=== PATIENT | male | born 1965 | race Caucasian/White ===

== ENCOUNTER 2020-03-05 14:17 | Outpatient (REF) | payer OTHER, SELFPAY | END 2020-03-05 14:18 | disposition home or self-care (01) | LOC: HO.LAB 14:17 | PROVIDERS: Visit Provider Internal Medicine | DX: Z20.828 Contact with and (suspected) exposure to other viral communicable diseases (principal) | CPT/HCPCS: C9803; U0003 ==

== ENCOUNTER → 2021-02-27 09:48 | Outpatient (BNVA) | payer SELFPAY | PROVIDERS: PCP Internal Medicine; Visit Provider Physician Assistant | DX: Z02.79 Encounter for issue of other medical certificate (principal) ==

== ENCOUNTER 2023-01-09 12:37 | Outpatient (AMB) | payer OTHER, SELFPAY ==
--- NOTE | 2023-01-09 13:22 | MHC.OFFWIV ---
Intake Vital Signs 01/09/23 13:23 Weight 234 lb BP 120/70 Blood Pressure Location Rt brachial Position Sitting Pulse 72 Pulse Source Pulse Oximeter Pulse Oximetry (%) 98 Oxygen Delivery Method Room Air Intake Visit Reasons: EST/left rib pain from fall Intake Note: Patient here because he tripped on a rock yesterday and fell on his left side, now left leg is sore and ribs hurt. Patient Tobacco Use Status: Never used Tobacco Allergies No Known Allergies Allergy (Mild, Verified 01/09/23 13:24) NONE Do you need a note to return to daycare/school/sports/work: No HPI HPI Comments History of Present Illness Details This is a 57-year-old male who presents to the office today for sick visit. Patient complaining of left-sided rib pain x1 day. patient states he has chronic left-sided weakness due to a prior injury. e was walking around outside yesterday and tripped on his left foot causing him to fall onto a rock on his left side. Patient has been complaining of left-sided rib pain since then. He denies any shortness of breath. He is otherwise feeling well and denies any other injury. [facility] Family History Mother No problems noted. Father No problems noted. Social History Housing: House Patient Tobacco Use Status: Never used Tobacco e-Cigarette/Vaping Use: Never Used Second Hand Smoke Exposure: No service: No Current occupational status: employed Cognitive needs: No Hearing needs: No Vision needs: No Review of Systems Const All systems reviewed & are unremarkable except as noted in HPI and below Reports no additional complaints Eyes Reports no additional complaints ENT Reports no additional complaints Card Reports no additional complaints Resp Reports no additional complaints GI Reports no additional complaints Reports no additional complaints Musc Reports no additional complaints Skin/Breast Reports system reviewed and no additional complaints, except as documented Neuro Reports no additional complaints Psych Reports no additional complaints Endo Reports no additional complaints Jag/Lymph Reports no additional complaints Aller/Immun Reports no additional complaints Physical Exam Vital Signs: Last Vital Signs Pulse 72 01/09/23 13:23 BP 120/70 01/09/23 13:23 Pulse Ox 98 01/09/23 13:23 Oxygen Delivery Method Room Air 01/09/23 13:23 Const Other: Vital signs reviewed. Constitutional: Non-toxic appearing. No acute distress. Well-developed and well-nourished. HEENT: Normocephalic and atraumatic. Tympanic membranes without erythema, edema, or bulging bilaterally. External auditory canals without erythema or edema bilaterally. Moist mucous membranes. No pharyngeal erythema or exudates. Skin: Warm and dry. No rashes or lesions noted. Neck: Full and painless range of motion. No cervical lymphadenopathy. Cardio: Regular rate and rhythm. No murmurs, gallops, or rubs. No lower extremity edema. No JVD. Pulmonary: No respiratory distress. No accessory muscle usage. Clear to auscultation bilaterally without wheezing, crackles, or rhonchi. Gastrointestinal: Soft, nontender, and nondistended in all 4 quadrants. Normoactive bowel sounds in all 4 quadrants. Genitourinary: No CVA tenderness. Musculoskeletal: Normal range of motion in joints throughout the body. Tenderness to palpation of the left anterior ribs. No ecchymosis appreciated. Neuro: Alert and oriented x4. Cranial nerves 2-12 grossly intact. No focal deficits appreciated. Psych: Normal mood and affect. Assessment & Plan Assessment & Plan (1) Rib pain on left side: Code(s): R07.81 - Pleurodynia Plan: This is a 57-year-old male complaining of pain of his left ribs following a fall that occurred yesterday. Check x-ray of the left ribs and chest x-ray to evaluate for rib fracture. Other differential diagnosis includes contusion of the left ribs. Regardless, management remains the same. Continue with symptomatic management including rest/activity modification, ice to the area, and acetaminophen/ibuprofen for pain management as long as patient has no medical contraindications. 5% lidocaine patch daily. Patient has an incentive spirometer at home. He was instructed on the importance of pulmonary toileting and deep breathing to avoid atelectasis and pneumonia. He was also educated on splinting the area with coughing, sneezing, sleeping, etc.. Patient was advised to follow-up here proceed to the emergency room if for developed worsening/persistent symptoms. Patient verbalized understanding and is agreeable with the plan. Orders: Orders XR ribs LT min 3V w CXR1V Today R07.81 - Pleurodynia Medications: New lidocaine 5% leave on most painful area for up to 12 hrs 1 patch topical DAILY 15 ea 0RF Coding Level of Care Code Est Pt Level 3 (98790) Diagnoses Rib pain on left side R07.81
[2023-01-09 13:23] VITALS: BP 120/70; PULSE 72; O2SAT 98
== END 2023-01-09 14:08 | disposition home or self-care (01) ==
PROVIDERS: PCP Internal Medicine; Visit Provider Physician Assistant Medical
DX: R07.81 Pleurodynia (principal)
CPT/HCPCS: 99213

== ENCOUNTER 2023-01-09 13:43 | Outpatient (REF) | payer OTHER, SELFPAY | END 2023-01-09 13:44 | disposition home or self-care (01) | LOC: HO.HMGCX 13:43 | PROVIDERS: PCP Internal Medicine; Visit Provider Physician Assistant Medical | DX: R07.81 Pleurodynia (principal) | CPT/HCPCS: 71101 ==

== ENCOUNTER → 2023-01-26 13:11 | Outpatient (BNVA) | payer SELFPAY | PROVIDERS: PCP Internal Medicine; Visit Provider Physician Assistant Medical | DX: Z02.79 Encounter for issue of other medical certificate (principal) ==

== ENCOUNTER 2023-02-10 11:32 | Outpatient (AMB) | payer OTHER, SELFPAY ==
[2023-02-10 11:40] VITALS: BP 146/96; PULSE 55; O2SAT 99; BMI 32.4
--- NOTE | 2023-02-10 11:40 | MHC.PC.OV ---
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: No Vessel Slag Worker: Not Required per policy Accompanied by: Self / Same As Patient Allergies No Known Allergies Allergy (Mild, Verified 02/10/23 11:40) NONE Medication List - Last Reconciled 02/10/23 by Christiano Cates MD duloxetine 20 mg PO DAILY gabapentin 300 mg PO TID sildenafil 100 mg PO DAILY PRN tramadol 50 mg PO BID PRN Tobacco use date assessed: 08/04/22 Dental Screening Dental Screen Date: 02/10/23 Did you have a dental visit in the last 12 months?: No Did you have a dental problem in the last 6 months where you did not have access to dental care?: No Was dental information given to patient?: Patient has dentist HPI Right side abdomen pain HPI Details RUQ abd pain for a week [facility] Medical History (Updated 02/10/23 @ 11:59 by Christiano Cates MD) History of fractured rib Family History Mother No problems noted. Father No problems noted. Social History Housing: House Patient Tobacco Use Status: Never used Tobacco e-Cigarette/Vaping Use: Never Used Second Hand Smoke Exposure: No service: No Current occupational status: employed Cognitive needs: No Hearing needs: No Vision needs: No Questionnaire PHQ-9 Over the last 2 weeks, how often have you been bothered by any of the following problems? 1. Little interest or pleasure in doing things: not at all 2. Feeling down, depressed, or hopeless: not at all 3. Trouble falling or staying asleep, or sleeping too much: not at all 4. Feeling tired or having little energy: not at all 5. Poor appetite or overeating: not at all 6. Feeling bad about yourself - or that you are a failure or have let yourself or your family down: not at all 7. Trouble concentrating on things, such as reading the newspaper or watching television: not at all 8. Moving or speaking so slowly that other people could have noticed. Or the opposite - being so fidgety or restless that you have been moving around a lot more than usual: not at all 9. Thoughts that you would be better off or of hurting yourself in some way: not at all Total score: 0 Depression Screening Interpretation: Negative Depression Screening Done: Yes 66624 - PHQ-9 Billing: Yes Source: Developed by Drs. Ean Rowan, Emani Price, Brock Briseno and colleagues, with an educational han from [email or web address] Thrive Questionnaire Date Thrive assessed: 08/04/22 AUDIT C Alcohol Use Questionnaire (AUDIT-C) 1. How often do you have a drink containing alcohol?: Never Total Score: 0 Score Reviewed/Action Taken: Yes ZORAIDA-7 AMB Questionnaire ZORAIDA-7 Date ZORAIDA - 7 assessed: 08/04/22 Source: Developed by Drs. Ean Rowan, Emani Price, Brock Briseno and colleagues, with an educational han from [email or web address]. Review of Systems Const Denies chills, Denies headache(s) and Denies weight loss ENT Denies headache(s) Card Denies chest pain, Denies syncope, Denies irregular heart rhythm and Denies dyspnea Resp Denies chest congestion, Denies cough and Denies dyspnea GI Denies change in stool character, Denies nausea and Denies vomiting Musc Denies deformity and Denies joint swelling Neuro Denies syncope and Denies headache(s) Physical exam (Primary Care) Vital Signs: Last Vital Signs Pulse 55 02/10/23 11:40 BP 146/96 H 02/10/23 11:40 Pulse Ox 99 02/10/23 11:40 Oxygen Delivery Method Room Air 02/10/23 11:40 BMI result Body Mass Index 32.4 Tobacco/Smoking Status: Tobacco use Status Tobacco use date assessed 08/04/22 02/10/23 11:46 Patient Tobacco Use Status Never used Tobacco 02/10/23 11:46 e-Cigarette/Vaping Use Never Used 02/10/23 11:46 PHQ-9: PHQ-9 Score PHQ-9: Total score 0 02/10/23 11:46 Depression Screening Interpretation: Negative Thrive Assessment: Date of Thrive Assessment Date Thrive assessed 08/04/22 02/10/23 11:46 Const General: cooperative, comfortable, no acute distress and alert Neck Neck: Yes no lymphadenopathy Thyroid: Thyroid normal Resp Effort & Inspection: normal respiratory effort Auscultation: clear to auscultation bilaterally Percussion: percussion normal Cardio Jugular venous distension: no JVD Palpation: normal PMI Rate: regular rate Rhythm: regular rhythm Heart sounds: S1 normal heart sound present and S2 normal heart sound present GI Inspection: Yes normal to inspection Palpation (GI): No hepatosplenomegaly present Skin General skin exam: no rashes or lesions noted Extrem General: Yes no clubbing, cyanosis or edema Assessment and Plan Assessment & Plan (1) Abdominal pain: Code(s): R10.9 - Unspecified abdominal pain Plan: US ordered Orders: Orders US abdomen complete Today R10.9 - Unspecified abdominal pain Coding Level of Care Code Est Pt Level 3 (76916) Diagnoses Abdominal pain R10.9
== END 2023-02-10 11:58 | disposition home or self-care (01) ==
PROVIDERS: PCP Internal Medicine; Visit Provider Internal Medicine
DX: R10.9 Unspecified abdominal pain (principal)
CPT/HCPCS: 99213

== ENCOUNTER 2023-02-23 08:24 | Outpatient (REF) | payer OTHER, SELFPAY ==
--- NOTE | ~2023-02-23 | US_ITS ---
EXAMINATION: US ABDOMEN COMPLETE CLINICAL INFORMATION: Unspecified abdominal pain. COMPARISON: None available. TECHNIQUE: Real-time imaging of the abdominal viscera. FINDINGS: PANCREAS: Normal. ABDOMINAL AORTA: The proximal, mid, and distal segments are normal in caliber. INFERIOR VENA CAVA: Visualized portions are normal. LIVER: Normal. The liver is normal in size. The liver contour is normal. Parenchymal echogenicity is normal. No focal hepatic lesion. There is no intrahepatic biliary duct dilatation seen. GALLBLADDER: There are multiple echogenic mobile gallstones. The largest gallstone measures 1.3 x 0.9 x 1.3 cm and 1.4 x 0.8 x 1.4). Gallbladder wall is thickened measuring 0.43). There is no focal tenderness by ultrasound probe. COMMON BILE DUCT: Normal in caliber measuring 0.58 cm in diameter. RIGHT KIDNEY: There are multiple echogenic stones with the largest in midpole measuring 0.4 x 0.4 x 0.3 cm and lower pole measuring 0.4 x 0.4 x 0.4 cm. The kidney measures 13.1 cm in maximum dimension. LEFT KIDNEY: There are multiple echogenic stones the largest in the lower pole measuring 0.5 x 0.7 x 0.6 cm and 0.5 x 0.4 x 0.3 cm. There is anechoic cyst lower pole measuring 1.1 x 0.9 x 0.9 cm. The kidney measures 12.8 cm in maximum dimension. There is mild hydronephrosis.. SPLEEN: Normal. The spleen measures 10.5 cm in maximum dimension. FREE FLUID: None. US/US abdomen complete IMPRESSION: 1. Multiple echogenic gallstones with mild wall thickening. There is no tenderness in right upper quadrant by ultrasound probe. 2. Bilateral echogenic renal calculi without caliectasis. There is mild hydronephrosis left kidney. 3. There is a anechoic cyst lower pole left kidney measuring 1.1 cm. 4. Rest of the abdominal ultrasound is unremarkable.
== END 2023-02-23 08:25 | disposition home or self-care (01) ==
LOC: HO.HMGCX 08:24
PROVIDERS: PCP Internal Medicine; Visit Provider Internal Medicine
DX: R10.9 Unspecified abdominal pain (principal)
CPT/HCPCS: 76700

== ENCOUNTER 2023-04-13 09:28 | Outpatient (AMB) | payer OTHER, SELFPAY ==
[2023-04-13 09:32] VITALS: BP 126/70; PULSE 70; O2SAT 98; BMI 32.8
--- NOTE | 2023-04-13 09:32 | MHC.PC.OV ---
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 Required: No Certified Nurses Aide: Not Required per policy Accompanied by: Self / Same As Patient Allergies No Known Allergies Allergy (Mild, Verified 04/13/23 09:32) NONE Medication List - Last Reconciled 04/13/23 by Christiano Cates MD duloxetine 20 mg PO DAILY gabapentin 300 mg PO TID sildenafil 100 mg PO DAILY PRN tramadol 50 mg PO BID PRN Tobacco use date assessed: 08/04/22 Dental Screening Dental Screen Date: 04/13/23 Did you have a dental visit in the last 12 months?: Yes Did you have a dental problem in the last 6 months where you did not have access to dental care?: No Was dental information given to patient?: Patient has dentist HPI Follow Up HPI Details cervical fusion with chronic symptoms; had his GB removed in [place]; wants to see a patient services representative in [place] for chest pain [facility] Medical History History of fractured rib Family History Mother No problems noted. Father No problems noted. Social History Housing: [place] Patient Tobacco Use Status: Never used Tobacco e-Cigarette/Vaping Use: Never Used Second Hand Smoke Exposure: No service: No Current occupational status: employed Cognitive needs: No Hearing needs: No Vision needs: No Questionnaire PHQ-9 Over the last 2 weeks, how often have you been bothered by any of the following problems? 1. Little interest or pleasure in doing things: not at all 2. Feeling down, depressed, or hopeless: not at all 3. Trouble falling or staying asleep, or sleeping too much: not at all 4. Feeling tired or having little energy: not at all 5. Poor appetite or overeating: not at all 6. Feeling bad about yourself - or that you are a failure or have let yourself or your family down: not at all 7. Trouble concentrating on things, such as reading the newspaper or watching television: not at all 8. Moving or speaking so slowly that other people could have noticed. Or the opposite - being so fidgety or restless that you have been moving around a lot more than usual: not at all 9. Thoughts that you would be better off or of hurting yourself in some way: not at all Total score: 0 Depression Screening Interpretation: Negative Depression Screening Done: Yes 35004 - PHQ-9 Billing: Yes Source: Developed by Drs. Ean Rowan, Emani Price, Brock Briseno and colleagues, with an educational han from [employer]. Thrive Questionnaire Date Thrive assessed: 04/13/23 I am a: Patient What is your living situation today?: I have a steady place to live Within the past 12 months, did the food you bought not last and you didn't have the money to get more?: Never true Within the past 12 months, did you worry whether your food would run out before you got money to buy more?: Never true Do you have trouble paying for medicines?: No Do you have trouble getting transportation to medical appointments?: No Do you have trouble paying your heating and electricity bill?: No Do you have trouble taking care of your child, family member or friend?: No Do you have trouble with day-to-day activities such as bathing, preparing meals, shopping, managing finances, etc.?: No Are you currently unemployed and looking for a job?: No Are you interested in more education?: No Please select the resources that you would like help with: None AUDIT C Alcohol Use Questionnaire (AUDIT-C) 1. How often do you have a drink containing alcohol?: Never Total Score: 0 Score Reviewed/Action Taken: Yes ZORAIDA-7 AMB Questionnaire ZORAIDA-7 Date ZORAIDA - 7 assessed: 04/13/23 Feeling nervous, anxious, or on edge: 0 = Not at all Not being able to stop or control worryin = Not at all Worrying too much about different things: 0 = Not at all Trouble relaxin = Not at all Being so restless that it is hard to sit still: 0 = Not at all Becoming easily annoyed or irritable: 0 = Not at all Feeling afraid as if something awful might happen: 0 = Not at all Total ZORAIDA-7 score (0-4 normal; 5-9 mild; 10-14 moderate; 15-21 severe): 0 Source: Developed by Drs. Ean Rowan, Emani Price, Brock Briseno and colleagues, with an educational han from [employer]. ZORAIDA-7 Assessment Billing ZORAIDA-7 Assessment Tool: ZORAIDA-7 Assessment 31944 Review of Systems Const Denies chills, Denies headache(s) and Denies weight loss ENT Denies headache(s) Card Reports chest pain, Denies syncope, Denies irregular heart rhythm and Denies dyspnea Resp Denies chest congestion, Denies cough and Denies dyspnea GI Denies abdominal pain, Denies change in stool character, Denies nausea and Denies vomiting Musc Denies deformity and Denies joint swelling Neuro Denies syncope and Denies headache(s) Physical exam (Primary Care) Vital Signs: Last Vital Signs Pulse 70 04/13/23 09:32 BP 126/70 04/13/23 09:32 Pulse Ox 98 04/13/23 09:32 Oxygen Delivery Method Room Air 04/13/23 09:32 BMI result Body Mass Index 32.8 Tobacco/Smoking Status: Tobacco use Status Tobacco use date assessed 08/04/22 04/13/23 09:34 Patient Tobacco Use Status Never used Tobacco 04/13/23 09:34 e-Cigarette/Vaping Use Never Used 04/13/23 09:34 PHQ-9: PHQ-9 Score PHQ-9: Total score 0 04/13/23 09:38 Depression Screening Interpretation: Negative Thrive Assessment: Date of Thrive Assessment Date Thrive assessed 04/13/23 04/13/23 09:34 Const General: cooperative, comfortable, no acute distress and alert Neck Neck: Yes no lymphadenopathy Thyroid: Thyroid normal Resp Effort & Inspection: normal respiratory effort Auscultation: clear to auscultation bilaterally Percussion: percussion normal Cardio Jugular venous distension: no JVD Palpation: normal PMI Rate: regular rate Rhythm: regular rhythm Heart sounds: S1 normal heart sound present and S2 normal heart sound present GI Inspection: Yes normal to inspection Palpation (GI): No hepatosplenomegaly present Skin General skin exam: no rashes or lesions noted Extrem General: Yes no clubbing, cyanosis or edema Assessment and Plan Assessment & Plan (1) Cervical vertebral fusion: Code(s): M43.22 - Fusion of spine, cervical region Plan: cont with same rx Orders: Orders Lipid Panel Today E78.5 - Hyperlipidemia, unspecified Complete Blood Count Auto Diff Today D64.9 - Anemia, unspecified Comprehensive [place]. Panel Fast Today N28.9 - Disorder of kidney and ureter, unspecified Prostate Specific Antigen Scr Today Z00.00 - Encounter for general adult medical examination without abnormal findings Thyroid Stimulating Hormone Today E03.9 - Hypothyroidism, unspecified Coding Level of Care Code Est Pt Level 3 (32827) Diagnoses Cervical vertebral fusion M43.22 Additional Codes ZORAIDA-7 Assessment Billing - ZORAIDA-7 Assessment Tool: ZORAIDA-7 Assessment 37272 ([id number])
== END 2023-04-13 09:50 | disposition home or self-care (01) ==
PROVIDERS: PCP Internal Medicine; Visit Provider Internal Medicine
DX: M43.22 Fusion of spine, cervical region (principal)
CPT/HCPCS: 99213

== ENCOUNTER 2023-06-30 13:25 | Outpatient (AMB) | payer OTHER, SELFPAY ==
[2023-06-30 13:32] VITALS: BP 136/80; PULSE 57; TEMP 36.7; O2SAT 97; BMI 32.7
--- NOTE | 2023-06-30 13:32 | MHC.OFFWIV ---
Intake Vital Signs 06/30/23 13:32 Height 6 ft Weight 241 lb 4 oz BMI 32.7 BP 136/80 Blood Pressure Location Rt brachial Position Sitting Pulse 57 Pulse Source Pulse Oximeter Temp 98.1 F Temp Source Oral Pulse Oximetry (%) 97 Oxygen Delivery Method Room Air Intake Visit Reasons: right ear pain,sore throat,fever and chills Intake Note: Pt presents to the office today for c/o right ear pain, sore throat, headache, fever and chills x12 days. Patient Tobacco Use Status: Never used Tobacco Allergies No Known Allergies Allergy (Mild, Verified 06/30/23 13:58) NONE Medication List - Last Reconciled 06/30/23 by Marino Green MD duloxetine 20 mg PO DAILY gabapentin 300 mg PO TID sildenafil 100 mg PO DAILY PRN tramadol 50 mg PO BID PRN HPI right ear pain,sore throat,fever and chills HPI Details Patient presents for a sick visit. Reporting symptoms of sinus congestion, sore throat and difficulty swallowing. Low-grade fever. No family member is sick. No recent travel. Patient reports symptoms of malaise and fatigue. [facility] Medical History History of fractured rib Family History Mother No problems noted. Father No problems noted. Social History Housing: House Patient Tobacco Use Status: Never used Tobacco e-Cigarette/Vaping Use: Never Used Second Hand Smoke Exposure: No service: No Current occupational status: employed Cognitive needs: No Hearing needs: No Vision needs: No Physical Exam Vital Signs: Last Vital Signs Temp 98.1 F 06/30/23 13:32 Pulse 57 06/30/23 13:32 BP 136/80 06/30/23 13:32 Pulse Ox 97 06/30/23 13:32 Oxygen Delivery Method Room Air 06/30/23 13:32 BMI result Body Mass Index 32.7 Const General: cooperative and healthy appearing Nutritional Appearance: well nourished Orientation/consciousness: patient oriented x3 Limitations: no limitations HEENT Head: Yes normal to inspection Eyes General: appearance normal, both eyes and all related structures Neck Neck: Yes normal visual inspection Chest Chest palpation & inspection: normal palpation of entire chest wall Resp Effort & Inspection: normal respiratory effort Neuro General: patient oriented x3 Results AMB Rapid Strep AMB Rapid Strep Negative Last Edit by Evie Alfred MA on 06/30/23 13:43 Results Reviewed Results Reviewed: Laboratory Last Values Strep Scn [facility] Negative 06/30/23 13:42 Assessment & Plan Assessment & Plan (1) Upper respiratory tract infection: Code(s): J06.9 - Acute upper respiratory infection, unspecified Plan: Antibiotics ordered. Increase fluid intake. Tylenol for aches and pains. If symptoms worsen, follow-up here for a recheck. Orders: Orders AMB Rapid Strep Screen Today Z13.9 - Encounter for screening, unspecified Coding Level of Care Code Est Pt Level 3 (81721) Diagnoses Upper respiratory tract infection J06.9
== END 2023-06-30 14:51 | disposition home or self-care (01) ==
PROVIDERS: PCP Internal Medicine; Visit Provider Internal Medicine
DX: J06.9 Acute upper respiratory infection, unspecified (principal); J02.9 Acute pharyngitis, unspecified
CPT/HCPCS: 87880; 99213

== ENCOUNTER 2023-08-07 08:41 | Outpatient (AMB) | payer OTHER, SELFPAY ==
[2023-08-07 08:48] VITALS: BP 122/86; PULSE 61; O2SAT 98; BMI 31.9
--- NOTE | 2023-08-07 08:48 | MHC.PC.OV ---
Vital Signs 08/07/23 08:48 Height 6 ft Weight 235 lb BMI 31.9 BP 122/86 Blood Pressure Location Lt brachial Position Sitting Pulse 61 Pulse Source Pulse Oximeter Pulse Oximetry (%) 98 Oxygen Delivery Method Room Air Intake Visit Reasons: Annual Exam Intake Note: Patient is here today for a physical. 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 Accompanied by: Self / Same As Patient Allergies No Known Allergies Allergy (Mild, Verified 08/07/23 08:54) NONE Medication List - Last Reconciled 08/07/23 by Christiano Cates MD gabapentin 300 mg PO TID sildenafil 100 mg PO DAILY PRN tramadol 50 mg PO BID PRN Tobacco use date assessed: 08/07/23 Dental Screening Dental Screen Date: 08/07/23 Did you have a dental visit in the last 12 months?: No Did you have a dental problem in the last 6 months where you did not have access to dental care?: No HPI Annual Exam HPI Details has paroxysmal afib and scheduled for ablation at [facility]. neck and shoulder pain from a cervical injury [facility] Medical History History of fractured rib Family History Mother No problems noted. Father No problems noted. Social History Housing: House Patient Tobacco Use Status: Never used Tobacco e-Cigarette/Vaping Use: Never Used Second Hand Smoke Exposure: No service: No Current occupational status: employed Cognitive needs: No Hearing needs: No Vision needs: No Questionnaire PHQ-9 Over the last 2 weeks, how often have you been bothered by any of the following problems? 1. Little interest or pleasure in doing things: more than half the days 2. Feeling down, depressed, or hopeless: nearly every day 3. Trouble falling or staying asleep, or sleeping too much: more than half the days 4. Feeling tired or having little energy: nearly every day 5. Poor appetite or overeating: not at all 6. Feeling bad about yourself - or that you are a failure or have let yourself or your family down: more than half the days 7. Trouble concentrating on things, such as reading the newspaper or watching television: nearly every day 8. Moving or speaking so slowly that other people could have noticed. Or the opposite - being so fidgety or restless that you have been moving around a lot more than usual: not at all 9. Thoughts that you would be better off or of hurting yourself in some way: not at all Total score: 15 Depression Screening Interpretation: Positive Depression Screening Done: Yes 49600 - PHQ-9 Billing: Yes Source: Developed by Drs. Ean Rowan, Emani Price, Brock Briseno and colleagues, with an educational han from [employer]. Thrive Questionnaire Date Thrive assessed: 08/07/23 I am a: Patient What is your living situation today?: I have a steady place to live Within the past 12 months, did the food you bought not last and you didn't have the money to get more?: Never true Within the past 12 months, did you worry whether your food would run out before you got money to buy more?: Never true Do you have trouble paying for medicines?: No Do you have trouble getting transportation to medical appointments?: No Do you have trouble paying your heating and electricity bill?: No Do you have trouble taking care of your child, family member or friend?: No Do you have trouble with day-to-day activities such as bathing, preparing meals, shopping, managing finances, etc.?: No Are you currently unemployed and looking for a job?: No Are you interested in more education?: No Please select the resources that you would like help with: None THRIVE Score: 0 ZORAIDA-7 AMB Questionnaire ZORAIDA-7 Date ZORAIDA - 7 assessed: 08/07/23 Feeling nervous, anxious, or on edge: 3 = Nearly every day Not being able to stop or control worryin = Not at all Worrying too much about different things: 0 = Not at all Trouble relaxin = Nearly every day Being so restless that it is hard to sit still: 0 = Not at all Becoming easily annoyed or irritable: 3 = Nearly every day Feeling afraid as if something awful might happen: 3 = Nearly every day Total ZORAIDA-7 score (0-4 normal; 5-9 mild; 10-14 moderate; 15-21 severe): 12 Source: Developed by Drs. Ean Rowan, Brock Quevedo Kroenke and colleagues, with an educational han from [employer]. ZORAIDA-7 Assessment Billing ZORAIDA-7 Assessment Tool: ZORAIDA-7 Assessment 92728 Review of Systems Const Denies chills, Denies fatigue, Denies headache(s) and Denies weight loss Eyes Denies change in vision, Denies diplopia and Denies eye pain ENT Denies vertigo, Denies dizziness, Denies headache(s) and Denies nasal discharge Card Denies chest pain, Denies rapid heart rate and Denies dyspnea on exertion Resp Denies chest congestion, Denies cough, Denies pain with cough and Denies dyspnea on exertion GI Denies abdominal pain, Denies hematochezia and Denies change in bowel habits Musc Denies myalgias, Denies arthralgias and Denies joint swelling Skin/Breast Denies lesions and Denies unusual bruising Neuro Denies vertigo, Denies dizziness, Denies headache(s) and Denies focal weakness Endo Denies fatigue Physical exam (Primary Care) Vital Signs: Last Vital Signs Pulse 61 08/07/23 08:48 BP 122/86 08/07/23 08:48 Pulse Ox 98 08/07/23 08:48 Oxygen Delivery Method Room Air 08/07/23 08:48 BMI result Body Mass Index 31.9 Tobacco/Smoking Status: Tobacco use Status Tobacco use date assessed 08/07/23 08/07/23 08:54 Patient Tobacco Use Status Never used Tobacco 08/07/23 08:54 e-Cigarette/Vaping Use Never Used 08/07/23 08:54 PHQ-9: PHQ-9 Score PHQ-9: Total score 15 08/07/23 08:54 Depression Screening Interpretation: Positive Thrive Assessment: Date of Thrive Assessment Date Thrive assessed 08/07/23 08/07/23 08:54 Const General: cooperative, healthy appearing and no acute distress Orientation/consciousness: oriented to person, oriented to place and oriented to time [facility] Head: Yes normal to inspection, Yes normocephalic and Yes atraumatic Mouth: Normal oral and palatal mucosa present and tongue normal Throat: Yes posterior oropharynx normal and Yes uvula midline Eyes General: appearance normal, both eyes and all related structures Neck Neck: Yes normal visual inspection, Yes full ROM and Yes no lymphadenopathy Thyroid: Thyroid normal Carotids: normal carotid upstroke Chest Chest palpation & inspection: normal inspection of the chest Resp Effort & Inspection: normal respiratory effort and able to speak in complete sentences Auscultation: clear to auscultation bilaterally Cardio Jugular venous distension: no JVD Palpation: normal PMI Rate: regular rate Rhythm: regular rhythm Heart sounds: S1 normal heart sound present and S2 normal heart sound present GI Inspection: Yes normal to inspection Palpation (GI): Soft to palpation and No hepatosplenomegaly present Auscultation: normal bowel sounds General: Yes no CVA tenderness Back/Spine/Pelvis Back: no CVA tenderness Skin General skin exam: no rashes or lesions noted Neuro General: oriented to person, oriented to place and oriented to time Extrem General: Yes normal to inspection and Yes full ROM Assessment and Plan Assessment & Plan (1) Physical exam: Code(s): Z00.00 - Encounter for general adult medical examination without abnormal findings Plan: do labs (2) Cervical vertebral fusion: Code(s): M43.22 - Fusion of spine, cervical region Plan: cont rx; stable (3) AF (paroxysmal atrial fibrillation): Code(s): I48.0 - Paroxysmal atrial fibrillation Plan: per cardiology Orders: Orders Lipid Panel Today Z13.220 - Encounter for screening for lipoid disorders Complete Blood Count Auto Diff Today Z13.0 - Encounter for screening for diseases of the blood and blood-forming organs and certain disorders involving the immune mechanism Comprehensive [place]. Panel Fast Today Z13.9 - Encounter for screening, unspecified Prostate Specific Antigen Scr Today Z00.00 - Encounter for general adult medical examination without abnormal findings Thyroid Stimulating Hormone Today Z13.29 - Encounter for screening for other suspected endocrine disorder Coding Level of Care Code Est Pt Prev Care 40-64y(35545) Diagnoses Physical exam Z00.00 Cervical vertebral fusion M43.22 AF (paroxysmal atrial fibrillation) I48.0 Additional Codes ZORAIDA-7 Assessment Billing - ZORAIDA-7 Assessment Tool: ZORAIDA-7 Assessment [id number] ([id number])
== END 2023-08-07 10:43 | disposition home or self-care (01) ==
PROVIDERS: Visit Provider Internal Medicine
DX: Z00.00 Encounter for general adult medical examination without abnormal findings (principal); M43.22 Fusion of spine, cervical region; I48.0 Paroxysmal atrial fibrillation
CPT/HCPCS: 99396

== ENCOUNTER 2023-10-02 10:58 | Outpatient (AMB) | payer OTHER, SELFPAY ==
--- NOTE | 2023-10-02 11:35 | AM.OFFWIN_ITS ---
Intake Vital Signs 10/02/23 11:36 Height 6 ft Weight 243 lb 2 oz BMI 33.0 BP 130/74 Blood Pressure Location Rt brachial Position Sitting Pulse 90 Pulse Source Pulse Oximeter Temp 98.2 F Temp Source Temporal Artery Scan Pulse Oximetry (%) 98 Oxygen Delivery Method Room Air Intake Visit Reasons: EP LT shoulder Injury Intake Note: patient is here for left shoulder injury Patient Tobacco Use Status: Never used Tobacco Allergies No Known Allergies Allergy (Mild, Verified 10/02/23 11:36) NONE Do you need a note to return to daycare/school/sports/work: No HPI HPI Comments History of Present Illness Details 58 y/o male patient who presents to walk in clinic with c/o left shoulder pain. Pt reports injuring shoulder yesterday when he was lifting metal sheet at work. H/o right shoulder Tendon Tear with repair back in 07/2023 by [facility]. Pt feels like he might have a Tear on the left shoulder. He is currently on Tramadol due to Recent Neck Surgery. Pt is going on vacation to [place] [facility] for [place] week with family. He would like to wait for imaging, until he returns, and would like to f/u with [facility]. He is planning on calling [facility] when he gets back from Vacation. [facility] Medical History History of fractured rib Family History Mother No problems noted. Father No problems noted. Social History Housing: House Patient Tobacco Use Status: Never used Tobacco e-Cigarette/Vaping Use: Never Used Second Hand Smoke Exposure: No service: No Current occupational status: employed Cognitive needs: No Hearing needs: No Vision needs: No Review of Systems Const All systems reviewed & are unremarkable except as noted in HPI and below Physical Exam Vital Signs: Last Vital Signs Temp 98.2 F 10/02/23 11:36 Pulse 90 10/02/23 11:36 BP 130/74 10/02/23 11:36 Pulse Ox 98 10/02/23 11:36 Oxygen Delivery Method Room Air 10/02/23 11:36 BMI result Body Mass Index 33.0 Const General: comfortable and no acute distress Orientation/consciousness: patient oriented x3 Skin General skin exam: no rashes or lesions noted Neuro General: patient oriented x3, gait normal and moves all extremities Extrem Right upper extremity: normal to inspection and full ROM Left upper extremity: normal to inspection and shoulder/upper arm Details: tenderness Location: of the clavicle, of the proximal humerus and of the scapula and abnormal ROM Details: pain with active ROM Details: in ADduction, in ABduction, in extension and in flexion and pain with passive ROM Details: in ADduction, in ABduction, in extension and in flexion; no swelling, no ecchymosis, no crepitus and no deformity Psych Speech and movement: Normal speech and movement present Assessment & Plan Assessment & Plan (1) Left shoulder strain: Code(s): S46.912A - Strain of unspecified muscle, fascia and tendon at shoulder and upper arm level, left arm, initial encounter Qualifiers: Encounter type: initial encounter Qualified Code(s): S46.912A - Strain of unspecified muscle, fascia and tendon at shoulder and upper arm level, left arm, initial encounter Plan: DDx's: Strain/sprain vs Tear vs Fracture Continue on Tramadol Prescribed Ibuprofen Prescribed Muscle relaxants Shoulder immobilizer/sling Medications: New metaxalone 800 mg PO TID 10 tabs 0RF S46.912A - Strain of unspecified muscle, fascia and tendon at shoulder and upper arm level, left arm, initial encounter acetaminophen 1,000 mg (2 x 500 mg) PO Q6H PRN 30 caps 0RF pain (scale score 4- 6) S46.912A - Strain of unspecified muscle, fascia and tendon at shoulder and upper arm level, left arm, initial encounter Coding Level of Care Code Est Pt Level 3 (68761) Diagnoses Strain of left shoulder, initial encounter S46.912A Encounter type: initial encounter Time Spent (min) 15
[2023-10-02 11:36] VITALS: BP 130/74; PULSE 90; TEMP 36.8; O2SAT 98; BMI 33.0
== END 2023-10-02 12:24 | disposition home or self-care (01) ==
PROVIDERS: PCP Internal Medicine; Visit Provider Nurse Practitioner Family
DX: S46.912A Strain of unspecified muscle, fascia and tendon at shoulder and upper arm level, left arm, initial encounter (principal)
CPT/HCPCS: 99213

== ENCOUNTER 2023-10-19 07:55 | Outpatient (REF) | payer BC, SELFPAY ==
[2023-10-19 08:02] LABS: MANUAL DIFF FLAG NO
[2023-10-19 08:54] LABS: Basophils Percent Auto 0.1 % (0-2); Hematocrit 48.4 % (42.0-52.0); Hemoglobin 16.2 g/dl (14.0-18.0); Imm Gran Abs Auto 0.02 X10*3/uL (0.00-0.03); Imm Gran Pct Auto 0.2 % (0.0-0.4); Lymphocytes Absolute Auto 1.4 X10*3/uL (1.2-4.9); Lymphocytes Percent Auto 15.3 % (20-40); Mean Corpuscular HGB Conc 33.5 g/dl (31.0-36.0); Mean Corpuscular Hemoglobin 29.5 pg (27.0-33.0); Mean Corpuscular Volume 88.2 fL (80.0-98.0); Mean Platelet Volume 10.4 fL (9.4-12.4); Monocytes Absolute Auto 0.8 X10*3/uL (0.1-1.2); Monocytes Percent Auto 8.6 % (2-11); Neutrophils Absolute Auto 6.8 x10*3/uL (2.0-8.3); Neutrophils Percent Auto 75.8 % (45-73); Platelet Count 310 X10*3/uL (160-400); Red Blood Count 5.49 X10*6/uL (4.60-5.80); Red Cell Distribution Width 13.7 % (11.0-16.0)
[2023-10-19 09:35] LABS: Alanine Aminotransferase 29 U/L (0-40); Albumin Level 4.7 g/dL (3.5-5.0); Alkaline Phosphatase 122 U/L (39-117); Anion Gap 13 (12-20); Aspartate Amino Transferase 21 U/L (5-37); Bilirubin Total 1.1 mg/dL (0.0-1.0); Blood Urea Nitrogen 24 mg/dL (9-16); Calcium 10.7 mg/dL (8.4-10.2); Carbon Dioxide 29 mmol/L (22-29); Chloride 103 mmol/L (96-108); Cholesterol 230 mg/dL (<200); Estimated Glomerular Filt Rate > 60; Glucose Fasting 111 mg/dL (60-99); HDL Cholesterol 46 mg/dL (>40); LDL Cholesterol Calculated 161 mg/dL (<100); Potassium 5.1 mmol/L (3.3-5.1); Sodium 140 mmol/L (135-145); Total Protein 7.6 g/dL (6.5-8.0); Triglycerides 117 mg/dL (<150)
[2023-10-19 11:12] LABS: Prostate Specific Antigen Scr 0.17 ng/mL (<0.05-4.0)
== END 2023-10-19 07:56 | disposition home or self-care (01) ==
LOC: HO.LAB 07:55
PROVIDERS: PCP Internal Medicine; Visit Provider Internal Medicine
DX: Z00.00 Encounter for general adult medical examination without abnormal findings (principal); N28.9 Disorder of kidney and ureter, unspecified; Z13.0 Encounter for screening for diseases of the blood and blood-forming organs and certain disorders involving the immune mechanism; E03.9 Hypothyroidism, unspecified; E78.5 Hyperlipidemia, unspecified; Z12.5 Encounter for screening for malignant neoplasm of prostate
CPT/HCPCS: 36415; 80053; 80061; 84153; 84443; 85025

== ENCOUNTER 2023-10-19 11:27 | Outpatient (AMB) | payer BC, SELFPAY ==
--- NOTE | 2023-10-19 11:36 | A.OFFPC_ITS ---
Vital Signs 10/19/23 11:37 Height 6 ft Weight 233 lb 4 oz BMI 31.6 BP 90/60 Blood Pressure Location Lt brachial Position Sitting Pulse 74 Pulse Source Pulse Oximeter Pulse Oximetry (%) 98 Oxygen Delivery Method Room Air Intake Visit Reasons: ShoulderPain Intake Note: Patient is here to follow up on Left shoulder pain. 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: Not Required per policy Accompanied by: Self / Same As Patient Allergies No Known Allergies Allergy (Mild, Verified 10/19/23 11:36) NONE Medication List - Last Reconciled 10/20/23 by Christiano Cates MD acetaminophen 1,000 mg (2 x 500 mg) PO Q6H PRN apixaban (Eliquis) 5 mg PO BID chlorthalidone 12.5 mg PO QAM cholecalciferol (vitamin D3) 25 mcg PO DAILY gabapentin 300 mg PO TID metaxalone 800 mg PO TID metoprolol succinate ER 25 mg PO BID sacubitril-valsartan 24-26 mg (Entresto) 1 tab PO ONCE sildenafil 100 mg PO DAILY PRN tramadol 50 mg PO BID PRN Tobacco use date assessed: 10/19/23 Dental Screening Dental Screen Date: 08/07/23 HPI ShoulderPain HPI Details injured left shoulder; seeing ortho and has mri scheduled [facility] Medical History History of fractured rib Family History Mother No problems noted. Father No problems noted. Social History Housing: House Patient Tobacco Use Status: Never used Tobacco e-Cigarette/Vaping Use: Never Used Second Hand Smoke Exposure: No service: No Current occupational status: employed Cognitive needs: No Hearing needs: No Vision needs: No Questionnaire Thrive Questionnaire Date Thrive assessed: 08/07/23 ZORAIDA-7 AMB Questionnaire ZORAIDA-7 Date ZORAIDA - 7 assessed: 08/07/23 Source: Developed by Drs. Ean Rowan, Emani Price, Brock Briseno and colleagues, with an educational han from [employer]. Review of Systems Const Denies chills, Denies headache(s) and Denies weight loss ENT Denies headache(s) Card Denies chest pain, Denies syncope, Denies irregular heart rhythm and Denies dyspnea Resp Denies chest congestion, Denies cough and Denies dyspnea GI Denies abdominal pain, Denies change in stool character, Denies nausea and Denies vomiting Musc Denies deformity and Denies joint swelling Neuro Denies syncope and Denies headache(s) Physical exam (Primary Care) Vital Signs: Last Vital Signs Pulse 74 10/19/23 11:37 BP 90/60 10/19/23 11:37 Pulse Ox 98 10/19/23 11:37 Oxygen Delivery Method Room Air 10/19/23 11:37 BMI result Body Mass Index 31.6 Tobacco/Smoking Status: Tobacco use Status Tobacco use date assessed 10/19/23 10/19/23 11:41 Patient Tobacco Use Status Never used Tobacco 10/19/23 11:41 e-Cigarette/Vaping Use Never Used 10/19/23 11:41 Thrive Assessment: Date of Thrive Assessment Date Thrive assessed 08/07/23 10/19/23 11:41 Const General: cooperative, comfortable, no acute distress and alert Neck Neck: Yes no lymphadenopathy Thyroid: Thyroid normal Resp Effort & Inspection: normal respiratory effort Auscultation: clear to auscultation bilaterally Percussion: percussion normal Cardio Jugular venous distension: no JVD Palpation: normal PMI Rate: regular rate Rhythm: regular rhythm Heart sounds: S1 normal heart sound present and S2 normal heart sound present GI Inspection: Yes normal to inspection Palpation (GI): No hepatosplenomegaly present Skin General skin exam: no rashes or lesions noted Extrem General: Yes no clubbing, cyanosis or edema Assessment and Plan Assessment & Plan (1) Right shoulder injury: Code(s): S49.91XA - Unspecified injury of right shoulder and upper arm, initial encounter Plan: as per ortho Coding Level of Care Code Est Pt Level 3 (37942) Diagnoses Right shoulder injury S49.91XA
[2023-10-19 11:37] VITALS: BP 90/60; PULSE 74; O2SAT 98; BMI 31.6
== END 2023-10-19 11:49 | disposition home or self-care (01) ==
PROVIDERS: PCP Internal Medicine; Visit Provider Internal Medicine
DX: S49.91XA Unspecified injury of right shoulder and upper arm, initial encounter (principal)
CPT/HCPCS: 99213

== ENCOUNTER → 2024-02-04 07:27 | Outpatient (BNVA) | payer SELFPAY | PROVIDERS: PCP Internal Medicine; Visit Provider Physician Assistant Medical | DX: Z02.79 Encounter for issue of other medical certificate (principal) ==

== ENCOUNTER 2024-03-22 11:10 | Outpatient (AMB) | payer BC, SELFPAY ==
--- NOTE | 2024-03-22 11:13 | MHC.PC.OV ---
Vital Signs 03/22/24 11:15 Height 6 ft Weight 257 lb 2 oz BMI 34.9 BP 102/76 Blood Pressure Location Lt brachial Position Sitting Pulse 50 Pulse Source Pulse Oximeter Pulse Oximetry (%) 96 Oxygen Delivery Method Room Air Intake Visit Reasons: Medication review Intake Note: Patient is here to follow up on medication review. Pt decline flu shot today. 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: Not Required per policy Accompanied by: Self / Same As Patient Allergies No Known Allergies Allergy (Mild, Verified 03/22/24 11:14) NONE Medication List - Last Reconciled 03/22/24 by Christiano Cates MD acetaminophen 1,000 mg (2 x 500 mg) PO Q6H PRN apixaban (Eliquis) 5 mg PO BID chlorthalidone 12.5 mg PO QAM cholecalciferol (vitamin D3) 25 mcg PO DAILY gabapentin 300 mg PO TID metaxalone 800 mg PO TID metoprolol succinate ER 25 mg PO BID sacubitril-valsartan 24-26 mg (Entresto) 1 tab PO ONCE sildenafil 100 mg PO DAILY PRN tramadol 50 mg PO BID PRN Tobacco use date assessed: 03/22/24 Dental Screening Dental Screen Date: 08/07/23 HPI Medication review HPI Details has been going to [facility] after a cervical injury and surgery; has residual radiculopathy on leg and on rx; would like to see pain management here in [facility] Medical History (Updated 08/07/23 @ 09:13 by Christiano Cates MD) History of fractured rib Surgical History (Updated 03/22/24 @ 11:18 by MAURICIO Marinelli) History of parathyroid surgery Family History Mother No problems noted. Father No problems noted. Social History Housing: House Patient Tobacco Use Status: Never used Tobacco e-Cigarette/Vaping Use: Never Used Second Hand Smoke Exposure: No service: No Current occupational status: employed Cognitive needs: No Hearing needs: No Vision needs: No Questionnaire Thrive Questionnaire Date Thrive assessed: 08/07/23 ZORAIDA-7 AMB Questionnaire ZORAIDA-7 Date ZORAIDA - 7 assessed: 08/07/23 Source: Developed by Drs. Ean Rowan, Emani Price, Brock Briseno and colleagues, with an educational han from [employer]. Review of Systems Const Denies chills, Denies headache(s) and Denies weight loss ENT Denies headache(s) Card Denies chest pain, Denies syncope, Denies irregular heart rhythm and Denies dyspnea Resp Denies chest congestion, Denies cough and Denies dyspnea GI Denies abdominal pain, Denies change in stool character, Denies nausea and Denies vomiting Musc Denies deformity and Denies joint swelling Neuro Denies syncope and Denies headache(s) Physical exam (Primary Care) Vital Signs: Last Vital Signs Pulse 50 03/22/24 11:15 BP 102/76 03/22/24 11:15 Pulse Ox 96 03/22/24 11:15 Oxygen Delivery Method Room Air 03/22/24 11:15 BMI result Body Mass Index 34.9 Tobacco/Smoking Status: Tobacco use Status Tobacco use date assessed 03/22/24 03/22/24 11:20 Patient Tobacco Use Status Never used Tobacco 03/22/24 11:20 e-Cigarette/Vaping Use Never Used 03/22/24 11:20 Thrive Assessment: Date of Thrive Assessment Date Thrive assessed 08/07/23 03/22/24 11:20 Const General: cooperative, comfortable, no acute distress and alert Neck Neck: Yes no lymphadenopathy Thyroid: Thyroid normal Resp Effort & Inspection: normal respiratory effort Auscultation: clear to auscultation bilaterally Percussion: percussion normal Cardio Jugular venous distension: no JVD Palpation: normal PMI Rate: regular rate Rhythm: regular rhythm Heart sounds: S1 normal heart sound present and S2 normal heart sound present GI Inspection: Yes normal to inspection Palpation (GI): No hepatosplenomegaly present Skin General skin exam: no rashes or lesions noted Extrem General: Yes no clubbing, cyanosis or edema Coding Level of Care Code Est Pt Level 3 (87967) Diagnoses Cervical vertebral fusion M43.22 Assessment & Plan Assessment & Plan (1) Cervical vertebral fusion: Code(s): M43.22 - Fusion of spine, cervical region Category: Medical Plan: referred to pain management Orders: Referrals Pain Management Referral M43.22 - Fusion of spine, cervical region Medications: New oxycodone Partial Fill upon patient request. 5 mg PO Q6H PRN 10 tabs 0RF pain
[2024-03-22 11:15] VITALS: BP 102/76; PULSE 50; O2SAT 96; BMI 34.9
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
--- OUTSIDE RECORDS SUMMARY | 2024-03-22 11:29 | XMS_ITS | Continuity of Care Document ---
Author Organization [facility] Address [address] [place] [address]- Care Team Providers Care Delicatessen Slicer Name Role Phone Darryn LOGAN, Christiano Jolly Primary Care Physician [place] [facility] Date[place]s): 02/11/24 - 03/12/24 [facility] [address] [place] [id number] Attending Physician: Admtr, [id number] Admitting Physician: AdmtrFaustino Referring Physician: Admtr, Ar8 Encounter Type: Triage Allergies, Adverse Reactions, Alerts No Known Medication Allergies Immunizations Given and Recorded Vaccine Date Status Refusal Reason SARS-CoV-2 (COVID-19) mRNA BNT-162b2 vac 07/17/20 Recorded SARS-CoV-2 (COVID-19) mRNA BNT-162b2 vac 06/23/20 Recorded Medications Aleve = 220 mg, By Mouth, Every 12 hours, 0 Refills, Maintenance, 08/19/22 1:14:00 PM EDT, Partial fill upon patient request if the prescription is for a schedule II opioid drug. Start Date: 08/19/22 Status: Ordered Repeat number: 1 Colace sodium 100 mg oral capsule 100 mg, 1, capsule, By Mouth, 2 times a day, # 60 capsule, Refills 0, Tot. Refills 0, Maintenance, 07/08/22 5:05:00 PM EDT, Route to Pharmacy Electronically, [facility], Partial fill uponpatient request if the prescription is for a schedule II opioid drug., 183, cm, 07/08/22 4:34:00 EDT, Height, 111, kg, 07/03/22 16:35:00 EDT, Dry Weight Start Date: 07/08/22 Status: Ordered Quantity: 60.0 Unit: capsule Repeat number: 1 gabapentin 600 mg oral tablet 1 tablet = 600 mg, By Mouth, 4 times a day, # 360 tablet, 3 Refills, Maintenance, 02/11/24 1:38:00 PM EST, Tablet, [id number], Partial fill upon patient request if the prescription is for a schedule II opioid drug., 184, cm, 02/11/24 13:09:00 EST, Height, 112.2, kg, 07/18/22 11:12:00 EDT, Dry Weight Start Date: 02/11/24 Status: Ordered Quantity: 360.0 Unit: tablet Repeat number: 4 Left Carbon Fiber AFO Left Carbon Fiber AFO, See Instructions, # 1 kit, Refills 0, Tot. Refills 0, Maintenance, Dx: Incomplete paraplegia, 02/17/23 1:07:00 PM EST, Supply Start Date: 02/17/23 Status: Ordered Quantity: 1.0 Unit: kit Repeat number: 1 oxyCODONE 5 mg oral tablet 5 mg, 1, tablet, By Mouth, Daily, PRN, covering for Dr. Knight, # 6 tablet, Refills 0, Tot. Refills 0, Maintenance, Pain , Severe, 12/30/23 10:47:00 AM EDT, Route to Pharmacy Electronically, [facility] #[id number], Partial fill upon patient request if the prescription is for a schedule II opioid drug., 184, cm, 07/17/23 9:24:00 EDT, Height, 112.2, kg, 07/18/22 11:12:00 EDT, Dry Weight Start Date: 12/30/23 Status: Ordered Quantity: 6.0 Unit: tablet Repeat number: 1 traMADol 50 mg oral tablet 1 tablet = 50 mg, By Mouth, Every 12 hours, PRN Pain , Moderate, # 60 tablet, 5 Refills, Maintenance, 02/11/24 1:43:00 PM EST, [facility] #[id number], 184, cm, 02/11/24 13:09:00 EST, Height, 112.2, kg, 07/18/22 11:12:00 EDT, Dry Weight Start Date: 02/11/24 Status: Ordered Quantity: 60.0 Unit: tablet Repeat number: 6 Problem List Condition Confirmation Course Effective Dates Status Health [facility] Informant Obese class I Confirmed Active Patient Care team information Care Team Personnel Name: Aysha Castillo RN Position: S RN Member Role: Primary Care Nurse Name: Darryn LOGAN, Christiano Jolly Position: Reference Physician Member Role: PCP Address: [address] [place] [address] Telecom: Name: Natasha Melgar RN Position: S RN Member Role: Primary Care Nurse Care Team Related Persons Name: PAM CROWE Insurance Providers Guarantor name: [employer] Health Plan Information #: 1 Payer: HMO [employer] Member Number: [employer] Policy Number: NA Group Number: NA
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
--- OUTSIDE RECORDS SUMMARY | 2024-03-22 11:29 | XMS_ITS ---
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 Name Role Phone KEEGAN BECKETT Primary Care Provider Unavailabl e Insurance Providers: [...] Goyal's Name Patient's Relationship to Policy Goyal FOR[facility]LY [facility] ORGANIZAT [facility] RETIR EMENT Oct 10, 2023 [id number] [phone] NANO ANN PATIENT [employer] POINT OF SERVICE [facility] Oct 04, 2016 [id number] NANO ANN PATIENT CIGNA BEHAVIORAL HEALTH MENTAL HEALTH [facility] Oct 04, 2016 [id number] NANO ANN PATIENT [employer]IG[employer] PHARMACY PRESCRIPT ION [facility] Oct 04, 2016 [id number] [phone] NANO ANN PATIENT Selected Encounter This section includes the information on record at [place] for the Encounter. Date/Time Encounter Type Encounter Description Reason Pro vider Source Jul 06, 2023 11:30 AM Outpatient Encounter [facility] - [facility] Encounter Template Text not used by [place] Plan of Treatment: Future Appointments (+ 6 months) and Future Tests (+/- 45 days) The Plan of Treatment section includes future care activities for the patient from all [place] [facility]. This section includes future appointments and future orders which are active, pending or scheduled. Future Appointments This section includes appointments that were scheduled to occur 6 months from the date of the Encounter, up to a maximum of 20 appointments. The data comes from all [place] treatment facilities. Appointment Date/Time Appointment Type Appointme nt Facility Name Jul 08, 2023 10:00 AM AMBULATORY - PSYCHIATRY [facility] [place] [facility] Jul 28, 2023 08:30 AM AMBULATORY - MEDICINE [place] [facility] [place] [facility] Jul 28, 2023 01:00 PM AMBULATORY - PSYCHIATRY [place] [facility] [place] [facility] Aug 04, 2023 01:00 PM AMBULATORY - PSYCHIATRY [place] [facility] [place] [facility] August 19, 2023 01:00 PM AMBULATORY - PSYCHIATRY [place] [facility] [place] [facility] August 24, 2023 03:00 PM AMBULATORY - PSYCHIATRY [facility] [place] [facility] Sep 11, 2023 08:30 AM AMBULATORY - REHAB MEDICIN E [facility] [place] [facility] Sep 25, 2023 01:00 PM AMBULATORY - PSYCHIATRY [facility] [place] [facility] Sep 28, 2023 03:00 PM AMBULATORY - PSYCHIATRY [facility] [place] [facility] Oct 02, 2023 01:00 PM AMBULATORY - PSYCHIATRY [facility] [place] [facility] Oct 06, 2023 08:00 AM AMBULATORY - MEDICINE [place] [facility] [place] [facility] Oct 06, 2023 09:30 AM AMBULATORY - MEDICINE [place] [facility] [place] [facility] Oct 09, 2023 01:00 PM AMBULATORY - PSYCHIATRY [place] [facility] [place] [facility] Oct 21, 2023 12:30 PM AMBULATORY - PSYCHIATRY [place] [facility] [place] [facility] Oct 21, 2023 12:30 PM AMBULATORY - NONE [facility] Oct 23, 2023 08:30 AM AMBULATORY - REHAB MEDICIN E [place] [facility] [place] [facility] Oct 23, 2023 01:00 PM AMBULATORY - PSYCHIATRY [place] [facility] [facility] Oct 30, 2023 01:00 PM AMBULATORY - PSYCHIATRY [place] [facility] [facility] Nov 13, 2023 11:00 AM AMBULATORY - MEDICINE [place] [facility] [place] [facility] Nov 13, 2023 12:00 PM AMBULATORY - MEDICINE [facility] Active, Pending, and Scheduled Orders This section includes a listing of several types of active, pending, and scheduled orders, including clinic medications orders, diagnostic test orders, procedure orders and consult orders; where the start date of the order is 45 days before the date of the Encounter or 45 days after the date of theEncounter. The data comes from all [place] treatment facilities. Test Date/Time Test Type Test Details Facility Name Jul 28, 2023 12:00 AM Laboratory - Chemi stry Order OCCULT BLOOD FIT X1 SCREEN(IN-HOUSE) STOOL FECES SP [facility] Social History: Smoking Status (Most current) and Tobacco Use (All prior to encounter date) This section includes the most current, and the historical, smoking and tobacco- related health factors from the [place] facility where the Encounter took place. Current Smoking Status This section includes the most current smoking, or tobacco-related health factor, from the [place] facility where the Encounter took place. Date/Time Current Smoking Status Comment Facil ity Feb 21, 2020 10:30 AM [facility] Tobacco Use History This section includes a history of the smoking, or tobacco-related health factors, that were collected on or before the date of the Encounter. The data comes from the [place] facility where the Encounter took place. Date/Time Smoking Status/Tobacco Use Comment F acility Apr 20, 2018 02:11 PM [facility]-TOBACCO [facility] Jan 14, 2017 02:29 PM LIFETIME NON-TOBACCO USER [facility] [place] [facility] August 12, 2010 02:56 PM LIFETIME NON-TOBACCO USER [facility] Encounter Notes: All associated encounter notes This section contains the clinical notes associated to the Encounter. Date/Time Encounter Note(s) Provider Source Jul 20, 2023 09:14 AM ADDENDUM: LOCAL TITLE: Addendum STANDARD TITLE: ADDENDUM DATE OF NOTE: JUL 20, 2023@09:14:15 ENTRY DATE: JUL 20, 2023@09:14:16 AUTHOR: RITIKA REED COSIGNER: URGENCY: STATUS: COMPLETED Vet has seen MH and has a follow up appt scheduled with MH Please call him to schedule a [address] Beckett as he has not been seen since 2019 TY /tanika/ Ritika Reed RN, BSN Primary Care Nurse Hospital Clinic Assistant Signed: 07/20/2023 09:15 Receipt Acknowledged By: 07/20/2023 09:22 /es/ [facility] ========= --- Original Document --- 07/06/23 TELEPHONE NOTE/MENTAL HEALTH: [facility] reports that Mr. Ann is briefly in the [facility] waiting room and asks to establish outpatient [facility] care[facility] Mr. Ann tells [facility] that he is going to primary care. [facility] plans to call him later today and book him for an appointment with an [facility] provider. While he was here, Mr. Ann fills out an [facility] walk-in form and checks off: *I am having excessive worry or fear *I am feeling excessively sad or low *And I am having extreme mood changes. [employer] sends a teams message to PACT RNs alerting them to this information and suggesting that, if he shows up at primary care they could consider utilizing Dr. Alvarado of [facility] or Ms. Mitchell of primary care social work if appropriate. /es/ RASHAD ROBISON, JUSTIN Registered Nurse Signed: 07/06/2023 12:33 Receipt Acknowledged By: 07/07/2023 08:24 /es/ JACE JAMIL, PhD Clinical Psychologist 07/10/2023 11:53 /es/ ELADIA PETERSON ADVANCED DRAMA PROFESSOR 07/06/2023 ADDENDUM STATUS: COMPLETED adding Nurse Hospital Clinic Assistant /es/ MARCIE Shayy TINY REGISTERED NURSE Signed: 07/06/2023 14:00 Receipt Acknowledged By: 07/20/2023 09:13 /loreto Reed RN, BSN Primary Care Nurse Hospital Clinic Assistant RITIKA REED [place] [facility] [facility] Jul 06, 2023 01:59 PM ADDENDUM: LOCAL TITLE: Addendum STANDARD TITLE: ADDENDUM DATE OF NOTE: JUL 06, 2023@13:59:38 ENTRY DATE: JUL 06, 2023@13:59:38 AUTHOR: MARCIE FRANKS EXP COSIGNER: URGENCY: STATUS: COMPLETED adding Nurse Hospital Clinic Assistant /es/ MARCIE Shayy TINY REGISTERED NURSE Signed: 07/06/2023 14:00 Receipt Acknowledged By: 07/20/2023 09:13 /tanika/ Ritika Reed RN, BSN Primary Care Nurse Hospital Clinic Assistant ========= --- Original Document --- 07/06/23 TELEPHONE NOTE/MENTAL HEALTH: [facility] reports that Mr. Ann is briefly in the [facility] [place] and asks to establish outpatient [facility] care[facility] Mr. Ann tells [facility] that he is going to primary care. [facility] plans to call him later today and book him for an appointment with an [facility] provider. While he was here, Mr. Ann fills out an [facility] walk-in form and checks off: *I am having excessive worry or fear *I am feeling excessively sad or low *And I am having extreme mood changes. Auto Cleaner sends a teams message to PACT RNs alerting them to this information and suggesting that, if he shows up at primary care they could consider utilizing Dr. Alvarado of [facility] or Ms. Mitchell of primary care social work if appropriate. /es/ RASHAD ROBISON, RN Registered Nurse Signed: 07/06/2023 12:33 Receipt Acknowledged By: 07/07/2023 08:24 /es/ JACE JAMIL, PhD Clinical Psychologist 07/10/2023 11:53 /es/ ELADIA PETERSON ADVANCED DRAMA PROFESSOR MARCIE FRANKS [place] [facility] [facility] Jul 06, 2023 12:29 PM MENTAL HEALTH TELE PHONE ENCOUNTER NOTE: LOCAL TITLE: TELEPHONE NOTE/MENTAL HEALTH STANDARD TITLE: MENTAL HEALTH TELEPHONE ENCOUNTER NOTE DATE OF NOTE: JUL 06, 2023@12:29 ENTRY DATE: JUL 06, 2023@12:29:13 AUTHOR: RASHAD ROBISON EXP COSIGNER: URGENCY: STATUS: COMPLETED TELEPHONE NOTE/MENTAL HEALTH Has ADDENDA [facility] reports that Mr. Ann is briefly in the [facility] waiting room and asks to establish outpatient [facility] care[facility] plans to call him later today and book him for an appointment with an [facility] provider. While he was here, Mr. Ann fills out an [facility] walk-in form and checks off: *I am having excessive worry or fear *I am feeling excessively sad or low *And I am having extreme mood changes. Auto Cleaner sends a teams message to PACT RNs alerting them to this information and suggesting that, if he shows up at primary care they could consider utilizing Dr. Alvarado of [facility] or Ms. Mitchell of primary care social work if appropriate. /es/ RASHAD ROBISON, RN Registered Nurse Signed: 07/06/2023 12:33 Receipt Acknowledged By: 07/07/2023 08:24 /es/ JACE JAMIL, PhD Clinical Psychologist 07/10/2023 11:53 /es/ ELADIA PETERSON ADVANCED DRAMA PROFESSOR 07/06/2023 ADDENDUM STATUS: COMPLETED adding Nurse Hospital Clinic Assistant /es/ MARCIE RFANKS REGISTERED NURSE Signed: 07/06/2023 14:00 Receipt Acknowledged By: 07/20/2023 09:13 /tanika/ Ritika Reed RN, BSN Primary Care Nurse Hospital Clinic Assistant 07/20/2023 ADDENDUM STATUS: COMPLETED Vet has seen and has a follow up appt scheduled with MH Please call him to schedule a [address] Beckett as he has not been seen since 2019 TY /tanika/ Ritika Reed RN, BSN Primary Care Nurse Hospital Clinic Assistant Signed: 07/20/2023 09:15 Receipt Acknowledged By: 07/20/2023 09:22 /tanika/ JOSE FRANCIS 07/20/2023 ADDENDUM STATUS: COMPLETED TITO SPOKE WITH ON THE TELEPHONE AND HE HAS BEEN SCHEDULED AN APPT ON July @ 8:30. /tanika/ JOSE FRANCIS Signed: 07/20/2023 09:24 RASHAD ROBISON [facility] [place] [facility]
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
--- OUTSIDE RECORDS SUMMARY | 2024-03-22 11:30 | XMS_ITS | Encounter Summary ---
Author Name [place] Address [address] [place] [address] Care Team Providers Care Horn Player Name Role Phone KEEGAN RDZ Primary Care [...] Name Patient's Relationship to Policy Goyal [facility] ORGANIZAT FORMERLY [facility] RETIR EMENT Oct 10, 2023 [id number] [phone] NANO CROWE PATIENT [employer]IG[employer] POINT OF SERVICE [facility] Oct 04, 2016 [id number] NANO CROWE PATIENT CIGNA BEHAVIORAL HEALTH MENTAL HEALTH [facility] Oct 04, 2016 [id number] NANO CROWE PATIENT CIGNA PHARMACY PRESCRIPT ION [facility] Oct 04, 2016 [id number] NANO CROWE PATIENT Selected Encounter This section includes the information on record at [place] for the Encounter. Date/Time Encounter Type Encounter Description Reason Pro vider Source Jul 28, 2023 12:00 AM Outpatient Encounter EVENT (HISTORICAL) IHE Encounter Template Text not used by VA Plan of Treatment: Future Appointments (+ 6 months) and Future Tests (+/- 45 days) The Plan of Treatment section includes future care activities for the patient from all [place] [facility] This section includes future appointments and future orders which are active, pending or scheduled. Future Appointments This section includes appointments that were scheduled to occur 6 months from the date of the Encounter, up to a maximum of 20 appointments. The data comes from all [place] treatment facilities. Appointment Date/Time Appointment Type Appointme nt Facility Name Aug 04, 2023 01:00 PM AMBULATORY - PSYCHIATRY [facility] [place] [facility] August 19, 2023 01:00 PM AMBULATORY - PSYCHIATRY [facility] [place] [facility] August 24, 2023 03:00 PM AMBULATORY - PSYCHIATRY [facility] [place] [facility] Sep 11, 2023 08:30 AM AMBULATORY - REHAB MEDICIN E [facility] [place] [facility] Sep 25, 2023 01:00 PM AMBULATORY - PSYCHIATRY [facility] [place] [facility] Sep 28, 2023 03:00 PM AMBULATORY - PSYCHIATRY [facility] [place] [facility] Oct 02, 2023 01:00 PM AMBULATORY - PSYCHIATRY [facility] [facility] Oct 06, 2023 08:00 AM AMBULATORY - MEDICINE [place] [facility] [place] [facility] Oct 06, 2023 09:30 AM AMBULATORY - MEDICINE [place] [facility] [place] [facility] Oct 09, 2023 01:00 PM AMBULATORY - PSYCHIATRY [facility] [place] [facility] Oct 21, 2023 12:30 PM AMBULATORY - PSYCHIATRY [facility] [place] [facility] Oct 21, 2023 12:30 PM AMBULATORY - NONE [facility] Oct 23, 2023 08:30 AM AMBULATORY - REHAB MEDICIN E [facility] [facility] Oct 23, 2023 01:00 PM AMBULATORY - PSYCHIATRY [facility] [place] [facility] Oct 30, 2023 01:00 PM AMBULATORY - PSYCHIATRY [facility] [place] [facility] Nov 13, 2023 11:00 AM AMBULATORY - MEDICINE [facility] [place] [facility] Nov 13, 2023 12:00 PM AMBULATORY - MEDICINE [facility] Nov 13, 2023 12:15 PM AMBULATORY - MEDICINE [facility] Nov 13, 2023 01:00 PM [facility] Nov 13, 2023 03:00 PM AMBULATORY - PSYCHIATRY [facility] Active, Pending, and Scheduled Orders This section includes a listing of several types of active, pending, and scheduled orders, including clinic medications orders, diagnostic test orders, procedure orders and consult orders; where the start date of the order is 45 days before the date of the Encounter or 45 days after the date of theEncounter. The data comes from all [place] treatment facilities. Test Date/Time Test Type Test Details Facility Name Jul 28, 2023 12:00 AM Laboratory - Chemi stry Order OCCULT BLOOD FIT X1 SCREEN(IN-HOUSE) STOOL FECES SP [facility] Vital Signs: All taken on the encounter date This section contains inpatient and outpatient Vital Signs collected on the date of the Encounter. Date/Time Temperature Pulse Blood Pressure Respiratory Rate SP02 Pain Height Weight Body Mass Index Source Jul 28, 2023 08:26 AM 97.4 91 129/83 16 97 8 240 34 [facility] Social History: Smoking Status (Most current) and Tobacco Use (All prior to encounter date) This section includes the most current, and the historical, smoking and tobacco- related health factors from the [place] facility where the Encounter took place. Current Smoking Status This section includes the most current smoking, or tobacco-related health factor, from the [place] facility where the Encounter took place. Date/Time Current Smoking Status Comment Facil ity Jul 28, 2023 08:30 AM VA-TOBACCO NEVER USED [facility] Tobacco Use History This section includes a history of the smoking, or tobacco-related health factors, that were collected on or before the date of the Encounter. The data comes from the [place] facility where the Encounter took place. Date/Time Smoking Status/Tobacco Use Comment F acility Feb 21, 2020 10:30 AM NV-TOBACCO NEVER USED [facility] Apr 20, 2018 02:11 PM VA-TOBACCO NEVER USED [place] [facility] [place] [facility] Jan 14, 2017 02:29 PM LIFETIME NON-TOBACCO USER [facility] [facility] August 12, 2010 02:56 PM LIFETIME NON-TOBACCO USER [place] [facility] [place] [facility]
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
--- OUTSIDE RECORDS SUMMARY | 2024-03-22 11:30 | XMS_ITS ---
Author Name [facility] [place] Address [address] [place] [address] Care Team Providers Care Auto Adjudication Specialist Name Role Phone KEEGAN RDZ Primary Care [...] Goyal's Name Patient's Relationship to Policy Goyal [facility] ORGANIZAT [facility] RETIR EMENT Oct 10, 2023 [id number] NANO ANN PATIENT [employer] POINT OF SERVICE [facility] Oct 04, 2016 [id number] NANO ANN PATIENT [employer] BEHAVIORAL HEALTH MENTAL HEALTH [facility] Oct 04, 2016 [id number] NANO ANN PATIENT [employer] PHARMACY PRESCRIPT ION [facility] Oct 04, 2016 [id number] [phone] NANO ANN PATIENT Selected Encounter This section includes the information on record at [place] for the Encounter. Date/Time Encounter Type Encounter Description Reason Provider Source Jul 08, 2023 11:16 AM Outpatient Encounter [facility] MALINA CHAMORRO Abner Encounter Template Text not used by [place] Plan of Treatment: Future Appointments (+ 6 months) and Future Tests (+/- 45 days) The Plan of Treatment section includes future care activities for the patient from all [place] [facility]. This section includes future appointments and future orders which are active, pending or scheduled. Future Appointments This section includes appointments that were scheduled to occur 6 months from the date of the Encounter, up to a maximum of 20 appointments. The data comes from all [place] treatment facilities. Appointment Date/Time Appointment Type Appointme nt Facility Name Jul 28, 2023 08:30 AM AMBULATORY - MEDICINE [facility] [place] [facility] Jul 28, 2023 01:00 PM AMBULATORY - PSYCHIATRY [facility] [place] [facility] Aug 04, 2023 01:00 PM AMBULATORY - PSYCHIATRY [facility] [place] [facility] August 19, 2023 01:00 PM AMBULATORY - PSYCHIATRY [facility] [place] [facility] August 24, 2023 03:00 PM AMBULATORY - PSYCHIATRY [facility] [place] [facility] Sep 11, 2023 08:30 AM AMBULATORY - REHAB MEDICIN E [facility] [place] [facility] Sep 25, 2023 01:00 PM AMBULATORY - PSYCHIATRY [facility] [place] [facility] Sep 28, 2023 03:00 PM AMBULATORY - PSYCHIATRY [facility] [place] [facility] Oct 02, 2023 01:00 PM AMBULATORY - PSYCHIATRY [facility] [place] [facility] Oct 06, 2023 08:00 AM AMBULATORY - MEDICINE [place] [facility] [place] [facility] Oct 06, 2023 09:30 AM AMBULATORY - MEDICINE [facility] [place] [facility] Oct 09, 2023 01:00 PM AMBULATORY - PSYCHIATRY [facility] [place] [facility] Oct 21, 2023 12:30 PM AMBULATORY - PSYCHIATRY [facility] [place] [facility] Oct 21, 2023 12:30 PM AMBULATORY - NONE [facility] Oct 23, 2023 08:30 AM AMBULATORY - REHAB MEDICIN E [facility] [place] [facility] Oct 23, 2023 01:00 PM AMBULATORY - PSYCHIATRY [place] [facility] [place] [facility] Oct 30, 2023 01:00 PM AMBULATORY - PSYCHIATRY [place] [facility] [place] [facility] Nov 13, 2023 11:00 AM AMBULATORY - MEDICINE [place] [facility] [place] [facility] Nov 13, 2023 12:00 PM AMBULATORY - MEDICINE [place] [facility] [place] [facility] Nov 13, 2023 12:15 PM AMBULATORY - MEDICINE [facility] Active, Pending, and Scheduled Orders This section includes a listing of several types of active, pending, and scheduled orders, including clinic medications orders, diagnostic test orders, procedure orders and consult orders; where the start date of the order is 45 days before the date of the Encounter or 45 days after the date of theEncounter. The data comes from all [place] treatment facilities. Test Date/Time Test Type Test Details Facility Name Jul 28, 2023 12:00 AM Laboratory - Chemi stry Order OCCULT BLOOD FIT X1 SCREEN(IN-HOUSE) [facility] Social History: Smoking Status (Most current) and Tobacco Use (All prior to encounter date) This section includes the most current, and the historical, smoking and tobacco- related health factors from the [facility] facility where the Encounter took place. Current Smoking Status This section includes the most current smoking, or tobacco-related health factor, from the [place] facility where the Encounter took place. Date/Time Current Smoking Status Comment Facil ity Feb 21, 2020 10:30 AM [facility] Tobacco Use History This section includes a history of the smoking, or tobacco-related health factors, that were collected on or before the date of the Encounter. The data comes from the [place] facility where the Encounter took place. Date/Time Smoking Status/Tobacco Use Comment F acility Apr 20, 2018 02:11 PM VA-TOBACCO NEVER USED [place] [facility] [place] [facility] Jan 14, 2017 02:29 PM LIFETIME NON-TOBACCO USER [place] [facility] [place] [facility] August 12, 2010 02:56 PM LIFETIME [facility] Encounter Notes: All associated encounter notes This section contains the clinical notes associated to the Encounter. Date/Time Encounter Note(s) Provider Source Jul 08, 2023 11:16 AM MENTAL HEALTH DIAG NOSTIC STUDY NOTE: LOCAL TITLE: MENTAL HEALTH DIAGNOSTIC STUDY STANDARD TITLE: MENTAL HEALTH DIAGNOSTIC STUDY NOTE DATE OF NOTE: JUL 08, 2023@11:16:55 ENTRY DATE: JUL 08, 2023@11:16:55 AUTHOR: MALINA STOVALL EXP COSIGNER: URGENCY: STATUS: COMPLETED Patient Health Questionnaire - 9 (PHQ-9) Date Given: 07/08/2023 Clinician: Malina Stovall Location: [facility]//[facility]/[place]amla [place]: Nano Ann SSN: [id number] : [birth year] ([birth year]) Gender: Male PHQ-9 Depression Scale Score: 20 The total score may range from 0 to 27. Total Score Depression Severity 1-4 Minimal depression 5-9 Mild depression 10-14 Moderate depression 15-19 Moderately severe depression 20-27 Severe depression Questions and Answers Over the last 2 weeks, how often have you been bothered by any of the following problems? 1. Little interest or pleasure in doing things Nearly every day 2. Feeling down, depressed, or hopeless More than half the days 3. Trouble falling or staying asleep, or sleeping too much More than half the days 4. Feeling tired or having little energy Nearly every day 5. Poor appetite or overeating More than half the days 6. Feeling bad about yourself or that you are a failure or have let yourself or your family down Nearly every day 7. Trouble concentrating on things, such as reading the newspaper or watching television Nearly every day 8. Moving or speaking so slowly that other people could have noticed. Or the opposite being so fidgety or restless that you have been moving around a lot more than usual More than half the days 9. Thoughts that you would be better off or of hurting yourself in some way Not at all 10. If you checked off any problems, how DIFFICULT have these problems made it for you to do your work, take care of things at home or get along with other people? Extremely difficult Information contained in this note is based on a self report assessment and is not sufficient to use alone for diagnostic purposes. Assessment results should be verified for accuracy and used in conjunction with other diagnostic activities. Copyright 2001 [employer]. All rights reserved. Reproduced with permission of [employer]. [employer] is a trademark of [employer] PCL-5 Date Given: 07/08/2023 Clinician: Malina Stovall Location: [facility]//[facility] : Nano nAn Malika SSN: [id number] : [birth year] (57) Gender: Male PCL-5 Score: 62 This measure assesses an individual's perception of [...] DSM-5, is recommended to confirm diagnostic status. Values range from 0 to 80 with higher scores indicating more probable PTSD. Questions and Answers: 1. Repeated, disturbing, and unwanted memories of the stressful experience? Quite a bit 2. Repeated, disturbing dreams of the stressful experience? Quite a bit 3. Suddenly feeling or acting as if the stressful experience were actually happening again (as if you were actually back there reliving it)? Quite a bit 4. Feeling very upset when something reminded you of the stressful experience? Extremely 5. Having strong physical reactions when something reminded you of the stressful experience (for example, heart pounding, trouble breathing, sweating)? Extremely 6. Avoiding memories, thoughts, or feelings related to the stressful experience? Extremely 7. Avoiding external reminders of the stressful experience (for example, people, places, conversations, activities, objects, or situations)? Extremely 8. Trouble remembering important parts of the stressful experience? A little bit 9. Having strong negative beliefs about yourself, other people, or the world (for example, having thoughts such as: I am bad, there is something seriously wrong with me, no one can be trusted, the world is completely dangerous)? Moderately 10. Blaming yourself or someone else for the stressful experience or what happened after it? Quite a bit 11. Having strong negative feelings such as fear, horror, anger, guilt, or shame? Quite a bit 12. Loss of interest in activities that you used to enjoy? Extremely 13. Feeling distant or cut off from other people? Quite a bit 14. Trouble experiencing positive feelings (for example, being unable to feel happiness or have loving feelings for people close to you)? Moderately 15. Irritable behavior, angry outbursts, or acting aggressively? Quite a bit 16. Taking too many risks or doing things that could cause you harm? Moderately 17. Being superalert or watchful or on guard? Extremely 18. Feeling jumpy or easily startled? Quite a bit 19. Having difficulty concentrating? Extremely 20. Trouble falling or staying asleep? Quite a bit Information contained in this note is based on a self-report assessment and is not sufficient to use alone for diagnostic purposes. Assessment results should be verified for accuracy and used in conjunction with other diagnostic activities and procedures. /tanika/ Malina Stovall Psy.D. Psychologist Signed: 07/08/2023 11:17 MALINA STOVALL [place] [facility]
--- OUTSIDE RECORDS SUMMARY | 2024-03-22 11:30 | XMS_ITS ---
Author Name [facility] [place] Address [address] [place] [address] Care Team Providers Care Rubber Stamp Die Inspector Name Role Phone KEEGAN RDZ Primary Care [...] Goyal's Name Patient's Relationship to Policy [facility] Oct 10, 2023 [id number] [phone] NANO CROWE PATIENT [employer] POINT OF SERVICE [facility] Oct 04, 2016 [id number] NANO CROWE PATIENT [employer]IG[employer] BEHAVIORAL HEALTH MENTAL HEALTH [facility] Oct 04, 2016 [id number] NANO CROWE PATIENT [employer] PHARMACY PRESCRIPT ION [facility] Oct 04, 2016 [id number] NANO CROWE PATIENT Selected Encounter This section includes the information on record at [place] for the Encounter. Date/Time Encounter Type Encounter Description Reason Provider Source Aug 04, 2023 01:00 PM PSYTX W PT 60 MINUTES SUBSTANCE USE DISORDER IND ICD-10-CM F43.10 Post-traumatic stress disorder, unspecified LARA KLEIN E Encounter Template Text not used by [place] Assessments - Encounter Diagnoses This section includes the primary and secondary diagnoses documented for the Encounter. Date/Time Primary/Secondary Diagnosis Diagnosis Name Provider Source August 27, 2023 10:25 AM PRIMARY Post-traumatic stress disorder, unspecified LARA KLEIN [place] [facility] [place] [facility] Plan of Treatment: Future Appointments (+ 6 months) and Future Tests (+/- 45 days) The Plan of Treatment section includes future care activities for the patient from all [place] [facility]. This section includes future appointments and future orders which are active, pending or scheduled. Future Appointments This section includes appointments that were scheduled to occur 6 months from the date of the Encounter, up to a maximum of 20 appointments. The data comes from all [place] treatment facilities. Appointment Date/Time Appointment Type Appointme nt Facility Name August 19, 2023 01:00 PM AMBULATORY - PSYCHIATRY [facility] [place] [facility] August 24, 2023 03:00 PM AMBULATORY - PSYCHIATRY [facility] [place] [facility] Sep 11, 2023 08:30 AM AMBULATORY - REHAB MEDICIN E [facility] [place] [facility] Sep 25, 2023 01:00 PM AMBULATORY - PSYCHIATRY [facility] [place] [facility] Sep 28, 2023 03:00 PM AMBULATORY - PSYCHIATRY [facility] [place] [facility] Oct 02, 2023 01:00 PM AMBULATORY - PSYCHIATRY [facility] [place] [facility] Oct 06, 2023 08:00 AM AMBULATORY - MEDICINE [place] [facility] [place] [facility] Oct 06, 2023 09:30 AM AMBULATORY - MEDICINE [place] [facility] [place] [facility] Oct 09, 2023 01:00 PM AMBULATORY - PSYCHIATRY [facility] [place] [facility] Oct 21, 2023 12:30 PM AMBULATORY - PSYCHIATRY [facility] [place] [facility] Oct 21, 2023 12:30 PM AMBULATORY - NONE [facility] Oct 23, 2023 08:30 AM AMBULATORY - REHAB MEDICIN E [facility] [place] [facility] Oct 23, 2023 01:00 PM AMBULATORY - PSYCHIATRY [place] [facility] [place] [facility] Oct 30, 2023 01:00 PM AMBULATORY - PSYCHIATRY [facility] [place] [facility] Nov 13, 2023 11:00 AM AMBULATORY - MEDICINE [place] [facility] [place] [facility] Nov 13, 2023 12:00 PM AMBULATORY - MEDICINE [place] [facility] [place] [facility] Nov 13, 2023 12:15 PM AMBULATORY - MEDICINE [place] [facility] [place] [facility] Nov 13, 2023 01:00 PM AMBULATORY - PSYCHIATRY [place] [facility] [place] [facility] Nov 13, 2023 03:00 PM AMBULATORY - PSYCHIATRY [place] [facility] [place] [facility] Nov 13, 2023 03:00 PM AMBULATORY - NONE [facility] Active, Pending, and Scheduled Orders This section includes a listing of several types of active, pending, and scheduled orders, including clinic medications orders, diagnostic test orders, procedure orders and consult orders; where the start date of the order is 45 days before the date of the Encounter or 45 days after the date of theEncounter. The data comes from all [place] treatment facilities. Test Date/Time Test Type Test Details Facility Name Jul 28, 2023 12:00 AM Laboratory - Chemi stry Order OCCULT BLOOD FIT X1 SCREEN(IN-HOUSE) STOOL FECES SP [facility] Social History: Smoking Status (Most current) and Tobacco Use (All prior to encounter date) This section includes the most current, and the historical, smoking and tobacco- related health factors from the [place] facility where the Encounter took place. Current Smoking Status This section includes the most current smoking, or tobacco-related health factor, from the [place] facility where the Encounter took place. Date/Time Current Smoking Status Comment Federico ity Jul 28, 2023 08:30 AM [place]-TOBACCO NEVER USED [facility] Tobacco Use History This section includes a history of the smoking, or tobacco-related health factors, that were collected on or before the date of the Encounter. The data comes from the [place] facility where the Encounter took place. Date/Time Smoking Status/Tobacco Use Comment F acility Feb 21, 2020 10:30 AM VA-TOBACCO NEVER USED [place] [facility] [place] [facility] Apr 20, 2018 02:11 PM VA-TOBACCO NEVER USED [place] [facility] [place] [facility] Jan 14, 2017 02:29 PM LIFETIME NON-TOBACCO USER [place] [facility] [place] [facility] August 12, 2010 02:56 PM LIFETIME NON-TOBACCO USER [facility] Encounter Notes: All associated encounter notes This section contains the clinical notes associated to the Encounter. Date/Time Encounter Note(s) Provider Source Aug 04, 2023 02:51 PM MENTAL HEALTH CONSULT: LOCAL TITLE: CONSULT REPORT/PTSD TREATMENT STANDARD TITLE: MENTAL HEALTH CONSULT DATE OF NOTE: AUG 04, 2023@14:51 ENTRY DATE: AUG 04, 2023@14:51:32 AUTHOR: LARA KLEIN EXP COSIGNER: URGENCY: STATUS: COMPLETED Revillo confirmed the following two identifiers: (X) Full Name Date of Full Social Security Number (X) Facial Recognition SESSION FOCUS: The aim of this shared decision making session is to provide relevant information about treatment options and collaboratively decide on a treatment plan. CONTACT TIME: 60 min (time needed to discuss various options, evaluate pros/cons, enter necessary consults) DIAGNOSES: PTSD UNCOVERED NEEDS (X) Assessed primary symptoms and clinical needs Additional information: CAPS 07/28/23 TEAM TALK (X) Discussed treatment needs and goals (X) Informed that they have a choice (X) Discussed Veterans involvement in making decisions Additional information: EXPLORED OPTIONS (X) Shared comprehensive information about treatment options including research support and likely outcomes (X) Discussed CPG consistent care including: medications, PE, CPT, EMDR DECISION (X) Explored Veterans values and preferences (X) Collaboratively reached treatment decision Additional information: Revillo expressed interest in either PE or EMDR, medication consult, and Living with Angry Feelings. EPISODIC CARE (X) Revillo was oriented to episodic care and time-limited therapy (X) Discussed reactions and answered questions Additional information: ASSESSMENT Engaged and cooperative. Anxious with congruent affect. PLAN (X) Consult entered for desired treatment /es/ Lara Klein PsyD PTSD/RITIKA SPECIALIST Signed: 08/04/2023 14:54 [facility]
--- OUTSIDE RECORDS SUMMARY | 2024-03-22 11:31 | XMS_ITS | Encounter Summary ---
Author Name [facility] [place] Address [address] [place] [id number] Care Team Providers Care Cannon Crewmember Name Role Phone KEEGAN RDZ Primary Care [...] Goyal's Name Patient's Relationship to Policy [facility] Oct 10, 2023 [id number] NANO CROWE PATIENT CIGNA POINT OF SERVICE [facility] Oct 04, 2016 [id number] NANO CROWE PATIENT CIGNA BEHAVIORAL HEALTH MENTAL HEALTH [facility] Oct 04, 2016 [id number] NANO CROWE PATIENT CIGNA PHARMACY PRESCRIPT ION [facility] Oct 04, 2016 [id number] NANO CROWE PATIENT Selected Encounter This section includes the information on record at [place] for the Encounter. Date/Time Encounter Type Encounter Description Reason Provider Source Sep 25, 2023 01:00 PM GROUP PSYCHOTHERAPY [facility] ICD-10-CM F43.10 Post-traumatic stress disorder, unspecified CIELOHANDY IHE Encounter Template Text not used by [place] Assessments - Encounter Diagnoses This section includes the primary and secondary diagnoses documented for the Encounter. Date/Time Primary/Secondary Diagnosis Diagnosis Name Provider Source Oct 22, 2023 07:33 PM PRIMARY Post-traumatic stress disorder, unspecified [facility] [place] [facility] Plan of Treatment: Future Appointments (+ 6 months) and Future Tests (+/- 45 days) The Plan of Treatment section includes future care activities for the patient from all [place] [facility]. This section includes future appointments and future orders which are active, pending or scheduled. Future Appointments This section includes appointments that were scheduled to occur 6 months from the date of the Encounter, up to a maximum of 20 appointments. The data comes from all [place] treatment facilities. Appointment Date/Time Appointment Type Appointme nt Facility Name Sep 28, 2023 03:00 PM AMBULATORY - [place]IATRY [place] [facility] [place] [facility] Oct 02, 2023 01:00 PM AMBULATORY - PS[place]CHIATRY [place] [facility] [place] [facility] Oct 06, 2023 08:00 AM AMBULATORY - MEDICINE [place] [facility] [place] [facility] Oct 06, 2023 09:30 AM AMBULATORY - MEDICINE [place] [facility] [place] [facility] Oct 09, 2023 01:00 PM AMBULATORY - PSYCHIATRY [place] [facility] [place] [facility] Oct 21, 2023 12:30 PM AMBULATORY - PS[place]CHIATRY [place] [facility] [place] [facility] Oct 21, 2023 12:30 PM AMBULATORY - NONE [facility] Oct 23, 2023 08:30 AM AMBULATORY [facility]ICIN [facility] [place] [facility] Oct 23, 2023 01:00 PM AMBULATORY - PSYCHIATRY [place] [facility] [place] [facility] Oct 30, 2023 01:00 PM AMBULATORY - PSYCHIATRY [place] [facility] [place] [facility] Nov 13, 2023 11:00 AM AMBULATORY - MEDICINE [place] [facility] [place] [facility] Nov 13, 2023 12:00 PM AMBULATORY - MEDICINE [place] [facility] [place] [facility] Nov 13, 2023 12:15 PM AMBULATORY - MEDICINE [place] [facility] [place] [facility] Nov 13, 2023 01:00 PM AMBULATORY - PSYCHIATRY [facility] [place] [facility] Nov 13, 2023 03:00 PM AMBULATORY - PSYCHIATRY [facility] [place] [facility] Nov 13, 2023 03:00 PM AMBULATORY - NONE [facility] Nov 20, 2023 01:00 PM AMBULATORY - PSYCHIATRY [place] [facility] [place] [facility] Nov 30, 2023 11:00 AM AMBULATORY - REHAB MEDICIN E [facility] [place] [facility] Dec 04, 2023 01:00 PM AMBULATORY - PSYCHIATRY [place] [facility] [place] [facility] Dec 11, 2023 01:00 PM AMBULATORY - PSYCHIATRY [place] [facility] [place] [facility] Social History: Smoking Status (Most current) and Tobacco Use (All prior to encounter date) This section includes the most current, and the historical, smoking and tobacco- related health factors from the [place] facility where the Encounter took place. Current Smoking Status This section includes the most current smoking, or tobacco-related health factor, from the [place] facility where the Encounter took place. Date/Time Current Smoking Status Comment Facil ity Jul 28, 2023 08:30 AM VA[facility]TOBACCO [facility] US[facility] [place] [facility] Tobacco Use History This section includes a history of the smoking, or tobacco-related health factors, that were collected on or before the date of the Encounter. The data comes from the [place] facility where the Encounter took place. Date/Time Smoking Status/Tobacco Use Comment F acility Feb 21, 2020 10:30 AM VA-TOBACCO NEVER USED [facility] [place] [facility] Apr 20, 2018 02:11 PM VA-TOBACCO NEVER USED [facility] [place] [facility] Jan 14, 2017 02:29 PM LIFETIME NON-TOBACCO USER [facility] [place] [facility] August 12, 2010 02:56 PM LIFETIME NON-TOBACCO USER [place] [facility] [place] [facility] Encounter Notes: All associated encounter notes This section contains the clinical notes associated to the Encounter. Date/Time Encounter Note(s) Provider Source Sep 25, 2023 02:53 PM PSYCHIATRY GROUP COUNSELING NOTE: LOCAL TITLE: PSYCHOLOGY GROUP NOTE STANDARD TITLE: PSYCHIATRY GROUP COUNSELING NOTE DATE OF NOTE: SEP 25, 2023@14:53 ENTRY DATE: SEP 25, 2023@14:53:48 AUTHOR: LAKEISHA SUTTON EXP COSIGNER: URGENCY: STATUS: COMPLETED [facility] Living with Angry Feelings Group Therapy Note SESSION MODALITY: [facility] Video Connect (clinic to non-VA location) [place]'s location: Provider confirmed that is currently located at Primary Address listed [facility] Primary phone number: Confirmed for all participants. [place] has provided verbal consent either today or previously when seen via VVC in mental health. This consent was obtained after a full explanation of the risk and benefits of using telehealth for mental health appointments. Alternatives for obtaining care through an in-person mental health visit and the [place]'s right of refusal at any time during this session have been explained. 's location/environment was surveyed by this provider to identify all participants and the Virtual Medical Room was locked (via enabling button option in R) once all invited/required attendees were present. IDENTITY VERIFICATION: [X] Patient Name [X] Visual recognition [ ] Birthdate [ ] Social Security # Facilitators: Isaias Rolon MS, and Lakeisha Sutton, PhD PROCEDURE: 60-minute interactive hybrid VVC/F2F group therapy session Problem: Difficulty managing angry feelings without acting in ways regrets Objective: Increase understanding of anger process and ways to effectively intervene so [place] does not act in ways that are unworkable or in conflict with personal values. Increase use of mindful and skillful behaviors. Number of Veterans Present in Group: 6 GROUP CONTENT: Group members engaged in a mindful breathing and listening practice. They each checked in, sharing names and speaking about a challenge in communicating with others. DEAR MAN was introduced and interactively practiced with several examples from the group. Group members were encouraged to use the DEAR MAN format in communicating during the next week. PROGRESS: [place] arrived on time and was an active and appropriate participant. participated in the mindfulness practices and group discussions. Mental Status was not formally assessed due to the nature of the encounter. maintained appropriate eye contact and was alert. [place] spoke clearly and coherently. [place]'s thoughts were linear and related. 's affect was congruent to content and appropriate in range. No clinical signs of intoxication, withdrawal, psychosis, or cognitive impairment were observed. No evidence of suicidal or homicidal ideation. There was no evidence of AH/VH or delusions. [place] was future oriented. DSM-V DIAGNOSTIC IMPRESSIONS(per chart): PTSD, chronic PLAN: will continue to participate in the Living with Angry Feelings Group on Fridays at 1pm. /tanika/ Lakeisha Sutton, PhD Clinical Psychologist, Mental Health Clinic Signed: 09/25/2023 14:58 LAKEISHA SUTTON [place] [facility]
--- OUTSIDE RECORDS SUMMARY | 2024-03-22 11:31 | XMS_ITS ---
Author Name [facility] [place] Address [address] [place] [address] Care Team Providers Care College Sports Coach Name Role Phone KEEGAN RDZ Primary Care [...] Goyal's Name Patient's Relationship to Policy [facility] Oct 10, 2023 [id number] NANO CROWE PATIENT CIGNA POINT OF SERVICE [facility] Oct 04, 2016 [id number] NANO CROWE PATIENT CIGNA BEHAVIORAL HEALTH MENTAL HEALTH [facility] Oct 04, 2016 [id number] NANO CROWE PATIENT CIGNA PHARMACY PRESCRIPT ION [facility] Oct 04, 2016 [id number] NANO CROWE PATIENT Selected Encounter This section includes the information on record at [place] for the Encounter. Date/Time Encounter Type Encounter Description Reason Provider Source August 24, 2023 03:00 PM PSYTX W PT 60 MINUTES MENTAL HEALTH CLINIC - IND ICD-10-CM F43.10 Post-traumatic stress disorder, unspecified ALL SUTTON Abner Encounter Template Text not used by [place] Assessments - Encounter Diagnoses This section includes the primary and secondary diagnoses documented for the Encounter. Date/Time Primary/Secondary Diagnosis Diagnosis Name Provider Source Sep 30, 2023 07:57 AM PRIMARY Post-traumatic stress disorder, unspecified ALL SUTTON [place] [facility] [place] [facility] Plan of Treatment: Future Appointments (+ 6 months) and Future Tests (+/- 45 days) The Plan of Treatment section includes future care activities for the patient from all [place] [facility]. This section includes future appointments and future orders which are active, pending or scheduled. Future Appointments This section includes appointments that were scheduled to occur 6 months from the date of the Encounter, up to a maximum of 20 appointments. The data comes from all [place] treatment facilities. Appointment Date/Time Appointment Type Appointme nt Facility Name Sep 11, 2023 08:30 AM AMBULATORY - REHAB MEDICIN E [facility] [place] [facility] Sep 25, 2023 01:00 PM AMBULATORY - PSYCHIATRY [facility] [place] [facility] Sep 28, 2023 03:00 PM AMBULATORY - PSYCHIATRY [facility] [place] [facility] Oct 02, 2023 01:00 PM AMBULATORY - PSYCHIATRY [facility] [place] [facility] Oct 06, 2023 08:00 AM AMBULATORY - MEDICINE [place] [facility] [place] [facility] Oct 06, 2023 09:30 AM AMBULATORY - MEDICINE [place] [facility] [place] [facility] Oct 09, 2023 01:00 PM AMBULATORY - PSYCHIATRY [facility] [place] [facility] Oct 21, 2023 12:30 PM AMBULATORY - PSYCHIATRY [facility] [place] [facility] Oct 21, 2023 12:30 PM AMBULATORY - NONE [facility] Oct 23, 2023 08:30 AM AMBULATORY - REHAB MEDICIN E [facility] [place] [facility] Oct 23, 2023 01:00 PM AMBULATORY - PSYCHIATRY [place] [facility] [place] [facility] Oct 30, 2023 01:00 PM AMBULATORY - PSYCHIATRY [place] [facility] [place] [facility] Nov 13, 2023 11:00 AM AMBULATORY - MEDICINE [place] [facility] [place] [facility] Nov 13, 2023 12:00 PM AMBULATORY - MEDICINE [facility] [place] [place] [facility] Nov 13, 2023 12:15 PM AMBULATORY - MEDICINE [place] [facility] [place] [facility] Nov 13, 2023 01:00 PM AMBULATORY - PSYCHIATRY [place] [facility] [place] [place] [facility] Nov 13, 2023 03:00 PM AMBULATORY - PSYCHIATRY [place] [facility] [place] [facility] Nov 13, 2023 03:00 PM [facility] Nov 20, 2023 01:00 PM AMBULATORY - PSYCHIATRY [place] [facility] [place] [facility] Nov 30, 2023 11:00 AM AMBUL[facility] Active, Pending, and Scheduled Orders This section includes a listing of several types of active, pending, and scheduled orders, including clinic medications orders, diagnostic test orders, procedure orders and consult orders; where the start date of the order is 45 days before the date of the Encounter or 45 days after the date of theEncounter. The data comes from all [place] treatment facilities. Test Date/Time Test Type Test Details Facility Name Jul 28, 2023 12:00 AM Laboratory - Chemi stry Order OCCULT BLOOD FIT X1 SCREEN(IN-HOUSE) STOOL FECES SP [facility] Social History: Smoking Status (Most current) and Tobacco Use (All prior to encounter date) This section includes the most current, and the historical, smoking and tobacco- related health factors from the [place] facility where the Encounter took place. Current Smoking Status This section includes the most current smoking, or tobacco-related health factor, from the [place] facility where the Encounter took place. Date/Time Current Smoking Status Comment Federico ithollis Jul 28, 2023 08:30 AM VA-TOBACCO NEVER USED [facility] Tobacco Use History This section includes a history of the smoking, or tobacco-related health factors, that were collected on or before the date of the Encounter. The data comes from the [place] facility where the Encounter took place. Date/Time Smoking Status/Tobacco Use Comment F acility Feb 21, 2020 10:30 AM VA-TOBACCO NEVER USED [facility] [place] [facility] Apr 20, 2018 02:11 PM VA-TOBACCO NEVER USED [facility] [place] [facility] Jan 14, 2017 02:29 PM LIFETIME NON-TOBACCO USER [facility] [place] [facility] August 12, 2010 02:56 PM LIFETIME NON-TOBACCO USER [facility] [place] [facility] Encounter Notes: All associated encounter notes This section contains the clinical notes associated to the Encounter. Date/Time Encounter Note(s) Provider Source August 24, 2023 04:01 PM PSYCHOLOGY CONSULT : LOCAL TITLE: CONSULT REPORT/MENTAL HEALTH/PSYCHOLOGY STANDARD TITLE: PSYCHOLOGY CONSULT DATE OF NOTE: AUGUST 24, 2023@16:01 ENTRY DATE: AUGUST 24, 2023@16:01:54 AUTHOR: MARIJA SUTTON COSIGNER: URGENCY: STATUS: COMPLETED CONSULT REPORT/MENTAL HEALTH/PSYCHOLOGY Has ADDENDA Living With Angry Feelings Group Treatment Planning Appointment via [facility] Video Connect (clinic to non-VA location) [facility]'s location: Provider confirmed that [facility] is currently located at Primary Address listed in [place] Video Connect consult and verified the contact phone number has provided verbal consent either today or previously when seen via [facility] in mental health. This consent was obtained after a full explanation of the risk and benefits of using telehealth for mental health appointments. Alternatives for obtaining care through an in-person mental health visit and the [facility]'s right of refusal at any time during this session have been explained. [facility]'s location/environment was surveyed by this provider to identify all participants and the Virtual Medical Room was locked (via enabling button option in R) once all invited/required attendees were present. IDENTITY VERIFICATION [X] Patient Name [ ] Visual recognition [X] Birthdate [ ] Social Security # Procedure: The [facility] was seen for a 50-minute [facility] individual psychotherapy session in the Outpatient Mental Health Clinic Problem: Difficulty managing angry feelings without acting in ways regrets Objective: Discuss Veterans potential participation the Living with Angry Feelings Group. 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 spoke about his goal of responding differently to angry feelings as to avoid interpersonal problems and regrets. Discussed 's potential interest in the Living with Angry Feelings group. Provided information about ACT-based approach, structure of the group, and group guidelines. [facility] indicated interest in beginning the Living With Angry Feelings hybrid F2F/VVC group. [facility] indicated understanding that the group commitment document will be sent via Secure Message (his preference) once a start date can be solidified. [facility] expressed willingness to speak with group insurance special agent should concerns arise and understanding that group participation is for 12 weeks. agreed to complete [facility] touch measures, requesting that they be sent via text today. understands software writer or group coleader will outreach to solidify a start date. Assessment: [facility] arrived on time for session and was dressed appropriately with appropriate hygiene. maintained appropriate eye contact and was alert. [facility] spoke clearly and coherently. Veterans thoughts were linear and related. Veterans affect was congruent to content and appropriate in range. There was no evidence of AH/VH or delusions. denied suicidal and homicidal ideation. was reminded of emergency resources through this [facility] and the Veterans Crisis Line number. Diagnostic Impressions According to the DSM-V and Per Chart Review: PTSD, chronic Plan: [facility] requested to begin participation in the Living With Angry Feelings Group via VVC. Will outreach with information about a potential start date when available. /es/ Marija Sutton, PhD Clinical Psychologist, Mental Health Clinic Signed: 08/24/2023 16:04 Receipt Acknowledged By: 08/24/2023 16:28 /es/ TINA GONZALES M.S.// WIRE PREPARATION WORKER// 08/24/2023 ADDENDUM STATUS: COMPLETED Suicide Screen: C-SSRS Screening [place]-Suicide Severity Rating Scale (C-SSRS Screener) 1. Over [...] required due to responses to other questions. Sexual Orientation: The patient thinks of their sexual orientation as: Straight or Heterosexual /tanika/ Marija Sutton, PhD Clinical Psychologist, Mental Health Clinic Signed: 08/24/2023 16:05 09/02/2023 ADDENDUM STATUS: COMPLETED Called and spoke with [facility]. Indicated he is able to join the Living with Angry Feelings group as soon as this Thursday. Given [facility]'s upcoming schedule of appointments, agreed to begin on Monday, September 18, 2023 at 1pm via [facility]. Confirmed plan for him to complete [facility] touch measures, which he requested be sent to him via email on Thursday, September 14, 2023 at 10am. No evidence of imminent risk. expressed appreciation for the call and the opportunity to join the group. /tanika/ Marija Sutton, PhD Clinical Psychologist, Mental Health Clinic Signed: 09/02/2023 08:53 MARIJA SUTTON [place] [facility]
--- OUTSIDE RECORDS SUMMARY | 2024-03-22 11:31 | XMS_ITS ---
Author Name [facility] [place] Address [address] [place] [id number] Care Team Providers Care Repossessor Name Role Phone KEEGAN RDZ Primary Care [...] Patient's Relationship to Policy [facility] Oct 10, 2023 [id number] NANO CROWE PATIENT CIGNA POINT OF SERVICE [facility] Oct 04, 2016 [id number] [phone] NANO CROWE PATIENT CIGNA BEHAVIORAL HEALTH MENTAL HEALTH [facility] Oct 04, 2016 [id number] NANO CROWE PATIENT CIGNA PHARMACY PRESCRIPT ION [facility] Oct 04, 2016 [id number] [phone] NANO CROWE PATIENT Selected Encounter This section includes the information on record at [place] for the Encounter. Date/Time Encounter Type Encounter Description Reason Pro vider Source Sep 29, 2023 04:53 PM Outpatient Encounter COMMUNITY CARE CONSULT IHE Encounter Template Text not used by [place] Plan of Treatment: Future Appointments (+ 6 months) and Future Tests (+/- 45 days) The Plan of Treatment section includes future care activities for the [facility] [place] [facility] This section includes future appointments and future orders which are active, pending or scheduled. Future Appointments This section includes appointments that were scheduled to occur 6 months from the date of the Encounter, up to a maximum of 20 appointments. The data comes from all [place] treatment facilities. Appointment Date/Time Appointment Type Appointme nt Facility Name Oct 02, 2023 01:00 PM AMBULATORY [facility]IATRY [facility] [place] [facility] Oct 06, 2023 08:00 AM AMBULATORY - MEDICINE [facility] [place] [facility] Oct 06, 2023 09:30 AM AMBULATORY - MEDICINE [facility] [place] [facility] Oct 09, 2023 01:00 PM AMBULATORY - PSYCHIATRY [facility] [place] [facility] Oct 21, 2023 12:30 PM AMBULATORY - PS[facility]CHIATRY [facility] [place] [facility] Oct 21, 2023 12:30 PM AMBULATORY - NONE [facility] Oct 23, 2023 08:30 AM AMBULATORY - REHAB MEDICIN E [facility] [place] [facility] Oct 23, 2023 01:00 PM AMBULATORY - PSYCHIATRY [facility] [place] [facility] Oct 30, 2023 01:00 PM AMBULATORY - PSYCHIATRY [facility] [place] [facility] Nov 13, 2023 11:00 AM AMBULATORY - MEDICINE [facility] [place] [facility] Nov 13, 2023 12:00 PM AMBULATORY - MEDICINE [facility] [place] [facility] Nov 13, 2023 12:15 PM AMBULATORY - MEDICINE [place] [facility] [place] [facility] Nov 13, 2023 01:00 PM AMBULATORY - PSYCHIATRY [facility] [place] [facility] Nov 13, 2023 03:00 PM AMBULATORY - PSYCHIATRY [facility] [place] [facility] Nov 13, 2023 03:00 PM AMBULATORY - NONE [facility] Nov 20, 2023 01:00 PM AMBULATORY - PSYCHIATRY [facility] [place] [facility] Nov 30, 2023 11:00 AM AMBULATORY - REHAB MEDICIN E [place] [facility] [place] [facility] Dec 04, 2023 01:00 PM AMBULATORY - PSYCHIATRY [place] [facility] [place] [facility] Dec 11, 2023 01:00 PM AMBULATORY - PSYCHIATRY [place] [facility] [place] [facility] Dec 21, 2023 03:00 PM [facility] Social History: Smoking Status (Most current) and Tobacco Use (All prior to encounter date) This section includes the most current, and the historical, smoking and tobacco- related health factors from the [place] facility where the Encounter took place. Current Smoking Status This section includes the most current smoking, or tobacco-related health factor, from the [place] facility where the Encounter took place. Date/Time Current Smoking Status Comment Facil ity Jul 28, 2023 08:30 AM [facility]CO [facility] Tobacco Use History This section includes a history of the smoking, or tobacco-related health factors, that were collected on or before the date of the Encounter. The data comes from the [place] facility where the Encounter took place. Date/Time Smoking Status/Tobacco Use Comment F acility Feb 21, 2020 10:30 AM VA-TOBACCO NEVER USED [place] [facility] [place] [facility] Apr 20, 2018 02:11 PM VA-TOBACCO NEVER USED [place] [facility] [place] [facility] Jan 14, 2017 02:29 PM LIFETIME NON-TOBACCO USER [place] [facility] [place] [facility] August 12, 2010 02:56 PM LIFETIME NON-TOBACCO [facility]ER [facility] Encounter Notes: All associated encounter notes This section contains the clinical notes associated to the Encounter. Date/Time Encounter Note(s) Provider Source Sep 29, 2023 04:53 PM NONVA NOTE: LOCAL TITLE: [facility] CARE COORD PLAN STANDARD TITLE: NONVA NOTE DATE OF NOTE: SEP 29, 2023@16:53 ENTRY DATE: SEP 29, 2023@16:53:57 AUTHOR: KENRICK MENDOZA COSIGNER: URGENCY: STATUS: COMPLETED Emergency Notification Intake Date Presenting to the Facility: August Method of Contact: Notified from [facility] worklist Notification ID: [id number] [facility] Referral #: [id number] [facility] Hospital Name: Hospital: [facility] Address: City: [place] State: [place] Zip Code: Phone : Community Facility Point of Contact: Name: Cindy Phone: Chief complaint: I48.81 Primary Diagnosis: Disposition Discharged Date of discharge: August Discharge to Comment: ER Only /es/ KENRICK FRANCIS Signed: 09/29/2023 16:55 Receipt Acknowledged By: 09/30/2023 08:13 /es/ KEEGAN RDZ D.O. PHYSICIAN 10/06/2023 14:34 /es/ Valeri DIAZ,RN,[facility] TRANSFER/TRAVELING COORDINATOR 09/30/2023 10:16 /es/ KIKI MURO, JUSTIN REGISTERED NURSE KENRICK MENDOZA [place]
--- OUTSIDE RECORDS SUMMARY | 2024-03-22 11:31 | XMS_ITS | Encounter Summary ---
Author Name [facility] [place] Address [address] [place] [address] Care Team Providers Care Tight Barrel Inspector Name Role Phone KEEGAN RDZ Primary [...] Name Patient's Relationship to Policy Goyal BCBS [facility] ORGANIZAT [facility]ON [facility] RETIR EMENT Oct 10, 2023 [id number] NANO CROWE PATIENT CIGNA POINT OF SERVICE [facility] Oct 04, 2016 [id number] NANO CROWE PATIENT CIGNA BEHAVIORAL HEALTH MENTAL HEALTH [facility] Oct 04, 2016 [id number] NANO CROWE PATIENT CIGNA PHARMACY PRESCRIPT ION [facility] Oct 04, 2016 [id number] NANO CROWE PATIENT Selected Encounter This section includes the information on record at [place] for the Encounter. Date/Time Encounter Type Encounter Description Reason Provider Source Sep 28, 2023 03:00 PM MTMS BY ESTRELLITA FOSTER 15 MIN [facility] - IND ICD-10-CM F43.10 Post-traumatic stress disorder, unspecified WOJCIECH DAILY IHE Encounter Template Text not used by [place] Assessments - Encounter Diagnoses This section includes the primary and secondary diagnoses documented for the Encounter. Date/Time Primary/Secondary Diagnosis Diagnosis Name Provider Source Sep 28, 2023 03:31 PM PRIMARY Post-traumatic stress disorder, unspecified WOJCIECH DAILY [place] [facility] [place] [facility] Plan of Treatment: Future Appointments (+ 6 months) and Future Tests (+/- 45 days) The Plan of Treatment section includes future care activities for the patient from all [place] [facility]. This section includes future appointments and future orders which are active, pending or scheduled. Future Appointments This section includes appointments that were scheduled to occur 6 months from the date of the Encounter, up to a maximum of 20 appointments. The data comes from all [place] treatment facilities. Appointment Date/Time Appointment Type Appointme nt Facility Name Oct 02, 2023 01:00 PM AMBULATORY - PSYCHIATRY [place] [facility] [place] [facility] Oct 06, 2023 08:00 AM AMBULATORY - MEDICINE [place] [facility] [place] [facility] Oct 06, 2023 09:30 AM AMBULATORY - MEDICINE [place] [facility] [place] [facility] Oct 09, 2023 01:00 PM AMBULATORY - PSYCHIATRY [place] [facility] [place] [facility] Oct 21, 2023 12:30 PM AMBULATORY - PSYCHIATRY [place] [facility] [place] [facility] Oct 21, 2023 12:30 PM [facility]ONE [facility] Oct 23, 2023 08:30 AM AMBULATORY - REHAB MEDICIN E [facility] [place] [facility] Oct 23, 2023 01:00 PM AMBULATORY - PSYCHIATRY [place] [facility] [place] [facility] Oct 30, 2023 01:00 PM AMBULATORY - PSYCHIATRY [place] [facility] [place] [facility] Nov 13, 2023 11:00 AM AMBULATORY - MEDICINE [place] [facility] [place] [facility] Nov 13, 2023 12:00 PM AMBULATORY - MEDICINE [place] [facility] [place] [facility] Nov 13, 2023 12:15 PM AMBULATORY - MEDICINE [facility] [place] [facility] Nov 13, 2023 01:00 PM AMBULATORY - PSYCHIATRY [facility] [place] [facility] Nov 13, 2023 03:00 PM AMBULATORY - PSYCHIATRY [facility] [place] [facility] Nov 13, 2023 03:00 PM AMBULATORY - NONE [facility] Nov 20, 2023 01:00 PM AMBULATORY - PSYCHIATRY [facility] [place] [facility] Nov 30, 2023 11:00 AM AMBULATORY - REHAB MEDICIN E [facility] [place] [facility] Dec 04, 2023 01:00 PM AMBULATORY - PSYCHIATRY [facility] [place] [facility] Dec 11, 2023 01:00 PM AMBULATORY - PSYCHIATRY [facility] [place] [facility] Dec 21, 2023 03:00 PM AMBULATORY - PSYCHIATRY [place] [facility] [place] [facility] Social History: Smoking Status (Most current) and Tobacco Use (All prior to encounter date) This section includes the most current, and the historical, smoking and tobacco- related health factors from the [place] facility where the Encounter took place. Current Smoking Status This section includes the most current smoking, or tobacco-related health factor, from the [place] facility where the Encounter took place. Date/Time Current Smoking Status Comment Federico ity Jul 28, 2023 08:30 AM VA-TOBACCO NEVER USED [place] [facility] Tobacco Use History This section includes a history of the smoking, or tobacco-related health factors, that were collected on or before the date of the Encounter. The data comes from the [place] facility where the Encounter took place. Date/Time Smoking Status/Tobacco Use Comment F acility Feb 21, 2020 10:30 AM VA-TOBACCO NEVER USED [place] [facility] [place] [facility] Apr 20, 2018 02:11 PM VA-TOBACCO NEVER USED [facility] [place] [facility] Jan 14, 2017 02:29 PM LIFETIME NON-TOBACCO USER [facility] [place] [facility] August 12, 2010 02:56 PM LIFETIME NON-TOBACCO USER [facility] [place] [facility] Encounter Notes: All associated encounter notes This section contains the clinical notes associated to the Encounter. Date/Time Encounter Note(s) Provider Source Sep 28, 2023 03:01 PM MENTAL HEALTH CONSULT: LOCAL TITLE: MENTAL HEALTH CONSULT NOTE STANDARD TITLE: MENTAL HEALTH CONSULT DATE OF NOTE: SEP 28, 2023@15:01 ENTRY DATE: SEP 28, 2023@15:01:40 AUTHOR: COREY DAILY COSIGNER: URGENCY: STATUS: COMPLETED [place] [facility] Connect (VVC) Standard Documentation VVC Clinician Resources Only: E911 (Emergency Call Relay Center): [phone] National Veterans Crisis Line - 988 then press #1. [place] Suicide Coordinator [phone], Ext. [phone]; Back-up Ext. [phone] [place] Police, [place], [place] [phone] Introduction: Visit is being conducted by [place] [employer] [facility]. identified with 2 identifiers: [X] Full Name [X] Date of [ ] [place] ID Card Emergency Plan: [place] confirmed and/or provided the following information in case of emergency or technology failure. PATIENT PHONE - PHONE NUMBER [CELLULAR] - Is patient phone number correct, if not, enter below: [place]'s phone number: NANO CROWE [address], [place], [address] [place]'s present location and address for appointment: At home 's emergency contact name and phone number: Pam [phone] reported that location is private and safe: Yes Informed Consent: [place] informed of the risks and benefits of Telehealth video care. [place] has the right to refuse video services. If refuses video visit, a [id number] visit will be scheduled. [place] verbalized consent for this video visit: Yes [place] provided consent for any other persons present for visit: No If yes, who and relationship to patient: Secure visit: Visit was locked for security and privacy:Yes -=-=-=-=-=-=-=-=-=-=-=-=-= -=-=-=-=-=-=-==-=-=-=-=-=- =-=-=-=-=-=-=-=-=-=-=-=-=- =- -=-=-=-=-=-=-=-=-=-=-=-=-= -=-=-=-=-=-=-==-=-=-=-=-=- =-=-=-=-=-=-=-=-=-=-=-=-=- =- Program: Clinical Pharmacy Provider/Medication Management Speciality: Mental Health ATTENDED BY: [X] Patient [ ] Spouse/Caregiver LENGTH OF SESSION: 60minutes -=-=-=-=-=-=-=-=-=-=-=-=-= -=-=-=-=-=-=-==-=-=-=-=-=- =-=-=-=-=-=-=-=-=-=-=-=-=- =- Name: NANO CROWE Malika TAVAREZ: Sep ID: 58yo WHITE MALE -=-=-=-=-=-=-=-=-=-=-=-=-= -=-=-=-=-=-=-==-=-=-=-=-=- =-=-=-=-=-=-=-=-=Subjectiv e- Treating Dx(s): PTSD Interview Summary: pt w/ CC of looking for medication to help with motivation...something for a little bit more energy and uplifting...that kind of stuff...I am also having difficulty sleeping. explains that he finds himself at time being in bed and not wanting to get up; and then when he is up I don't really want to anything...I've never had issues in the past like this. reports psychosocial stressors at [facility] which may be contributing. endorses feeling angry, and subsequently will lose motivation. reports losing motivation as well when he gets tired. additionally, he reports getting nausious 2/2 to headaches. reports poor sleep. states I feel great when I get good sleep...but that's very seldom. endorses frequent disruptions, w/ difficulty initiating sleep and returning to sleep. reports disruptions are 2/2 to urinary frequency, which he plans to address w/ pcp. reports sleep study in the past was not conclusive for MAYO. pt otherwise does not feel that his low energy is related to a lack of sleep. discussed medications briefly. of note, pt was recently initiated on nortriptyline and trazodone. discussed that nortriptyline may help with mood and motiviation, and that trazodone is intended for sleep. discussed concern w/ starting any additional medication at this time d/t drug drug interactions. pt provided verbal understanding, and plans to monitor for improvements in symptoms. Mood: depressed Sleep: as stated above Apetite: bennie [place] reports the following regarding medications: -N--Y- [ ][X] Adherence/Compliance > utilizes medication organizer [X][ ] Adverse Drug Reactions [x][ ] New OTC/Herbal/Supplement(s) SUBSTANCE USE ASSESSMENT [X] Denies All [ ] Nicotine [ ] Caffeine [ ] Alcohol [ ] Cannabis [ ] Other Illicit Substances __ -=-=-=-=-=-=-=-=-=-=-=-=-= -=-=-=-=-=-=-==-=-=-=-=-=- =-=-=-=-=-=-=-=-=-Objectiv e- Mental Status Exam Appearance: [X] Unremarkable [X] Appropriate to season [ ] Neatly groomed [ ] Somewhat disheveled [ ] Other: Behavior Mood/Affect: [X] Appropriate [ ] Irritable [X] Normal [ ] Euphoric [ ] Pleasant [ ] Provocative [ ] Bright [ ] Depressed [ ] Anxious [ ] Frustrated [ ] Anxious [ ] Frustrated [ ] Maintained good eye contact [ ] Restricted [ ] Flat [ ] Other: [ ] Subdued [ ] Unremarkable [ ] Responsive & Congruent w/mood Energy: [ ] Other: [X] Normal [ ] Excessive [ ] Lethargic [ ] Variable Sleep: [ ] Other: [ ] Normal [ ] Early awakening [X] Sleep onset insomnia -N--Y- Orientation to: [X] Frequent disruption [ ][X] Person [ ][X] Place Speech: [ ][X] Time [X] Normal [ ] Rapid [ ] Loud [ ] Flat [ ] Slow [ ] Soft Stream of thought: [ ] Other: [X] Normal [ ] Confused [ ] Tangential [ ] Derailed Insight/Judgment: [ ] Vague [ ] Repetitive [X] Normal [ ] Impaired [ ] No evidence of thought disorder [ ] No overt psychosis Other cognitive problems: [ ] Denies Flashbacks [X] Cognition intact [ ] Denies AH/VH [X] Logical and Linear [ ] Obsessions [ ] Paranoid/Delusions [X] Memory sufficient for interview [ ] Hallucinations: [ ] None [ ] Visuospatial [ ] Flashbacks: [ ] Attention [ ] Judgment [ ] Other: [ ] Abstraction __ Active problems - Computerized Problem List is the source for the followin. Posttraumatic stress disorder 2. Atrial fibrillation 3. Brown-Sequard syndrome 4. Hypercalcemia 5. History of calculus of kidney 6. Cervical radiculopathy (SNOMED CT 22660948) 7. History of colonoscopy 8. Erectile dysfunction (SNOMED CT [id number]) 9. Essential hypertension 10. Hearing loss (SNOMED CT 18896145) __ ALLERGIES: Patient has answered NKA Active Outpatient Medications (including Supplies): Active Outpatient Medications Status 1) NORTRIPTYLINE HCL 10MG CAP TAKE ONE CAPSULE BY MOUTH ACTIVE (S) AT BEDTIME FOR MIGRAINE HEADACHES 2) TRAZODONE HCL 100MG TAB TAKE ONE-HALF TABLET BY MOUTH ACTIVE (S) AT BEDTIME FOR INSOMNIA ASSOCIATED WITH DEPRESSION Active Non-VA Medications Status 1) Non-VA APIXABAN 5MG TAB 5MG BY MOUTH EVERY 12 HOURS ACTIVE 2) Non-VA CHLORTHALIDONE 25MG TAB 25MG BY MOUTH ONCE ACTIVE DAILY 3) Non-VA CHOLECALCIF 50MCG (D3-2,000UNIT) TAB 2000UNIT ACTIVE BY MOUTH ONCE DAILY 4) Non-VA GABAPENTIN 300MG CAP 300MG BY MOUTH THREE ACTIVE TIMES DAILY NEEDED 5) Non-VA METOPROLOL SUCCINATE 25MG SA TAB 25MG BY MOUTH ACTIVE ONCE DAILY 6) Non-VA POTASSIUM CITRATE 10MEQ SA TAB 10MEQ BY MOUTH ACTIVE ONCE DAILY 7) Non-VA TRAMADOL HCL 50MG TAB 50MG BY MOUTH TWICE ACTIVE DAILY 8) Non-VA TURMERIC CAP/TAB BY MOUTH ACTIVE 9) Non-VA VITAMIN E CAP,ORAL BY MOUTH ACTIVE 11 Total Medications Past psychiatric medications include the following: [X] Per CPRS: - nortriptyline (2023-current) - trazodone (2023-current) [ ] Per Patient: __ Vitals: Ht: 71 in [180.3 cm] (08/12/2010 14:55) Wt: 240 lb [108.86 kg] (07/28/2023 08:26) BMI: 33.5 BP: 129/83 (07/28/2023 08:26) HR: 91 (07/28/2023 08:26) Labs: CHEM 7 TREND LAB CUMULATIVE SELECTED Collection DT Spec GLUCOSE BUN CREATIN Sodium K+/Pot CL CO2 03/08/2019 10:32 SERUM 105 H 13 0.96 141 4.6 109 25 02/17/2017 11:09 SERUM 104 H 11 0.95 141 4.8 107 25 LIVER PANEL TREND Collection DT Spec AST ALT T BILI ALK IMELDA T. PROT ALBUMIN 03/08/2019 10:32 SERUM 25 42 0.6 145 7.3 4.3 02/17/2017 11:09 SERUM 52 H 48 0.6 139 6.9 4.1 CBC TREND Collection DT Spec WBC RBC HGB HCT MCV MCH PLT 03/08/2019 10:32 BLOOD 5.33 4.91 14.4 43.2 88.0 29.3 238 02/17/2017 11:09 BLOOD 4.73 5.05 14.3 42.9 85.0 28.3 239 LIPID PANEL TREND Collection DT Spec CHOL HDL CHO/HDL LDL-c TRIG 03/08/2019 10:32 SERUM 230 H 43 5.3 157 H 149 02/17/2017 11:09 SERUM 183 37 L 4.9 125 105 EKG: n/a Estimated CrCl (based on IBW): ~87mL/min -=-=-=-=-=-=-=-=-=-=-=-=-= -=-=-=-=-=-=-==-=-=-=-=-=- =-=-=-=-=-=-=-=-=-=-=-=-=- =- ASSESSMENT The following review of all active psychotropic and GIN OPERATOR-active agents is to ensure pharmacotherapy is evaluated for safety and efficacy as they relate to behaviorial and physiological changes and outcomes PTSD * recently initiated agents from other services include the following: > nortriptyline 10mg hs for migraines > trazodone 50mg hs * ideally, SSRIs would be most appropriate to trial given no hx of any agents for treatment of PTSD; however, there is concern for DDIs * will monitor for benefits in PTSD symptoms and sleep; will defer from making any changes at this time. PLAN 1. Pharmacotherapy [X] No changes [ ] Discontinue: [ ] Initiate: [ ] Change the followin. Labs/tests: n/a 3. Consult(s) or Coordination of care: n/a 4. Other: n/a Education was provided to the regarding the above medication(s) risks, benefits, and alternatives; adverse drug reactions; expectations; and instructions for use. Findings/Plan was discussed with the patient and/or caregiver(s) whom provided verbal acknowledgement that the findings/plan was understood. The following counseling was specifically provided: [ ] Lab tests reviewed with patient [X] Instruction for management/treatment and/or follow-up [X] Importance of compliance with chosen treatment options [X] Risk Factor Reduction [ ] Other: RTC Interval: every 8-12weeks Next Apt: TBD [place] was provided sports book writer's contact information and instructed to contact sports book writer as needed for any changes to scheduling or concerns otherwise. [place] is aware of actions to take if they feel unsafe, including calling the 's Crisis Line (#374); calling 911; or going to the nearest urgent care or emergency room. The is also aware of how to contact the clinic should the require additional services prior to the next appointment. Time spent on chart review, session, and documentation: 60minutes /tanika/ Corey Daily PharmD Clinical Pharmacist Practitioner Signed: 10/06/2023 16:22 COREY DAILY [place] [facility]
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
--- OUTSIDE RECORDS SUMMARY | 2024-03-22 11:31 | XMS_ITS | Encounter Summary ---
Author Name [facility] [place] [facility] [place] Address [address] [place] [address] Care Team Providers Care Mold Stamper Name Role Phone KEEGAN RDZ Primary Care [...] Goyal's Name Patient's Relationship to Policy Goyal [facility] ORGAN[facility] Oct 10, 2023 [id number] [phone] NANO CROWE PATIENT [employer] POINT OF SERVICE [facility] [employer] [facility] Oct 04, 2016 [id number] NANO CROWE PATIENT [employer] BEHAVIORAL HEALTH MENTAL HEALTH [employer] [facility] Oct 04, 2016 [id number] NANO CROWE PATIENT [employer] PHARMACY PRESCRIPT ION [employer] [facility] Oct 04, 2016 [id number] NANO CROWE PATIENT Selected Encounter This section includes the information on record at [place] for the Encounter. Date/Time Encounter Type Encounter Description Reason Pro vider Source Oct 02, 2023 01:00 PM Outpatient Encounter [facility] Encounter Template Text not used by [place] Plan of Treatment: Future Appointments (+ 6 months) and Future Tests (+/- 45 days) The Plan of Treatment section includes future care activities for the patient from all [place] [facility]. This section includes future appointments and future orders which are active, pending or scheduled. Future Appointments This section includes appointments that were scheduled to occur 6 months from the date of the Encounter, up to a maximum of 20 appointments. The data comes from all [place] treatment facilities. Appointment Date/Time Appointment Type Appointme nt Facility Name Oct 06, 2023 08:00 AM AMBULATORY [facility]ICINE [facility] [place] [facility] Oct 06, 2023 09:30 AM AMBULATORY - MEDICINE [facility] [place] [facility] Oct 09, 2023 01:00 PM AMBULATORY - PSYCHIATRY [facility] [place] [facility] Oct 21, 2023 12:30 PM AMBULATORY - PSYCHIATRY [facility] [place] [facility] Oct 21, 2023 12:30 PM AMBULATORY - NONE [facility] Oct 23, 2023 08:30 AM AMBULATORY - REHAB MEDICIN E [facility] [place] [facility] Oct 23, 2023 01:00 PM AMBULATORY - PSYCHIATRY [facility] [place] [facility] Oct 30, 2023 01:00 PM AMBULATORY - PSYCHIATRY [facility] [place] [facility] Nov 13, 2023 11:00 AM AMBULATORY - MEDICINE [facility] [place] [facility] Nov 13, 2023 12:00 PM AMBULATORY - MEDICINE [facility] [place] [facility] Nov 13, 2023 12:15 PM AMBULATORY - MEDICINE [facility] [place] [facility] Nov 13, 2023 01:00 PM AMBULATORY - PSYCHIATRY [facility] [place] [facility] Nov 13, 2023 03:00 PM AMBULATORY - PSYCHIATRY [facility] [place] [facility] Nov 13, 2023 03:00 PM AMBULATORY - NONE [facility] Nov 20, 2023 01:00 PM AMBULATORY - PSYCHIATRY [facility] [place] [facility] Nov 30, 2023 11:00 AM AMBULATORY - REHAB MEDICIN E [facility] [place] [facility] Dec 04, 2023 01:00 PM AMBULATORY - PSYCHIATRY [facility] [place] [facility] Dec 11, 2023 01:00 PM AMBULATORY - PSYCHIATRY [facility] [place] [facility] Dec 21, 2023 03:00 PM AMBULATORY - PSYCHIATRY [facility] [place] [facility] Dec 22, 2023 10:00 AM [facility] Social History: Smoking Status (Most current) and [...] 28, 2023 08:30 AM [facility]ACCO [facility] Tobacco Use History This section includes a history of the smoking, or tobacco-related health factors, that were collected on or before the date of the Encounter. The data comes from the [place] facility where the Encounter took place. Date/Time Smoking Status/Tobacco Use Comment F acility Feb 21, 2020 10:30 AM VA-TOBACCO NEVER USED [place] [facility] [place] [facility] Apr 20, 2018 02:11 PM VA-TOBACCO NEVER USED [facility] [place] [facility] Jan 14, 2017 02:29 PM LIFETIME NON-TOBACCO USER [facility] [place] [facility] August 12, 2010 02:56 PM LIFETIME [facility]-TOBACCO [facility] [place] [facility] Encounter Notes: All associated encounter notes This section contains the clinical notes associated to the Encounter. Date/Time Encounter Note(s) Provider Source Oct 13, 2023 02:23 PM MENTAL HEALTH KIRSTEN TMENT PLAN NOTE: LOCAL TITLE: MH TREATMENT PLAN STANDARD TITLE: MENTAL HEALTH TREATMENT PLAN NOTE DATE OF NOTE: OCT 13, 2023@14:23:34 ENTRY DATE: OCT 13, 2023@14:23:47 AUTHOR: LAKEISHA SUTTON EXP COSIGNER: URGENCY: STATUS: COMPLETED MH TREATMENT PLAN - 9 Oct, 2023 @ 02:23PM Visit Date: Sep, @ 13:00 - CWM/NO/VVC/MHC/ANG MGMT GRP MHTC not assigned TEAM MEMBERS: LAKEISHA SUTTON: PSYCHOLOGIST RISK ASSESSMENT (DANGER TO SELF AND OTHERS): Low risk to self or others PATIENT'S PERCEPTION OF NEEDS AND PREFERENCES: I need help responding to angry feelings in ways that do not cause problems for me in my life PATIENT'S STRENGTHS/ABILITIES: Expressed desire/motivation for change Accepts guidance/feedback MENTAL HEALTH DIAGNOSES AND RELEVANT MEDICAL CONDITIONS: Posttraumatic stress disorder ([facility] [id number]) TREATMENT PLAN: Problem: Difficulty managing angry feelings without acting in ways [place] regrets Goal: Increase understanding of anger process and ways to effectively intervene so [place] does not act in ways that are unworkable or in conflict with personal values. Increase use of mindful and skillful behaviors, including those related to communicating with others and forgiving oneself and/or others. Objective: will actively participate weekly in group to practice mindfulness, to understand personal experiences in the anger process, and to engage in adaptive behaviors in line with personal values and goals. Projected Target Date: 01/05/2024 Intervention: 12 week hybrid VVC/F2F Living with Angry Feelings group that incorporates content from Acceptance and Commitment Therapy and Dialectical Behavioral Therapy. Providers: LAKEISHA SUTTON Time Frame: One time per week for 12 weeks Treating Specialty: Mental Health Clinic Renewal Date: 10/12/2024 Entered Treatment: 10/13/2023 @ 02:23PM Anticipated Discharge: None Actual Discharge: None PARTICIPATION IN TREATMENT PLANNING: Relevant treatment options, including evidence-based interventions, were considered and discussed with the [place]. Risks, benefits, and potential complications were discussed with the . AGREED TO PLAN DISCUSSED. /tanika/ Lakeisha Sutton, PhD Clinical Psychologist, Mental Health Clinic Signed: 10/13/2023 14:23 LAKEISHA SUTTON [place] [facility] [place] [facility] Oct 02, 2023 01:00 PM CLERICAL NOTE: LOCAL TITLE: APPOINTMENT NO SHOW STANDARD TITLE: CLERICAL NOTE DATE OF NOTE: OCT 02, 2023@13:00 ENTRY DATE: OCT 02, 2023@16:14:36 AUTHOR: TINA GONZALES EXP COSIGNER: LAKEISHA SUTTON URGENCY: STATUS: COMPLETED Patient Name: NANO CROWE Patient SSN: [id number] Date and time of Appointment No show : 10/02/23 13:00 PATIENT PHONE - PHONE NUMBER [CELLULAR] - Patient's medical record was reviewed. 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 noted that he was unable to join group due to injuring his left shoulder and attending the walk-in clinic. confirmed plans to attend next week's group. thanked sign writer hand for the call. No imminent risk reported. This case is being supervised by Lakeisha Sutton, Ph.D., full-time Staff Psychologist. Diagnosis, treatment plan, and response to care are reviewed in standard 1-hour or more weekly individual and group supervision meetings. Future Clinic Visits 10/06/2023 08:00 CWM/NO/COMP PEN AUDIO 10/06/2023 09:30 CWM/NO/COMP PEN MED R GRE 10/09/2023 13:00 CWM/NO/VVC/MHC/ANG MGMT G 10/16/2023 13:00 CWM/NO/VVC/MHC/ANG MGMT G 10/23/2023 13:00 CWM/NO/VVC/MHC/ANG MGMT G 10/30/2023 13:00 CWM/NO/VVC/MHC/ANG MGMT G /es/ TINA GONZALES M.S.// USABILITY STRATEGIST// Signed: 10/02/2023 16:19 /tanika/ Lakeisha Sutton, PhD Clinical Psychologist, Mental Health Clinic Cosigned: 10/02/2023 16:57 TINA GONZALES [facility] [place] [facility] Oct 02, 2023 08:30 AM MENTAL HEALTH DIAG NOSTIC STUDY NOTE: LOCAL TITLE: MENTAL HEALTH DIAGNOSTIC STUDY STANDARD TITLE: MENTAL HEALTH DIAGNOSTIC STUDY NOTE DATE OF NOTE: OCT 02, 2023@08:30:09 ENTRY DATE: OCT 02, 2023@08:30:09 AUTHOR: LAKEISHA SUTTON EXP COSIGNER: URGENCY: STATUS: COMPLETED Assessments were sent to the via text/email. These assessments were completed by NANO CROWE on their own device on 10/01/2023 4:43:36 PM. PATIENT HEALTH QUESTIONNAIRE-9 (PHQ-9) The patient reported symptoms consistent with a major depressive episode. Patient reported being bothered by the following over the last 2 weeks: 1. Little interest or pleasure: Nearly every day 2. Feeling down, depressed or hopeless: Nearly every day 3. Trouble sleeping: More than half the days 4. Tired, low energy: Nearly every day 5. Poor appetite, over-eating: Not at all 6. Feelings of failure, guilt: More than half the days 7. Trouble concentrating: Nearly every day 8. Motor retardation, agitation: Several Days 9. Thoughts better off /hurting self: Not at all PHQ-9 total score = 17 1-4 = minimal symptoms 5-9= mild symptoms 10-14= moderate symptoms 15-19= moderately severe symptoms 20-27= severe depressive symptoms The patient stated that the depressive symptoms made it extremely difficult to work, take care of things at home, or get along with others. PHQ-9 Total Score (past 180 days): 10/01/2023 17 07/08/2023 20 BRIEF ADDICTION MONITOR-REVISED (BAM-R) Patient reported the following over the last 30 days: 1. Physical health: Poor 2. Nights trouble falling asleep or staying asleep: 26 3. Days depressed, anxious, angry or very upset: 28 4. Days drank ANY alcohol: 0 5. Days drank at least 5/4 drinks (male/female): N/A 6. Days used any illegal/street drugs or abused any prescription medications: 0 7. Days used: a. Marijuana (cannabis, pot, weed): N/A b. Sedatives/Tranquilizers: N/A c. Cocaine/Crack: N/A d. Other Stimulants: N/A e. Opiates: N/A f. Inhalants: N/A g. Other drugs: N/A 8. Bothered by cravings or urges to drink alcohol or use drugs: Not at all 9. Confidence in ability to be abstinent in the next 30 days: Extremely 10. Days attended self-help meetings (AA or NA): 0 11. Days in any situations that might have increased risk for using alcohol/drugs: 0 12. Yarsanism or spirituality supports recovery: Extremely 13. Days with much of the time spent at work, school, or volunteerin 14. Enough income (from legal sources) to pay for necessities: Yes 15. Bothered by arguments or problems getting along with family/friends: Extremely 16. Days in contact with family/friends supportive of recovery: 20 17. Satisfied with progress toward achieving recovery goals: Not at all BAM Subscales: USE = 0 Scores range from 0 to 90 RISK = 114 Scores range from 0 to 180 PROTECTION = 115 Scores range from 0 to 180 DIFFICULTIES IN EMOTION REGULATION SCALE-16 (DERS-16) The patient reported that the statements below applied to them as follows: 1. Difficulty making sense out of their feelings: Most of the time 66-90% 2. Confused about how they feel: Almost always 91-100% 3. When upset, difficulty getting work done: Almost always 91-100% 4. When upset, become out of control: About half the time 36-65% 5. When upset, believe that they will remain that way for a long time: Almost always 91-100% 6. When upset, believe that they'll end up feeling very depressed: Almost always 91-100% 7. When upset, difficulty focusing on other things: Almost always 91-100% 8. When upset, feel out of control: About half the time 36-65% 9. When upset, feel ashamed with self for feeling that way: Almost always 91-100% 10. When upset, feel like they are weak: Most of the time 66-90% 11. When upset, difficulty controlling behaviors: About half the time 36-65% 12. When upset, believe that there is nothing they can do to make self feel better: Most of the time 66-90% 13. When upset, become irritated with self for feeling that way: Almost always 91-100% 14. When upset, start to feel very bad about self: Almost always 91-100% 15. When upset, difficulty thinking about anything else: Almost always 91-100% 16. When upset, emotions feel overwhelming: Almost always 91-100% DERS-16 Total Score: 71 Clarity Score: 9 Goals Score: 15 Impulse Score: 9 Strategies Score: 24 Nonacceptance Score: 14 Higher scores reflect greater levels of difficulty in emotion regulation. THE ACCEPTANCE AND ACTION QUESTIONNAIRE-II (AAQ-II) The patient rated how true each statement is for them as follows: 1. It's OK if I remember something unpleasant: Almost always true 2. My painful experiences and memories make it difficult for me to live a life that I would value: Always true 3. I am afraid of my feelings: Almost always true 4. I worry about not being able to control my worries and feelings: Always true 5. My painful memories prevent me from having a fulfilling life: Always true 6. I am in control of my life: Sometimes 7. Emotions cause problems in my life: Always true 8. It seems like most people are handling their lives better than I am: Always true 9. Worries get in the way of my success: Always true 10. My thoughts and feelings do not get in the way of how I want to live my life: Never true Total Score: 19 Scores range from 10 to 70 with higher scores indicating greater psychological flexibility. /tanika/ Lakeisha Sutton, PhD Clinical Psychologist, Mental Health Clinic Signed: 10/02/2023 16:58 LAKEISHA SUTTON [facility]
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
--- OUTSIDE RECORDS SUMMARY | 2024-03-22 11:31 | XMS_ITS | Encounter Summary ---
Author Name [facility] [place] Address [address] [place] [address] Care Team Providers Care Bottom Cementer Name Role Phone KEEGAN RDZ Primary Care [...] Goyal's Name Patient's Relationship to Policy Goyal [facility] OR[facility] RETIR EMENT Oct 10, 2023 [id number] NANO CROWE PATIENT CIGNA POINT OF SERVICE [facility] Oct 04, 2016 [id number] NANO CROWE PATIENT CIGNA BEHAVIORAL HEALTH MENTAL HEALTH [facility] Oct 04, 2016 [id number] NANO CROWE PATIENT CIGNA PHARMACY PRESCRIPT ION [facility] Oct 04, 2016 [id number] NANO CROWE PATIENT Selected Encounter This section includes the information on record at [place] for the Encounter. Date/Time Encounter Type Encounter Description Reason Pro vider Source Sep 18, 2023 10:05 AM Outpatient Encounter [facility] IHE Encounter Template Text not used by [place] Plan of Treatment: Future Appointments (+ 6 months) and Future Tests (+/- 45 days) The Plan of Treatment section includes future care activities for the patient from all [place] [facility] This section includes future appointments and future orders which are active, pending or scheduled. Future Appointments This section includes appointments that were scheduled to occur 6 months from the date of the Encounter, up to a maximum of 20 appointments. The data comes from all [place] treatment facilities. Appointment Date/Time Appointment Type Appointme nt Facility Name Sep 25, 2023 01:00 PM AMBULATORY [facility] [place] [facility] Sep 28, 2023 03:00 PM AMBULATORY - [facility]AT[facility] [place] [facility] Oct 02, 2023 01:00 PM AMBULATORY - PS[facility]IATRY [facility] [place] [facility] Oct 06, 2023 08:00 AM AMBULATORY - MEDICINE [facility] [place] [facility] Oct 06, 2023 09:30 AM AMBULATORY - MEDICINE IN [facility] [place] [facility] Oct 09, 2023 01:00 PM AMBULATORY - PSYCHIATRY [facility] [place] [facility] Oct 21, 2023 12:30 PM AMBULATORY - [facility]IATRY [facility] [place] [facility] Oct 21, 2023 12:30 PM AMBULATORY - NONE [facility] Oct 23, 2023 08:30 AM AMBULATORY - REHAB MEDICIN E [facility] [place] [facility] Oct 23, 2023 01:00 PM AMBULATORY - PS[facility]CHIATRY [facility] [place] [facility] Oct 30, 2023 01:00 PM AMBULATORY - PS[facility]CHIATRY [facility] [place] [facility] Nov 13, 2023 11:00 AM AMBULATORY - MEDICINE [facility] [place] [facility] Nov 13, 2023 12:00 PM AMBULATORY - MEDICINE [facility] [place] [facility] Nov 13, 2023 12:15 PM AMBULATORY - MEDICINE IN [facility] [place] [facility] Nov 13, 2023 01:00 PM AMBULATORY - PSYCHIATRY [facility] [place] [facility] Nov 13, 2023 03:00 PM AMBULATORY - PS[facility]CHIATRY [facility] [place] [facility] Nov 13, 2023 03:00 PM AMBULATORY - NONE [facility] Nov 20, 2023 01:00 PM AMBULATORY - PSYCHIATRY [facility] [place] [facility] Nov 30, 2023 11:00 AM AMBULATORY - REHAB MEDICIN E [facility] [place] [facility] Dec 04, 2023 01:00 PM [facility] Social History: Smoking Status (Most current) and Tobacco Use (All prior to encounter date) This section includes the most current, and the historical, smoking and tobacco- related health factors from the [place] facility where the Encounter took place. Current Smoking Status This section includes the most current smoking, or tobacco-related health factor, from the [place] facility where the Encounter took place. Date/Time Current Smoking Status Comment Facil ity Jul 28, 2023 08:30 AM VA-TOBACCO NEVER USED [facility] Tobacco Use History This section includes a history of the smoking, or tobacco-related health factors, that were collected on or before the date of the Encounter. The data comes from the [place] facility where the Encounter took place. Date/Time Smoking Status/Tobacco Use Comment F acility Feb 21, 2020 10:30 AM VA-TOBACCO NEVER USED [facility] [place] [facility] Apr 20, 2018 02:11 PM VA-TOBACCO NEVER USED IN [facility] [place] [facility] Jan 14, 2017 02:29 PM LIFETIME NON-TOBACCO USER [facility] [place] [facility] August 12, 2010 02:56 PM LIFETIME [facility]BACCO [facility]ER [facility] [place] [facility] Encounter Notes: All associated encounter notes This section contains the clinical notes associated to the Encounter. Date/Time Encounter Note(s) Provider Source Sep 18, 2023 10:07 AM ADMINISTRATIVE NOT E: LOCAL TITLE: ADMINISTRATIVE NOTE STANDARD TITLE: ADMINISTRATIVE NOTE DATE OF NOTE: SEP 18, 2023@10:07 ENTRY DATE: SEP 18, 2023@10:07:17 AUTHOR: JUNIE WYLIE EXP COSIGNER: URGENCY: STATUS: COMPLETED was LVM that his appt. with the CWM/NO/VVC/MHC/ANG MGMT GRP on 09/17 @ 1p was cancelled by clinic, as Provider is unavailable. [place] was left a message reminding of his scheduled first grp appt. is now on 09/24 @ 1p with group provider. MSA also left [phone] ext [phone] to call for any questions. /tanika/ JUNIE WYLIE SIEBEL CONSULTANT Signed: 09/18/2023 10:10 Receipt Acknowledged By: 09/21/2023 08:33 /tanika/ Lakeisha Sutton, PhD Clinical Psychologist, Mental Health [facility]
--- OUTSIDE RECORDS SUMMARY | 2024-03-22 11:31 | XMS_ITS ---
Author Name [facility] [place] Address [address] [place] [address] Care Team Providers Care Preparation Center Coordinator Name Role Phone KEEGAN RDZ Primary Care [...] Goyal's Name Patient's Relationship to Policy Goyal [facility] ORGANIZAT [facility] RETIR [facility]MENT Oct 10, 2023 [id number] NANO CROWE PATIENT CIGNA POINT OF SERVICE [facility] Oct 04, 2016 [id number] NANO CROWE PATIENT CIGNA BEHAVIORAL HEALTH MENTAL HEALTH [facility] Oct 04, 2016 [id number] NANO CROWE PATIENT CIGNA PHARMACY PRESCRIPT ION [facility] Oct 04, 2016 [id number] NANO CROWE PATIENT Selected Encounter This section includes the information on record at [place] for the Encounter. Date/Time Encounter Type Encounter Description Reason Provider Source August 24, 2023 02:51 PM Outpatient Encounter [facility] - MARIJA YUSUF Abner Encounter Template Text not used by [place] Plan of Treatment: Future Appointments (+ 6 months) and Future Tests (+/- 45 days) The Plan of Treatment section includes future care activities for the patient from all [place] [facility] This section includes future appointments and [...] MEDICIN E [facility] [place] [facility] Sep 25, 2023 01:00 PM AMBULATORY - PSYCHIATRY [facility] [place] [facility] Sep 28, 2023 03:00 PM AMBULATORY - PSYCHIATRY [facility] [place] [facility] Oct 02, 2023 01:00 PM AMBULATORY - PSYCHIATRY [facility] [place] [facility] Oct 06, 2023 08:00 AM AMBULATORY - MEDICINE [facility] [place] [facility] Oct 06, 2023 09:30 AM AMBULATORY - MEDICINE [place] [facility] [place] [facility] Oct 09, 2023 01:00 PM AMBULATORY - PSYCHIATRY [facility] [place] [facility] Oct 21, 2023 12:30 PM AMBULATORY - PSYCHIATRY [facility] [place] [facility] Oct 21, 2023 12:30 PM AM[facility]ATORY - [facility]ONE [facility] Oct 23, 2023 08:30 AM AMBULATORY - REHAB MEDICIN E [facility] [place] [facility] Oct 23, 2023 01:00 PM AMBULATORY - PSYCHIATRY [facility] [place] [facility] Oct 30, 2023 01:00 PM AMBULATORY - PSYCHIATRY [facility] [place] [facility] Nov 13, 2023 11:00 AM AMBULATORY - MEDICINE [facility] [place] [facility] Nov 13, 2023 12:00 PM AMBULATORY - MEDICINE [facility] [place] [facility] Nov 13, 2023 12:15 PM AMBULATORY - MEDICINE [facility] [place] [facility] Nov 13, 2023 01:00 PM AMBULATORY - PSYCHIATRY [place] [facility] [place] [facility] Nov 13, 2023 03:00 PM AMBULATORY - PSYCHIATRY [place] [facility] [place] [facility] Nov 13, 2023 03:00 PM AMBULATORY - NONE [facility] Nov 20, 2023 01:00 PM AMBULATORY - PSYCHIATRY [place] [facility] [place] [facility] Nov 30, 2023 11:00 AM AMBULATORY - REHAB MEDICIN E [place] [facility] [place] [facility] Active, Pending, and Scheduled Orders [...] BLOOD FIT X1 SCREEN(IN-HOUSE) STOOL FECES SP [facility] Social History: Smoking Status (Most [...] 28, 2023 08:30 AM VA-TOBACCO NEVER USED [facility] Tobacco Use History This section includes a history of the smoking, or tobacco-related health factors, that were collected on or before the date of the Encounter. The data comes from the [place] facility where the Encounter took place. Date/Time Smoking Status/Tobacco Use Comment F acility Feb 21, 2020 10:30 AM VA-TOBACCO NEVER USED [place] [facility] [place] [facility] Apr 20, 2018 02:11 PM VA-TOBACCO NEVER USED [place] [facility] [place] [facility] Jan 14, 2017 02:29 PM LIFETIME NON-TOBACCO USER [place] [facility] [place] [facility] August 12, 2010 02:56 PM LIFETIME NON-TOBACCO USER [facility] Encounter Notes: All associated encounter notes This section contains the clinical notes associated to the Encounter. Date/Time Encounter Note(s) Provider Source August 25, 2023 07:07 AM MENTAL HEALTH SECU RE MESSAGING: LOCAL TITLE: MENTAL HEALTH SECURE MESSAGING STANDARD TITLE: MENTAL HEALTH SECURE MESSAGING DATE OF NOTE: AUGUST 25, 2023@07:07 ENTRY DATE: AUGUST 25, 2023@08:07:29 AUTHOR: MARIJA SUTTON EXP COSIGNER: URGENCY: STATUS: COMPLETED ------Original Message ------ Sent: 08/24/2023 05:36 PM ET From: NANO CROWE To: _CIELO,J_NHM% Subject: General:Living with Angry Feelings group information Lg Suazo, it was nice to meet you as well. I recite documents you sent me and will print them up to read through everything. Thanks again for your assistance. Nano ------Original Message ------ Sent: 08/25/2023 08:07 AM ET From: MARIJA SUTTON To: NANO CROWE Subject: General:Living with Angry Feelings group information Il Lisa Garza! I'll be back in touch regarding an opening to start in the group. Thanks! Marija Sutton, PhD Clinical Psychologist; [phone] /es/ Marija Sutton, PhD Clinical Psychologist, Mental Health Clinic Signed: 08/25/2023 08:07 MARIJA SUTTON [place] [facility] [place] [facility] August 24, 2023 02:51 PM MENTAL HEALTH SECU RE MESSAGING: LOCAL TITLE: MENTAL HEALTH SECURE MESSAGING STANDARD TITLE: MENTAL HEALTH SECURE MESSAGING DATE OF NOTE: AUGUST 24, 2023@14:51 ENTRY DATE: AUGUST 24, 2023@15:52 AUTHOR: MARIJA SUTTON EXP COSIGNER: URGENCY: STATUS: COMPLETED ------Original Message ------ Sent: 08/24/2023 03:51 PM ET From: MARIJA SUTTON To: NANO CROWE Subject: General:Living with Angry Feelings group information Attachments: Living with Angry Feelings Commitment for Participation June 2023 Isaias Rolon.docx (24.77 KB) Lg Garza, A pleasure to meet with you today. Here is the information about the Living with Angry Feelings group. I will get back in touch regarding a start date as soon as possible. Thank you! Marija Sutton, PhD Clinical Psychologist; [phone] /es/ Marija Sutton, PhD Clinical Psychologist, Mental Health Clinic Signed: 08/24/2023 15:52 MARIJA SUTTON [facility]
--- OUTSIDE RECORDS SUMMARY | 2024-03-22 11:32 | XMS_ITS | Encounter Summary ---
Author Name [place] Address [address] [place] [id number] Care Team Providers Care Blood Bank Custodian Name Role Phone KEEGAN RDZ Primary Care [...] Goyal's Name Patient's Relationship to Policy Goyal [facility]GAN[facility] RETIR EMENT Oct 10, 2023 [id number] NANO CROWE PATIENT CIGNA POINT OF SERVICE [facility] Oct 04, 2016 [id number] NANO CROWE PATIENT CIGNA BEHAVIORAL HEALTH MENTAL HEALTH [facility] Oct 04, 2016 [id number] NANO CROWE PATIENT CIGNA PHARMACY PRESCRIPT ION [facility] Oct 04, 2016 [id number] NANO CROWE PATIENT Selected Encounter This section includes the information on record at [place] for the Encounter. Date/Time Encounter Type Encounter Description Reason Provider Source Oct 09, 2023 01:00 PM GROUP PSYCHOTHERAPY [facility] ICD-10-CM F43.10 Post-traumatic stress disorder, unspecified LARA CREWS Encounter Template Text not used by [place] Assessments - Encounter Diagnoses This section includes the primary and secondary diagnoses documented for the Encounter. Date/Time Primary/Secondary Diagnosis Diagnosis Name Provider Source Feb 03, 2024 07:58 AM PRIMARY Post-traumatic stress disorder, unspecified ISAIAS GONZALES [place] [facility] [place] [facility] Plan of Treatment: Future Appointments (+ 6 months) and Future Tests (+/- 45 days) The Plan of Treatment section includes future care activities for the patient from all [place] [facility] This section includes future appointments and future orders which are active, pending or scheduled. Future Appointments This section includes appointments that were scheduled to occur 6 months from the date of the Encounter, up to a maximum of 20 appointments. The data comes from all [place] treatment facilities. Appointment Date/Time Appointment Type Appointme nt Facility Name Oct 21, 2023 12:30 PM AMBULATORY - PSYCHIATRY [place] [facility] [place] [facility] Oct 21, 2023 12:30 PM AMBULATORY - NONE [facility] Oct 23, 2023 08:30 AM AMBULATORY - REHAB MEDICIN E [facility] [place] [facility] Oct 23, 2023 01:00 PM AMBULATORY - PSYCHIATRY [facility] [place] [facility] Oct 30, 2023 01:00 PM AMBULATORY - PSYCHIATRY [facility] [place] [facility] Nov 13, 2023 11:00 AM AMBULATORY - MEDICINE [place] [facility] [place] [facility] Nov 13, 2023 12:00 PM AMBULATORY - MEDICINE [place] [facility] [place] [facility] Nov 13, 2023 12:15 PM AMBULATORY - MEDICINE [place] [facility] [place] [facility] Nov 13, 2023 01:00 PM AMBULATORY - PSYCHIATRY [facility] [place] [facility] Nov 13, 2023 03:00 PM AMBULATORY - PSYCHIATRY [facility] [place] [facility] Nov 13, 2023 03:00 PM AMBULATORY - NONE [facility] Nov 20, 2023 01:00 PM AMBULATORY - PSYCHIATRY [place] [facility] [place] [facility] Nov 30, 2023 11:00 AM AMBULATORY - REHAB MEDICIN E [facility] [place] [facility] Dec 04, 2023 01:00 PM AMBULATORY - PSYCHIATRY [facility] [place] [facility] Dec 11, 2023 01:00 PM AMBULATORY - PSYCHIATRY [facility] [place] [facility] Dec 21, 2023 03:00 PM AMBULATORY - PSYCHIATRY [place] [facility] [place] [facility] Dec 22, 2023 10:00 AM AMBULATORY - PSYCHIATRY [place] [facility] [place] [facility] Jan 01, 2024 01:00 PM AMBULATORY - PSYCHIATRY [place] [facility] [place] [facility] Jan 15, 2024 01:00 PM AMBULATORY - PSYCHIATRY [place] [facility] [place] [facility] Jan 22, 2024 01:00 PM [facility]UL[facility]ORY [facility] [place] [facility] Social History: Smoking Status (Most current) [...] 28, 2023 08:30 AM VA-TOBACCO NEVER [facility]ED [facility] Tobacco Use History This section includes a history of the smoking, or tobacco-related health factors, that were collected on or before the date of the Encounter. The data comes from the [place] facility where the Encounter took place. Date/Time Smoking Status/Tobacco Use Comment F acility Feb 21, 2020 10:30 AM VA-TOBACCO NEVER USED [place] [facility] [place] [facility] Apr 20, 2018 02:11 PM VA-TOBACCO NEVER USED [place] [facility] [place] [facility] Jan 14, 2017 02:29 PM LIFETIME NON-TOBACCO USER [place] [facility] [place] [facility] August 12, 2010 02:56 PM LIFETIME NON-TOBACCO USER [place] [facility] [place] [facility] Encounter Notes: All associated encounter notes This section contains the clinical notes associated to the Encounter. Date/Time Encounter Note(s) Provider Source Oct 09, 2023 01:00 PM PSYCHIATRY GROUP COUNSELING NOTE: LOCAL TITLE: PSYCHOLOGY GROUP NOTE STANDARD TITLE: PSYCHIATRY GROUP COUNSELING NOTE DATE OF NOTE: OCT 09, 2023@13:00 ENTRY DATE: OCT 09, 2023@16:04:51 AUTHOR: ISAIAS GONZALES COSIGNER: LARA WINKLER URGENCY: STATUS: COMPLETED PSYCHOLOGY GROUP NOTE Has ADDENDA MHC Living with Angry Feelings Group Therapy Note SESSION MODALITY: [facility] Video Connect (clinic to non-VA location) 's location: Provider confirmed that is currently located at Primary Address listed in [facility]. Primary phone number: Confirmed for all participants. [place] has provided verbal consent either today or previously when seen via VVC in mental health. This consent was obtained after a full explanation of the risk and benefits of using telehealth for mental health appointments. Alternatives for obtaining care through an in-person mental health visit and the [place]'s right of refusal at any time during this session have been explained. 's location/environment was surveyed by this provider to identify all participants and the Virtual Medical Room was locked (via enabling button option in VMR) once all invited/required attendees were present. [place] identified with 2 identifiers: [X] Patient Name [X] Visual recognition Facilitators: Isaias Gonzales MS PROCEDURE: 60-minute interactive hybrid VVC/F2F group therapy session Problem: Difficulty managing angry feelings without acting in ways [place] regrets Objective: Increase understanding of anger process and ways to effectively intervene so does not act in ways that are unworkable or in conflict with personal values. Increase use of mindful and skillful behaviors. Number of Veterans Present in Group: 5 GROUP CONTENT: Group members participated in a mindful awareness practice. Group members each checked in, sharing names and speaking about what keeps them holding onto angry feelings. The graduation of one group member was discussed. Graduating group member shared something they will take away from the group experience. Members reflected on a quote by Farzaneh Cardona and were asked to consider the potential consequences of holding onto anger. The four components of forgiveness were interactively explored. Group members were encouraged to engage in mindful awareness and were informed that the discussion about forgiveness would be continued in the next group. PROGRESS: [place] arrived on time and was an active and appropriate participant. participated in the mindfulness practices and group discussions. Mental Status was not formally assessed due to the nature of the encounter. [place] maintained appropriate eye contact and was alert. [place] spoke clearly and coherently. 's thoughts were linear and related. 's affect was congruent to content and appropriate in range. No clinical signs of intoxication, withdrawal, psychosis, or cognitive impairment were observed. No evidence of suicidal or homicidal ideation. There was no evidence of AH/VH or delusions. was future oriented. DSM-V DIAGNOSTIC IMPRESSIONS(per chart): PTSD PLAN: will continue to participate in the Living with Angry Feelings Group on Fridays at 1pm. This case is being supervised by Dr. Lara Winkler PsyD, full- time Staff Psychologist while Dr. Lakeisha Sutton, Ph.D. is on leave. Diagnosis, treatment plan, and response to care are reviewed in standard 1- hour or more weekly individual and group supervision meetings. /tanika/ ISAIAS GONZALES M.S.// TRAFFIC RATE COMPUTER// Signed: 10/09/2023 16:13 /tanika/ LARA WINKLER [facility] PSYCHOLOGIST Cosigned: 10/12/2023 12:54 02/02/2024 ADDENDUM STATUS: COMPLETED I have reviewed this case and concur with the clinical impressions and recommendations made by this trainee who is under my clinical supervision. /tanika/ LARA YANG PSYCHOLOGIST Signed: 02/02/2024 16:34 ISAIAS GONZALES [place] [facility]
--- OUTSIDE RECORDS SUMMARY | 2024-03-22 11:32 | XMS_ITS ---
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 dizziness and presyncompe. No specific triggers, but symptoms seem to resolve with deep breathing. * 08/07/1987 Disability EXAM: Pt reports that at time of pre-induction physical chest xray revealed a ? enlarged heart. Subsequent chest xray WNL. ~ 1983 pt started experiencing episodic sharp left sided chest pain while running. EKG WNL, felt to be musculoskeletal in origin. No chest pain for a year. EKG = NORMAL SINUS RHYTHM * 03/20/1987 DATE ACTIVE DUTY PER DD214 * 02/21/1985 STR: c/o left sided chest pain. Pt denies dyspnea or diaphoresis. He states pain is more severe on deep inspiration. Pt has had cardiac work up in the past which has been negative. 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 * 05/06/1984 CONSULT: atypical chest pains. Normal echocardiogram. Impression: non-cardiac chest pain. Reassure regarding pains. * 05/06/1984 CHEST XRAY: Good inspiration. No cardiomegaly. No active pathology. * 04/20/1984 CHEST XRAY and [facility] NOTE: IMPRESSION: Prominent heart which may be related to poor inspiratoin. The remainder of the examination appears unremarkable. No acute distress. Heart sounds RRR without murmur Assessement; probably pleuritic * 10/14/1983 [facility]: Seen for chest pains x one month. No irregular pulse, pt not short of breath at rest, yes pain made worse by deep breath. * 04/01/1983 DATE ENTERED ACTIVE DUTY PER DD214 * 12/12/1982 CONSULT: 17 year old who has been involved in athletic activities most of his life. His routine chest xray shows a mild increase in cardiac measurement. There is no history of chest pain, shortness of breath, or ankle edema. Patient denies palpitations. He has never been restricted in activities for any cardiovascular condition. EXAM: Lungs are clear to auscultation and percussion. Heart is not enlarged to examination. There is not abnormal lift and there are no thrills palpable. There is normal physiological splitting of the second heart sound on inspiration. No murmur or jairo is audible. Electrocardiogram is within normal limits. In summary, Mr Ann has no evidence of significant organic heart disease. His x-ray findings could easily be explained on the basis of a well conditioned athlete. * [facility]23[facility]1982 [facility] Medical: normal heart on exam. Cardiac Consult. Mild cardiomegaly. Self Assessment: NO palpation or pounding heart. NO heart trouble 2B. Do any of the 's heart conditions qualify within the generally accepted medical definition of Ischemic Heart Disease (IHD)? [ ] Yes [X] No 2C. Provide the etiology, if known, of each of the 's heart conditions, including the relationship/causality to other heart conditions, particularly the relationship/causality to the 's IHD conditions, if any: Heart condition #1: Provide etiology CORONARY ARTERY ABNORMALITY - congenital, born with Heart condition #2: Provide etiology PAROXYSMAL ATRIAL FIBRILLATION - coronary artery abnormal structure more likely than not a contributing factor If there are additional heart conditions, list and provide etiology, using above format: NON ISCHEMIC CARDIOMYOPATHY - Paroxysmal atrial fibrillation more likely than not a contributing factor 2D. Is continuous medication required for control of the 's heart condition? [X] Yes [ ] No If yes, list medications required for the Macon's heart condition (include name of medication and heart condition it is used for, such as atenolol for myocardial infarction or atrial fibrillation): METOPROLOL APIXABAN 3. Myocardial infarction (OK) 3A. Has the had an OK? [ ] Yes [X] No 4. Arrhythmia 4A. Has the had a cardiac arrhythmia? [X] Yes [ ] No If yes, complete the following: Note: A treatment intervention occurs whenever a symptomatic patient requires intravenous pharmacologic adjustment, cardioversion, and/or ablation for symptom relief. [X] Supraventricular tachycardia documented by electrocardiogram (ECG) (if checked, indicate type of treatment) [X] Continuous use of oral medications to control 5. Heart valve conditions 5A. Has the Macon had a heart valve condition? [ ] Yes [X] No 6. Infectious heart conditions - 6A. Has the Macon had any infectious cardiac conditions, including active valvular infection (which includes rheumatic heart disease), endocarditis, pericarditis, or syphilitic heart disease? [ ] Yes [X] No 6C. Has the had a syphilitic aortic aneurysm? [ ] Yes [X] No 7. Pericardial adhesions 7A. Has the had pericardial adhesions? [ ] Yes [X] No 8. Procedures 8A. Has the had any non-surgical or surgical procedures for the treatment of a heart condition? [ ] Yes [X] No 8B. If the Macon has had additional non-surgical or surgical procedures for the treatment of a heart condition, list using above format: No response provided. 9. Hospitalizations 9A. Has the had any other hospitalizations for the treatment of a heart condition (other than for non-surgical and/or surgical procedures described above)? [ ] Yes [X] No 10. Physical examination 10A. Physical examination findings: Heart rate: 72 Blood pressure: 138/80 Rhythm: [X] Regular [ ] Irregular Point of maximal impact: [X] Not palpable [ ] 4th intercostal space [ ] 5th intercostal space [ ] Other, specify: Heart sounds: [X] Normal [ ] Abnormal, specify: Jugular-venous distension: [ ] Yes [X] No Auscultation of the lungs: [X] Clear [ ] Bibasilar rales [ ] Other, specify: Peripheral pulses: Dorsalis pedis: [X] Normal [ ] Diminished [ ] Absent Posterior tibial: [X] Normal [ ] Diminished [ ] Absent Peripheral edema: Right lower extremity: [X] None [ ] Trace [ ] 1+ [ ] 2+ [ ] 3+ [ ] 4+ Left lower extremity: [X] None [ ] Trace [ ] 1+ [ ] 2+ [ ] 3+ [ ] 4+ 11. Other pertinent physical findings, complications, conditions, signs and/or symptoms 11A. Does the have any other pertinent physical findings, complications, conditions, signs or symptoms related to any conditions listed in the diagnosis section above? [ ] Yes [X] No 11B. Does the Macon have any scars or other disfigurement (of the skin) related to any conditions or to the treatment of any conditions listed in the diagnosis section? [ ] Yes [X] No 12. Diagnostic Testing Note: For [place] purposes, exams for all heart conditions require a determination of whether or not cardiac hypertrophy or dilatation (documented by electrocardiogram, echocardiogram, or x-ray) is present. The suggested order of testing for cardiac hypertrophy/dilatation is ECG, then chest x-ray (PA and lateral), and then echocardiogram. An echocardiogram to determine heart size is only necessary if the other two tests are negative. 12A. Is there evidence of cardiac hypertrophy? [X] Yes [ ] No If yes, indicate how this condition was documented: No response provided. Date of test: * SEE CT Angio results 12B. Is there evidence of cardiac dilatation? [X] Yes [ ] No If yes, indicate how this condition was documented: [X] Echocardiogram Date of test: * 07/07/2023 12C. Select all testing completed and provide most recent results which reflect the 's current functional status. Check all that apply: [X] Echocardiogram Date of echocardiogram: 07/07/2023 Wall motion: [ ] Normal [X] Abnormal, describe: * SEE REMARKS Wall thickness: [ ] Normal [X] Abnormal, describe: * SEE CT ANGIO [X] CT angiography Date of CT angiography: 08/24/[address]: [ ] Normal [X] Abnormal, describe: 1. 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 2. Multichamber cardiomegaly. Global hypokinesia [X] Other test Other test, specify PATCH MONITOR Date of test: 07/09/2023 Results of test [ ] Normal [X] Abnormal, describe: Predominant rhythm Sinus Atrial fib occurred 25% burden. 13. Metabolic equivalents (METs) testing Note: For [place] purposes, all heart exams require METs testing (either exercise-based or interview-based) to determine the activity level at which symptoms such as breathlessness, fatigue, angina, dizziness, or syncope develops (except exams for supraventricular arrhythmias). If a laboratory determination for METs by exercise testing cannot be done for medical reasons, then perform an interview-based METs test based on the Macon's responses to a cardiac activity questionnaire and provide the results below. 13A. Select all testing completed (of record and/or completed during this examination) and provide the most recent results that reflect the 's current functional status. Check all that apply: [X] Exercise stress test [X] Interview-based METs test 13B. Exercise stress test Date of most recent exercise stress test: 07/07/2023 Results: negative for ischemia METs level the Macon performed, if provided: 10.2 Did the test show ischemia? [ ] Yes [X] No If no, was the test terminated due to symptoms related to the cardiac condition? [ ] Yes, the test was terminated due to symptoms related to the cardiac condition. [X] No, the test was terminated due to symptoms not related to the cardiac condition. Please provide the reason for termination below: (Examiner also needs to complete questions 13C through 13F.) terminated due to fatigue 13C. If an exercise stress test was not performed, select a reason. No response provided. 13D. Interview-based METs test Date of interview-based METs test: 10/06/2023 Symptoms during activity: The METs level checked below reflects the lowest activity level at which the Macon reports any of the following symptoms (check all symptoms that the reports at the indicated METs level of activity): No response provided. [X] The Macon denies experiencing symptoms attributable to a cardiac condition with any level of physical activity 13E. Has the had both an exercise stress test and interview-based METs test? [X] Yes [ ] No If yes, indicate which results most accurately reflect the 's current cardiac functional level: [X] Exercise stress test [ ] Interview-based METs test 13F. Is the METs level provided due solely to the heart condition(s) that the is claiming in the diagnosis section? [X] Yes [ ] No 13G. What is the estimated interview-based METs level due solely to the cardiac condition(s) listed above? If this is different than the METs level reported above because of comorbid conditions, provide METs level for the claimed cardiac condition only and rationale below. Results of interview-based METs test. METs level on most recent interview-based METs test: No response provided. 14. Functional impact Note: Provide the impact of only the diagnosed condition(s), without consideration of the impact of other medical conditions or factors, such as age. 14A. Regardless of the 's current employment status, do the conditions listed in the diagnosis section impact his/her ability to perform any type of occupational task (such as standing, walking, lifting, sitting, etc.)? [X] Yes [ ] No If yes, describe the functional impact of each condition, providing one or more examples: The notes he is not as active as he used to be, i take naps now. 15. Remarks 15A. Remarks (if any -- please identify the section to which the remark pertains when appropriate). ECHOCARDIOGRAM: 07/07/2023 LV is dilated with reduced systolic function, LVEF 43%. RV is dilated with reduced function. LA is dilated. No signficant valve disease. Hypertension Disability Benefits Questionnaire Name of claimant/: NANO ANN ([id number]) Is this questionnaire being completed in conjunction with a [place] [id number], C&P Examination Request? [X] Yes [ ] No How was the examination completed? (check all that apply) [X] In-person examination [X] Records reviewed [ ] Examination via approved video telehealth [ ] Other, please specify in comments box Comments: * 08/13/2023 'S CLAIM: - (CARDIAC) - atrial fibrillation - HYPERTENSION - BACK - NECK - KIDNEY STONES - HYPERPARATHYROIDISM - ERECTILE DYSFUNCTION Acceptable Clinical Evidence (DIANE) ----- Indicate method used to obtain medical information to complete this document: [ ] Review of available records (without in-person or video telehealth examination) using the Acceptable Clinical Evidence (DIANE) process because the existing medical evidence provided sufficient information on which to prepare the questionnaire and such an examination will likely provide no additional relevant evidence. [ ] Review of available records in conjunction with an interview with the (without in-person or telehealth examination) using the DIANE process because the existing medical evidence supplemented with an interview provided sufficient information on which to prepare the questionnaire and such an examination would likely provide no additional relevant evidence. 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 - The previous denial of service connection for low back pain is confirmed and continued. * 04/27/2020 - The claim for service connection for cervical spine dgenerative arthritis status post fusion C5-6 and C6-7 remains denied. - The claim for service connection for low back pain remains denied. 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 - The previous denial of service connection for low back pain is confirmed and continued. * 02/25/2019 - Service connection for cervical spine degenerative arthritis post fusion C5-6 and C6-7 (claimed as neck injury) is denied. The medical opinion found no link between your diagnosed medical condition and service. * 12/28/2018 - Not Service Connected/Not Subject to Compensation: Low back pain Musculoskeletal chest pain. * 04/10/2010 - Low back pain, not service connected, not incurred/caused by service. * 08/15/2002 -Low back pain, not service connected, Not Incurred/Caused by Service. * 10/17/1987 Original Disability Claim. - Chronic low back disability is not shown to have been incurred in or aggravated by service. - Service connection for muscular skeletal chest pain is denied as not found on exam. 1. Diagnosis NOTE 1: For [place] disability rating purposes, the term hypertension means that the diastolic blood pressure is predominantly 90mm or greater, and isolated systolic hypertension means that the systolic blood pressure is predominantly 160mm or greater with a diastolic blood pressure of less than 90mm. NOTE 2: For [place] purposes, the INITIAL diagnosis of hypertension or isolated systolic hypertension must be confirmed by readings taken 2 or more times on at least 3 different days. Blood pressure results may be obtained from existing medical records or through scheduled visits for blood pressure measurements. 1A. Does the currently have a diagnosis of hypertension or isolated systolic hypertension based on the following criteria? [X] Yes [ ] No [X] Hypertension ICD code: No response provided. Date of diagnosis: 01/2017 per primary care note NOTE 3: ALSO complete appropriate questionnaires for hypertension-related complications, if any (such as Kidney, if renal insufficiency is attributable to hypertension). 2. Medical History 2A. Describe the history (including onset and course) of the Macon's hypertension condition (brief summary): STATUS OF AFFECTED/CLAIMED HYPERTENSION CONDITION: The notes elevated blood pressure was found a few years and he started medication. The medication has kept is hypertension well controlled.+ REVIEW OF AVAILABLE MEDICAL EVIDENCE: * 08/07/2023 PRIVATE RECORDS: b/p 122/86 * 04/13/2023 PRIVATE RECORDS: b/p 126/70 * 03/08/2019 PRIMARY CARE NOTE: Hypertension under good control B/P 118/70 * 01/14/2017 PRIMARY CARE NOTE: blood pressure slightly elevated, not aware of high blood pressure in the past. 145/76 Diagnosis: hypertension * 08/12/2010 PRIMARY CARE NOTE: B/P 120/80 * 03/20/1987 DATE ACTIVE DUTY PER DD214 * 08/31/1984 [facility] Medical Exam: B/P 120/72 * 04/01/1983 DATE ENTERED ACTIVE DUTY PER DD214 * 11/23/1982 [facility]: Medical: b/p 102/60. Self Assessment: NO high blood pressure 2B. Does the Macon's treatment plan include taking continuous medication for hypertension or isolated systolic hypertension? [X] Yes [ ] No If yes, list only those medications used for the diagnosed conditions: chlortalidone daily 2C. Was the Macon's initial diagnosis of hypertension or isolated systolic hypertension confirmed by blood pressure (BP) readings taken 2 or more times on at least 3 different days? [ ] Yes [ ] No [X] Unknown (If checked, proceed to questions 2D and 2E) 2D. Does the have a history of a diastolic BP elevation to predominantly 100 or more? [ ] Yes [X] No 2E. Current (date of evaluation/s) blood pressure readings (sufficient if has a previously established diagnosis of hypertension): Reading #1: 138 / 80 Date of Readin10/06/2023 Reading #2: 122 / 86 Date of Readin08/07/2023 Reading #3: 136 / 80 Date of Readin06/30/2023 The Macon should be seated comfortably with back and feet supported. There is no need to take lying or standing blood pressures. There is no specified time interval between readings and they may be completed sequentially. 3. Other Pertinent Physical Findings, Complications, Conditions, Signs, Symptoms and Scars 3A. Does the have any other pertinent physical findings, complications, conditions, signs or symptoms related to the conditions listed in the Diagnosis Section above? [ ] Yes [X] No 3B. Does the Macon have any scars (surgical or otherwise) related to any conditions or to the treatment of any conditions listed in the Diagnosis Section above? [ ] Yes [X] No 3C. Comments, if any: N/A 4. Functional Impact Does the 's hypertension or isolated systolic hypertension impact his or her ability to work? [ ] Yes [X] No 5. Remarks, If Any NO ADDITIONAL COMMENTS Kidney Conditions (Nephrology) Disability Benefits Questionnaire Name of Claimant/Macon: NANO ANN ([id number]) Note to examiner - The Macon is applying to the [employer] ([facility] for disability benefits. VA will consider the information you provide on this questionnaire as part of their evaluation in processing the Macon's claim. Is this questionnaire being completed in conjunction with a VA C&P examination request? [X] Yes [ ] No How was the examination completed? (check all that apply) [X] In-person examination [X] Records reviewed [ ] Examination via approved video telehealth [ ] Other, please specify in comments box Comments: * 08/13/2023 'S CLAIM: - (CARDIAC) - atrial fibrillation - HYPERTENSION - BACK - NECK - KIDNEY STONES - HYPERPARATHYROIDISM - ERECTILE DYSFUNCTION Acceptable Clinical Evidence (DIANE) ----- Indicate method used to obtain medical information to complete this document: [ ] Review of available records (without in-person or video telehealth examination) using the Acceptable Clinical Evidence (DIANE) process because the existing medical evidence provided sufficient information on which to prepare the questionnaire and such an examination will likely provide no additional relevant evidence. [ ] Review of available records in conjunction with an interview with the Macon (without in-person or telehealth examination) using the DIANE process because the existing medical evidence supplemented with an interview provided sufficient information on which to prepare the questionnaire and such an examination would likely provide no additional relevant evidence. 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 - The previous denial of service connection for low back pain is confirmed and continued. * 04/27/2020 - The claim for service connection for cervical spine dgenerative arthritis status post fusion C5-6 and C6-7 remains denied. - The claim for service connection for low back pain remains denied. 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 - The previous denial of service connection for low back pain is confirmed and continued. * 02/25/2019 - Service connection for cervical spine degenerative arthritis post fusion C5-6 and C6-7 (claimed as neck injury) is denied. The medical opinion found no link between your diagnosed medical condition and service. * 12/28/2018 - Not Service Connected/Not Subject to Compensation: Low back pain Musculoskeletal chest pain. * 04/10/2010 - Low back pain, not service connected, not incurred/caused by service. * 08/15/2002 -Low back pain, not service connected, Not Incurred/Caused by Service. * 10/17/1987 Original Disability Claim. - Chronic low back disability is not shown to have been incurred in or aggravated by service. - Service connection for muscular skeletal chest pain is denied as not found on exam. 1. Diagnosis Note: These are condition(s) for which an evaluation has been requested on the exam request form (Internal [place]) or for which the [place]on has requested medical evidence be provided for submission to [place]. 1A. List the claimed conditions that pertain to this questionnaire: No response provided Note: These are the diagnoses determined during this current evaluation of the claimed condition(s) listed above. If there is no diagnosis, if the diagnosis is different from a previous diagnosis for this condition, or if there is a diagnosis of a complication due to the claimed condition, explain your findings and reasons in the comments section below. Date of diagnosis can be the date of the evaluation if the clinician is making the initial diagnosis, or an approximate date determined through record review or reported history. 1B. Select diagnoses associated with the claimed condition(s) (check all that apply): [X] Nephrolithiasis (kidney stones) Date of diagnosis: ~ per self report ICD code: No response provided 1C.If there are additional diagnoses that pertain to kidney condition(s), list using above format: No response provided 1D. Comments: No response provided 2. Medical History 2A. Describe the history (including cause, onset and course) of the Macon's kidney condition(s) (give a brief summary): STATUS OF AFFECTED/CLAIMED KIDNEY STONE CONDITION: The recalls first experience with kidney stones was in the 1999s. Has undergone lithrotripsy and stent placement in the past. The last recollection of kidney stone type pain was in 2019. CURRENT TREATMENT: NONE REVIEW OF AVAILABLE MEDICAL EVIDENCE: * 07/02/2023 PRIVATE RECORDS (RENAL) FAMILY HISTORY: has 8 siblings (5/8 have history of kidney stones, mother also has kidney stones, no kidney disease or failure from stones) Nephrolithiasis History: First diagnosed with kidney stones in early , had severe pain R flank, diagnosed with nephrolitiasis. - mid second bout. - ~ 2013 had bilateral flank pain found to have bilateral kidney stones had bilateral stents placed and removed weeks later - since then occasionally 2-3 x per year, mild pain, hydrate aggressively and resolve. NO SUBSEQUENT visits for kidney stone pain. IMPRESSION: Long standing history of nephrolithiasis, found to have calcium oxalate stones on prior analysis. Not significantly symptomatic in recent years. * 01/14/2017 PRIMARY CARE PROVIDER: /Urologic: Positive for erectile dysfunction negative for any other urinary tract symptoms ASSESSMENT: History of recurrent stones in the kidney, no problem now. * 01/11/2013 PRIVATE RECORDS: Moderate sized subcapsular hematoma at the anterior aspect of the right kidney producing mass effect upon the underlying renal parenchyma. Solitary 3 mm nonobstructing calculus in the right lower renal pole. * 08/09/2010 PRIMARY CARE NOTE: Past medical history: renal stones status post lithotripsy and also at the transition and one time the stone came out on itself. No problem now. * 03/20/1987 DATE ACTIVE DUTY PER DD214 * 08/31/1984 STR MEDICAL EXAM: Medical: Normal system. Urine negative for albumin. * 04/01/1983 DATE ENTERED ACTIVE DUTY PER DD214 * 11/23/1982 STR ENLISTMENT [employer]: Medical: normal sysstem. Urinalysis: negative albumin. Self Assessment: NO kidney stone or blood in urine 2B. Does the Macon's treatment plan include taking continuous medication for the diagnosed condition? [ ] Yes [X] No 2C. Does the have hypertension and/or heart disease due to renal dysfunction or caused by any kidney condition? [ ] Yes [X] No 3. Renal Dysfunction For VA purposes, renal dysfunction includes evidence demonstrating the following for at least 3 consecutive months during the past 12 months: glomerular filtration rate (GFR) of less than 60 mL/min/1.73m2; or GFR from 60 to 89 mL/min/1.73m2 and the presence of at least one of the following: recurrent red blood cell (RBC) casts, white blood cell (WBC) casts, granular casts, structural kidney abnormalities (cystic, obstructive, or glomerular), or increased secretion of protein in the urine (proteinuria). GFR, estimated GFR (eGFR), and creatinine based approximations of GFR will be accepted for evaluation purposes when determined to be appropriate and calculated by a medical professional. Note: If the medical record contains multiple lab tests during this 12 month period, by at least 3 months, and there is no evidence to contradict those findings in the interim period, [place] will accept that the demonstrated renal dysfunction has persisted for at least 3 consecutive months during the past 12 months. 3A.Does the Macon have renal dysfunction? [ ] Yes [X] No 3B. Does the require regular dialysis? No response provided. 3C. Does the Macon have a cystic, obstructive, or glomerular structural kidney abnormality for at least 3 consecutive months during the past 12 months? No response provided. 3D. Is there a renal tubular disorder? No response provided. 3E. Does the have any signs or symptoms of hydronephrosis due to obstruction other than upper urinary tract urolithiasis (for upper urinary tract urolithiasis see question 4E)? No response provided. 3F. Does the Macon have attacks of renal colic due to obstruction other than upper urinary tract urolithiasis (for upper urinary tract urolithiasis see question 4F)? No response provided. 4. Urolithiasis 4A. Does the now have or has he/she ever had kidney or ureteral calculi (urolithiasis)? [X] Yes [ ] No If yes, complete the following section: 4B. Indicate current/past location of calculi (check all that apply): [X] Kidney 4C. Does the stone formation cause stricture of the ureter? [ ] Yes [X] No If yes, discuss test(s)/evidence used to confirm ureteral stricture: No response provided. 4D.Has the Macon had treatment for recurrent stone formation in the kidney or ureter? [ ] Yes [X] No If yes, indicate treatment: (check all that apply) No response provided. 4E. Does the have any signs or symptoms due to upper urinary tract urolithiasis? [ ] Yes [X] No If yes, indicate severity (check all that apply): No response provided. 4F. Does the have attacks of colic due to upper urinary tract urolithiasis? [ ] Yes [X] No If yes, indicate frequency: No response provided. 5. Urinary Tract/Kidney Infection ---- 5A.Does the have a history of recurrent symptomatic urinary tract or kidney infections? [ ] Yes [X] No 5B. Etiology of recurrent urinary tract or kidney infections: No response provided. 5C. Indicate all treatment modalities used for recurrent urinary tract or kidney infections (check all that apply): No response provided. 6. Kidney Removal or Transplant (Including Eligibility) 6A. Has the had a kidney removed, is eligible for a kidney transplant, or has had a kidney transplant? Note: For VA disability compensation purposes, eligibility for a kidney transplant means the 's kidney function has declined sufficiently that a transplant is or would be necessary based solely on kidney function. Placement on a transplant list is not required in order to establish eligibility for [place] disability compensation purposes. [ ] Yes [X] No 6B. Has the Macon had a kidney removed? No response provided. 6C. Is the 's renal disease course such that it is medically determined that the Macon warrants transplant consideration? No response provided. 6D. Has the Macon had a kidney transplant? No response provided. 6E. If the Macon underwent kidney removal, is the remaining kidney affected by nephritis, infection, or other pathology? No response provided. 6F. If the underwent a kidney transplant, is there nephritis, infection, or other pathology of the transplanted kidney? No response provided. 7. Tumors and Neoplasms 7A. Does the Macon currently have, or has had, a benign or malignant neoplasm or metastases related to any condition in the diagnosis section? [ ] Yes [X] No 7B. Is the neoplasm No response provided. 7C. Has the Macon completed treatment or is the Macon currently undergoing treatment for a benign or malignant neoplasm or metastases? No response provided. 7D. Does the Macon currently have any residuals or complications due to the neoplasm (including metastases) or its treatment, other than those already documented in the report above? No response provided. 7E. If there are additional benign or malignant neoplasms or metastases related to any of the diagnoses in the Diagnosis section, describe using the above format: No response provided. 8. Other Pertinent Physical Findings, Complications, Conditions, Signs, Symptoms and Scars 8A. Does the have any other pertinent physical findings, complications, conditions, signs or symptoms related to any conditions listed in the diagnosis section above? [ ] Yes [X] No If yes, describe (brief summary): No response provided. 8B. Does the Macon have any scars or other disfigurement (of the skin) related to any conditions or to the treatment of any conditions listed in the diagnosis section? [ ] Yes [X] No 9. Diagnostic Testing Note: If laboratory test results are in the medical record and reflect the Macon's current renal function has persisted for at least 3 consecutive months during the past 12 months, repeat testing is not required. Therefore, if the medical record contains multiple lab tests during this 12 month period, by at least 3 months, and there is no evidence to contradict those findings in the interim period, [place] will accept that the demonstrated renal dysfunction has persisted for at least 3 consecutive months during the past 12 months. Provide testing completed appropriate to 's condition; testing indicated below is not indicated for every kidney condition. 9A. Are there laboratory or other diagnostic studies in the medical records? [X] Yes [ ] No If yes, provide most recent results, if available: * 08/21/2023: BUN = 12 CREATININE = 0.92 EGFR = 96 9B. Were laboratory or other diagnostic studies performed in conjunction with this examination? [ ] Yes [X] No If yes, provide most recent results, if available: No response provided. 9D. Has the had albumin/creatinine ratio (ACR) greater than or equal to 30mg/g, RBC casts, WBC casts, or hyaline casts present for at least 3 consecutive months during the past 12 months? [ ] Yes [X] No 9E. Are there any other significant diagnostic test findings and/or results? [ ] Yes [X] No If yes, provide type of test or procedure, date and results (brief summary): No response provided. 10. Functional Impact Note: Provide the impact of only the diagnosed condition(s), without consideration of the impact of other medical conditions or factors, such as age. 10A. Regardless of the 's current employment status, do the conditions listed in the diagnosis section impact his/her ability to perform any type of occupational task (such as standing, walking, lifting, sitting, etc.)? [ ] Yes [X] No If yes, describe the functional impact of each condition, providing one or more examples: No response provided. 11. Remarks 11A. Remarks (if any - please identify the section to which the remark pertains when appropriate). NO ADDITIONAL COMMENTS MALE REPRODUCTIVE ORGAN CONDITIONS (INCLUDING PROSTATE CANCER) Disability Benefits Questionnaire Name of Claimant/Macon: NANO ANN ([id number]) Note to examiner - The is applying to the [employer] ([facility]) for disability benefits. VA will consider the information you provide on this questionnaire as part of their evaluation in processing the Macon's claim. Is this DBQ being completed in conjunction with a VA C&P Examination Request? [X] Yes [ ] No How was the examination completed? (check all that apply) [X] In-person examination [X] Records reviewed [ ] Examination via approved video telehealth [ ] Other, please specify in comments box Comments: * 08/13/2023 'S CLAIM: - (CARDIAC) - atrial fibrillation - HYPERTENSION - BACK - NECK - KIDNEY STONES - HYPERPARATHYROIDISM - ERECTILE DYSFUNCTION Acceptable Clinical Evidence (DIANE) ----- Indicate the method used to obtain medical information to complete this document: [ ] Review of available records (without in-person or video telehealth examination) using the Acceptable Clinical Evidence (DIANE) process because the existing medical evidence provided sufficient information on which to prepare the questionnaire and such an examination will likely provide no additional relevant evidence. [ ] Review of available records in conjunction with an interview with the (without in-person or telehealth examination) using the DIANE process because the existing medical evidence supplemented with an interview provided sufficient information on which to prepare the questionnaire and such an examination would likely provide no additional relevant evidence. Evidence Review Evidence reviewed (check all that apply): [X] VA electronic health record [X] VA e-folder [X] Other (please identify other evidence reviewed): Evidence Comments: VBA RATING DECISIONS: * 01/03/2021 - The previous denial of service connection for cervical spine degenerative arthritis status post fusion C5-6 and C6-7 is confirmed and continued. - The previous denial of service connection for low back pain is confirmed and continued. * 04/27/2020 - The claim for service connection for cervical spine dgenerative arthritis status post fusion C5-6 and C6-7 remains denied. - The claim for service connection for low back pain remains denied. 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 - The previous denial of service connection for low back pain is confirmed and continued. * 02/25/2019 - Service connection for cervical spine degenerative arthritis post fusion C5-6 and C6-7 (claimed as neck injury) is denied. The medical opinion found no link between your diagnosed medical condition and service. * 12/28/2018 - Not Service Connected/Not Subject to Compensation: Low back pain Musculoskeletal chest pain. * 04/10/2010 - Low back pain, not service connected, not incurred/caused by service. * 08/15/2002 -Low back pain, not service connected, Not Incurred/Caused by Service. * 10/17/1987 Original Disability Claim. - Chronic low back disability is not shown to have been incurred in or aggravated by service. - Service connection for muscular skeletal chest pain is denied as not found on exam. 1. Diagnosis Note: These are condition(s) for which an evaluation has been requested on the exam request form (Internal [place]) or for which the has requested medical evidence be provided for submission to [place]. 1A. List the claimed condition(s) that pertain to this questionnaire: ERECTILE DYSFUNCTION Note: These are the diagnoses determined during this current evaluation of the claimed condition(s) listed above. If there is no diagnosis, if the diagnosis is different from a previous diagnosis for this condition, or if there is a diagnosis of a complication due to the claimed condition, explain your findings and reasons in the remarks section. Date of diagnosis can be the date of the evaluation if the clinician is making the initial diagnosis or an approximate date determined through record review or reported history. 1B. Does the Macon now have or has he ever been diagnosed with any conditions of the male reproductive system? [X] Yes [ ] No If yes, complete Item 1C 1C. Select diagnoses associated with the claimed condition(s). Check all that apply. [X] Erectile dysfunction, with or without penile deformity ICD code: No response provided Date of diagnosis: 01/14/2017 PER PRIMARY CARE NOTE 2. Medical History 2A. Describe the history, including onset and course, of the Macon's male reproductive organ condition(s), including prostate cancer. Brief summary: STATUS OF AFFECTED/CLAIMED ED CONDITION: The notes he experienced a gradual onset of ED symptoms. No history of injury to genitalia or change in anatomy. He spoke with provider in 2017 and started sildenafil with 1005 efficacy. Since the work - up for his cardiac condition, he has not taken the medication and the ED is present 100 percent of the time. REVIEW OF AVAILABLE MEDICAL EVIDENCE: * 08/07/2023 PRIVATE RECORDS: MEDICATION LIST: sildenafil * 02/21/2020 PRIMARY CARE NOTE: Erectile dysfunction patient has been stable denies any adverse effect. ASSESSMENT: Erectile dysfunction stable on Viagra * 01/14/2017 PRIMARY CARE NOTE: patient said he had hard time getting an erection and maintaining it. he had normal libido. ASSESSMENT: Erectile dysfunction prescribed Viagra * 03/20/1987 DATE ACTIVE DUTY PER DD214 * 04/01/1983 DATE ENTERED ACTIVE DUTY PER DD214 * 11/23/1982 STR ENLISTMENT [employer]: Medical: normal system. Self Assessment: NO VD. 2B. Does the 's treatment plan include taking continuous medication for the diagnosed condition? [ ] Yes [X] No 2C. Has the had an orchiectomy? [ ] Yes [X] No For VA purposes, renal dysfunction includes evidence demonstrating the following for at least 3 consecutive months during the past 12 months: glomerular filtration rate (GFR) of less than 60 mL/min/1.73m2; or GFR from 60 to 89 mL/min/1.73m2 and the presence of at least one of the following: recurrent red blood cell (RBC) casts, white blood cell (WBC) casts, granular casts, structural kidney abnormalities (cystic, obstructive, or glomerular), or increased secretion of protein in the urine (proteinuria). GFR, estimated GFR (eGFR), and creatinine based approximations of GFR will be accepted for evaluation purposes when determined to be appropriate and calculated by a medical professional. Note: If the medical record contains multiple lab tests during this 12 month period, by at least 3 months, and there is no evidence to contradict those findings in the interim period, [place] will accept that the demonstrated renal dysfunction has persisted for at least 3 consecutive months during the past 12 months. 2D. Is there any renal dysfunction due to any conditions listed in the diagnosis section? [ ] Yes [X] No 3. Voiding Dysfunction 3A. Does the have a voiding dysfunction? [ ] Yes [X] No If yes, complete the remainder of section III. 3B. Etiology of voiding dysfunction: No response provided 3C. Does the voiding dysfunction cause urine leakage? [ ] Yes [ ] No 3D. Does the voiding dysfunction require the use of an appliance? [ ] Yes [ ] No 3E. Does the voiding dysfunction cause increased urinary frequency? [ ] Yes [ ] No 3F. Does the voiding dysfunction cause signs or symptoms of obstructed voiding? [ ] Yes [ ] No 4. Erectile Dysfunction 4A. Does the have erectile dysfunction? [X] Yes [ ] No If yes, provide etiology, if known. No response provided [X] Etiology unknown 5. Retrograde Ejaculation 5A. Does the have retrograde ejaculation? [ ] Yes [X] No 6. Male Reproductive Organ Infections, Including Urinary Tract Infections 6A. Does the have a history of chronic prostatitis, urethritis, epididymitis, orchitis, or urinary tract infections? [ ] Yes [X] No 7. Physical Exam 7A. Penis [ ] Normal [ ] Not examined per Macon's request [X] Not examined per Macon's request; Macon reports normal anatomy with no penile deformity or abnormality [ ] Not examined; penis exam not relevant to condition [ ] Abnormal 7B. Testes [ ] Normal [ ] Not examined per Macon's request [X] Not examined per Macon's request; reports normal anatomy with no testicular deformity or abnormality [ ] Not examined; testicular exam not relevant to condition [ ] Abnormal 7C. Epididymis [ ] Normal [ ] Not examined per 's request [X] Not examined per 's request; reports normal anatomy of epididymis with no deformity or abnormality [ ] Not examined; epididymis exam not relevant to condition [ ] Abnormal 7D. Prostate [X] Not examined per 's request 8. Tumors and Neoplasms 8A. Does the currently have, or has had, a benign or malignant neoplasm or metastases related to any condition in the diagnosis section? [ ] Yes [X] No 8B. Is the neoplasm No response provided 8C. Has the completed treatment or is the Macon currently undergoing treatment for a benign or malignant neoplasm or metastases? No response provided 8D. Does the Macon currently have any residuals or complications due to the neoplasm (including metastases) or its treatment, other than those already documented in the report above? No response provided 8E. If there are additional benign or malignant neoplasms or metastases related to any of the diagnoses in the diagnosis section, describe using the above format. No response provided 9. Other Pertinent Physical Findings, Complications, Conditions, Signs, Symptoms, and Scars 9A. Does the Macon have any other pertinent physical findings, complications, conditions, signs or symptoms related to any conditions listed in the diagnosis section above? [ ] Yes [X] No 9B. Does the have any scars or other disfigurement (of the skin) related to any conditions or to the treatment of any conditions listed in the diagnosis section? [ ] Yes [X] No 10. Diagnostic Testing Note: If imaging studies, diagnostic procedures or laboratory testing have been performed and reflects the 's current condition, provide most recent results; no further studies or testing are required for this examination. 10A. Has a biopsy been performed? [ ] Yes [X] No 10B. Are there any other significant diagnostic test findings or results related to the claimed condition(s) and/or diagnosis(es) that were reviewed in conjunction with this examination? [ ] Yes [X] No 11. Functional Impact Note: Provide the impact of only the diagnosed condition(s), without consideration of the impact of other medical conditions or factors, such as age. 11A. Regardless of the 's current employment status, do the conditions listed in the diagnosis section impact his/her ability to perform any type of occupational task (such as standing, walking, lifting, sitting, etc.)? [ ] Yes [X] No 12. Remarks 12A. Remarks (if any - please identify the section to which the remark pertains when appropriate). NO ADDITIONAL COMMENTS Thyroid and Parathyroid Conditions Disability Benefits Questionnaire Name of patient/: NANO ANN ([id number]) Is this DBQ being completed in conjunction with a [facility] [id number], C&P Examination Request? [X] Yes [ ] No How was the examination completed? (check all that apply) [X] In-person examination [X] Records reviewed [ ] Examination via approved video telehealth [ ] Other, please specify in comments box Comments: * 08/13/2023 'S CLAIM: - (CARDIAC) - atrial fibrillation - HYPERTENSION - BACK - NECK - KIDNEY STONES - HYPERPARATHYROIDISM - ERECTILE DYSFUNCTION DIANE and Evidence Review Indicate method used to obtain medical information to complete this document: [ ] Review of available records (without in-person or video telehealth examination) using the Acceptable Clinical Evidence (DIANE) process because the existing medical evidence provided sufficient information on which to prepare the questionnaire and such an examination will likely provide no additional relevant evidence. [ ] Review of available records in conjunction with an interview with the Macon (without in-person or telehealth examination) using the DIANE process because the existing medical evidence supplemented with an interview provided sufficient information on which to prepare the questionnaire and such an examination would likely provide no additional relevant evidence. 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 - The previous denial of service connection for low back pain is confirmed and continued. * 04/27/2020 - The claim for service connection for cervical spine dgenerative arthritis status post fusion C5-6 and C6-7 remains denied. - The claim for service connection for low back pain remains denied. 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 - The previous denial of service connection for low back pain is confirmed and continued. * 02/25/2019 - Service connection for cervical spine degenerative arthritis post fusion C5-6 and C6-7 (claimed as neck injury) is denied. The medical opinion found no link between your diagnosed medical condition and service. * 12/28/2018 - Not Service Connected/Not Subject to Compensation: Low back pain Musculoskeletal chest pain. * 04/10/2010 - Low back pain, not service connected, not incurred/caused by service. * 08/15/2002 -Low back pain, not service connected, Not Incurred/Caused by Service. * 10/17/1987 Original Disability Claim. - Chronic low back disability is not shown to have been incurred in or aggravated by service. - Service connection for muscular skeletal chest pain is denied as not found on exam. 1. Diagnosis a. Does the have or has he or she ever had a thyroid or parathyroid condition? (This is the condition the is claiming or for which an exam has been requested) [X] Yes [ ] No b. Select the 's Condition (Check all that apply): [X] Hyperparathyroidism Date of diagnosis: 2023 per private records 2. Medical history a. Describe the history (including onset and course) of the Macon's thyroid and/or parathyroid condition (brief summary): STATUS OF AFFECTED/CLAIMED THYROID CONDITION: The Macon notes that the hyperparathyroidism was an incidental finding via lab work. He currently is undergoing lab work every three months for monitoring. No symptoms. CURRENT TREATMENT: States he is currently taking vitamin D and potassium supplementation. REVIEW OF AVAILABLE MEDICAL EVIDENCE: * 07/21/2023 PRIVATE RECORDS: Discussed low Vit D level. While a low Vit D could explain elevated parathyroid hormone, it is more likely in this case that he has primary hyperparathyroidism, with extensive history of calcium oxalate stones, high urine calcium. Mentioned that treatment may involve parathyroidectomy. PLAN: Reassess in three months. * 03/20/1987 DATE ACTIVE DUTY PER DD214 * 04/01/1983 DATE ENTERED ACTIVE DUTY PER DD214 * 11/23/1982 STR [employer]MENT [employer]: Medical: normal neck, endocrine system. Self Assessment: NO thyroid trouble. b. Has the had radioactive iodine treatment for a thyroid condition? [ ] Yes [X] No c. Has the had any other type of treatment for a thyroid or parathyroid condition? [ ] Yes [X] No Was a prophylactic thyroidectomy performed (based on genetic testing?) [ ] Yes [X] No d. Does the [place] have any residual endocrine dysfunction following treatment for thyroid or parathyroid condition? [ ] Yes [X] No 3. Thyroid: findings, signs, and symptoms a. Does the currently have any findings, signs or symptoms attributable to a thyroid condition? [ ] Yes [X] No b. Does the currently have any findings, signs or symptoms attributable to a hyperthyroid condition? [ ] Yes [X] No c. Does the currently have any findings of thyroid enlargement? [ ] Yes [X] No d.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 There is no nexus linking non-ischemic cardiomyopathy to active duty service. 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 The medical literature notes that atrial fibrillation may cause cardiomyopathy. It is my medical opinion that the 's non-ischemic cardiomyopathy is less likely than not (likelihood is less than approximately balanced or nearly equal) began in, incurred in or related to his active duty service. CONGENTIAL CORONARY ARTERY ABNORMALITY REVIEW OF MEDICAL LITERATURE: [place] website accessed October 2023 - In otherwise normal patients, there may be variations in the number, shape, and location of the ostia or origins of the coronary arteries. Most of these variations appear to be of no clinical significance. - Although rare, complications commonly occur during or immediately after exercise, though sudden may occur without prior symptoms. It has been proposed that exercise leads to expansion of the aortic root and pulmonary trunk, which, in addition to external coronary artery compression, may increase the pre-existing angulation of the coronary artery takeoff, reducing the luminal diameter in the proximal portion of the coronary artery. - The clinical presentation of a patient with the above mentioned abnormalities may be anginal chest pain, or syncope, especially with exercise. Unfortunately, the first clinical symptom may be sudden , particularly in young athletes and recruits [14-16]. In a registry of sudden in 286 competitive athletes under age 35 in whom cardiovascular disease was shown to be the cause at autopsy, an anomalous coronary artery of wrong sinus origin was responsible for 13 percent of cases, being second in frequency to hypertrophic cardiomyopathy. In a series of autopsies in recruits, an anomalous coronary artery was the most frequent cause of sudden cardiac . Physical examination and diagnostic studies are usually unrevealing in the absence of myocardial infarction or symptoms of ongoing ischemia. When anomalous origin of a coronary artery is suspected, echocardiography may establish the diagnosis. However, even using established echocardiographic protocols to diagnose coronary artery abnormalities, there remains significant variation amongst institutions and suboptimal reliability of established detailed anatomy. With improvement of cardiac magnetic resonance angiography and coronary cardiac computed angiography (CCTA), reliable anatomic description of the coronary artery origins and the proximal course is possible. MEDICAL OPINION: The underwent a cardiac evaluation for symptoms while active duty, however the diagnostics at that time did not reveal his congenital coronary artery condition. There is no evidence or nexus that his active duty aggravated his congenital condition. Of note, at the 1987 disability exam, no symptoms had been present for a year. The diagnosis was discovered as an incidental finding when the was worked up for AF 37 years post active duty. No available medical evidence showing care or diaganosis of the condition in the interim of the post active duty x 37 years. The condition was present at entry to service; there is no nexus in the available medical evidence confirming his active duty service aggravated the condition beyond its natural progression. It is my medical opinion the Macon's congenital artery abnormality less likely than not (likelihood is less than approximately balanced or nearly equal) began in, incurred in or was aggravated beyond its natural progression by his active duty service. 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 Macon/caregiver was made aware of educational resources and printed information was offered and provided if desired. Macon/caregiver has health or medical concerns related to their concern of environmental exposure. Concern: I have kidney stones, hyperparathyroidism, and cardiac condition. No questions at this time Macon/caregiver was informed of local points of contact. Contact information for local resources: Benefits/Claim for Disability Compensation Questions:National VBA IN Healthcare Enrollment: [facility] Eligibility direct dialed at [phone] Registry: [facility] Coordinator ext [phone] The following connections were provided to the Macon/caregiver: No connections needed at this time /tanika/ KAYLA CRANE NURSE PRACTITIONER Signed: 10/07/2023 16:13 IMGDALIA CRANE IN [facility]
--- OUTSIDE RECORDS SUMMARY | 2024-03-22 11:32 | XMS_ITS | Encounter Summary ---
Author Name [facility] Organization [facility] Address [address] [place] [id number] Care Team Providers Care Teacher Physically Impaired Name Role Phone KEEGAN RDZ Primary Care [...] Goyal's Name Patient's Relationship to Policy [facility]oyal [facility]H RETIR EMENT Oct 10, 2023 [id number] NANO CROWE PATIENT [employer] POINT OF SERVICE [facility] Oct 04, 2016 [id number] [phone] NANO CROWE PATIENT [employer] BEHAVIORAL HEALTH MENTAL HEALTH [facility] Oct 04, 2016 [id number] NANO CROWE PATIENT [employer] PHARMACY PRESCRIPT ION [facility] Oct 04, 2016 [id number] [phone] NANO CROWE PATIENT Selected Encounter This section includes the information on record at [place] for the Encounter. Date/Time Encounter Type Encounter Description Reason Provider Source Oct 06, 2023 08:00 AM Outpatient Encounter AUDIOLOGY ICD-10-CM Z02.89 Encounter for other administrative examinations TYRA MOON IHE Encounter Template Text not used by [place] Assessments - Encounter Diagnoses This section includes the primary and secondary diagnoses documented for the Encounter. Date/Time Primary/Secondary Diagnosis Diagnosis Name Provider Source Oct 06, 2023 08:58 AM PRIMARY Encounter for other administrative examinations TYRA MOON Nilay Joel [place] [facility] [place] [facility] Oct 06, 2023 08:58 AM SECONDARY Sensorineural hearing loss, bilateral TYRA MOON [facility] [place] [facility] Oct 06, 2023 08:58 AM SECONDARY Tinnitus, bilateral TYRA MOON [facility] [place] [facility] Plan of Treatment: Future Appointments (+ 6 months) and Future Tests (+/- 45 days) The Plan of Treatment section includes future care activities for the patient [facility] This section includes future appointments and future orders which are active, pending or scheduled. Future Appointments This section includes appointments that were scheduled to occur 6 months from the date of the Encounter, up to a maximum of 20 appointments. The data comes from all [place] treatment facilities. Appointment Date/Time Appointment Type Appointme nt Facility Name Oct 09, 2023 01:00 PM AMBULATORY - PSYCHIATRY [facility] [place] [facility] Oct 21, 2023 12:30 PM AMBULATORY - PSYCHIATRY [facility] [place] [facility] Oct 21, 2023 12:30 PM AMBULATORY - NONE [facility] Oct 23, 2023 08:30 AM AMBULATORY - REHAB MEDICIN E [facility] [place] [facility] Oct 23, 2023 01:00 PM AMBULATORY - PSYCHIATRY [facility] [place] [facility] Oct 30, 2023 01:00 PM AMBULATORY - PSYCHIATRY [facility] [place] [facility] Nov 13, 2023 11:00 AM AMBULATORY - MEDICINE [facility] [place] [facility] Nov 13, 2023 12:00 PM AMBULATORY - MEDICINE [facility] [place] [facility] Nov 13, 2023 12:15 PM AMBULATORY - MEDICINE [facility] [place] [facility] Nov 13, 2023 01:00 PM AMBULATORY - PSYCHIATRY [facility] [place] [facility] Nov 13, 2023 03:00 PM AMBULATORY - PSYCHIATRY [facility] [place] [facility] Nov 13, 2023 03:00 PM [facility]ONE [facility] Nov 20, 2023 01:00 PM AMBULATORY - PSYCHIATRY [facility] [place] [facility] Nov 30, 2023 11:00 AM AMBULATORY - REHAB MEDICIN E [facility] [place] [facility] Dec 04, 2023 01:00 PM AMBULATORY - PSYCHIATRY [facility] [place] [facility] Dec 11, 2023 01:00 PM AMBULATORY - PSYCHIATRY [facility] [place] [facility] Dec 21, 2023 03:00 PM AMBULATORY - PSYCHIATRY [facility] [place] [facility] Dec 22, 2023 10:00 AM AMBULATORY - PSYCHIATRY [facility] [place] [facility] Jan 01, 2024 01:00 PM AMBULATORY - PSYCHIATRY [facility] [place] [facility] Jan 15, 2024 01:00 PM AMBULATORY - PSYCHIATRY [facility] [place] [facility] Social History: Smoking Status (Most current) and Tobacco Use (All prior to encounter date) This section includes the most current, and the historical, smoking and tobacco- related health factors from the [place] facility where the Encounter took place. Current Smoking Status This section includes the most current smoking, or tobacco-related health factor, from the [place] facility where the Encounter took place. Date/Time Current Smoking Status Comment Facil ity Jul 28, 2023 08:30 AM VA-TOBACCO NEVER USED [place] [facility] [place] [facility] Tobacco Use History This section includes a history of the smoking, or tobacco-related health factors, that were collected on or before the date of the Encounter. The data comes from the [place] facility where the Encounter took place. Date/Time Smoking Status/Tobacco Use Comment F acility Feb 21, 2020 10:30 AM VA-TOBACCO NEVER USED [facility] [place] [facility] Apr 20, 2018 02:11 PM VA-TOBACCO NEVER USED [facility] [place] [facility] Jan 14, 2017 02:29 PM LIFETIME NON-TOBACCO USER [facility] [place] [facility] August 12, 2010 02:56 PM LIFETIME NON-TOBACCO USER [facility] [place] [facility] Encounter Notes: All associated encounter notes This section contains the clinical notes associated to the Encounter. Date/Time Encounter Note(s) Provider Source Oct 06, 2023 08:00 AM C & P EXAMINATION NOTE: LOCAL TITLE: COMPENSATION AND PENSION EXAM STANDARD TITLE: C & P EXAMINATION NOTE DATE OF NOTE: OCT 06, 2023@08:00 ENTRY DATE: OCT 06, 2023@08:57:19 AUTHOR: TAYLOR MOON COSIGNER: URGENCY: STATUS: COMPLETED COMPENSATION AND PENSION EXAM Has ADDENDA Hearing Loss and Tinnitus Disability Benefits Questionnaire Name of patient/: NANO CROWE Is this DBQ being completed in conjunction with a [place] [id number], C&P Examination Request? [X] Yes [ ] No How was the examination completed? (check all that apply) [X] In-person examination [X] Records reviewed [ ] Examination via approved video telehealth [ ] Other, please specify in comments box Comments: DIANE and Evidence Review Indicate method used [...] in conjunction with an interview with the [place] (without in-person or telehealth examination) using the DIANE process because the existing medical evidence supplemented with an interview provided sufficient information on which to prepare the questionnaire and such an examination would likely provide no additional relevant evidence. 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 Objective Findings a. Puretone thresholds in decibels (air conduction): RIGHT EAR + + A B C D E F G ========+========+======= =+========+========+====== ==+========+========+ 500 1000 2000 3000 4000 6000 8000 Avg Hz Hz* Hz Hz Hz Hz Hz Hz (B-E) ========+========+======= =+========+========+====== ==+========+======== 25 20 35 50 55 70 65 [id number] + + LEFT EAR + + A B C D E F G ========+========+======= =+========+========+====== ==+========+========+ 500 1000 2000 3000 4000 6000 8000 Avg Hz Hz* Hz Hz Hz Hz Hz Hz (B-E) ========+========+======= =+========+========+====== ==+========+======== 25 30 30 45 50 65 65 [phone] + + * The puretone threshold at 500 Hz is not used in determining the evaluation but is used in determining whether or not a ratable hearing loss exists. The average of B, C, D, and E. CNT - Could Not Test b. Were there one or more frequency(ies) that could not be tested: No c. Validity of puretone test results: Test results are valid for rating purposes. d. Speech Discrimination Score ([place] C[place] word list): + + RIGHT EAR 94% +========= LEFT EAR 98% + + e. Appropriateness of Use of Word Recognition Score ([place] CNC word list): Right Ear: Is Word Discrimination Score available? Yes Word Discrimination Score appropriateness: Use of speech recognition score is appropriate for this [place]. Left Ear: Is Word Discrimination Score available? Yes Word Discrimination Score appropriateness: Use of word recognition score is appropriate for this [place]. f. Audiologic Findings Summary of Immittance (Tympanometry) Findings: + + RIGHT EAR LEFT EAR +=== += Acoustic immittance [X] Normal [ ] Abnormal [X] Normal [ ] Abnormal +=== += Ipsilateral Acoustic Reflexes [ ] Normal [X] Abnormal [ ] Normal [X] Abnormal +=== += Contralateral Acoustic Reflexes [ ] Normal [X] Abnormal [ ] Normal [X] Abnormal +=== += Unable to interpret reflexes due to [ ] [ ] artifact +=== += Unable to obtain/ maintain seal [ ] [ ] + + 2. Diagnosis RIGHT EAR --------- [ ] Normal hearing [ ] Conductive hearing loss ICD code: [ ] Mixed hearing loss ICD code: [X] Sensorineural hearing loss (in the frequency range of 500-4000 Hz)* ICD code: H90.3 [ ] Sensorineural hearing loss (in the frequency range of 6000 Hz or higher frequencies) ICD code: [ ] Significant changes in hearing thresholds in service LEFT EAR -------- [ ] Normal hearing [ ] Conductive hearing loss ICD code: [ ] Mixed hearing loss ICD code: [X] Sensorineural hearing loss (in the frequency range of 500-4000 Hz)* ICD code: H90.3 [ ] Sensorineural hearing loss (in the frequency range of 6000 Hz or higher frequencies) ICD code: [ ] Significant changes in hearing thresholds in service NOTES: * The Corning may have hearing loss at a level that is not considered to be a disability for VA purposes. This can occur when the auditory thresholds are greater than 25 dB at one or more frequencies in the 500-4000 Hz range. The [place]ning may have impaired hearing, but it does not meet the criteria to be considered a disability for VA purposes. For VA purposes, the diagnosis of hearing impairment is based upon testing at frequency ranges of 500, 1000, 2000, 3000, and 4000 Hz. If there is no HL in the 500-4000 Hz range, but there is HL above 4000 Hz, check this box. The Corning may have a significant change in hearing threshold in service, but it does not meet the criteria to be considered a disability for VA purposes. (A significant change in hearing threshold may indicate noise exposure or acoustic trauma.) 3. Etiology [X] Etiology opinion not indicated as: [X] Service connected condition 4. Functional impact of hearing loss Does the Corning's hearing loss impact ordinary conditions of daily life, including ability to work: Yes If yes, describe impact in the 's own words: reports, I have to hold the phone to my left ear. My and daughter tell me I talk too softly. 5. Remarks, if any, pertaining to hearing loss: No response provided SECTION 2: TINNITUS 1. Medical history Does the Corning report recurrent tinnitus: Yes Date and circumstances of onset of tinnitus: reports longstanding, intermittent ringing tinnitus in both ears, which he states occurs daily. 2. Etiology of tinnitus [X] Etiology opinion not indicated as: [X] Service connected condition 3. Functional impact of tinnitus ------ Does the Corning's tinnitus impact ordinary conditions of daily life, including ability to work: No 4. Remarks, if any, pertaining to tinnitus:: No response provided NOTE: [place] may request additional medical information, including additional examinations if necessary to complete VA's review of the 's application. /tanika/ Oliver Perdue CCC-A Central Sterile Technician Signed: 10/06/2023 08:57 10/06/2023 ADDENDUM STATUS: COMPLETED This is an increase exam. /Oliver Avila CCC-A Central Sterile Technician Signed: 10/06/2023 08:59 TAYLOR MOON [facility] [place] [facility]
--- OUTSIDE RECORDS SUMMARY | 2024-03-22 11:33 | XMS_ITS | Encounter Summary ---
Author Name [facility] [place] Address [address] [place] [address] Care Team Providers Care Swing Grinder Name Role Phone KEEGAN RDZ Primary Care [...] Goyal's Name Patient's Relationship to Policy Goyal [facility] ORGANIZAT ION [facility] RETIR EMENT Oct 10, 2023 [id number] NANO CROWE PATIENT CIGNA POINT OF SERVICE [facility] Oct 04, 2016 [id number] [phone] NANO CROWE PATIENT CIGNA BEHAVIORAL HEALTH MENTAL HEALTH [facility] Oct 04, 2016 [id number] NANO CROWE PATIENT CIGNA PHARMACY PRESCRIPT ION [facility] Oct 04, 2016 [id number] NANO CROWE PATIENT Selected Encounter This section includes the information on record at [place] for the Encounter. Date/Time Encounter Type Encounter Description Reason Provider Source Nov 13, 2023 12:15 PM [facility] OPHTH IMG OPTIC NERVE OPTOMETRY ICD-10-CM H40.013 Open angle with borderline findings, low risk, bilateral OSNBA ORTA IHE Encounter Template Text not used by [place] Assessments - Encounter Diagnoses This section includes the primary and secondary diagnoses documented for the Encounter. Date/Time Primary/Secondary Diagnosis Diagnosis Name Provider Source Dec 06, 2023 10:58 AM PRIMARY Open angle with borderline findings, low risk, bilateral OSNBA ORTA [place] [facility] [place] [facility] Plan of Treatment: Future Appointments (+ 6 months) and Future Tests (+/- 45 days) The Plan of Treatment section includes future care activities for the patient from all [place] [facility]. This section includes future appointments and future orders which are active, pending or scheduled. Future Appointments This section includes appointments that were scheduled to occur 6 months from the date of the Encounter, up to a maximum of 20 appointments. The data comes from all [place] treatment facilities. Appointment Date/Time Appointment Type Appointme nt Facility Name Nov 20, 2023 01:00 PM AMBULATORY - PSYCHIATRY [facility] [place] [facility] Nov 30, 2023 11:00 AM AMBULATORY - REHAB MEDICIN E [facility] [place] [facility] Dec 04, 2023 01:00 PM AMBULATORY - PSYCHIATRY [facility] [place] [facility] Dec 11, 2023 01:00 PM AMBULATORY - PSYCHIATRY [facility] [facility] Dec 21, 2023 03:00 PM AMBULATORY - PSYCHIATRY [facility] [facility] Dec 22, 2023 10:00 AM AMBULATORY - PSYCHIATRY [facility] [facility] Jan 01, 2024 01:00 PM AMBULATORY - PSYCHIATRY [facility] [facility] Jan 15, 2024 01:00 PM AMBULATORY - PSYCHIATRY [facility] [facility] Jan 22, 2024 01:00 PM AMBULATORY - PSYCHIATRY [facility] [facility] Jan 29, 2024 01:00 PM AMBULATORY - PSYCHIATRY [facility] [facility] Feb 12, 2024 01:00 PM AMBULATORY - PSYCHIATRY [facility] [facility] Feb 16, 2024 08:30 AM AMBULATORY - PSYCHIATRY [place] [facility] [place] [facility] Feb 19, 2024 01:00 PM AMBULATORY - PSYCHIATRY [facility] [facility] Mar 09, 2024 02:00 PM AMBULATORY - NONE [facility] [facility] Mar 21, 2024 03:00 PM AMBULATORY - PSYCHIATRY [place] [facility] [facility] May 09, 2024 03:00 PM [facility] Social History: Smoking Status (Most current) and Tobacco Use (All prior to encounter date) This section includes the most current, and the historical, smoking and tobacco- related health factors from the [place] facility where the Encounter took place. Current Smoking Status This section includes the most current smoking, or tobacco-related health factor, from the [place] facility where the Encounter took place. Date/Time Current Smoking Status Comment Federico ity Jul 28, 2023 08:30 AM [facility] Tobacco Use History This section includes a history of the smoking, or tobacco-related health factors, that were collected on or before the date of the Encounter. The data comes from the [place] facility where the Encounter took place. Date/Time Smoking Status/Tobacco Use Comment Flako acility Feb 21, 2020 10:30 AM VA-TOBACCO NEVER USED [place] [facility] [facility] Apr 20, 2018 02:11 PM VA-TOBACCO NEVER USED [place] [facility] [place] [facility] Jan 14, 2017 02:29 PM LIFETIME NON-TOBACCO USER [place] [facility] [facility] August 12, 2010 02:56 PM LIFETIME NON-TOBACCO USER [facility] Encounter Notes: All associated encounter notes This section contains the clinical notes associated to the Encounter. Date/Time Encounter Note(s) Provider Source Nov 13, 2023 12:36 PM OPTOMETRY CONSULT: LOCAL TITLE: CONSULT REPORT/OPTOMETRY OCT STANDARD TITLE: OPTOMETRY CONSULT DATE OF NOTE: NOV 13, 2023@12:36 ENTRY DATE: NOV 13, 2023@12:36:06 AUTHOR: JEANCARLOS SIMON COSIGNER: URGENCY: STATUS: COMPLETED OCT of optic nerve head ordered: glaucoma suspect, low risk OU BASELINE EXAM results quality OD 10/10 OS 9/10 aver thickness OD 78 OS [address] OS all green aver c/d OD 0.55 OS 0.55 disc area OD 1.92 OS 2.17 A- low risk glaucoma suspect OU with OCT that is not highly suspicious P-Repeat OCT in one yr /tanika/ Jeancarlos Simon OD [facility] Medical Imaging Technologist Signed: 11/13/2023 12:38 JEANCARLOS SIMON [facility]
--- OUTSIDE RECORDS SUMMARY | 2024-03-22 11:33 | XMS_ITS ---
Author Name [facility] [place] Address [address] [place] [address] Care Team Providers Care Abrasives Sales Representative Name Role Phone KEEGAN RDZ Primary Care [...] Patient's Relationship to Policy [facility] RETIR EMENT Oct 10, 2023 [id number] NANO CROWE PATIENT CIGNA POINT OF SERVICE [facility] Oct 04, 2016 [id number] [phone] NANO CROWE PATIENT CIGNA BEHAVIORAL HEALTH MENTAL HEALTH [facility] Oct 04, 2016 [id number] NANO CROWE PATIENT CIGNA PHARMACY PRESCRIPT ION [facility] Oct 04, 2016 [id number] NANO CROWE PATIENT Selected Encounter This section includes the information on record at [place] for the Encounter. Date/Time Encounter Type Encounter Description Reason Provider Source Oct 23, 2023 01:00 PM GROUP PSYCHOTHERAPY [facility] ICD-10-CM F43.10 Post-traumatic stress disorder, unspecified CHARLESJUDEHANDY IHE Encounter Template Text not used by [place] Assessments - Encounter Diagnoses This section includes the primary and secondary diagnoses documented for the Encounter. Date/Time Primary/Secondary Diagnosis Diagnosis Name Provider Source Nov 21, 2023 10:04 AM PRIMARY Post-traumatic stress disorder, unspecified CHARLESHANDY ROQUEI E [place] [facility] [place] [facility] Plan of Treatment: Future Appointments (+ 6 months) and Future Tests (+/- 45 days) The Plan of Treatment section includes future care activities for the patient from all [place] [facility]. This section includes future appointments and future orders which are active, pending or scheduled. Future Appointments This section includes appointments that were scheduled to occur 6 months from the date of the Encounter, up to a maximum of 20 appointments. The data comes from all [place] treatment facilities. Appointment Date/Time Appointment Type Appointme nt Facility Name Oct 30, 2023 01:00 PM AMBULATORY - PSYCHIATRY [place] [facility] [place] [facility] Nov 13, 2023 11:00 AM AMBULATORY - MEDICINE [place] [place] [facility] Nov 13, 2023 12:00 PM AMBULATORY - MEDICINE RI [place] [facility] Nov 13, 2023 12:15 PM AMBULATORY - MEDICINE RI C [place] [facility] Nov 13, 2023 01:00 PM AMBULATORY - PSYCHIATRY [place] [facility] [place] [facility] Nov 13, 2023 03:00 PM AMBULATORY - PSYCHIATRY [place] [facility] [place] [facility] Nov 13, 2023 03:00 PM [facility] Nov 20, 2023 01:00 PM AMBULATORY - PSYCHIATRY [facility] [place] [facility] Nov 30, 2023 11:00 AM AMBULATORY - REHAB MEDICIN E [facility] [place] [facility] Dec 04, 2023 01:00 PM AMBULATORY - PSYCHIATRY [place] [facility] [place] [facility] Dec 11, 2023 01:00 PM AMBULATORY - PSYCHIATRY [place] [facility] [place] [facility] Dec 21, 2023 03:00 PM AMBULATORY - PSYCHIATRY [place] [facility] [place] [facility] Dec 22, 2023 10:00 AM AMBULATORY - PSYCHIATRY [facility] [place] [facility] Jan 01, 2024 01:00 PM AMBULATORY - PSYCHIATRY [facility] [place] [facility] Jan 15, 2024 01:00 PM AMBULATORY - PSYCHIATRY [facility] [place] [facility] Jan 22, 2024 01:00 PM AMBULATORY - PSYCHIATRY [facility] [place] [facility] Jan 29, 2024 01:00 PM AMBULATORY - PSYCHIATRY [facility] [place] [facility] Feb 12, 2024 01:00 PM AMBULATORY - PSYCHIATRY [place] [facility] [place] [facility] Feb 16, 2024 08:30 AM AMBULATORY - PSYCHIATRY [facility] [place] [facility] Feb 19, 2024 01:00 PM [facility] [place] [facility] Social History: Smoking Status (Most current) and Tobacco Use (All prior to encounter date) This section includes the most current, and the historical, smoking and tobacco- related health factors from the [place] facility where the Encounter took place. Current Smoking Status This section includes the most current smoking, or tobacco-related health factor, from the [place] facility where the Encounter took place. Date/Time Current Smoking Status Comment Facil ity Jul 28, 2023 08:30 AM VA-TOBACCO NEVER [facility] Tobacco Use History This section includes a history of the smoking, or tobacco-related health factors, that were collected on or before the date of the Encounter. The data comes from the [place] facility where the Encounter took place. Date/Time Smoking Status/Tobacco Use Comment F acility Feb 21, 2020 10:30 AM VA-TOBACCO NEVER USED [place] [facility] [place] [facility] Apr 20, 2018 02:11 PM VA-TOBACCO NEVER USED [place] [facility] [place] [facility] Jan 14, 2017 02:29 PM LIFETIME NON-TOBACCO USER [place] [facility] [place] [facility] August 12, 2010 02:56 PM LIFETIME NON-TOBACCO USER [place] [facility] [place] [facility] Encounter Notes: All associated encounter notes This section contains the clinical notes associated to the Encounter. Date/Time Encounter Note(s) Provider Source Oct 23, 2023 02:41 PM PSYCHIATRY GROUP COUNSELING NOTE: LOCAL TITLE: PSYCHOLOGY GROUP NOTE STANDARD TITLE: PSYCHIATRY GROUP COUNSELING NOTE DATE OF NOTE: OCT 23, 2023@14:41 ENTRY DATE: OCT 23, 2023@14:41:16 AUTHOR: LAKEISHA SUTTON EXP COSIGNER: URGENCY: STATUS: COMPLETED BHIP Living with Angry Feelings Group Therapy Note SESSION MODALITY: VA Video Connect (clinic to non-VA location) 's location: Provider confirmed that is currently located at Primary Address listed [facility]. Primary phone number: Confirmed for all participants. [place] has provided verbal consent either today or previously when seen via VVC in mental health. This consent was obtained after a full explanation of the risk and benefits of using telehealth for mental health appointments. Alternatives for obtaining care through an in-person mental health visit and the [place]'s right of refusal at any time during this session have been explained. 's location/environment was surveyed by this provider to identify all participants and the Virtual Medical Room was locked (via enabling button option in VMR) once all invited/required attendees were present. IDENTITY VERIFICATION: [X] Patient Name [X] Visual recognition [ ] Birthdate [ ] Social Security # Size Maker: Lakeisha Sutton, PhD PROCEDURE: 60-minute interactive hybrid VVC/F2F group therapy session Problem: Difficulty managing angry feelings without acting in ways [place] regrets Objective: Increase understanding of anger process and ways to effectively intervene so [place] does not act in ways that are unworkable or in conflict with personal values. Increase use of mindful and skillful behaviors. Number of Veterans Present in Group: 6 GROUP CONTENT: Group members participated in a mindful awareness practice. Group members checked in about a word to describe how they were showing up for group today. Group members explored the function of anger and the five steps of the anger process. Group members reflected on the quote by Leonel Ballard: Mindfulness is paying attention in a particular way: on purpose, in the present moment, and nonjudgmentally. Group members committed to engage in mindful awareness practice and to observe the five steps of the anger process in the next week. PROGRESS: [place] arrived on time and was an active and appropriate participant. participated in the mindfulness practices and group discussions. Mental Status was not formally assessed due to the nature of the encounter. maintained appropriate eye contact and was alert. spoke clearly and coherently. 's thoughts were linear and related. [place]'s affect was congruent to content and appropriate in range. No clinical signs of intoxication, withdrawal, psychosis, or cognitive impairment were observed. No evidence of suicidal or homicidal ideation. There was no evidence of AH/VH or delusions. [place] was future oriented. DSM-V DIAGNOSTIC IMPRESSIONS(per chart): PTSD, chronic PLAN: [place] will continue to participate in the Living with Angry Feelings Group on Fridays at 1pm. /tanika/ Lakeisha Sutton, PhD Clinical Psychologist, Mental Health Clinic Signed: 10/23/2023 14:47 LAEKISHA SUTTON [place] [facility]
--- OUTSIDE RECORDS SUMMARY | 2024-03-22 11:33 | XMS_ITS | Encounter Summary ---
Author Name [place] Address [address] [place] [address] Care Team Providers Care Precipitation Equipment Tender Name Role Phone KEEGAN RDZ Primary Care [...] Goyal's Name Patient's Relationship to Policy Goyal [facility] ORGANIZAT [facility] RETIR EMENT Oct 10, 2023 [id number] NANO CROWE PATIENT CIGNA POINT OF SERVICE [facility] Oct 04, 2016 [id number] NANO CROWE PATIENT CIGNA BEHAVIORAL HEALTH MENTAL HEALTH [facility] Oct 04, 2016 [id number] NNAO CROWE PATIENT CIGNA PHARMACY PRESCRIPT ION [facility] Oct 04, 2016 [id number] [phone] NANO CROWE PATIENT Selected Encounter This section includes the information on record at [place] for the Encounter. Date/Time Encounter Type Encounter Description Reason Pro vider Source Nov 06, 2023 01:00 PM Outpatient Encounter [facility] IHE Encounter Template Text not used by [place] Plan of Treatment: Future Appointments (+ 6 months) and Future Tests (+/- 45 days) The Plan of Treatment section includes future care activities for the patient from all [place] [facility]. This section includes future appointments and future orders which are active, pending or scheduled. Future Appointments This section includes appointments that were scheduled to occur 6 months from the date of the Encounter, up to a maximum of 20 appointments. The data comes from all [place] treatment facilities. Appointment Date/Time Appointment Type Appointme nt Facility Name Nov 13, 2023 11:00 AM AMBULATORY - MEDICINE [facility] [place] [place] [facility] Nov 13, 2023 12:00 PM AMBULATORY - MEDICINE [place] [place] [facility] Nov 13, 2023 12:15 PM AMBULATORY - MEDICINE [place] [place] [facility] Nov 13, 2023 01:00 PM AMBULATORY - PSYCHIATRY [facility] [place] [facility] Nov 13, 2023 03:00 PM AMBULATORY - PSYCHIATRY [facility] [place] [facility] Nov 13, 2023 03:00 PM [facility] Nov 20, 2023 01:00 PM AMBULATORY - PSYCHIATRY [place] [facility] [place] [facility] Nov 30, 2023 11:00 AM AMBULATORY - REHAB MEDICIN E [facility] [place] [facility] Dec 04, 2023 01:00 PM AMBULATORY - PSYCHIATRY [facility] [place] [facility] Dec 11, 2023 01:00 PM AMBULATORY - PSYCHIATRY [facility] [place] [facility] Dec 21, 2023 03:00 PM AMBULATORY - PSYCHIATRY [facility] [place] [facility] Dec 22, 2023 10:00 AM AMBULATORY - PSYCHIATRY [place] [facility] [place] [facility] Jan 01, 2024 01:00 PM AMBULATORY - PSYCHIATRY [facility] [place] [facility] Jan 15, 2024 01:00 PM AMBULATORY - PSYCHIATRY [place] [facility] [place] [facility] Jan 22, 2024 01:00 PM AMBULATORY - PSYCHIATRY [place] [facility] [place] [facility] Jan 29, 2024 01:00 PM AMBULATORY - PSYCHIATRY [place] [facility] [place] [facility] Feb 12, 2024 01:00 PM AMBULATORY - PSYCHIATRY [place] [facility] Feb 16, 2024 08:30 AM AMBULATORY - PSYCHIATRY [place] [facility] Feb 19, 2024 01:00 PM AMBULATORY - PSYCHIATRY [place] [facility] Mar 09, 2024 02:00 PM [facility] Social History: Smoking Status (Most [...] 28, 2023 08:30 AM [facility]ACCO [facility] Tobacco Use History This section includes a history of the smoking, or tobacco-related health factors, that were collected on or before the date of the Encounter. The data comes from the [place] facility where the Encounter took place. Date/Time Smoking Status/Tobacco Use Comment F acility Feb 21, 2020 10:30 AM VA-TOBACCO NEVER USED [place]TRL [place] [facility] Apr 20, 2018 02:11 PM VA-TOBACCO NEVER USED IN CNTRL [place] [facility] Jan 14, 2017 02:29 PM LIFETIME NON-TOBACCO USER IN CNTRL [place] [facility] August 12, 2010 02:56 PM LIFETIME NON-TOBACCO USER IN [facility]L [facility] Encounter Notes: All associated encounter notes This section contains the clinical notes associated to the Encounter. Date/Time Encounter Note(s) Provider Source Nov 06, 2023 04:20 PM ADMINISTRATIVE NOT E: LOCAL TITLE: ADMINISTRATIVE NOTE STANDARD TITLE: ADMINISTRATIVE NOTE DATE OF NOTE: NOV 06, 2023@16:20 ENTRY DATE: NOV 06, 2023@16:20:28 AUTHOR: LAKEISHA SUTTON COSIGNER: URGENCY: STATUS: COMPLETED informed group leaders last week that he could not attend today's appointment and confirmed his plan to resume participation on Thursday, November 13, 2023 at 1pm. /tanika/ Lakeisha Sutton, PhD Clinical Psychologist, Mental Health Clinic Signed: 11/06/2023 16:21 LAKEISHA SUTTON [place] CNTL [facility]
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
--- OUTSIDE RECORDS SUMMARY | 2024-03-22 11:33 | XMS_ITS | Encounter Summary ---
Author Name [facility] of Veter[facility] Affairs (ID) Organization [facility] ([place]) Address [address] [place] [id number] Care Team Providers Care Foot Doctor Name Role Phone KEEGAN RDZ Primary Care [...] Name Patient's Relationship to Policy Goyal [facility] RETIR EMENT Oct 10, 2023 [id number] NANO CROWE PATIENT CIGNA POINT OF SERVICE [facility] Oct 04, 2016 [id number] NANO CROWE PATIENT CIGNA BEHAVIORAL HEALTH MENTAL HEALTH [facility] Oct 04, 2016 [id number] NANO CROWE PATIENT CIGNA PHARMACY PRESCRIPT ION [facility] Oct 04, 2016 [id number] NANO CROWE PATIENT Selected Encounter This section includes the information on record at ID for the Encounter. Date/Time Encounter Type Encounter Description Reason Provider Source Oct 30, 2023 01:00 PM GROUP PSYCHOTHERAPY [facility]INIC-GROUP ICD-10-CM F43.10 Post-traumatic stress disorder, unspecified HANDY SUTTON IHE Encounter Template Text not used by ID Assessments - Encounter Diagnoses This section includes the primary and secondary diagnoses documented for the Encounter. Date/Time Primary/Secondary Diagnosis Diagnosis Name Provider Source Dec 04, 2023 10:31 AM PRIMARY Post-traumatic stress disorder, unspecified MINGAbnerALL E [facility] [place] [facility] Plan of Treatment: Future Appointments (+ 6 months) and Future Tests (+/- 45 days) The Plan of Treatment section includes future care activities for the patient [facility] This section includes future [...] 13, 2023 11:00 AM AMBULATORY - MEDICINE ID [facility] [place] [facility] Nov 13, 2023 12:00 PM AMBULATORY - MEDICINE ID C [facility] [place] [facility] Nov 13, 2023 12:15 PM AMBULATORY - MEDICINE ID C [facility] [place] [facility] Nov 13, 2023 01:00 PM AMBULATORY - PSYCHIATRY [facility] [place] [facility] Nov 13, 2023 03:00 PM AMBULATORY - PSYCHIATRY [facility] [place] [facility] Nov 13, 2023 03:00 PM AMBULATORY - NONE [facility] Nov 20, 2023 01:00 PM AMBULATORY - PSYCHIATRY [facility] [place] [facility] Nov 30, 2023 11:00 AM AMBULATORY - REHAB MEDICIN E [facility] [place] [facility] Dec 04, 2023 01:00 PM AMBULATORY - PSYCHIATRY [facility] [place] [facility] Dec 11, 2023 01:00 PM AMBULATORY - PSYCHIATRY [facility] [place] [facility] Dec 21, 2023 03:00 PM AMBULATORY - PSYCHIATRY [facility] [place] [facility] Dec 22, 2023 10:00 AM AMBULATORY - PSYCHIATRY [facility] [place] [facility] Jan 01, 2024 01:00 PM AMBULATORY - PSYCHIATRY [facility] [place] [facility] Jan 15, 2024 01:00 PM AMBULATORY - PSYCHIATRY [facility] [place] [facility] Jan 22, 2024 01:00 PM AMBULATORY - PSYCHIATRY [facility] [place] [facility] Jan 29, 2024 01:00 PM AMBULATORY - PSYCHIATRY [facility] [place] [facility] Feb 12, 2024 01:00 PM AMBULATORY - PSYCHIATRY [facility] [place] [facility] Feb 16, 2024 08:30 AM AMBULATORY - PSYCHIATRY [facility] [place] [facility] Feb 19, 2024 01:00 PM AMBULATORY - PSYCHIATRY [facility] [place] [facility] Mar 09, 2024 02:00 PM AMBULATORY - NONE [facility] Social History: Smoking Status (Most current) [...] 28, 2023 08:30 AM VA-TOBACCO [facility] Tobacco Use History This section includes a history of the smoking, or tobacco-related health factors, that were collected on or before the date of the Encounter. The data comes from the ID facility where the Encounter took place. Date/Time Smoking Status/Tobacco Use Comment F acility Feb 21, 2020 10:30 AM VA-TOBACCO NEVER USED [facility] [place] [facility] Apr 20, 2018 02:11 PM VA-TOBACCO NEVER USED [facility] [place] [facility] Jan 14, 2017 02:29 PM LIFETIME NON-TOBACCO USER [facility] [place] [facility] August 12, 2010 02:56 PM LIFETIME NON-TOBACCO USER ID [facility] [place] [facility] Encounter Notes: All associated encounter notes This section contains the clinical notes associated to the Encounter. Date/Time Encounter Note(s) Provider Source Oct 30, 2023 02:27 PM PSYCHIATRY GROUP COUNSELING NOTE: LOCAL TITLE: PSYCHOLOGY GROUP NOTE STANDARD TITLE: PSYCHIATRY GROUP COUNSELING NOTE DATE OF NOTE: OCT 30, 2023@14:27 ENTRY DATE: OCT 30, 2023@14:28:01 AUTHOR: LAKEISHA SUTTON EXP COSIGNER: URGENCY: STATUS: COMPLETED BHIP Living with Angry Feelings Group Therapy Note SESSION MODALITY: VA Video Connect (clinic to non-VA location) Opolis's location: Provider confirmed that is currently located at Primary Address listed in [facility]. Primary phone number: Confirmed for all participants. Opolis has provided verbal consent either today or previously when seen via VVC in mental health. This consent was obtained after a full explanation of the risk and benefits of using telehealth for mental health appointments. Alternatives for obtaining care through an in-person mental health visit and the Opolis's right of refusal at any time during this session have been explained. Opolis's location/environment was surveyed by this provider to identify all participants and the Virtual Medical Room was locked (via enabling button option in VMR) once all invited/required attendees were present. IDENTITY VERIFICATION: [X] Patient Name [X] Visual recognition [ ] Birthdate [ ] Social Security # Log Processor Operator: Mayo Whaley, MS, and Lakeisha Sutton, PhD PROCEDURE: 60-minute interactive hybrid VVC/F2F group therapy session Problem: Difficulty managing angry feelings without acting in ways Opolis regrets Objective: Increase understanding of anger process and ways to effectively intervene so does not act in ways that are unworkable or in conflict with personal values. Increase use of mindful and skillful behaviors. Number of Veterans Present in Group: 6 GROUP CONTENT: Group members engaged in a mindful awareness practice related to observing the breath. They each checked in, sharing names and speaking about something that makes it challenging for them to be present in the moment. Group members discussed the five steps of the anger process. They considered 5 anger myths and discussed the topic of venting anger. Group members were encouraged to be mindful between this group and next, as well as to consider further the 5 anger myths. PROGRESS: arrived on time and was an active and appropriate participant. participated in the mindfulness practices and group discussions. Mental Status was not formally assessed due to the nature of the encounter. Opolis maintained appropriate eye contact and was alert. spoke clearly and coherently. Opolis's thoughts were linear and related. Opolis's affect was congruent to content and appropriate in range. No clinical signs of intoxication, withdrawal, psychosis, or cognitive impairment were observed. No evidence of suicidal or homicidal ideation. There was no evidence of AH/VH or delusions. Opolis was future oriented. DSM-V DIAGNOSTIC IMPRESSIONS(per chart): PTSD, chronic PLAN: Opolis will continue to participate in the Living with Angry Feelings Group on Fridays at 1pm. /tanika/ Lakeisha Sutton, PhD Clinical Psychologist, Mental Health Clinic Signed: 10/30/2023 14:35 LAKEISHA SUTTON ID [facility]
--- OUTSIDE RECORDS SUMMARY | 2024-03-22 11:33 | XMS_ITS | Encounter Summary ---
Author Name [facility] [place] [facility] [place] Address [address] [place] [address] Care Team Providers Care Dialer Name Role Phone KEEGAN RDZ Primary Care [...] Goyal's Name Patient's Relationship to Policy [facility] Oct 10, 2023 [id number] [phone] NANO CROWE PATIENT [employer] POINT OF SERVICE [facility] Oct 04, 2016 [id number] NANO CROWE PATIENT [employer] BEHAVIORAL HEALTH MENTAL [facility] Oct 04, 2016 [id number] NANO CROWE PATIENT [employer] PHARMACY PRESCRIPT ION [facility] Oct 04, 2016 [id number] [phone] NANO CROWE PATIENT Selected Encounter This section includes the information on record at [place] for the Encounter. Date/Time Encounter Type Encounter Description Reason Provider Source Oct 21, 2023 12:30 PM NRPSYC TST EVAL PHYS/QHP EA PSYCHOLOGICAL TESTING ICD-10-CM F43.10 Post-traumatic stress disorder, unspecified CALOS,DEANNA LY PAUL E Encounter Template Text not used by [place] Assessments - Encounter Diagnoses This section includes the primary and secondary diagnoses documented for the Encounter. Date/Time Primary/Secondary Diagnosis Diagnosis Name Provider Source Oct 21, 2023 04:05 PM PRIMARY Post-traumatic stress disorder, unspecified CALOS,ZAHRAA Y [facility] Oct 21, 2023 04:05 PM SECONDARY Depression, unspecified CALOS,ZAHRAA Y [facility] Oct 21, 2023 04:05 PM SECONDARY Unsp focal TBI w LOC of 30 minutes or less, subs CALOS,ZAHRAA Y [facility] Plan of Treatment: Future Appointments (+ 6 months) and Future Tests (+/- 45 days) The Plan of Treatment section includes future care activities for the patient [facility] [place] [facility] This section includes future appointments and future orders which are active, pending or scheduled. Future Appointments This section includes appointments that were scheduled to occur 6 months from the date of the Encounter, up to a maximum of 20 appointments. The data comes from all [place] treatment facilities. Appointment Date/Time Appointment Type Appointme nt Facility Name Oct 23, 2023 08:30 AM AMBULATORY [place] [facility] [place] [facility] Oct 23, 2023 01:00 PM AMBULATORY - PS[place]CHIATRY [facility] [place] [facility] Oct 30, 2023 01:00 PM AMBULATORY - PS[facility]IATRY [facility] [place] [facility] Nov 13, 2023 11:00 AM AMBULATORY - MEDICINE [facility] [place] [facility] Nov 13, 2023 12:00 PM AMBULATORY - MEDICINE [facility] [place] [facility] Nov 13, 2023 12:15 PM AMBULATORY - MEDICINE [place] [facility] [place] [facility] Nov 13, 2023 01:00 PM AMBULATORY - PS[place]IATRY [facility] [place] [facility] Nov 13, 2023 03:00 PM AMBULATORY - PS[place]CHIATRY [facility] [place] [facility] Nov 13, 2023 03:00 PM AMBULATORY - NONE [facility] Nov 20, 2023 01:00 PM [facility] Nov 30, 2023 11:00 AM AMBULATORY - [facility]ICIN [facility] Dec 04, 2023 01:00 PM AMBUL[facility] - PS[facility]AT[facility] Dec 11, 2023 01:00 PM AMBULATORY - PS[facility] Dec 21, 2023 03:00 PM AMBUL[facility] Dec 22, 2023 10:00 AM AMBULATORY [facility] Jan 01, 2024 01:00 PM AMBULATORY - PS[facility] Jan 15, 2024 01:00 PM AM[facility]AT[facility] Jan 22, 2024 01:00 PM AM[facility]UL[facility] - [facility] Jan 29, 2024 01:00 PM AMBUL[facility] - [facility] Feb 12, 2024 01:00 PM [facility]UL[facility] Encounter Notes: All associated encounter notes This section contains the clinical notes associated to the Encounter. Date/Time Encounter Note(s) Provider Source Oct 21, 2023 08:12 AM NEUROPSYCHOLOGY CO NSULT: [facility] TITLE: [facility] NEUROPSYCHOLOGY EVALUATION STANDARD TITLE: NEUROPSYCHOLOGY CONSULT DATE OF NOTE: OCT 21, 2023@08:12 ENTRY DATE: OCT 21, 2023@08:12:39 AUTHOR: LAUREANO LIVE COSIGNER: URGENCY: STATUS: COMPLETED Clinical Service Provided: Neuropsychological Evaluation Service Delivery Method: VVC/Xfxg-Tti-Jfod Provisional Diagnosis: PTSD, MDD, history of mTBI; r/o mild neurocognitive disorder For a complete progress note including a mental status examination and risk assessment, please see the [facility] medical record (accessible through [facility]). Length of Service: Chart review & assessment plannin minutes Clinical interview: 60 minutes Testin minutes Scoring & entry of scores to report: 60 minutes Interpretation and report writin minutes /tanika/ LAUREANO LIVE Neuropsychologist Signed: 10/21/2023 16:05 LAUREANO LIVE [facility]
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
--- OUTSIDE RECORDS SUMMARY | 2024-03-22 11:33 | XMS_ITS | Encounter Summary ---
Author Name [facility] [place] [facility] [place] Address [address] [place] [address] Care Team Providers Care Financial Reporting Director Name Role Phone KEEGAN RDZ Primary Care [...] Goyal's Name Patient's Relationship to Policy Goyal [facility]GAN[facility] RET[facility] E[facility] Oct 10, 2023 [id number] NANO CROWE PATIENT [employer] POINT OF SERVICE [facility] Oct 04, 2016 [id number] NANO CROWE PATIENT [employer] BE[facility]AVIORAL [facility] MENTAL HEALTH [facility] Oct 04, 2016 [id number] NANO CROWE PATIENT [employer] PHARMACY PRESCRIPT ION [facility] Oct 04, 2016 [id number] NANO CROWE PATIENT Selected Encounter This section includes the information on record at [place] for the Encounter. Date/Time Encounter Type Encounter Description Reason Pro vider Source Oct 16, 2023 01:00 PM Outpatient Encounter [facility] Encounter Template Text not used by [place] Plan of Treatment: Future Appointments (+ 6 months) and Future Tests (+/- 45 days) The Plan of Treatment section includes future care activities for the patient [facility] [place] [facility] This section includes future appointments and future orders which are active, pending or scheduled. Future Appointments This section includes appointments that were scheduled to occur 6 months from the date of the Encounter, up to a maximum of 20 appointments. The data comes from all [place] treatment facilities. Appointment Date/Time Appointment Type Appointme nt Facility Name Oct 21, 2023 12:30 PM AMBULATORY [facility] [place] [facility] Oct 21, 2023 12:30 PM AMBULATORY - NONE [facility]GED WITH [facility] Oct 23, 2023 08:30 AM AMBULATORY - REHAB MEDICIN E [facility] [place] [facility] Oct 23, 2023 01:00 PM AMBULATORY - PS[facility]IATRY [facility] [place] [facility] Oct 30, 2023 01:00 PM AMBULATORY - PS[facility]IATRY [facility] [place] [facility] Nov 13, 2023 11:00 AM AMBULATORY - MEDICINE [facility] [place] [facility] Nov 13, 2023 12:00 PM AMBULATORY - MEDICINE [facility] [place] [facility] Nov 13, 2023 12:15 PM AMBULATORY - MEDICINE [facility] [place] [facility] Nov 13, 2023 01:00 PM AMBULATORY - PS[facility]CHIATRY [facility] [place] [facility] Nov 13, 2023 03:00 PM AMBULATORY - PS[facility]CHIATRY [facility] [place] [facility] Nov 13, 2023 03:00 PM AMBULATORY - NONE [facility] Nov 20, 2023 01:00 PM AMBULATORY - PS[facility]CHIATRY [facility] [place] [facility] Nov 30, 2023 11:00 AM AMBULATORY - REHAB MEDICIN E [facility] [place] [facility] Dec 04, 2023 01:00 PM AMBULATORY - PSYCHIATRY [facility] [place] [facility] Dec 11, 2023 01:00 PM AMBULATORY - PSYCHIATRY [facility] [place] [facility] Dec 21, 2023 03:00 PM AMBULATORY - PS[facility]CHIATRY [facility] [place] [facility] Dec 22, 2023 10:00 AM AMBULATORY - PSYCHIATRY [facility] [place] [facility] Jan 01, 2024 01:00 PM AMBULATORY - PSYCHIATRY [facility] [place] [facility] Jan 15, 2024 01:00 PM AMBULATORY - PSYCHIATRY [facility] [place] [facility] Jan 22, 2024 01:00 PM [facility] Social History: Smoking Status (Most current) and Tobacco Use (All prior to encounter date) This section includes the most current, and the historical, smoking and tobacco- related health factors from the [place] facility where the Encounter took place. Current Smoking Status This section includes the most current smoking, or tobacco-related health factor, from the [place] facility where the Encounter took place. Date/Time Current Smoking Status Comment Facil ity Jul 28, 2023 08:30 AM VA-TOBACCO NEVER USED [facility] Tobacco Use History This section includes a history of the smoking, or tobacco-related health factors, that were collected on or before the date of the Encounter. The data comes from the [place] facility where the Encounter took place. Date/Time Smoking Status/Tobacco Use Comment F acility Feb 21, 2020 10:30 AM [facility] [place] [facility] Apr 20, 2018 02:11 PM VA-TOBACCO NEVER USED [place] [facility] [place] [facility] Jan 14, 2017 02:29 PM LIFETIME [facility]ACCO [facility] [place] [facility] August 12, 2010 02:56 PM LIFET[facility]AC[facility] Encounter Notes: All associated encounter notes This section contains the clinical notes associated to the Encounter. Date/Time Encounter Note(s) Provider Source Oct 16, 2023 03:28 PM CLERICAL NOTE: LOCAL TITLE: APPOINTMENT NO SHOW STANDARD TITLE: CLERICAL NOTE DATE OF NOTE: OCT 16, 2023@15:28 ENTRY DATE: OCT 16, 2023@15:28:30 AUTHOR: LAKEISHA SUTTON COSIGNER: URGENCY: STATUS: COMPLETED Patient Name: NANO CROWE Patient SSN: [id number] Date and time of Appointment No show : 10/16/23 13:00 PATIENT PHONE - PHONE NUMBER [CELLULAR] - Patient's medical record was reviewed. Follow-up actions were determined and initiated: Please check/complete as applies: [X]Telephoned Directly [ ]Re-scheduled for next available appt [ ]Sent a N0-show letter ( must call for appointment) [ ]Other (Emergent/Overbook, etc.): Additional Comments: Called and spoke to [place], who stated he cancelled via Vet Text due to needing to attend the wake of a close friend. Expressed understanding and empathy. Confirmed plans to attend next week. No evidence of imminent risk. [place] thanked automobile and property underwriter for the call. Future Clinic Visits 10/21/2023 12:30 CWM V01 ADM [facility] MH TSTNG 10/23/2023 08:30 CWM NO TBI SPEECH 10/23/2023 13:00 CWM/NO/VVC/MHC/ANG MGMT G 10/30/2023 13:00 CWM/NO/VVC/MHC/ANG MGMT G 11/13/2023 11:00 CWM/NO/OPTOMETRY/OSHINSKI 12/21/2023 15:00 CWM/NO/VVC/MHC/CLP2 /es/ Lakeisha Sutton, PhD Clinical Psychologist, [facility] Signed: 10/16/2023 15:29 LAKEISHA SUTTON [place] [facility]
--- OUTSIDE RECORDS SUMMARY | 2024-03-22 11:33 | XMS_ITS ---
Author Name [facility] [place] Address [address] [place] [address] Care Team Providers Care Tile Mason Name Role Phone KEEGAN RDZ Primary Care [...] Goyal's Name Patient's Relationship to Policy Goyal [facility] ION COH RETIR EMENT Oct 10, 2023 [id number] NANO CROWE PATIENT CIGNA POINT OF SERVICE [facility] Oct 04, 2016 [id number] [phone] NANO CROWE PATIENT [facility] BEHAVIORAL HEALTH MENTAL HEALTH [facility] Oct 04, 2016 [id number] NANO CROWE PATIENT [facility] PHARMACY PRESCRIPT ION [facility] Oct 04, 2016 [id number] NANO CROWE PATIENT Selected Encounter This section includes the information on record at [place] for the Encounter. Date/Time Encounter Type Encounter Description Reason Provider Source Nov 13, 2023 12:00 PM EXTENDED VISUAL FIELD XM OPTOMETRY ICD-10-CM H40.013 Open angle with borderline findings, low risk, bilateral OSNBA ORTA E Encounter Template Text not used by [place] Assessments - Encounter Diagnoses This section includes the primary and secondary diagnoses documented for the Encounter. Date/Time Primary/Secondary Diagnosis Diagnosis Name Provider Source Dec 06, 2023 10:59 AM PRIMARY Open angle with borderline findings, low risk, bilateral OSNBA ORTA [place] [facility] [place] [facility] Plan of Treatment: Future Appointments (+ 6 months) and Future Tests (+/- 45 days) The Plan of Treatment section includes future care activities for the patient from all [place] treatment[facility] health app[place]ianities. This section includes future appointments and future orders which are active, pending or scheduled. Future Appointments This section includes appointments that were scheduled to occur 6 months from the date of the Encounter, up to a maximum of 20 appointments. The data comes from all [place] treatment facilities. Appointment Date/Time Appointment Type Appointme nt Facility Name Nov 20, 2023 01:00 PM AMBULATORY - PS[facility]CHIATRY [facility] [place] [facility] Nov 30, 2023 11:00 AM AMBULATORY - REHAB MEDICIN E [facility] [place] [facility] Dec 04, 2023 01:00 PM AMBULATORY - PSYCHIATRY [facility] [place] [facility] Dec 11, 2023 01:00 PM AMBULATORY - PSYCHIATRY [facility] [place] [facility] Dec 21, 2023 03:00 PM AMBULATORY - PSYCHIATRY [facility] [place] [facility] Dec 22, 2023 10:00 AM AMBULATORY - PSYCHIATRY [facility] [place] [facility] Jan 01, 2024 01:00 PM AMBULATORY - PSYCHIATRY [facility] [place] [facility] Jan 15, 2024 01:00 PM AMBULATORY - PSYCHIATRY [facility] [place] [facility] Jan 22, 2024 01:00 PM AMBULATORY - PSYCHIATRY [facility] [place] [facility] Jan 29, 2024 01:00 PM AMBULATORY - PSYCHIATRY [facility] [place] [facility] Feb 12, 2024 01:00 PM AMBULATORY - PSYCHIATRY [facility] [place] [facility] Feb 16, 2024 08:30 AM AMBULATORY - PSYCHIATRY [facility] [place] [facility] Feb 19, 2024 01:00 PM AMBULATORY - PSYCHIATRY [facility] [place] [facility] Mar 09, 2024 02:00 PM AMBULATORY - NONE [facility] [place] [facility] Mar 21, 2024 03:00 PM AMBULATORY - PSYCHIATRY [facility] [place] [facility] May 09, 2024 03:00 PM [facility] Social History: Smoking Status (Most current) and Tobacco Use (All prior to encounter date) This section includes the most current, and the historical, smoking and tobacco- related health factors from the [place] facility where the Encounter took place. Current Smoking Status This section includes the most current smoking, or tobacco-related health factor, from the [place] facility where the Encounter took place. Date/Time Current Smoking Status Comment Facil ity Jul 28, 2023 08:30 AM [facility] Tobacco Use History This section includes a history of the smoking, or tobacco-related health factors, that were collected on or before the date of the Encounter. The data comes from the [place] facility where the Encounter took place. Date/Time Smoking Status/Tobacco Use Comment F acility Feb 21, 2020 10:30 AM VA-TOBACCO NEVER USED [place] [facility] [place] [facility] Apr 20, 2018 02:11 PM VA-TOBACCO NEVER USED [facility] [place] [facility] Jan 14, 2017 02:29 PM LIFETIME NON-TOBACCO USER [place] [facility] [place] [facility] August 12, 2010 02:56 PM LIFETIME NON-TOBACCO USER [place] [facility] [place] [facility] Encounter Notes: All associated encounter notes This section contains the clinical notes associated to the Encounter. Date/Time Encounter Note(s) Provider Source Nov 13, 2023 12:33 PM OPTOMETRY CONSULT: LOCAL TITLE: CONSULT REPORT/OPTOMETRY VISUAL FIELD STANDARD TITLE: OPTOMETRY CONSULT DATE OF NOTE: NOV 13, 2023@12:33 ENTRY DATE: NOV 13, 2023@12:33:42 AUTHOR: JEANCARLOS SIMON COSIGNER: URGENCY: STATUS: COMPLETED visual field results: low risk glaucoma suspect OU OD GHT WNL no significant VF defects on TD, PD FL 04/15 FP 6% FN 0 % MD +1.41 OS GHT WNL no significant VF defects on TD, PD FL 04/15 FP 10% FN 0 % MD +0.53 A-low risk glaucoma pt OU with no VF defect P-rtc annually /tanika/ Jeancarlos Simon OD Fee Basis Climatology Professor Signed: 11/13/2023 12:35 JEANCARLOS SIMON [facility]
--- OUTSIDE RECORDS SUMMARY | 2024-03-22 11:34 | XMS_ITS ---
Author Name [facility] [place] Address [address] [place] [address] Care Team Providers Care Alumni Secretary Name Role Phone KEEGAN RDZ Primary Care [...] Patient's Relationship to Policy [facility] Oct 10, 2023 [id number] NANO CROWE PATIENT CIGNA POINT OF SERVICE [facility] Oct 04, 2016 [id number] NANO CROWE PATIENT CIGNA BEHAVIORAL HEALTH MENTAL HEALTH [facility] Oct 04, 2016 [id number] NANO CROWE PATIENT [facility] PHARMACY PRESCRIPT ION [facility] Oct 04, 2016 [id number] NANO CROWE PATIENT Selected Encounter This section includes the information on record at [place] for the Encounter. Date/Time Encounter Type Encounter Description Reason Pro vider Source Nov 13, 2023 03:00 PM Outpatient Encounter ADMIN PAT ACTIVTIES (MASNONCT) IHE Encounter Template Text not used by [place] Plan of Treatment: Future Appointments (+ 6 months) and Future Tests (+/- 45 days) The Plan of Treatment section includes future care activities for the patient from all [place] treatmentfacilities. This section includes future appointments and future orders which are active, pending or scheduled. Future Appointments This section includes appointments that were scheduled to occur 6 months from the date of the Encounter, up to a maximum of 20 appointments. The data comes from all [place] treatment facilities. Appointment Date/Time Appointment Type Appointme nt Facility Name Nov 20, 2023 01:00 PM AMBULATORY - PS[facility]IATRY [facility] [place] [facility] Nov 30, 2023 11:00 AM AMBULATORY - REHAB MEDICIN E [facility] [place] [facility] Dec 04, 2023 01:00 PM AMBULATORY - PSYCHIATRY [facility] [place] [facility] Dec 11, 2023 01:00 PM AMBULATORY - PSYCHIATRY [facility] [place] [facility] Dec 21, 2023 03:00 PM AMBULATORY - PSYCHIATRY [facility] [place] [facility] Dec 22, 2023 10:00 AM AMBULATORY - PSYCHIATRY [facility] [place] [facility] Jan 01, 2024 01:00 PM AMBULATORY - PSYCHIATRY [facility] [place] [facility] Jan 15, 2024 01:00 PM AMBULATORY - PSYCHIATRY [facility] [place] [facility] Jan 22, 2024 01:00 PM AMBULATORY - PSYCHIATRY [facility] [place] [facility] Jan 29, 2024 01:00 PM AMBULATORY - PSYCHIATRY [facility] [place] [facility] Feb 12, 2024 01:00 PM AMBULATORY - PSYCHIATRY [facility] [place] [facility] Feb 16, 2024 08:30 AM AMBULATORY - PSYCHIATRY [facility] [place] [facility] Feb 19, 2024 01:00 PM AMBULATORY - PSYCHIATRY [facility] [place] [facility] Mar 09, 2024 02:00 PM AMBULATORY - NONE [facility] [place] [facility] Mar 21, 2024 03:00 PM AMBULATORY - PSYCHIATRY [facility] [place] [facility] May 09, 2024 03:00 PM AMBULATORY - PSYCHIATRY [facility] Social History: Smoking Status (Most current) and Tobacco Use (All prior to encounter date) This section includes the most current, and the historical, smoking and tobacco- related health factors from the [place] facility where the Encounter took place. Current Smoking Status This section includes the most current smoking, or tobacco-related health factor, from the [place] facility where the Encounter took place. Date/Time Current Smoking Status Comment Facil ity Jul 28, 2023 08:30 AM [facility] Tobacco Use History This section includes a history of the smoking, or tobacco-related health factors, that were collected on or before the date of the Encounter. The data comes from the [place] facility where the Encounter took place. Date/Time Smoking Status/Tobacco Use Comment F actimothy Feb 21, 2020 10:30 AM [facility]ACCO [facility] Apr 20, 2018 02:11 PM VA-TOBACCO [facility] Jan 14, 2017 02:29 PM LIFETIME NON-TOBACCO USER [facility] [place] [facility] August 12, 2010 02:56 PM LIFETIME NON-TOBACCO USER [facility] Encounter Notes: All associated encounter notes This section contains the clinical notes associated to the Encounter. Date/Time Encounter Note(s) Provider Source Nov 13, 2023 04:12 PM NEUROPSYCHOLOGY NOTE: LOCAL TITLE: [address] NEUROPSYCHOLOGICAL FOLLOW-UP STANDARD TITLE: NEUROPSYCHOLOGY NOTE DATE OF NOTE: NOV 13, 2023@16:12 ENTRY DATE: NOV 13, 2023@16:12:20 AUTHOR: LAUREANO LIVE COSIGNER: URGENCY: STATUS: COMPLETED Session was conducted via VVC (35 minutes) Patient verbally consents to care via telehealth: Yes Patient confirms location in a safe and private place: Yes Present phone number: Present location/address:Seated in vehicle at home; [address] [place] [address] Emergency contact name and phone number: Pam The town of the local police is [place], [place] to be contacted in case of an emergency. Emergency Use Only- e911 Instructions Call [phone] to speak with an agentwho can put you in touch with a playback operator at the Patient's location. === [place] has verbally consented to telehealth; alternatives for obtaining care through in-person visit and right of refusal at any time have been explained. [place] agreed to services today. === Neuropsychological feedback was completed today. The was unaccompanied to this appointment. We reviewed his 10/21/2023 neuropsychological evaluation, including discusison of test results and impressions. We reviewed areas of relative weakness on cognitive testing, factors that may contribute to areas of difficulty, and recommendations for managing current challenges and supporting healtyy cognitive aging. The expressed understanding of the findings of this evaluation and interst in pursuing provided recommendaitons (though he will consider pursuing individual psychotherapy in the future). He denied having residual questions but was encouraged to reach out should the arise in the future. Time Expenditure: Neuropsychological Feedback - 35 minutes /tanika/ LAUREANO LIVE Neuropsychologist Signed: 11/13/2023 16:21 LAUREANO LIVE [place] [facility]
--- OUTSIDE RECORDS SUMMARY | 2024-03-22 11:34 | XMS_ITS | Encounter Summary ---
Author Name [place] Address [address] [place] [address] Care Team Providers Care Waxed Bag Machine Operator Name Role Phone KEEGAN RDZ [...] Patient's Relationship to Policy [facility] RETIR EMENT Oct 10, 2023 [id number] NANO CROWE PATIENT CIGNA POINT OF SERVICE [facility] Oct 04, 2016 [id number] NANO CROWE PATIENT CIGNA BEHAVIORAL HEALTH MENTAL HEALTH [facility] Oct 04, 2016 [id number] NANO CROWE PATIENT [facility]IGNA PHARMACY PRESCRIPT ION [facility] Oct 04, 2016 [id number] NANO CROWE PATIENT Selected Encounter This section includes the information on record at [place] for the Encounter. Date/Time Encounter Type Encounter Description Reason Provider Source Nov 30, 2023 11:00 AM THER IVNTJ EA ADDL 15 MIN POLYTRAUMA/TBI IND ICD-10-CM R41.841 Cognitive communication deficit MARYLOU DILLARD E Encounter Template Text not used by [place] Assessments - Encounter Diagnoses This section includes the primary and secondary diagnoses documented for the Encounter. Date/Time Primary/Secondary Diagnosis Diagnosis Name Provider Source Dec 15, 2023 02:30 PM PRIMARY Cognitive communication deficit MARYLOU DILLARD [place] [facility] [place] [facility] Plan of Treatment: Future Appointments (+ 6 months) and Future Tests (+/- 45 days) The Plan of Treatment section includes future care activities for the patient from all [place] treatment[facility]. This section includes future appointments and future orders which are active, pending or scheduled. Future Appointments This section includes appointments that were scheduled to occur 6 months from the date of the Encounter, up to a maximum of 20 appointments. The data comes from all [place] treatment facilities. Appointment Date/Time Appointment Type Appointme nt Facility Name Dec 04, 2023 01:00 PM AMBULATORY - PSYCHIATRY [facility] [place] [facility] Dec 11, 2023 01:00 PM AMBULATORY - PSYCHIATRY [facility] [place] [facility] Dec 21, 2023 03:00 PM AMBULATORY - PSYCHIATRY [facility] [place] [facility] Dec 22, 2023 10:00 AM AMBULATORY - PSYCHIATRY [facility] [place] [facility] Jan 01, 2024 01:00 PM AMBULATORY - PSYCHIATRY [facility] [place] [facility] Jan 15, 2024 01:00 PM AMBULATORY - PSYCHIATRY [facility] [place] [facility] Jan 22, 2024 01:00 PM AMBULATORY - PSYCHIATRY [facility] [place] [facility] Jan 29, 2024 01:00 PM AMBULATORY - PSYCHIATRY [facility] [place] [facility] Feb 12, 2024 01:00 PM AMBULATORY - PSYCHIATRY [facility] [place] [facility] Feb 16, 2024 08:30 AM AMBULATORY - PSYCHIATRY [facility] [place] [facility] Feb 19, 2024 01:00 PM AMBULATORY - PSYCHIATRY [facility] [place] [facility] Mar 09, 2024 02:00 PM AMBULATORY - NONE [facility] [place] [facility] Mar 21, 2024 03:00 PM [facility] May 09, 2024 03:00 PM [facility] Social History: Smoking Status (Most current) and Tobacco Use (All prior to encounter date) This section includes the most current, and the historical, smoking and tobacco- related health factors from the [place] facility where the Encounter took place. Current Smoking Status This section includes the most current smoking, or tobacco-related health factor, from the [place] facility where the Encounter took place. Date/Time Current Smoking Status Comment Facil ity Jul 28, 2023 08:30 AM VA-TOBACCO NEVER USED [facility] Tobacco Use History This section includes a history of the smoking, or tobacco-related health factors, that were collected on or before the date of the Encounter. The data comes from the [place] facility where the Encounter took place. Date/Time Smoking Status/Tobacco Use Comment F acility Feb 21, 2020 10:30 AM VA-TOBACCO NEVER [facility]ED [facility] Apr 20, 2018 02:11 PM VA-TOBACCO NEVER USED [facility] Jan 14, 2017 02:29 PM LIFETIME NON-TOBACCO USER [facility] August 12, 2010 02:56 PM LIFETIME NON-TOBACCO USER [facility] Encounter Notes: All associated encounter notes This section contains the clinical notes associated to the Encounter. Date/Time Encounter Note(s) Provider Source Nov 30, 2023 11:41 AM POLYTRAUMA NOTE: LOCAL TITLE: TBI/POLYTRAUMA SPEECH PATHOLOGY NOTE STANDARD TITLE: POLYTRAUMA NOTE DATE OF NOTE: NOV 30, 2023@11:41 ENTRY DATE: NOV 30, 2023@11:42:04 AUTHOR: LAURA DILLARD COSIGNER: URGENCY: STATUS: COMPLETED S: was seen F2F regarding reported cognitive communication deficits. Active problems - Computerized Problem List is the source for the followin. Exposure to potentially hazardous substance 2. Posttraumatic stress disorder 3. Atrial fibrillation 4. Brown-Sequard syndrome 5. Hypercalcemia 6. History of calculus of kidney 7. Cervical radiculopathy (SNOMED CT [id number]) 8. History of colonoscopy 9. Erectile dysfunction (SNOMED CT [id number]) 10. Essential hypertension 11. Hearing loss (SNOMED CT [id number]) Encounter time - 53 minutes O: The following was addressed during this encounter: The was provided education through a collaborative discussion about short term recall supports. Education was provided in order to support understanding and choice-making, which is linked to motivation and outcomes in treatment. The demonstrated knowledge through asking questions and demonstrating skills. A: Pt. presents with cognitive communication deficit. He will benefit from continued speech/language therapy and instruction in use of compensatory strategies. P: RTC as scheduled /es/ LAURA DILLARD M.S.,CCC-CHALKER SOLES SPEECH-LANGUAGE PATHOLOGIST Signed: 12/08/2023 12:49 LAURA DILLARD [facility]
--- OUTSIDE RECORDS SUMMARY | 2024-03-22 11:34 | XMS_ITS | Encounter Summary ---
Author Name [facility] [place] Address [address] [place] [id number] Care Team Providers Care Laser Systems Engineer Name Role Phone KEEGAN RDZ Primary Care [...] Patient's Relationship to Policy [facility] RET[facility] E[facility] Oct 10, 2023 [id number] [phone] NANO CROWE PATIENT [employer]IG[employer] POINT OF SERVICE [facility] Oct 04, 2016 [id number] [phone] NANO CROWE PATIENT [employer]IG[employer] BEHAVIORAL HEALTH MENTAL HEALTH [facility] Oct 04, 2016 [id number] NANO CROWE PATIENT [employer]IG[employer] PHARMACY PRESCRIPT ION [facility] Oct 04, 2016 [id number] NANO CROWE PATIENT Selected Encounter This section includes the information on record at [place] for the Encounter. Date/Time Encounter Type Encounter Description Reason Provider Source Nov 13, 2023 01:00 PM GROUP PSYCHOTHERAPY [facility] ICD-10-CM F43.10 Post-traumatic stress disorder, unspecified CHARLESKURTISHANDY GRUBBS IHE Encounter Template Text not used by [place] Assessments - Encounter Diagnoses This section includes the primary and secondary diagnoses documented for the Encounter. Date/Time Primary/Secondary Diagnosis Diagnosis Name Provider Source Dec 06, 2023 10:58 AM PRIMARY Post-traumatic stress disorder, unspecified CHARLESALL ROQUE E [place] [facility] [place] [facility] Plan of Treatment: Future Appointments (+ 6 months) and Future Tests (+/- 45 days) The Plan of Treatment section includes future care activities for the patient from all [place] [facility]. This section includes future appointments and future orders which are active, pending or scheduled. Future Appointments This section includes appointments that were scheduled to occur 6 months from the date of the Encounter, up to a maximum of 20 appointments. The data comes from all [place] treatment facilities. Appointment Date/Time Appointment Type Appointme nt Facility Name Nov 20, 2023 01:00 PM AMBULATORY - PS[facility]IATRY [facility] [place] [facility] Nov 30, 2023 11:00 AM AMBULATORY - REHAB MEDICIN E [facility] [place] [facility] Dec 04, 2023 01:00 PM AMBULATORY - PSYCHIATRY [facility] [place] [facility] Dec 11, 2023 01:00 PM AMBULATORY - PSYCHIATRY [facility] [place] [facility] Dec 21, 2023 03:00 PM AMBULATORY - PS[place]CHIATRY [place] [facility] [place] [facility] Dec 22, 2023 10:00 AM AMBULATORY - PS[facility]CHIATRY [facility] [place] [facility] Jan 01, 2024 01:00 PM AMBULATORY - PSYCHIATRY [facility] [place] [facility] Jan 15, 2024 01:00 PM AMBULATORY - PSYCHIATRY [facility] [place] [facility] Jan 22, 2024 01:00 PM AMBULATORY - PSYCHIATRY [facility] [place] [facility] Jan 29, 2024 01:00 PM AMBULATORY - PSYCHIATRY [facility] [place] [facility] Feb 12, 2024 01:00 PM AMBULATORY - PSYCHIATRY [place] [facility] [place] [facility] Feb 16, 2024 08:30 AM AMBULATORY - PSYCHIATRY [place] [facility] [place] [facility] Feb 19, 2024 01:00 PM AMBULATORY - PSYCHIATRY [place] [facility] [place] [facility] Mar 09, 2024 02:00 PM AMBULATORY - NONE [place] [facility] [place] [facility] Mar 21, 2024 03:00 PM AMBULATORY - PSYCHIATRY [place] [facility] [place] [facility] May 09, 2024 03:00 PM [facility] Social History: Smoking Status (Most current) and Tobacco Use (All prior to encounter date) This section includes the most current, and the historical, smoking and tobacco- related health factors from the [place] facility where the Encounter took place. Current Smoking Status This section includes the most current smoking, or tobacco-related health factor, from the [place] facility where the Encounter took place. Date/Time Current Smoking Status Comment Facil ity Jul 28, 2023 08:30 AM VA-TOBACCO NEVER USED [facility] Tobacco Use History This section includes a history of the smoking, or tobacco-related health factors, that were collected on or before the date of the Encounter. The data comes from the [place] facility where the Encounter took place. Date/Time Smoking Status/Tobacco Use Comment F acility Feb 21, 2020 10:30 AM VA-TOBACCO NEVER USED [place] [facility] [place] [facility] Apr 20, 2018 02:11 PM VA-TOBACCO NEVER USED [place] [facility] [place] [facility] Jan 14, 2017 02:29 PM LIFETIME NON-TOBACCO [facility] [place] [facility] August 12, 2010 02:56 PM LIFETIME NON-TOBACCO [facility] [place] [facility] Encounter Notes: All associated encounter notes This section contains the clinical notes associated to the Encounter. Date/Time Encounter Note(s) Provider Source Nov 13, 2023 04:51 PM PSYCHIATRY GROUP COUNSELING NOTE: LOCAL TITLE: PSYCHOLOGY GROUP NOTE STANDARD TITLE: PSYCHIATRY GROUP COUNSELING NOTE DATE OF NOTE: NOV 13, 2023@16:51 ENTRY DATE: NOV 13, 2023@16:51:18 AUTHOR: LAKEISHA SUTTON COSIGNER: URGENCY: STATUS: COMPLETED BHIP Living with Angry Feelings Group Therapy Note SESSION MODALITY: [facility] Video Connect (clinic to non-VA location) [place]'s location: Provider confirmed that Sal[place] is currently located at Primary Address listed in [facility]. Primary phone number: Confirmed for all participants. Saluda has provided verbal consent either today or previously when seen via VVC in mental health. This consent was obtained after a full explanation of the risk and benefits of using telehealth for mental health appointments. Alternatives for obtaining care through an in-person mental health visit and the [place]'s right of refusal at any time during this session have been explained. Saluda's location/environment was surveyed by this provider to identify all participants and the Virtual Medical Room was locked (via enabling button option in VMR) once all invited/required attendees were present. identified with 2 identifiers: [X] Patient Name [X] Visual recognition Facilitators: Mayo Whaley MS, and Lakeisha Sutton, PhD PROCEDURE: 60-minute interactive hybrid VVC/F2F group therapy session Problem: Difficulty managing angry feelings without acting in ways Saluda regrets Objective: Increase understanding of anger process and ways to effectively intervene so Saluda does not act in ways that are unworkable or in conflict with personal values. Increase use of mindful and skillful behaviors. Number of Veterans Present in Group: 8 GROUP CONTENT: Group members engaged in a mindful listening practice. They each checked in, sharing names and speaking about kindness they experienced or witnessed in the past week. Group members considered what is and is not controllable. They reflected upon control strategies that they use and ways in which they have been trying to control or get rid of angry feelings. They were encouraged to engage in mindful awareness and to consider further how they have been trying to control angry feelings. PROGRESS: Saluda arrived on time and was an active and appropriate participant. Saluda participated in the mindfulness practices and group discussions. Mental Status was not formally assessed due to the nature of the encounter. maintained appropriate eye contact and was alert. Saluda spoke clearly and coherently. Saluda's thoughts were linear and related. Saluda's affect was congruent to content and appropriate in range. No clinical signs of intoxication, withdrawal, psychosis, or cognitive impairment were observed. No evidence of suicidal or homicidal ideation. There was no evidence of AH/VH or delusions. was future oriented. DSM-V DIAGNOSTIC IMPRESSIONS(per chart): PTSD, chronic PLAN: Saluda will continue to participate in the Living with Angry Feelings Group on Fridays at 1pm. /tanika/ Lakeisha Sutton, PhD Clinical Psychologist, Mental Health Clinic Signed: 11/13/2023 16:57 LAKEISHA SUTTON [place] [facility]
--- OUTSIDE RECORDS SUMMARY | 2024-03-22 11:34 | XMS_ITS | Encounter Summary ---
Author Name [facility] [place] Address [address] [place] [address] Care Team Providers Care Brinell Tester Name Role Phone KEEGAN RDZ Primary Care [...] Name Patient's Relationship to Policy [facility] RETIR EMENT Oct 10, 2023 [id number] [phone] NANO CROWE PATIENT CIGNA POINT OF SERVICE [facility] Oct 04, 2016 [id number] NANO CROWE PATIENT CIGNA BEHAVIORAL HEALTH MENTAL HEALTH [facility] Oct 04, 2016 [id number] NANO CROWE PATIENT [employer]IGNA PHARMACY PRESCRIPT ION [facility] Oct 04, 2016 [id number] NANO CROWE PATIENT Selected Encounter This section includes the information on record at [place] for the Encounter. Date/Time Encounter Type Encounter Description Reason Pro vider Source Dec 02, 2023 09:44 AM Outpatient Encounter OPTOMETRY IHE Encounter Template Text not used by [place] Plan of Treatment: Future Appointments (+ 6 months) and Future Tests (+/- 45 days) The Plan of Treatment section includes future care activities for the patient from all [place] [facility]. This section includes future appointments and future orders which are active, pending or scheduled. Future Appointments This section includes appointments that were scheduled to occur 6 months from the date of the Encounter, up to a maximum of 20 appointments. The data comes from all [place] treatment facilities. Appointment Date/Time Appointment Type Appointme nt Facility Name Dec 04, 2023 01:00 PM AMBULATORY - PS[place]IATRY [place] [facility] [place] [facility] Dec 11, 2023 01:00 PM AMBULATORY - PSYCHIATRY [place] [facility] [place] [facility] Dec 21, 2023 03:00 PM AMBULATORY - PSYCHIATRY [facility] [place] [facility] Dec 22, 2023 10:00 AM AMBULATORY - PSYCHIATRY [facility] [place] [facility] Jan 01, 2024 01:00 PM AMBULATORY - PSYCHIATRY [facility] [place] [facility] Jan 15, 2024 01:00 PM AMBULATORY - PSYCHIATRY [facility] [place] [facility] Jan 22, 2024 01:00 PM AMBULATORY - PSYCHIATRY [facility] [place] [facility] Jan 29, 2024 01:00 PM AMBULATORY - PSYCHIATRY [facility] [place] [facility] Feb 12, 2024 01:00 PM AMBULATORY - PSYCHIATRY [place] [facility] [place] [facility] Feb 16, 2024 08:30 AM AMBULATORY - PSYCHIATRY [facility] [place] [facility] Feb 19, 2024 01:00 PM AMBULATORY - PSYCHIATRY [facility] [place] [facility] Mar 09, 2024 02:00 PM AMBULATORY - NONE [facility] [place] [facility] Mar 21, 2024 03:00 PM AMBULATORY - PSYCHIATRY [facility] [place] [facility] May 09, 2024 03:00 PM AMBULATORY - PSYCHIATRY [place] [facility] [place] [facility] Social History: Smoking Status (Most current) and Tobacco Use (All prior to encounter date) This section includes the most current, and the historical, smoking and tobacco- related health factors from the [place] facility where the Encounter took place. Current Smoking Status This section includes the most current smoking, or tobacco-related health factor, from the [place] facility where the Encounter took place. Date/Time Current Smoking Status Comment Federico ity Jul 28, 2023 08:30 AM VA-TOBACCO NEVER USED [place] [facility] Tobacco Use History This section includes a history of the smoking, or tobacco-related health factors, that were collected on or before the date of the Encounter. The data comes from the [place] facility where the Encounter took place. Date/Time Smoking Status/Tobacco Use Comment F acility Feb 21, 2020 10:30 AM VA-TOBACCO NEVER USED [place] [facility] [place] [facility] Apr 20, 2018 02:11 PM VA-TOBACCO NEVER USED [place] [facility] [place] [facility] Jan 14, 2017 02:29 PM LIFETIME NON-TOBACCO USER [place] [facility] [place] [facility] August 12, 2010 02:56 PM LIFETIME NON-TOBACCO USER [place] [facility] Encounter Notes: All associated encounter notes This section contains the clinical notes associated to the Encounter. Date/Time Encounter Note(s) Provider Source Dec 02, 2023 09:44 AM ADMINISTRATIVE NOT E: LOCAL TITLE: ADMINISTRATIVE RECALL NOTE STANDARD TITLE: ADMINISTRATIVE NOTE DATE OF NOTE: DEC 02, 2023@09:44 ENTRY DATE: DEC 02, 2023@09:44:04 AUTHOR: BILLY CARRION EXP COSIGNER: URGENCY: STATUS: COMPLETED ADMINISTRATIVE RECALL NOTE Has ADDENDA RTC orders: Unable to contact patient: Attempts to contact: 1st attempt: Left voicemail 2nd attempt: Letter mailedDisposition onSep 3rd attempt: 4th attempt: /loreto CARRION ADVANCED DINING SERVICE SUPERVISOR Signed: 12/02/2023 09:44 01/04/2024 ADDENDUM STATUS: COMPLETED RTC orders: Unable to contact patient: Attempts to contact: 1st attempt: Left voicemail 2nd attempt: Letter mailedDisposition onSep 3rd attempt: UNABLE TO LVM - PHONE STOPS RINGING UNABLE TO RECORD VM 4th attempt: MAILED /loreto CARRION ADVANCED DINING SERVICE SUPERVISOR Signed: 01/04/2024 11:50 01/25/2024 ADDENDUM STATUS: COMPLETED RTC 12/13/2024 dispositioned due to veterans failure to respond to all contact efforts per department standards. Dispositioned on 01/25/2024. /tanika/ BILLY CARRION ADVANCED DINING SERVICE SUPERVISOR Signed: 01/25/2024 08:59 BILLY CARRION [facility] [place] [facility] Dec 02, 2023 09:44 AM LETTERS: LOCAL TITLE: PATIENT LETTER (B) STANDARD TITLE: LETTERS DATE OF NOTE: DEC 02, 2023@09:44 ENTRY DATE: DEC 02, 2023@09:44:54 AUTHOR: BILLY CARRION EXP COSIGNER: URGENCY: STATUS: COMPLETED DEC 02, 2023 NANO CROWE [address] [place] [id number] Dear NANO CROWE Thank you for choosing the Department of [facility] ([place]) Medical [place] as your primary choice for health care. As a partner in your health care, we are contacting you in writing since we have been unsuccessful in our attempts to reach you to date. We want to assure you we are doing everything possible to schedule Veterans for their [place] medical care appointments. Our records indicate you are due for an appointment in OPTOMETRY . If you would like to be seen, please contact [place] Call Center at ext. [phone] to schedule an appointment. Thank you for your service to our nation, and we look forward to hearing from you soon. Sincerely, [facility] [address] [facility] [address] [place] [address] [place] [address] [facility] [address] [facility] [address] [place] [address] [place] [address] ext. [phone] [facility] [address] [address] [place] [address] ext. [phone] BILLY CARRION [place] [facility]
--- OUTSIDE RECORDS SUMMARY | 2024-03-22 11:34 | XMS_ITS | Encounter Summary ---
Author Name [place] Address [address] [place] [address] Care Team Providers Care Director Veterinary Name Role Phone KEEGAN RDZ Primary Care [...] Goyal's Name Patient's Relationship to Policy [facility] RETIR EMENT Oct 10, 2023 [id number] NANO CROWE PATIENT CIGNA POINT OF SERVICE [facility] Oct 04, 2016 [id number] [phone] NANO CROWE PATIENT CIGNA BEHAVIORAL HEALTH MENTAL HEALTH [facility] Oct 04, 2016 [id number] NANO CROWE PATIENT CIGNA PHARMACY PRESCRIPT ION [facility] Oct 04, 2016 [id number] NANO CROWE PATIENT Selected Encounter This section includes the information on record at [place] for the Encounter. Date/Time Encounter Type Encounter Description Reason Provider Source Nov 13, 2023 03:00 PM NRPSYC TST EVAL PHYS/QHP 1ST PSYCHOLOGICAL TESTING ICD-10-CM F32.A Depression, unspecified CALOS,DEANNA LY PAUL E Encounter Template Text not used by [place] Assessments - Encounter Diagnoses This section includes the primary and secondary diagnoses documented for the Encounter. Date/Time Primary/Secondary Diagnosis Diagnosis Name Provider Source Nov 13, 2023 04:24 PM PRIMARY Depression, unspecified CALOS,ZAHRAA Y PAUL [facility] Nov 13, 2023 04:24 PM SECONDARY Anxiety disorder, unspecified CALOS[facility]HRAA [facility]UL [facility] Nov 13, 2023 04:24 PM SECONDARY Post-traumatic stress disorder, chronic CALOS,ZAHRAA Y PAUL [facility] Plan of Treatment: Future Appointments (+ 6 months) and Future Tests (+/- 45 days) The Plan of Treatment section includes future care activities for the patient from all [place] [facility]. This section includes future appointments and future orders which are active, pending or scheduled. Future Appointments This section includes appointments that were scheduled to occur 6 months from the date of the Encounter, up to a maximum of 20 appointments. The data comes from all [place] treatment facilities. Appointment Date/Time Appointment Type Appointme nt Facility Name Nov 20, 2023 01:00 PM AMBULATORY - PS[place]CHIATRY [place] [facility] [facility] Nov 30, 2023 11:00 AM AMBULATORY - REHAB MEDICIN E [place] [facility] [place] [facility] Dec 04, 2023 01:00 PM AMBULATORY - PSYCHIATRY [place] [facility] [place] [facility] Dec 11, 2023 01:00 PM AMBULATORY - PSYCHIATRY [facility] [place] [facility] Dec 21, 2023 03:00 PM AMBULATORY - PSYCHIATRY [place] [facility] [facility] Dec 22, 2023 10:00 AM AMBULATORY - PSYCHIATRY [place] [facility] [facility] Jan 01, 2024 01:00 PM AMBULATORY - PSYCHIATRY [place] [facility] [facility] Jan 15, 2024 01:00 PM AMBULATORY - PSYCHIATRY [place] [facility] [facility] Jan 22, 2024 01:00 PM AMBULATORY - PSYCHIATRY [place] [facility] [facility] Jan 29, 2024 01:00 PM AMBULATORY - PSYCHIATRY [facility] [place] [facility] Feb 12, 2024 01:00 PM AMBULATORY - PSYCHIATRY [facility] [place] [facility] Feb 16, 2024 08:30 AM AMBULATORY - PSYCHIATRY [facility] [place] [facility] Feb 19, 2024 01:00 PM AMBULATORY - PSYCHIATRY [facility] [place] [facility] Mar 09, 2024 02:00 PM AMBULATORY - NONE [facility] [place] [facility] Mar 21, 2024 03:00 PM AMBULATORY - PSYCHIATRY [facility] [place] [facility] May 09, 2024 03:00 PM AMBULATORY - PSYCHIATRY [facility] [place] [facility] Encounter Notes: All associated encounter notes This section contains the clinical notes associated to the Encounter. Date/Time Encounter Note(s) Provider Source Nov 13, 2023 03:53 PM NEUROPSYCHOLOGY NO TE: LOCAL TITLE: [facility] NEUROPSYCHOLOGY FOLLOW-UP STANDARD TITLE: NEUROPSYCHOLOGY NOTE DATE OF NOTE: NOV 13, 2023@15:53 ENTRY DATE: NOV 13, 2023@15:53:51 AUTHOR: LAUREANO LIVE COSIGNER: URGENCY: STATUS: COMPLETED Clinical Service Provided:Neuropsychological Feedback Service Delivery Method: VVC/Zrtx-Uzl-Lliw Primary Diagnosis: MDD, ZORAIDA, PTSD For a complete progress note including summary of feedback encounter, please see the [facility] medical record (accessible through JL). Time Expenditure: Neuropsychological Feedback - 35 minutes /tanika/ LAUREANO LIVE Neuropsychologist Signed: 11/13/2023 16:24 LAUREANO LIVE [facility]
--- OUTSIDE RECORDS SUMMARY | 2024-03-22 11:34 | XMS_ITS ---
Author Name [facility] [place] Address [address] [place] [address] Care Team Providers Care Assayer Name Role Phone KEEGAN RDZ Primary Care [...] Policy Goyal [facility] ORGANIZAT ION [facility] RETIR EMENT Oct 10, 2023 [id number] NANO CROWE PATIENT CIGNA POINT OF SERVICE [facility] Oct 04, 2016 [id number] NANO CROWE PATIENT CIGNA BEHAVIORAL HEALTH MENTAL HEALTH [facility] [place] Oct 04, 2016 [id number] NANO CROWE PATIENT CIGNA PHARMACY PRESCRIPT ION [facility] Oct 04, 2016 [id number] NANO CROWE PATIENT Selected Encounter This section includes the information on record at [place] for the Encounter. Date/Time Encounter Type Encounter Description Reason Provider Source Nov 13, 2023 01:36 PM FIT SPECTACLES MONOFOCAL OPTOMETRY ICD-10-CM Z46.0 Encounter for fit/adjst of spectacles and contact lenses NBA HOGAN Abner Encounter Template Text not used by [place] Assessments - Encounter Diagnoses This section includes the primary and secondary diagnoses documented for the Encounter. Date/Time Primary/Secondary Diagnosis Diagnosis Name Provider Source Nov 13, 2023 01:36 PM PRIMARY Encounter for fit/adjst of spectacles and contact lenses JOSÉ MIGUEL MONROY [place] [facility] [place] [facility] Plan of Treatment: Future Appointments (+ 6 months) and Future Tests (+/- 45 days) The Plan of Treatment section includes future care activities for the patient from all [place] [facility]. This section includes future appointments and future orders which are active, pending or scheduled. Future Appointments This section includes appointments that were scheduled to occur 6 months from the date of the Encounter, up to a maximum of 20 appointments. The data comes from all [place] treatment facilities. Appointment Date/Time Appointment Type Appointme nt Facility Name Nov 20, 2023 01:00 PM AMBULATORY - PSYCHIATRY [facility] [place] [facility] Nov 30, 2023 11:00 AM AMBULATORY - REHAB MEDICIN E [facility] [place] [facility] Dec 04, 2023 01:00 PM AMBULATORY - PSYCHIATRY [facility] [place] [facility] Dec 11, 2023 01:00 PM AMBULATORY - PSYCHIATRY [facility] [place] [facility] Dec 21, 2023 03:00 PM AMBULATORY - PSYCHIATRY [facility] [place] [facility] Dec 22, 2023 10:00 AM AMBULATORY - PSYCHIATRY [facility] [place] [facility] Jan 01, 2024 01:00 PM AMBULATORY - PSYCHIATRY [facility] [place] [facility] Jan 15, 2024 01:00 PM AMBULATORY - PSYCHIATRY [facility] [place] [facility] Jan 22, 2024 01:00 PM AMBULATORY - PSYCHIATRY [facility] [place] [facility] Jan 29, 2024 01:00 PM AMBULATORY - PSYCHIATRY [facility] [place] [facility] Feb 12, 2024 01:00 PM AMBULATORY - PSYCHIATRY [facility] [place] [facility] Feb 16, 2024 08:30 AM AMBULATORY - PSYCHIATRY [place] [facility] [place] [facility] Feb 19, 2024 01:00 PM AMBULATORY - PSYCHIATRY [place] [facility] [place] [facility] Mar 09, 2024 02:00 PM AMBULATORY - NONE [place] [facility] [place] [facility] Mar 21, 2024 03:00 PM AMBULATORY - PSYCHIATRY [place] [facility] [place] [facility] May 09, 2024 03:00 PM [facility] Social History: Smoking Status (Most current) and Tobacco Use (All prior to encounter date) This section includes the most current, and the historical, smoking and tobacco- related health factors from the [place] facility where the Encounter took place. Current Smoking Status This section includes the most current smoking, or tobacco-related health factor, from the [place] facility where the Encounter took place. Date/Time Current Smoking Status Comment Federico ity Jul 28, 2023 08:30 AM [facility] Tobacco Use History This section includes a history of the smoking, or tobacco-related health factors, that were collected on or before the date of the Encounter. The data comes from the [place] facility where the Encounter took place. Date/Time Smoking Status/Tobacco Use Comment Flako actimothy Feb 21, 2020 10:30 AM VA-TOBACCO NEVER USED [place] [facility] [place] [facility] Apr 20, 2018 02:11 PM VA-TOBACCO NEVER USED [place] [facility] [facility] Jan 14, 2017 02:29 PM LIFETIME NON-TOBACCO USER [place] [facility] [place] [facility] August 12, 2010 02:56 PM LIFETIME NON-TOBACCO USER [place] [facility] [place] [facility] Encounter Notes: All associated encounter notes This section contains the clinical notes associated to the Encounter. Date/Time Encounter Note(s) Provider Source Nov 13, 2023 01:36 PM OPTOMETRY NOTE: LOCAL TITLE: OPTOMETRY NOTE STANDARD TITLE: OPTOMETRY NOTE DATE OF NOTE: NOV 13, 2023@13:36 ENTRY DATE: NOV 13, 2023@13:37:01 AUTHOR: FLORINA MARTINES COSIGNER: URGENCY: STATUS: COMPLETED OPTOMETRY NOTE Has ADDENDA The quote provided below is for informational purposes only. Please verify prior to the creation of a purchase order. NANO CROWE [id number] RX INFORMATION OD +0.25 -0.50 X135 Add:0.00 Pzm:0.00 Dir: Prz2:0.00 Dir2: OS +0.25 0.00 X Add:0.00 Pzm:0.00 Dir: Prz2:0.00 Dir2: FITTING INFORMATION FPD:66 NPD: [place]:R: L: SEG HT:R: L: Tint:MCGUIRE Shade:3 VA Billable Items FRAME: FX10 BLACK 99-30-125 Right Lens: PLASTIC SINGLE VISION CLEAR 1.498 PLASTIC CR39 Left Lens: PLASTIC SINGLE VISION CLEAR 1.498 PLASTIC CR39 UV400 SOLID TINT The quote provided below is for informational purposes only. Please verify prior to the creation of a purchase order. NANO CROWE 9173 RX INFORMATION OD +2.25 -0.50 X135 Add:0.00 Pzm:0.00 Dir: Prz2:0.00 Dir2: OS +2.25 0.00 X Add:0.00 Pzm:0.00 Dir: Prz2:0.00 Dir2: FITTING INFORMATION FPD:63 NPD:63 [place]:R: L: SEG HT:R: L: Tint:None Shade:None VA Billable Items FRAME: FX22 GUNMETAL 53-02-140 Right Lens: POLY SINGLE VISION 1.586 POLY Left Lens: POLY SINGLE VISION 1.586 POLY KLEAR ANTI-REFLECTIVE COATING /tanika/ FLORINA MARTINES BOMB LOADER Signed: 11/13/2023 13:37 Receipt Acknowledged By: 11/13/2023 13:46 /tanika/ JOSÉ MIGUEL MONROY OPTOMETRY TECH 11/13/2023 ADDENDUM STATUS: COMPLETED PDS Jet Engine Mechanic fit patient with 2 pair(s) of SV eyeglasses on 11/13/2023. OPT HT entered consult(s) as requested for provider signature. /tanika/ JOSÉ MIGUEL MONROY OPTOMETRY TECH Signed: 11/13/2023 13:49 FLORINA MARTINES [facility]
--- OUTSIDE RECORDS SUMMARY | 2024-03-22 11:34 | XMS_ITS | Encounter Summary ---
Author Name [facility] [place] Address [address] [place] [id number] Care Team Providers Care Uniform Patrol Police Officer Name Role Phone KEEGAN RDZ Primary Care [...] Goyal's Name Patient's Relationship to Policy Goyal [facility] ORGANIZAT [facility] Oct 10, 2023 [id number] NANO CROWE PATIENT CIGNA POINT OF SERVICE [facility] Oct 04, 2016 [id number] [phone] NANO CROWE PATIENT CIGNA BEHAVIORAL HEALTH MENTAL HEALTH [facility] Oct 04, 2016 [id number] NANO CROWE PATIENT CIGNA PHARMACY PRESCRIPT ION [facility] Oct 04, 2016 [id number] NANO CROWE PATIENT Selected Encounter This section includes the information on record at [place] for the Encounter. Date/Time Encounter Type Encounter Description Reason Provider Source Dec 11, 2023 01:00 PM GROUP PSYCHOTHERAPY [facility]ENT[facility] CLINIC-GROUP ICD-10-CM F43.10 Post-traumatic stress disorder, unspecified HANDY SUTTON IHAbner Encounter Template Text not used by [place] Assessments - Encounter Diagnoses This section includes the primary and secondary diagnoses documented for the Encounter. Date/Time Primary/Secondary Diagnosis Diagnosis Name Provider Source Dec 25, 2023 12:21 PM PRIMARY Post-traumatic stress disorder, unspecified MAYO WHALEY [place] [facility] [place] [facility] Plan of Treatment: Future Appointments (+ 6 months) and Future Tests (+/- 45 days) The Plan of Treatment section includes future care activities for the patient from all [place] treatmentfacilities. This section includes future appointments and future orders which are active, pending or scheduled. Future Appointments This section includes appointments that were scheduled to occur 6 months from the date of the Encounter, up to a maximum of 20 appointments. The data comes from all [place] treatment facilities. Appointment Date/Time Appointment Type Appointme nt Facility Name Dec 21, 2023 03:00 PM AMBULATORY - PSYCHIATRY [place] [facility] [place] [facility] Dec 22, 2023 10:00 AM AMBULATORY - PSYCHIATRY [place] [facility] [place] [facility] Jan 01, 2024 01:00 PM AMBULATORY - PSYCHIATRY [place] [facility] [place] [facility] Jan 15, 2024 01:00 PM AMBULATORY - PSYCHIATRY [place] [facility] [place] [facility] Jan 22, 2024 01:00 PM AMBULATORY - PSYCHIATRY [place] [facility] [place] [facility] Jan 29, 2024 01:00 PM AMBULATORY - PSYCHIATRY [place] [facility] [place] [facility] Feb 12, 2024 01:00 PM AMBULATORY - PSYCHIATRY [place] [facility] [place] [facility] Feb 16, 2024 08:30 AM AMBULATORY - PSYCHIATRY [place] [facility] [place] [facility] Feb 19, 2024 01:00 PM AMBULATORY - PSYCHIATRY [facility] [facility] Mar 09, 2024 02:00 PM AMBULATORY - NONE [place] [facility] [place] [facility] Mar 21, 2024 03:00 PM AMBULATORY - PSYCHIATRY [place] [facility] [place] [facility] May 09, 2024 03:00 PM AMBULATORY - PSYCHIATRY [place] [facility] [place] [facility] Social History: Smoking Status (Most current) [...] 28, 2023 08:30 AM VA-TOBACCO [facility] USED [facility] Tobacco Use History This section includes a history of the smoking, or tobacco-related health factors, that were collected on or before the date of the Encounter. The data comes from the [place] facility where the Encounter took place. Date/Time Smoking Status/Tobacco Use Comment Flako acility Feb 21, 2020 10:30 AM [facility] Apr 20, 2018 02:11 PM [facility]ACCO [facility] Jan 14, 2017 02:29 PM LIFETIME NON-TOBACCO [facility] August 12, 2010 02:56 PM LIFETIME [facility]BACCO [facility] Encounter Notes: All associated encounter notes This section contains the clinical notes associated to the Encounter. Date/Time Encounter Note(s) Provider Source Dec 11, 2023 04:10 PM TELEHEALTH NOTE: LOCAL TITLE: [place] VIDEO CONNECT PSYCHOLOGY NOTE STANDARD TITLE: TELEHEALTH NOTE DATE OF NOTE: DEC 11, 2023@16:10 ENTRY DATE: DEC 11, 2023@16:11:15 AUTHOR: MAYO WHALEY COSIGNER: LAKEISHA SUTTON URGENCY: STATUS: COMPLETED SESSION MODALITY: [place] Video Connect (clinic to non-VA location) Cameron's location: Provider confirmed that is currently located at Primary Address listed in [facility]. Primary phone number: Confirmed for all participants. has provided verbal consent either today or previously when seen via [facility] in mental health. This consent was obtained after a full explanation of the risk and benefits of using telehealth for mental health appointments. Alternatives for obtaining care through an in-person mental health visit and the Cameron's right of refusal at any time during this session have been explained. 's location/environment was surveyed by this provider to identify all participants and the Virtual Medical Room was locked (via enabling button option in VMR) once all invited/required attendees were present. BHIP Living with Angry Feelings Group Therapy Note identified with 2 identifiers: [X] Patient Name [...] Group members engaged in a mindful listening and observation of hand practice. They each checked in, speaking about an action in service of a personal value in the past week. The five stages of the anger process were interactively explored with connection to why mindful awareness is explored and practiced in this group. Group members were introduced to the mindfulness how skills of being nonjudgmental, effective, and one-mindful. They were encouraged to practice these and to observe the stages of the anger process in the next week. PROGRESS: arrived on time and was an active and appropriate participant. Cameron participated in the mindfulness practices and group discussions. Mental Status was not formally assessed due to the nature of the encounter. maintained appropriate eye contact and was alert. spoke clearly and coherently. 's thoughts were linear and related. Cameron's affect was congruent to content and appropriate in range. No clinical signs of intoxication, withdrawal, psychosis, or cognitive impairment were observed. No evidence of suicidal or homicidal ideation. There was no evidence of AH/VH or delusions. Cameron was future oriented. Diagnostic Impressions According to the DSM-V and Per Chart Review: Posttraumatic stress disorder, unspecified PLAN: will continue to participate in the Living with Angry Feelings Group on Fridays at 1pm. This case is supervised by Dr. Lakeisha Sutton, Staff Psychologist. Diagnosis, treatment plan, and response to care are reviewed in standard 1-hour, or more, weekly individual and group supervision meetings. /tanika/ MAYO WHALEY MS Shark Biologist Signed: 12/11/2023 16:40 /tanika/ Lakeisha Sutton, PhD Clinical Psychologist, Mental Health Clinic Cosigned: 12/11/2023 16:40 MAY[facility] WHALEY [facility]
--- OUTSIDE RECORDS SUMMARY | 2024-03-22 11:34 | XMS_ITS ---
Author Name [place] Address [address] [place] [address] Care Team Providers Care Cloth Mercerizing Supervisor Name Role Phone KEEGAN RDZ Primary Care [...] Name Patient's Relationship to Policy Goyal [facility] ORGANIZAT [facility] RETIR EMENT Oct 10, 2023 [id number] NANO CROWE PATIENT CIGNA POINT OF SERVICE [facility] Oct 04, 2016 [id number] NANO CROWE PATIENT CIGNA BEHAVIORAL HEALTH MENTAL HEALTH [facility] Oct 04, 2016 [id number] NANO CROWE PATIENT CIGNA PHARMACY PRESCRIPT ION [facility] Oct 04, 2016 [id number] [phone] NANO CROWE PATIENT Selected Encounter This section includes the information on record at [place] for the Encounter. Date/Time Encounter Type Encounter Description Reason Pro vider Source Dec 04, 2023 01:00 PM Outpatient Encounter MENTAL HEALTH CLINIC-GROUP IHE Encounter Template Text not used by [place] Plan of Treatment: Future Appointments (+ 6 months) and Future Tests (+/- 45 days) The Plan of Treatment section includes future care activities for the patient from all [place] [facility]. This section includes future appointments and future orders which are active, pending or scheduled. Future Appointments This section includes appointments that were scheduled to occur 6 months from the date of the Encounter, up to a maximum of 20 appointments. The data comes from all [place] treatment facilities. Appointment Date/Time Appointment Type Appointme nt Facility Name Dec 11, 2023 01:00 PM AMBULATORY - [place]IATRY [place] [facility] [place] [facility] Dec 21, 2023 03:00 PM AMBULATORY - PS[place]CHIATRY [place] [facility] [facility] Dec 22, 2023 10:00 AM AMBULATORY - PSYCHIATRY [place] [facility] [facility] Jan 01, 2024 01:00 PM AMBULATORY - PSYCHIATRY [place] [facility] [facility] Jan 15, 2024 01:00 PM AMBULATORY - PSYCHIATRY [place] [facility] [place] [facility] Jan 22, 2024 01:00 PM AMBULATORY - PSYCHIATRY [place] [facility] [place] [facility] Jan 29, 2024 01:00 PM AMBULATORY - PSYCHIATRY [place] [facility] [facility] Feb 12, 2024 01:00 PM AMBULATORY - PSYCHIATRY [place] [facility] [place] [facility] Feb 16, 2024 08:30 AM AMBULATORY - PSYCHIATRY [place] [facility] [facility] Feb 19, 2024 01:00 PM AMBULATORY - PSYCHIATRY [place] [facility] [place] [facility] Mar 09, 2024 02:00 PM AMBULATORY - NONE [place] [facility] [place] [facility] Mar 21, 2024 03:00 PM AMBULATORY - PSYCHIATRY [place] [facility] [facility] May 09, 2024 03:00 PM AMBULATORY - PSYCHIATRY [place] [facility] [place] [facility] Social History: Smoking Status (Most current) and Tobacco Use (All prior to encounter date) This section includes the most current, and the historical, smoking and tobacco- related health factors from the [place] facility where the Encounter took place. Current Smoking Status This section includes the most current smoking, or tobacco-related health factor, from the [place] facility where the Encounter took place. Date/Time Current Smoking Status Comment Facil ity Jul 28, 2023 08:30 AM [facility]ACCO [facility] Tobacco Use History This section includes a history of the smoking, or tobacco-related health factors, that were collected on or before the date of the Encounter. The data comes from the [place] facility where the Encounter took place. Date/Time Smoking Status/Tobacco Use Comment F acility Feb 21, 2020 10:30 AM VA-TOBACCO NEVER USED [place] [facility] Apr 20, 2018 02:11 PM VA-TOBACCO NEVER USED [place] [facility] [facility] Jan 14, 2017 02:29 PM LIFETIME NON-TOBACCO USER [place] [facility] [place] [facility] August 12, 2010 02:56 PM LIF[facility]IME [facility] Encounter Notes: All associated encounter notes This section contains the clinical notes associated to the Encounter. Date/Time Encounter Note(s) Provider Source Dec 04, 2023 03:10 PM CLERICAL NOTE: LOCAL TITLE: APPOINTMENT NO SHOW STANDARD TITLE: CLERICAL NOTE DATE OF NOTE: DEC 04, 2023@15:10 ENTRY DATE: DEC 04, 2023@15:10:08 AUTHOR: LAKEISHA SUTTON COSIGNER: URGENCY: STATUS: COMPLETED APPOINTMENT NO SHOW Has ADDENDA Patient Name: NANO CROWE Patient SSN: [id number] Date and time of Appointment No show : 12/04/23 13:00 PATIENT PHONE - PHONE NUMBER [CELLULAR] - Patient's medical record was reviewed. Follow-up actions were determined and initiated: Please check/complete as applies: [X]Telephoned Directly [ ]Re-scheduled for next available appt [ ]Sent a N0-show letter ( must call for appointment) [ ]Other (Emergent/Overbook, etc.): Additional Comments: Called and was unable to reach Hyndman. Left a VM indicating 's contributions were missed, providing contact information, and requesting a call back to confirm Hyndman plans to attend next group and also to discuss scheduling a treatment planning meeting as he is approaching his graduation from this group. Future Clinic Visits 12/11/2023 13:00 NHM/MHC/ANGER MGMT GRP 12/18/2023 13:00 NHM/MHC/ANGER MGMT GRP 12/21/2023 15:00 CWM/NO/VVC/MHC/CLP2 12/28/2023 11:00 CWM NO TBI SPEECH /tanika/ Lakeisha Sutton, Clinical Psychologist, Mental Health Clinic Signed: 12/04/2023 15:10 12/08/2023 ADDENDUM STATUS: COMPLETED Made second outreach to Hyndman in attempt to schedule [facility] group graduation treatment planning meeting. Was not able to reach Hyndman, thus left a VM briefly explaining purpose of call, providing contact information, and asking Hyndman to call medical technical writer. /tanika/ Lakeisha Sutton PhD Clinical Psychologist, Mental Health Clinic Signed: 12/08/2023 14:22 12/10/2023 ADDENDUM STATUS: COMPLETED Called and spoke to . He apologized for missing group and not calling. Expressed understanding. shared that his father and that he needed to help a friend move furniture to [place]. Expressed condolesences. confirmed plan to attend group tomorrow. Agreed to meet for a graduation treatment planning meeting on Friday, December 22, 2023 at 10am via [facility]. No evidence of imminent risk. Hyndman thanked medical technical writer for the call. /tanika/ Lakeisha Sutton, PhD Clinical Psychologist, Mental Health Clinic Signed: 12/10/2023 16:08 LAKEISHA SUTTON [place] [facility]
--- OUTSIDE RECORDS SUMMARY | 2024-03-22 11:34 | XMS_ITS | Encounter Summary ---
Author Name [facility] [place] [facility] [place] Address [address] [place] [address] Care Team Providers Care Graduate Student Instructor Name Role Phone KEEGAN RDZ Primary Care [...] Goyal's Name Patient's Relationship to Policy [facility] RET[facility] EMENT Oct 10, 2023 [id number] [phone] NANO CROWE PATIENT CIGNA POINT OF SERVICE [facility] Oct 04, 2016 [id number] [phone] NANO CROWE PATIENT [employer]IGNA BEHAVIORAL HEALTH MENTAL HEALTH [facility] Oct 04, 2016 [id number] NANO CROWE PATIENT CIGNA PHARMACY PRESCRIPT ION [facility] Oct 04, 2016 [id number] NANO CROWE PATIENT Selected Encounter This section includes the information on record at [place] for the Encounter. Date/Time Encounter Type Encounter Description Reason Provider Source Nov 20, 2023 01:00 PM GROUP PSYCHOTHERAPY [facility] ICD-10-CM F43.10 Post-traumatic stress disorder, unspecified HANDY SUTTON IHAbner Encounter Template Text not used by [place] Assessments - Encounter Diagnoses This section includes the primary and secondary diagnoses documented for the Encounter. Date/Time Primary/Secondary Diagnosis Diagnosis Name Provider Source Dec 08, 2023 05:08 PM PRIMARY Post-traumatic stress disorder, unspecified MAYO WHALEY [place] [facility] [place] [facility] Plan of Treatment: Future Appointments (+ 6 months) and Future Tests (+/- 45 days) The Plan of Treatment section includes future care activities for the patient from all [place] treatmentfacilities. This section includes future appointments and future orders which are active, pending or scheduled. Future Appointments This section includes appointments that were scheduled to occur 6 months from the date of the Encounter, up to a maximum of 20 appointments. The data comes from all [place] treatment facilities. Appointment Date/Time Appointment Type Appointme nt Facility Name Nov 30, 2023 11:00 AM AMBULATORY - REHAB MEDICIN E [facility] [place] [facility] Dec 04, 2023 01:00 PM AMBULATORY - PSYCHIATRY [place] [facility] [facility] Dec 11, 2023 01:00 PM AMBULATORY - PSYCHIATRY [place] [facility] [place] [facility] Dec 21, 2023 03:00 PM AMBULATORY - PSYCHIATRY [facility] [place] [facility] Dec 22, 2023 10:00 AM AMBULATORY - PSYCHIATRY [place] [facility] [place] [facility] Jan 01, 2024 01:00 PM AMBULATORY - PSYCHIATRY [facility] [place] [facility] Jan 15, 2024 01:00 PM AMBULATORY - PSYCHIATRY [facility] [place] [facility] Jan 22, 2024 01:00 PM AMBULATORY - PSYCHIATRY [facility] [place] [facility] Jan 29, 2024 01:00 PM AMBULATORY - PSYCHIATRY [facility] [place] [facility] Feb 12, 2024 01:00 PM AMBULATORY - PSYCHIATRY [facility] [place] [facility] Feb 16, 2024 08:30 AM AMBULATORY - PSYCHIATRY [facility] [place] [facility] Feb 19, 2024 01:00 PM AMBULATORY - PSYCHIATRY [place] [facility] [place] [facility] Mar 09, 2024 02:00 PM AMBULATORY - NONE [place] [facility] [place] [facility] Mar 21, 2024 03:00 PM AMBULATORY - PSYCHIATRY [place] [facility] [place] [facility] May 09, 2024 03:00 PM [facility] Social History: Smoking Status (Most current) and Tobacco Use (All prior to encounter date) This section includes the most current, and the historical, smoking and tobacco- related health factors from the [place] facility where the Encounter took place. Current Smoking Status This section includes the most current smoking, or tobacco-related health factor, from the [place] facility where the Encounter took place. Date/Time Current Smoking Status Comment Facil ity Jul 28, 2023 08:30 AM VA-TOBACCO [facility]ED [facility] Tobacco Use History This section includes a history of the smoking, or tobacco-related health factors, that were collected on or before the date of the Encounter. The data comes from the [place] facility where the Encounter took place. Date/Time Smoking Status/Tobacco Use Comment F acility Feb 21, 2020 10:30 AM VA-TOBACCO NEVER USED [place] [facility] [place] [facility] Apr 20, 2018 02:11 PM VA-TOBACCO NEVER USED [place] [facility] [place] [facility] Jan 14, 2017 02:29 PM LIFETIME NON-TOBACCO USER [place] [facility] [place] [facility] August 12, 2010 02:56 PM LIFETIME NON-TOBACCO USER [facility] [place] [facility] Encounter Notes: All associated encounter notes This section contains the clinical notes associated to the Encounter. Date/Time Encounter Note(s) Provider Source Nov 20, 2023 04:14 PM TELEHEALTH NOTE: LOCAL TITLE: [place] VIDEO CONNECT PSYCHOLOGY NOTE STANDARD TITLE: TELEHEALTH NOTE DATE OF NOTE: NOV 20, 2023@16:14 ENTRY DATE: NOV 20, 2023@16:14:23 AUTHOR: MAYO WHALEY COSIGNER: LAKEISHA SUTTON URGENCY: STATUS: COMPLETED Session [facility] Living with Angry Feelings Group Therapy Note SESSION MODALITY: Hybrid VVC/F2F [place] identified with 2 identifiers: [X] Patient Name [X] Visual recognition Facilitators: Mayo Whaley MS, and Lakeisha Sutton, Ph.D. PROCEDURE: 60-minute interactive hybrid VVC/F2F group therapy session Problem: Difficulty managing angry feelings without acting in ways [place] regrets Objective: Increase understanding of anger process and ways to effectively intervene so does not act in ways that are unworkable or in conflict with personal values. Increase use of mindful and skillful behaviors. Number of Veterans Present in Group: 8 GROUP CONTENT: Group members engaged in a mindful practice regarding noticing thoughts. Group members each checked in and introduced themselves, sharing something that they wanted, but were unable, to control over the past week. Group members reviewed the five parts of anger process. Group members also explored the mind's tendency to evaluate and congressional representative and discussed examples of how beliefs about a situation can impact emotions. Group members discussed considering alternative ways of appraising situations. Group members were encouraged to notice ways their minds create judgment thoughts and to consider alternative ways of appraising the situation. Group members also briefly learned about various defusion strategies (e.g., categorizing thoughts, saying thoughts aloud). Veterans celebrated the graduation of one group member. PROGRESS: arrived on time and was an active and appropriate participant. participated in the mindfulness practices and group discussions. Mental Status was not formally assessed due to the nature of the encounter. maintained appropriate eye contact and was alert. spoke clearly and coherently. [place]'s thoughts were linear and related. [place]'s affect was congruent to content and appropriate in range. No clinical signs of intoxication, withdrawal, psychosis, or cognitive impairment were observed. No evidence of suicidal or homicidal ideation. There was no evidence of AH/VH or delusions. [place] was future oriented. DSM-V DIAGNOSTIC IMPRESSIONS (per chart): PTSD, chronic PLAN: [place] will continue to participate in the Living with Angry Feelings Group on 12/04/2023 at 1:00PM This case is supervised by Dr. Lakeisha Sutton, Staff Psychologist. Diagnosis, treatment plan, and response to care are reviewed in standard 1-hour, or more, weekly individual and group supervision meetings. /tanika/ Lakeisha Sutton, PhD Clinical Psychologist, Mental Health Clinic Signed: 11/20/2023 16:29 for MAYO WHALEY MS Cook Helper /tanika/ Lakeisha Sutton, PhD Clinical Psychologist, Mental Health Clinic Cosigned: 11/20/2023 16:29 LAKEISHA SUTTON [facility]
--- OUTSIDE RECORDS SUMMARY | 2024-03-22 11:35 | XMS_ITS | Encounter Summary ---
Author Name [facility] [place] Address [address] [place] [id number] Care Team Providers Care Public Relations Representative Name Role Phone KEEGAN RDZ Primary [...] Relationship to Policy G[facility] ION [facility] RETIR EMENT Oct 10, 2023 [id number] NANO CROWE PATIENT CIGNA POINT OF SERVICE [facility] Oct 04, 2016 [id number] NANO CROWE PATIENT CIGNA BEHAVIORAL HEALTH MENTAL HEALTH [facility] Oct 04, 2016 [id number] NANO CROWE PATIENT CIGNA PHARMACY PRESCRIPT ION [facility] Oct 04, 2016 [id number] [phone] NANO CROWE PATIENT Selected Encounter This section includes the information on record at [place] for the Encounter. Date/Time Encounter Type Encounter Description Reason Pro vider Source Jan 04, 2024 11:50 AM Outpatient Encounter OPTOMETRY IHE Encounter Template Text not used by [place] Plan of Treatment: Future Appointments (+ 6 months) and Future Tests (+/- 45 days) The Plan of Treatment section includes future care activities for the patient from all [place] [facility] This section includes future appointments and future orders which are active, pending or scheduled. Future Appointments This section includes appointments that were scheduled to occur 6 months from the date of the Encounter, up to a maximum of 20 appointments. The data comes from all [place] treatment facilities. Appointment Date/Time Appointment Type Appointme nt Facility Name Jan 15, 2024 01:00 PM AMBULATORY - PSYCHIATRY [place] [facility] [place] [facility] Jan 22, 2024 01:00 PM AMBULATORY - PSYCHIATRY [place] [facility] [place] [facility] Jan 29, 2024 01:00 PM AMBULATORY - PSYCHIATRY [place] [facility] [place] [facility] Feb 12, 2024 01:00 PM AMBULATORY - PSYCHIATRY [place] [facility] [place] [facility] Feb 16, 2024 08:30 AM AMBULATORY - PSYCHIATRY [place] [facility] [place] [facility] Feb 19, 2024 01:00 PM AMBULATORY - PSYCHIATRY [place] [facility] [place] [facility] Mar 09, 2024 02:00 PM AMBULATORY - NONE [place] [facility] [place] [facility] Mar 21, 2024 03:00 PM AMBULATORY - PSYCHIATRY [place] [facility] [place] [facility] May 09, 2024 03:00 PM AMBULATORY - PSYCHIATRY [facility] [place] [facility] Social History: Smoking Status (Most current) and Tobacco Use (All prior to encounter date) This section includes the most current, and the historical, smoking and tobacco- related health factors from the [place] facility where the Encounter took place. Current Smoking Status This section includes the most current smoking, or tobacco-related health factor, from the [place] facility where the Encounter took place. Date/Time Current Smoking Status Comment Federico disla Jul 28, 2023 08:30 AM VA-TOBACCO [facility] Tobacco Use History This section includes a history of the smoking, or tobacco-related health factors, that were collected on or before the date of the Encounter. The data comes from the [place] facility where the Encounter took place. Date/Time Smoking Status/Tobacco Use Comment F acility Feb 21, 2020 10:30 AM VA-TOBACCO NEVER USED [facility] [place] [facility] Apr 20, 2018 02:11 PM VA-TOBACCO NEVER USED [facility] [place] [facility] Jan 14, 2017 02:29 PM LIFETIME NON-TOBACCO USER [facility] [place] [facility] August 12, 2010 02:56 PM LIFETIME NON-TOBACCO USER [facility] [place] [facility] Encounter Notes: All associated encounter notes This section contains the clinical notes associated to the Encounter. Date/Time Encounter Note(s) Provider Source Jan 04, 2024 11:50 AM LETTERS: LOCAL TITLE: PATIENT LETTER (B) STANDARD TITLE: LETTERS DATE OF NOTE: JAN 04, 2024@11:50 ENTRY DATE: JAN 04, 2024@11:50:36 AUTHOR: BILLY CARRION COSIGNER: URGENCY: STATUS: COMPLETED JAN 04, 2024 NANO CROWE [address] [place] [id number] Dear NANO CROWE Thank you for choosing the Department of [facility] ([place]) [facility] as your primary choice for health care. As a partner in your health care, we are contacting you in writing since we have been unsuccessful in our attempts to reach you to date. We want to assure you we are doing everything possible to schedule Veterans for their [place] medical care appointments. Our records indicate you are due for an appointment in OPTOMETRY. If you would like to be seen, please contact [place] Call Center at ext. [phone] to schedule an appointment. Thank you for your service to our nation, and we look forward to hearing from you soon. Sincerely, [facility] [address] [facility] [address] [place] [address] [place] [address] [facility] [address] [facility] [address] [place] [address] [place] [address] ext. [phone] [facility] [address] [address] [place] [address] ext. [phone] BILLY CARRION CNTL W[facility]N [facility]
--- OUTSIDE RECORDS SUMMARY | 2024-03-22 11:35 | XMS_ITS ---
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 ORGANIZAT ION [facility] RETIR EMENT Oct 10, 2023 [id number] NANO CROWE PATIENT CIGNA POINT OF SERVICE [facility] Oct 04, 2016 [id number] NANO CROWE PATIENT CIGNA BEHAVIORAL HEALTH MENTAL HEALTH [facility] Oct 04, 2016 [id number] NANO CROWE PATIENT CIGNA PHARMACY PRESCRIPT ION [facility] Oct 04, 2016 [id number] [phone] NANO CROWE PATIENT Selected Encounter This section includes the information on record at [place] for the Encounter. Date/Time Encounter Type Encounter Description Reason Provider Source Dec 21, 2023 03:00 PM MTMS BY KADI FOSTER 15 MIN MENTAL HEALTH CLINIC - IND ICD-10-CM F43.10 Post-traumatic stress disorder, unspecified OWJCIECH DAILY IHE Encounter Template Text not used by [place] Assessments - Encounter Diagnoses This section includes the primary and secondary diagnoses documented for the Encounter. Date/Time Primary/Secondary Diagnosis Diagnosis Name Provider Source Dec 21, 2023 03:23 PM PRIMARY Post-traumatic stress disorder, unspecified WOJCIECH DAILY [place] [facility] [facility] Plan of Treatment: Future Appointments (+ 6 months) and Future Tests (+/- 45 days) The Plan of Treatment section includes future care activities for the patient from all [place] [facility]. This section includes future appointments and future orders which are active, pending or scheduled. Future Appointments This section includes appointments that were scheduled to occur 6 months from the date of the Encounter, up to a maximum of 20 appointments. The data comes from all [place] treatment facilities. Appointment Date/Time Appointment Type Appointme nt Facility Name Dec 22, 2023 10:00 AM AMBULATORY - PSYCHIATRY [place] [facility] [facility] Jan 01, 2024 01:00 PM AMBULATORY - PSYCHIATRY [place] [facility] [place] [facility] Jan 15, 2024 01:00 PM AMBULATORY - PSYCHIATRY [place] [facility] [place] [facility] Jan 22, 2024 01:00 PM AMBULATORY - PSYCHIATRY [place] [facility] [place] [facility] Jan 29, 2024 01:00 PM AMBULATORY - PSYCHIATRY [facility] [facility] Feb 12, 2024 01:00 PM AMBULATORY - PSYCHIATRY [facility] [place] [facility] Feb 16, 2024 08:30 AM AMBULATORY - PSYCHIATRY [place] [facility] [place] [facility] Feb 19, 2024 01:00 PM AMBULATORY - PSYCHIATRY [place] [facility] [place] [facility] Mar 09, 2024 02:00 PM AMBULATORY - NONE [place] [facility] [facility] Mar 21, 2024 03:00 PM AMBULATORY - PSYCHIATRY [facility] [place] [facility] May 09, 2024 03:00 PM AMBULATORY - PSYCHIATRY [place] [facility] [place] [facility] Social History: Smoking Status (Most current) [...] 28, 2023 08:30 AM VA-TOBACCO NEVER USED [facility] Tobacco Use History This section includes a history of the smoking, or tobacco-related health factors, that were collected on or before the date of the Encounter. The data comes from the [place] facility where the Encounter took place. Date/Time Smoking Status/Tobacco Use Comment F acility Feb 21, 2020 10:30 AM VA-TOBACCO NEVER USED [facility] Apr 20, 2018 02:11 PM VA-TOBACCO NEVER USED [place] [facility] [place] [facility] Jan 14, 2017 02:29 PM LIFETIME NON-TOBACCO USER [facility] August 12, 2010 02:56 PM LIFETIME NON-TOBACCO USER [facility] Encounter Notes: All associated encounter notes This section contains the clinical notes associated to the Encounter. Date/Time Encounter Note(s) Provider Source Dec 21, 2023 03:02 PM PHARMACY MEDICATION MGT NOTE: LOCAL TITLE: CLINICAL PHARMACIST F/U NOTE STANDARD TITLE: PHARMACY MEDICATION MGT NOTE DATE OF NOTE: DEC 21, 2023@15:02 ENTRY DATE: DEC 21, 2023@15:02:55 AUTHOR: COREY DAILY COSIGNER: URGENCY: STATUS: COMPLETED [facility] Video Connect (VVC) Standard Documentation VVC Clinician Resources Only: E911 (Emergency Call Relay Center): [phone] National Veterans Crisis Line - 988 then press #1. LEESA Suicide Coordinator [phone], Ext. [phone]; Back-up Ext. [phone] [place] PoliceLEESA [place] [phone] Introduction: Visit is being conducted by [place] [employer]. [place] identified with 2 identifiers: [X] Full Name [X] Date of [ ] VA ID Card Emergency Plan: confirmed and/or provided the following information in case of emergency or technology failure. PATIENT PHONE - PHONE NUMBER [CELLULAR] - Is patient phone number correct, if not, enter below: [place]'s phone number: NANO Malika CROWE [address], [place], [address] 's present location and address for appointment: At home 's emergency contact name and phone number: Pam Pillai [phone] reported that location is private and safe: Yes Informed Consent: [place] informed of the risks and benefits of Telehealth video care. [place] has the right to refuse video services. If refuses video visit, a roct-bd-ubgd visit will be scheduled. verbalized consent for this video visit: Yes provided consent for any other persons present for visit: No If yes, who and relationship to patient: Secure visit: Visit was locked for security and privacy:Yes -=-=-=-=-=-=-=-=-=-=-=-=-=-=- =-=-=-=-=-==-=-=-=-=-=-=-=-=- =-=-=-=-=-=-=-=-=-=-=- -=-=-=-=-=-=-=-=-=-=-=-=-=-=- =-=-=-=-=-==-=-=-=-=-=-=-=-=- =-=-=-=-=-=-=-=-=-=-=- Program: Clinical Pharmacy Provider/Medication Management Speciality: Mental Health ATTENDED BY: [X] Patient [ ] Spouse/Caregiver LENGTH OF SESSION: 30minutes -=-=-=-=-=-=-=-=-=-=-=-=-=-=- =-=-=-=-=-==-=-=-=-=-=-=-=-=- =-=-=-=-=-=-=-=-=-=-=- Name: NANO CROWE : Sep ID: 58yo WHITE MALE -=-=-=-=-=-=-=-=-=-=-=-=-=-=- =-=-=-=-=-==-=-=-=-=-=-=-=-=- =-=-=-=-=-=Subjective- was last seen on [id number] with the following pharmacotherapeutic plan: [X] No changes [ ] Discontinue: [ ] Initiate: [ ] Change the following: Treating Dx(s): PTSD INTERIM HISTORY pt reports to be doing okay. expressed sleep varies as he experienced some sleepless nights 2/2 to pain and stress, and may have disrupted sleep d/t needing to use the bathroom; however, reports having several nights a week where he is able to sleep through the night without issue, stating I haven't been able to find a steady pattern. additionally, notes that he has found relief in the intensity of his migraines. reports possibly needing surgery for his parathyroid and has f/u w/ nephrology; as well as possible work-up for his heart soon w/ plan for ablation on [id number]. requests no changes to made to his medications at this time in lieu of multiple medical appts as he states we are steady for now. [place] reports the following regarding medications: -N--Y- [ ][X] Adherence/Compliance > utilizes medication organizer [X][ ] Adverse Drug Reactions [x][ ] New OTC/Herbal/Supplement(s) SUBSTANCE USE ASSESSMENT [X] Denies All [ ] Nicotine [ ] Caffeine [ ] Alcohol [ ] Cannabis [ ] Other Illicit Substances -=-=-=-=-=-=-=-=-=-=-=-=-=-=- =-=-=-=-=-==-=-=-=-=-=-=-=-=- =-=-=-=-=-=-Objective- Mental Status Exam Appearance: [X] Unremarkable [X] [...] Judgment [ ] Other: [ ] Abstraction Active problems - Computerized Problem List is the source for the followin. Exposure to potentially hazardous substance 2. Posttraumatic stress disorder 3. Atrial fibrillation 4. Brown-Sequard syndrome 5. Hypercalcemia 6. History of calculus of kidney 7. Cervical radiculopathy (SNOMED CT 77515668) 8. History of colonoscopy 9. Erectile dysfunction (SNOMED CT 791545164) 10. Essential hypertension 11. Hearing loss (SNOMED CT 04104619) ALLERGIES: Patient has answered NKA Active Outpatient [...] - trazodone (2023-current) [ ] Per Patient: Vitals: Ht: 71 in [180.3 cm] (08/12/2010 [...] H 11 0.95 141 4.8 107 25 LAB CUMULATIVE SELECTED 2 No selection items chosen for this component. CHEM 7 Results Collection DT Spec Sodium K+/Pot CL CO2 GLUCOSE BUN 03/08/2019 10:32 SERUM 141 4.6 109 25 105 H 13 02/17/2017 11:09 SERUM 141 4.8 107 25 104 H 11 LIVER PANEL TREND Collection DT Spec AST [...] n/a Estimated CrCl (based on IBW): ~87mL/min -=-=-=-=-=-=-=-=-=-=-=-=-=-=- =-=-=-=-=-==-=-=-=-=-=-=-=-=- =-=-=-=-=-=-=-=-=-=-=- ASSESSMENT The following review of all active psychotropic and SWISS MACHINIST-active agents is to ensure pharmacotherapy is evaluated for safety and efficacy as they relate to behaviorial and physiological changes and outcomes Pt is stable on the following regimen and requires no changes at this time PTSD * recently initiated agents from other services include the following: > nortriptyline 10mg hs for migraines > trazodone 50mg hs PLAN 1. Pharmacotherapy [X] No changes [ [...] Reduction [ ] Other: RTC Interval: every 12weeks Next Apt: tbd was provided residential mortgage underwriter's contact information and instructed to contact residential mortgage underwriter as needed for any changes to scheduling or concerns otherwise. [place] is aware of actions to take if they feel unsafe, including calling the [place]'s Crisis Line (#594); calling 911; or going to the nearest urgent care or emergency room. The is also aware of how to contact the clinic should the require additional services prior to the next appointment. Time spent on chart review, session, and documentation: 30minutes /es/ Corey Daily, KadiD Clinical Pharmacist Practitioner Signed: 01/19/2024 15:21 COREY DAILY CNTRJoel W[facility]N [facility]
--- OUTSIDE RECORDS SUMMARY | 2024-03-22 11:35 | XMS_ITS ---
Author Name Department [facility] [facility] [place] Organization [place] Address [address] [place] [address] Care Team Providers Care Nut And Bolt Assembler Name Role Phone KEEGAN RDZ Primary Care [...] Patient's Relationship to Policy Goyal [facility] ORGANIZAT [facility] RET[facility] EMENT Oct 10, 2023 [id number] [phone] NANO CROWE PATIENT [employer]IGNA POINT OF SERVICE [facility] Oct 04, 2016 [id number] [phone] NANO CROWE PATIENT CIGNA BEHAVIORAL HEALTH MENTAL HEALTH [facility] Oct 04, 2016 [id number] NANO CROWE PATIENT CIGNA PHARMACY PRESCRIPT ION [facility] Oct 04, 2016 [id number] NANO CROWE PATIENT Selected Encounter This section includes the information on record at [place] for the Encounter. Date/Time Encounter Type Encounter Description Reason Provider Source Dec 22, 2023 10:54 AM Outpatient Encounter [facility] - MARIJA YUSUF Encounter Template Text not used by [place] Plan of Treatment: Future Appointments (+ 6 months) and Future Tests (+/- 45 days) The Plan of Treatment section includes future care activities for the patient from all [place] [facility] This section includes future appointments and future orders which are active, pending or scheduled. Future Appointments This section includes appointments that were scheduled to occur 6 months from the date of the Encounter, up to a maximum of 20 appointments. The data comes from all [place] treatment facilities. Appointment Date/Time Appointment Type Appointme nt Facility Name Jan 01, 2024 01:00 PM AMBULATORY - PSYCHIATRY [place] [facility] [place] [facility] Jan 15, 2024 01:00 PM AMBULATORY - PSYCHIATRY [place] [facility] [place] [facility] Jan 22, 2024 01:00 PM AMBULATORY - PSYCHIATRY [place] [facility] [place] [facility] Jan 29, 2024 01:00 PM AMBULATORY - PSYCHIATRY [place] [facility] [place] [facility] Feb 12, 2024 01:00 PM AMBULATORY - PSYCHIATRY [place] [facility] [place] [facility] Feb 16, 2024 08:30 AM AMBULATORY - PSYCHIATRY [place] [facility] [place] [facility] Feb 19, 2024 01:00 PM AMBULATORY - PSYCHIATRY [place] [facility] [place] [facility] Mar 09, 2024 02:00 PM AMBULATORY - NONE [place] [facility] [place] [facility] Mar 21, 2024 03:00 PM AMBULATORY - PSYCHIATRY [place] [facility] [place] [facility] May 09, 2024 03:00 PM AMBULATORY - PSYCHIATRY [place] [facility] [place] [facility] Social History: Smoking Status [...] Encounter took place. Date/Time Current Smoking Status Sammie disla Jul 28, 2023 08:30 AM [facility] Tobacco Use History This section includes a history of the smoking, or tobacco-related health factors, that were collected on or before the date of the Encounter. The data comes from the [place] facility where the Encounter took place. Date/Time Smoking Status/Tobacco Use Comment F acility Feb 21, 2020 10:30 AM VA-TOBACCO NEVER USED [place] [facility] [place] [facility] Apr 20, 2018 02:11 PM VA-TOBACCO NEVER USED [place] [facility] [place] [facility] Jan 14, 2017 02:29 PM LIFETIME NON-TOBACCO USER [place] [facility] [place] [facility] August 12, 2010 02:56 PM LIFETIME NON-TOBACCO USER [place] [facility] [place] [facility] Encounter Notes: All associated encounter notes This section contains the clinical notes associated to the Encounter. Date/Time Encounter Note(s) Provider Source Dec 22, 2023 10:54 AM MENTAL HEALTH SECU RE MESSAGING: LOCAL TITLE: MENTAL HEALTH SECURE MESSAGING STANDARD TITLE: MENTAL HEALTH SECURE MESSAGING DATE OF NOTE: DEC 22, 2023@10:54 ENTRY DATE: DEC 22, 2023@10:54:49 AUTHOR: MARIJA SUTTON EXP COSIGNER: URGENCY: STATUS: COMPLETED ------Original Message -------- Sent: 12/22/2023 10:54 AM ET From: MARIJA SUTTON To: NANO CROWE Subject: General:Living with Angry Feelings handouts Attachments: Living with Angry Feelings Handout Packet.pdf (305.67 KB) Lg Garza, Please find attached. Looking forward to your continued group participation, Marija Sutton, PhD Clinical Psychologist; [phone] /es/ Marija Sutton, PhD Clinical Psychologist, [facility] Signed: 12/22/2023 10:54 [facility]UTTON [facility]
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
--- OUTSIDE RECORDS SUMMARY | 2024-03-22 11:35 | XMS_ITS | Encounter Summary ---
Author Name [facility] [place] Address [address] [place] [address] Care Team Providers Care Fire Watchman Name Role Phone KEEGAN RDZ Primary Care [...] Patient's Relationship to Policy [facility] Oct 10, 2023 [id number] [phone] NANO CROWE PATIENT [employer]IG[employer] POINT OF SERVICE [facility] Oct 04, 2016 [id number] [phone] NANO CROWE PATIENT [employer]IGNA BEHAVIORAL HEALTH MENTAL HEALTH [facility] Oct 04, 2016 [id number] NANO CROWE PATIENT [employer]IG[employer] PHARMACY PRESCRIPT ION [facility] Oct 04, 2016 [id number] NANO CROWE PATIENT Selected Encounter This section includes the information on record at [place] for the Encounter. Date/Time Encounter Type Encounter Description Reason Provider Source Jan 22, 2024 01:00 PM GROUP PSYCHOTHERAPY MENTAL [facility]ALTH CLINIC-GROUP ICD-10-CM F43.10 Post-traumatic stress disorder, unspecified HANDY SUTTON IHAbner Encounter Template Text not used by [place] Assessments - Encounter Diagnoses This section includes the primary and secondary diagnoses documented for the Encounter. Date/Time Primary/Secondary Diagnosis Diagnosis Name Provider Source Jan 22, 2024 03:14 PM PRIMARY Post-traumatic stress disorder, unspecified MAYO WHALEY [facility] Plan of Treatment: Future Appointments (+ 6 months) and Future Tests (+/- 45 days) The Plan of Treatment section includes future care activities for the patient from all [place] [facility]. This section includes future appointments and future orders which are active, pending or scheduled. Future Appointments This section includes appointments that were scheduled to occur 6 months from the date of the Encounter, up to a maximum of 20 appointments. The data comes from all [place] treatment facilities. Appointment Date/Time Appointment Type Appointme nt Facility Name Jan 29, 2024 01:00 PM AMBULATORY - [facility]IATRY [facility] Feb 12, 2024 01:00 PM [facility] Feb 16, 2024 08:30 AM [facility]UL[facility] - [facility]IATRY [facility] Feb 19, 2024 01:00 PM [facility]BULAT[facility]IATRY [facility] Mar 09, 2024 02:00 PM AMBULATORY - NONE [facility] Mar 21, 2024 03:00 PM AMBULATORY - PS[facility]CHIATRY [facility] May 09, 2024 03:00 PM [facility] Social History: Smoking Status (Most current) and Tobacco Use (All prior to encounter date) This section includes the most current, and the historical, smoking and tobacco- related health factors from the [place] facility where the Encounter took place. Current Smoking Status This section includes the most current smoking, or tobacco-related health factor, from the [place] facility where the Encounter took place. Date/Time Current Smoking Status Sammie disla Jul 28, 2023 08:30 AM [place]-TOBACCO NEVER USED [facility] Tobacco Use History This section includes a history of the smoking, or tobacco-related health factors, that were collected on or before the date of the Encounter. The data comes from the [place] facility where the Encounter took place. Date/Time Smoking Status/Tobacco Use Comment F acility Feb 21, 2020 10:30 AM VA-TOBACCO NEVER USED [facility] [place] [facility] Apr 20, 2018 02:11 PM VA-TOBACCO NEVER USED [facility] [place] [facility] Jan 14, 2017 02:29 PM LIFETIME NON-TOBACCO USER [facility] [place] [facility] August 12, 2010 02:56 PM LIFETIME NON-TOBACCO USER [place] [facility] [place] [facility] Encounter Notes: All associated encounter notes This section contains the clinical notes associated to the Encounter. Date/Time Encounter Note(s) Provider Source Jan 22, 2024 02:55 PM TELEHEALTH NOTE: LOCAL TITLE: [place] VIDEO CONNECT PSYCHOLOGY NOTE STANDARD TITLE: TELEHEALTH NOTE DATE OF NOTE: JAN 22, 2024@14:55 ENTRY DATE: JAN 22, 2024@14:56:08 AUTHOR: MAYO WHALEY EXP COSIGNER: LAKEISHA SUTTON URGENCY: STATUS: COMPLETED IP Living with Angry Feelings Group Therapy Note (VVC) IDENTITY VERIFICATION: [X] Patient Name [X] Visual recognition [ ] Birthdate [ ] Social Security # [place] Video Connect (clinic to non-VA location) 's location: Provider confirmed that is currently located at Primary Address listed in [place] Video Connect consult and verified the contact phone number. [place] has provided verbal consent either today or previously when seen via VVC in mental health. This consent was obtained after a full explanation of the risk and benefits of using telehealth for mental health appointments. Alternatives for obtaining care through an in-person mental health visit and the 's right of refusal at any time during this session have been explained. 's location/environment was surveyed by this provider to identify all participants and the Virtual Medical Room was locked (via enabling button option in R) once all invited/required attendees were present. Electric Range Assembler: Mayo Whaley, MS, and Lakeisha Sutton, PhD PROCEDURE: 60-minute interactive hybrid VVC/F2F group therapy session Problem: Difficulty managing angry feelings without acting in ways [place] regrets Objective: Increase understanding of anger process and ways to effectively intervene so [place] does not act in ways that are unworkable or in conflict with personal values. Increase use of mindful and skillful behaviors. Number of Veterans Present in Group: 8 GROUP CONTENT: Group members participated in a mindful awareness practice involving listening to a quote by James Stevenson. Group members each checked in, sharing names and speaking about what motivates them to forgive. The four components of forgiveness were interactively explored. Group members were guided through a mindful forgiveness practice from the book Radical Acceptance by Nikkie Arroyo. Group members were encouraged to engage in mindful awareness and practice the skill of forgiveness. PROGRESS: arrived approximately half way through the group and was an active and appropriate participant. [place] participated in the mindfulness practices and group discussions. Mental Status was not formally assessed due to the nature of the encounter. maintained appropriate eye contact and was alert. spoke clearly and coherently. [place]'s thoughts were linear and related. [place]'s affect was congruent to content and appropriate in range. No clinical signs of intoxication, withdrawal, psychosis, or cognitive impairment were observed. No evidence of suicidal or homicidal ideation. There was no evidence of AH/VH or delusions. was future oriented. Diagnostic Impressions According to [...] group supervision meetings. /tanika/ MAYO WHALEY MS Electrifier Operator Signed: 01/22/2024 15:14 /tanika/ Lakeisha Sutton, PhD Clinical Psychologist, Mental Health Clinic Cosigned: 01/22/2024 16:23 MAYO WHALEY [facility]
--- OUTSIDE RECORDS SUMMARY | 2024-03-22 11:35 | XMS_ITS | Encounter Summary ---
Author Name [facility] [place] Organization [place] Address [address] [place] [address] Care Team Providers Care Vegetable Buncher Name Role Phone KEEGAN RDZ Primary Care [...] Goyal [facility] Oct 10, 2023 [id number] [phone] NANO CROWE PATIENT CIGNA POINT OF SERVICE [facility] Oct 04, 2016 [id number] [phone] NANO CROWE PATIENT CIGNA BEHAVIORAL HEALTH MENTAL HEALTH [facility] Oct 04, 2016 [id number] NANO CROWE PATIENT [employer]IG[employer] PHARMACY PRESCRIPT ION [facility] Oct 04, 2016 [id number] NANO CROWE PATIENT Selected Encounter This section includes the information on record at [place] for the Encounter. Date/Time Encounter Type Encounter Description Reason Provider Source Dec 22, 2023 10:00 AM PSYTX W PT 30 MINUTES MENTAL HEALTH CLINIC - IND ICD-10-CM F43.10 Post-traumatic stress disorder, unspecified ALL SUTTON Abner Encounter Template Text not used by [place] Assessments - Encounter Diagnoses This section includes the primary and secondary diagnoses documented for the Encounter. Date/Time Primary/Secondary Diagnosis Diagnosis Name Provider Source Dec 22, 2023 10:00 AM PRIMARY Post-traumatic stress disorder, unspecified ALL SUTTON [facility] [place] [facility] Plan of Treatment: Future Appointments (+ 6 months) and Future Tests (+/- 45 days) The Plan of Treatment section includes future care activities for the patient from all [place] [facility]. This section includes future [...] AMBULATORY - PSYCHIATRY [place] [facility] [place] [facility] Jan 15, 2024 01:00 PM AMBULATORY - PSYCHIATRY [place] [facility] [place] [facility] Jan 22, 2024 01:00 PM AMBULATORY - PSYCHIATRY [place] [facility] [place] [facility] Jan 29, 2024 01:00 PM AMBULATORY - PSYCHIATRY [place] [facility] [place] [facility] Feb 12, 2024 01:00 PM AMBULATORY - PSYCHIATRY [place] [facility] [place] [facility] Feb 16, 2024 08:30 AM AMBULATORY - PSYCHIATRY [place] [facility] [place] [facility] Feb 19, 2024 01:00 PM AMBULATORY - PSYCHIATRY [place] [facility] [place] [facility] Mar 09, 2024 02:00 PM AMBULATORY - NONE [facility] [place] [facility] Mar 21, 2024 03:00 PM AMBULATORY - PSYCHIATRY [facility] [place] [facility] May 09, 2024 03:00 PM AMBULATORY - PSYCHIATRY [place] [facility] [place] [facility] Social History: Smoking Status (Most current) [...] 28, 2023 08:30 AM [facility] Tobacco Use History This section includes a history of the smoking, or tobacco-related health factors, that were collected on or before the date of the Encounter. The data comes from the [place] facility where the Encounter took place. Date/Time Smoking Status/Tobacco Use Comment F acility Feb 21, 2020 10:30 AM VA-TOBACCO NEVER USED [place] [facility] [place] [facility] Apr 20, 2018 02:11 PM VA-TOBACCO NEVER USED [facility] [place] [facility] Jan 14, 2017 02:29 PM LIFETIME NON-TOBACCO USER [facility] [place] [facility] August 12, 2010 02:56 PM LIFETIME NON-TOBACCO [facility] Encounter Notes: All associated encounter notes This section contains the clinical notes associated to the Encounter. Date/Time Encounter Note(s) Provider Source Dec 22, 2023 10:42 AM TELEHEALTH NOTE: LOCAL TITLE: [place] Rijuven CONNECT PSYCHOLOGY NOTE STANDARD TITLE: TELEHEALTH NOTE DATE OF NOTE: DEC 22, 2023@10:42 ENTRY DATE: DEC 22, 2023@10:42:52 AUTHOR: MARIJA SUTTON COSIGNER: URGENCY: STATUS: COMPLETED Living With Angry Feelings Group Treatment Planning Appointment [place] Video Connect (clinic to non-VA location) 's location: Provider confirmed that [place] is currently located at Primary Address listed in [place] Video Connect consult and verified the contact phone number has provided verbal consent either today or previously when seen via [facility] in mental health. This consent was obtained after a full explanation of the risk and benefits of using telehealth for mental health appointments. Alternatives for obtaining care through an in-person mental health visit and the [place]'s right of refusal at any time during this session have been explained. [place]'s location/environment was surveyed by this provider to identify all participants and the Virtual Medical Room was locked (via enabling button option in R) once all invited/required attendees were present. IDENTITY VERIFICATION: [X] Patient Name [X] Visual recognition [ ] Birthdate [ ] Social Security # Procedure: The [place] was seen for a 25-minute [facility] individual psychotherapy session in [facility] Problem: Difficulty managing angry feelings without acting in ways [place] regrets Objective: Discuss participation in the Living with Angry Feelings Group as well as timing of graduation Progress: Agreed to meet to discuss [place]'s experience in the group, perception of current needs, and potential next steps. Peck spoke about how the group content has been helpful in his life, exploring how he appreciates multiple perspectives and the connection with other Veterans. Peck spoke about his goals of continuing to slow down the anger process and understand the thoughts that are fueling his anger. reflected upon his desire to participate for a longer time point in the group given scheduling conflicts. Discussed how group will be coming to an end between late January to early February and offered participation until that point. [place] accepted this opportunity and stated his goal is to attend 12 total groups, even if some of the content is repetitive giving rolling content structure and his participation pattern thus far. [place] spoke about ways to connect more with the material and to broaden his perspective. Peck agreed to complete [facility] touch measures, requesting that they be sent via email today. Peck expressed satisfaction with this plan. Assessment: [place]ck arrived on time for session and was dressed appropriately with appropriate hygiene. maintained appropriate eye contact and was alert. [place] spoke clearly and coherently. Veterans thoughts were linear and related. Veterans affect was congruent to content and appropriate in range. There was no evidence of AH/VH or delusions. There was no evidence of suicidal and homicidal ideation. was reminded of emergency resources through this [place] and the Veterans Crisis Line number. Diagnostic Impressions According to the DSM-V and Per Chart Review: PTSD, chronic Plan: Agreed will continue in the Living with Angry Feelings Group until the group comes to an end. Semiautomatic Taper Operator will send a secure message with electronic copy of group handouts per [place]ck's request. /tanika/ Marija Sutton, PhD Clinical Psychologist, Mental Health Clinic Signed: 12/22/2023 10:49 Receipt Acknowledged By: 12/22/2023 12:45 /tanika/ WANDA DOWELL MS Table Attendant MARIJA SUTTON [facility]
--- OUTSIDE RECORDS SUMMARY | 2024-03-22 11:35 | XMS_ITS | Encounter Summary ---
Author Name [facility] [place] Organization [place] Address [address] [place] [id number] Care Team Providers Care Certified Detention Deputy Name Role Phone KEEGAN RDZ Primary Care [...] to Policy [facility] Oct 10, 2023 [id number] [phone] NANO CROWE PATIENT CIGNA POINT OF SERVICE [facility] Oct 04, 2016 [id number] [phone] NANO CROWE PATIENT CIGNA BEHAVIORAL HEALTH MENTAL HEALTH [facility] Oct 04, 2016 [id number] NANO CROWE PATIENT [employer]IG[employer] PHARMACY PRESCRIPT ION [facility] Oct 04, 2016 [id number] [phone] NANO CROWE PATIENT Selected Encounter This section includes the information on record at [place] for the Encounter. Date/Time Encounter Type Encounter Description Reason Provider Source Jan 15, 2024 01:00 PM GROUP PSYCHOTHERAPY MENTAL HEALTH CLINIC-GROUP ICD-10-CM F43.10 Post-traumatic stress disorder, unspecified CHARLESJUDEHANDY IHE Encounter Template Text not used by [place] Assessments - Encounter Diagnoses This section includes the primary and secondary diagnoses documented for the Encounter. Date/Time Primary/Secondary Diagnosis Diagnosis Name Provider Source Feb 01, 2024 04:11 PM PRIMARY Post-traumatic stress disorder, unspecified [facility]HANDY [facility] Plan of Treatment: Future Appointments (+ 6 months) and Future Tests (+/- 45 days) The Plan of Treatment section includes future care activities for the patient from all [place] [facility]. This section includes future appointments and future orders which are active, pending or scheduled. Future Appointments This section includes appointments that were scheduled to occur 6 months from the date of the Encounter, up to a maximum of 20 appointments. The data comes from all [place] treatment facilities. Appointment Date/Time Appointment Type Appointme nt Facility Name Jan 22, 2024 01:00 PM AMBULATORY - PSYCHIATRY [place] [facility] [place] [place] [facility] Jan 29, 2024 01:00 PM AMBULATORY - PSYCHIATRY [facility] [place] [facility] Feb 12, 2024 01:00 PM [facility] [place] [facility] Feb 16, 2024 08:30 AM [facility] [place] [facility] Feb 19, 2024 01:00 PM [facility] [place] [facility] Mar 09, 2024 02:00 PM AMBULATORY - NONE [facility] [place] [facility] Mar 21, 2024 03:00 PM AMBULATORY - PSYCHIATRY [facility] [place] [facility] May 09, 2024 03:00 PM [facility] Social History: Smoking Status (Most [...] 08:30 AM VA-TOBACCO [facility] Tobacco Use History This section includes a history of the smoking, or tobacco-related health factors, that were collected on or before the date of the Encounter. The data comes from the [place] facility where the Encounter took place. Date/Time Smoking Status/Tobacco Use Comment F acility Feb 21, 2020 10:30 AM VA-TOBACCO NEVER USED [place] [facility] [place] [facility] Apr 20, 2018 02:11 PM VA-TOBACCO NEVER USED [place] [facility] [place] [place] [facility] Jan 14, 2017 02:29 PM LIFETIME NON-TOBACCO USER [place] [facility] [place] [facility] August 12, 2010 02:56 PM LIFETIME NON-TOBACCO USER [facility] Encounter Notes: All associated encounter notes This section contains the clinical notes associated to the Encounter. Date/Time Encounter Note(s) Provider Source Jan 15, 2024 02:53 PM PSYCHIATRY GROUP COUNSELING NOTE: LOCAL TITLE: PSYCHOLOGY GROUP NOTE STANDARD TITLE: PSYCHIATRY GROUP COUNSELING NOTE DATE OF NOTE: JAN 15, 2024@14:53 ENTRY DATE: JAN 15, 2024@14:53:56 AUTHOR: LAKEISHA SUTTON EXP COSIGNER: URGENCY: STATUS: COMPLETED BHIP Living with Angry Feelings Group Therapy Note (VVC) SESSION MODALITY: [place] Video Connect (clinic to non-VA location) [place]'s location: Provider confirmed that [place] is currently located at Primary Address listed in [facility]. Primary phone number: Confirmed for all participants. [place] has provided verbal consent either today or [...] ] Birthdate [ ] Social Security # Insurance Special Agent: Lakeisha Sutton, PhD PROCEDURE: 60-minute interactive hybrid VVC/F2F group therapy session Problem: Difficulty managing angry feelings without acting in ways regrets Objective: Increase understanding of anger process and ways to effectively intervene so [place] does not act in ways that are unworkable or in conflict with personal values. Increase use of mindful and skillful behaviors. Number of Veterans Present in Group: 6 GROUP CONTENT: Group members participated in a mindful metta-loving kindness practice. Group members each checked in, sharing names and speaking about something that keeps them holding onto angry feelings. Group members reflected on a quote and the metaphor of holding onto a hot coal to throw at another person and getting burned. The four components of forgiveness as well as myths that machine feeder raw stock the way of forgiveness were interactively explored. Group members were encouraged to engage in mindful awareness and practice the skill of forgiveness. Group members were informed that the group will end on 02/19/24. All members elected to continue in the group until the end date rather than graduating earlier if applicable. PROGRESS: [place] arrived on time and was an active and appropriate participant. participated in the mindfulness practices and group discussions. Mental Status was not formally assessed due to the nature of the encounter. maintained appropriate eye contact and was alert. spoke clearly and coherently. [place]'s thoughts were linear and related. 's affect was congruent to content and appropriate in range. No clinical signs of intoxication, withdrawal, psychosis, or cognitive impairment were observed. No evidence of suicidal or homicidal ideation. There was no evidence of AH/VH or delusions. was future oriented. DSM-V DIAGNOSTIC IMPRESSIONS(per chart): PTSD, Chronic PLAN: [place] will continue to participate in the Living with Angry Feelings Group on Fridays at 1pm. /tanika/ Lakeisha Sutton, PhD Clinical Psychologist, Mental Health Clinic Signed: 01/15/2024 16:05 LAKEISHA SUTTON [place] [facility]
--- OUTSIDE RECORDS SUMMARY | 2024-03-22 11:35 | XMS_ITS | Encounter Summary ---
Author Name [facility] [place] Address [address] [place] [address] Care Team Providers Care Electrophysiology Tech Name Role Phone KEEGAN RDZ Primary Care [...] Patient's Relationship to Policy [facility] RETIR E[facility] Oct 10, 2023 [id number] NANO CROWE PATIENT CIGNA POINT OF SERVICE [facility] Oct 04, 2016 [id number] [phone] NANO CROWE PATIENT CIGNA BEHAVIORAL HEALTH MENTAL HEALTH [facility] Oct 04, 2016 [id number] NANO CROWE PATIENT CIGNA PHARMACY PRESCRIPT ION [facility] Oct 04, 2016 [id number] NANO CROWE PATIENT Selected Encounter This section includes the information on record at [place] for the Encounter. Date/Time Encounter Type Encounter Description Reason Provider Source Dec 22, 2023 10:00 AM PSYTX W PT 30 MINUTES MENTAL [facility] CLINIC - IND ICD-10-CM F43.10 Post-traumatic stress disorder, unspecified ALL SUTTON Abner Encounter Template Text not used by [place] Assessments - Encounter Diagnoses This section includes the primary and secondary diagnoses documented for the Encounter. Date/Time Primary/Secondary Diagnosis Diagnosis Name Provider Source Jan 07, 2024 03:35 PM PRIMARY Post-traumatic stress disorder, unspecified ALL SUTTON [facility] [place] [facility] Plan of Treatment: Future Appointments (+ 6 months) and Future Tests (+/- 45 days) The Plan of Treatment section includes future care activities for the patient from all [place] [facility]. This section includes future appointments and [...] 01, 2024 01:00 PM AMBULATORY - PS[place]CHIATRY [place] [facility] [place] [facility] Jan 15, 2024 01:00 PM AMBULATORY - PSYCHIATRY [place] [facility] [facility] Jan 22, 2024 01:00 PM AMBULATORY - PSYCHIATRY [place] [facility] [facility] Jan 29, 2024 01:00 PM AMBULATORY - PSYCHIATRY [place] [facility] [facility] Feb 12, 2024 01:00 PM AMBULATORY - PSYCHIATRY [place] [facility] [facility] Feb 16, 2024 08:30 AM AMBULATORY - PSYCHIATRY [place] [facility] [facility] Feb 19, 2024 01:00 PM AMBULATORY - PSYCHIATRY [place] [facility] [facility] Mar 09, 2024 02:00 PM AMBULATORY - NONE [place] [facility] [place] [facility] Mar 21, 2024 03:00 PM AMBULATORY - PSYCHIATRY [place] [facility] [place] [facility] May 09, 2024 03:00 PM AMBULATORY - PSYCHIATRY [place] [facility] [facility] Social History: Smoking Status (Most current) [...] 28, 2023 08:30 AM [facility] Tobacco Use History This section includes a history of the smoking, or tobacco-related health factors, that were collected on or before the date of the Encounter. The data comes from the [place] facility where the Encounter took place. Date/Time Smoking Status/Tobacco Use Comment F acility Feb 21, 2020 10:30 AM VA-TOBACCO NEVER USED [place] [facility] [place] [facility] Apr 20, 2018 02:11 PM VA-TOBACCO NEVER USED [place] [facility] [place] [facility] Jan 14, 2017 02:29 PM LIFETIME NON-TOBACCO USER [place] [facility] [place] [facility] August 12, 2010 02:56 PM LIFETIME NON-TOBACCO [facility]ER [facility] Encounter Notes: All associated encounter notes This section contains the clinical notes associated to the Encounter. Date/Time Encounter Note(s) Provider Source Dec 23, 2023 08:15 AM MENTAL HEALTH DIAG NOSTIC STUDY NOTE: LOCAL TITLE: MENTAL HEALTH DIAGNOSTIC STUDY STANDARD TITLE: MENTAL HEALTH DIAGNOSTIC STUDY NOTE DATE OF NOTE: DEC 23, 2023@08:15:34 ENTRY DATE: DEC 23, 2023@08:15:34 AUTHOR: MARIJA SUTTON COSIGNER: URGENCY: STATUS: COMPLETED Assessments were sent to the [place] via text/email. These assessments were completed by NANO CROWE on their own device on 12/22/2023 4:25:47 PM. PATIENT HEALTH QUESTIONNAIRE-9 (PHQ-9) The patient reported symptoms consistent with a major depressive episode. Patient reported being bothered by the following over the last 2 weeks: 1. Little interest or pleasure: More than half the days 2. Feeling down, depressed or hopeless: Nearly every day 3. Trouble sleeping: More than half the days 4. Tired, low energy: Nearly every day 5. Poor appetite, over-eating: More than half the days 6. Feelings of failure, guilt: Nearly every day 7. Trouble concentrating: Nearly every day 8. Motor retardation, agitation: More than half the days 9. Thoughts better off /hurting self: Not at all PHQ-9 total score = 20 1-4 = minimal symptoms 5-9= mild symptoms 10-14= moderate symptoms 15-19= moderately severe symptoms 20-27= severe depressive symptoms The patient stated that the depressive symptoms made it extremely difficult to work, take care of things at home, or get along with others. PHQ-9 Total Score (past 180 days): 12/22/2023 20 10/01/2023 17 07/08/2023 20 BRIEF ADDICTION MONITOR-REVISED (BAM-R) Patient reported the following over the last 30 days: 1. Physical health: Poor 2. Nights trouble falling asleep or staying asleep: 18 3. Days depressed, anxious, angry or very upset: 30 4. Days drank ANY alcohol: 0 5. [...] increased risk for using alcohol/drugs: 0 12. Anglican or spirituality supports recovery: Considerably 13. Days with much of the time spent at work, school, or volunteerin 14. Enough income (from legal sources) to pay for necessities: Yes 15. Bothered by arguments or problems getting along with family/friends: Considerably 16. Days in contact with family/friends supportive of recovery: 7 17. Satisfied with progress toward achieving recovery goals: Slightly BAM Subscales: USE = 0 Scores range from 0 to 90 RISK = 100 Scores range from 0 to 180 PROTECTION = 104 Scores range from 0 to 180 BAM-R Risk (past 180 days): 12/22/2023 100 10/01/2023 114 BAM-R Protective (past 180 days): 12/22/2023 104 10/01/2023 115 BAM-R Use (past 180 days): 12/22/2023 0 10/01/2023 0 DIFFICULTIES IN EMOTION REGULATION SCALE-16 (DERS-16) The patient reported that the statements below applied to them as follows: 1. Difficulty making sense out of their feelings: Almost always 91-100% 2. Confused about how they feel: Almost always 91-100% 3. When upset, difficulty getting work done: Almost always 91-100% 4. When upset, become out of control: Sometimes 11-35% 5. When upset, believe that they will remain that way for a long time: Almost never 0-10% 6. When upset, believe that they'll end up feeling very depressed: Almost always 91-100% 7. When upset, difficulty focusing on other things: Almost always 91-100% 8. When upset, feel out of control: Sometimes 11-35% 9. When upset, feel ashamed with self for feeling that way: Most of the time 66-90% 10. When upset, feel like they are weak: Sometimes 11-35% 11. When upset, difficulty controlling behaviors: Most of the time 66-90% 12. When upset, believe that there is nothing they can do to make self feel better: About half the time 36-65% 13. When upset, become irritated with self for feeling that way: Most of the time 66-90% 14. When upset, start to feel very bad about self: Most of the time 66-90% 15. When upset, difficulty thinking about anything else: Almost always 91-100% 16. When upset, emotions feel overwhelming: Almost always 91-100% DERS-16 Total Score: 61 Clarity Score: 10 Goals Score: 15 Impulse Score: 8 Strategies Score: 18 Nonacceptance Score: 10 Higher scores reflect greater levels of difficulty in emotion regulation. DERS-16 Total Score (past 180 days): 12/22/2023 61 10/01/2023 71 THE ACCEPTANCE AND ACTION QUESTIONNAIRE-II (AAQ-II) The patient rated how true each statement is for them as follows: 1. It's OK if I remember something unpleasant: Seldom true 2. My painful experiences and memories make it difficult for me to live a life that I would value: Almost always true 3. I am afraid of my feelings: Sometimes 4. I worry about not being able to control my worries and feelings: Frequently true 5. My painful memories prevent me from having a fulfilling life: Always true 6. I am in control of my life: Frequently true 7. Emotions cause problems in my life: Always true 8. It seems like most people are handling their lives better than I am: Almost always true 9. Worries get in the way of my success: Almost always true 10. My thoughts and feelings do not get in the way of how I want to live my life: Never true Total Score: 24 Scores range from 10 to 70 with higher scores indicating greater psychological flexibility. AAQ-II Total Score (past 180 days): 12/22/2023 24 10/01/2023 19 /tanika/ Marija Sutton, PhD Clinical Psychologist, Mental Health Clinic Signed: 12/23/2023 14:51 MARIJA SUTTON [facility] TRN [facility]
--- OUTSIDE RECORDS SUMMARY | 2024-03-22 11:35 | XMS_ITS | Encounter Summary ---
Author Name [facility] [place] Organization [place] Address [address] [place] [id number] Care Team Providers Care Kiln Furniture Caster Name Role Phone KEEGAN RDZ Primary Care [...] Patient's Relationship to Policy G[facility] RETIR [facility] Oct 10, 2023 [id number] NANO CROWE PATIENT CIGNA POINT OF SERVICE [facility] Oct 04, 2016 [id number] [phone] NANO CROWE PATIENT CIGNA BEHAVIORAL HEALTH MENTAL HEALTH [facility] Oct 04, 2016 [id number] NANO CROWE PATIENT CIGNA PHARMACY PRESCRIPT ION [facility] Oct 04, 2016 [id number] [phone] NANO CROWE PATIENT Selected Encounter This section includes the information on record at [place] for the Encounter. Date/Time Encounter Type Encounter Description Reason Provider Source Jan 01, 2024 01:00 PM GROUP PSYCHOTHERAPY MENTAL HEALTH CLINIC-GROUP ICD-10-CM F43.10 Post-traumatic stress disorder, unspecified HANDY SUTTON KIMBERLI IHE Encounter Template Text not used by [place] Assessments - Encounter Diagnoses This section includes the primary and secondary diagnoses documented for the Encounter. Date/Time Primary/Secondary Diagnosis Diagnosis Name Provider Source Jan 22, 2024 05:52 AM PRIMARY Post-traumatic stress disorder, unspecified [facility] Plan of Treatment: Future Appointments (+ 6 months) and Future Tests (+/- 45 days) The Plan of Treatment section includes future care activities for the patient from all [place] [facility]. This section includes future appointments and future orders which are active, pending or scheduled. Future Appointments This section includes appointments that were scheduled to occur 6 months from the date of the Encounter, up to a maximum of 20 appointments. The data comes from all [place] treatment facilities. Appointment Date/Time Appointment Type Appointme nt Facility Name Jan 15, 2024 01:00 PM AMBULATORY - PSYCHIATRY [place] [facility] [place] [place] [facility] Jan 22, 2024 01:00 PM AMBULATORY - PSYCHIATRY [place] [facility] [place] [facility] Jan 29, 2024 01:00 PM AMBULATORY - PSYCHIATRY [place] [facility] [place] [facility] Feb 12, 2024 01:00 PM AMBULATORY - PSYCHIATRY [place] [facility] [place] [facility] Feb 16, 2024 08:30 AM AMBULATORY - PSYCHIATRY [place] [facility] [place] [facility] Feb 19, 2024 01:00 PM AMBULATORY - PSYCHIATRY [place] [facility] [facility] Mar 09, 2024 02:00 PM AMBULATORY - NONE [place] [facility] [facility] Mar 21, 2024 03:00 PM AMBULATORY - PSYCHIATRY [place] [facility] [place] [facility] May 09, 2024 03:00 PM [facility] [place] [facility] Social History: Smoking Status (Most current) and Tobacco Use (All prior to encounter date) This section includes the most current, and the historical, smoking and tobacco- related health factors from the [place] facility where the Encounter took place. Current Smoking Status This section includes the most current smoking, or tobacco-related health factor, from the [place] facility where the Encounter took place. Date/Time Current Smoking Status Comment Federico disla Jul 28, 2023 08:30 AM [facility] Tobacco Use History This section includes a history of the smoking, or tobacco-related health factors, that were collected on or before the date of the Encounter. The data comes from the [place] facility where the Encounter took place. Date/Time Smoking Status/Tobacco Use Comment Flako acility Feb 21, 2020 10:30 AM VA-TOBACCO NEVER USED [place] [facility] [facility] Apr 20, 2018 02:11 PM VA-TOBACCO NEVER USED [place] [facility] [facility] Jan 14, 2017 02:29 PM LIFETIME NON-TOBACCO USER [place] [facility] [facility] August 12, 2010 02:56 PM LIFETIME NON-TOBACCO USER [place] [facility] [facility] Encounter Notes: All associated encounter notes This section contains the clinical notes associated to the Encounter. Date/Time Encounter Note(s) Provider Source Jan 01, 2024 04:28 PM PSYCHIATRY GROUP COUNSELING NOTE: LOCAL TITLE: PSYCHOLOGY GROUP NOTE STANDARD TITLE: PSYCHIATRY GROUP COUNSELING NOTE DATE OF NOTE: JAN 01, 2024@16:28 ENTRY DATE: JAN 01, 2024@16:28:33 AUTHOR: LAKEISHA SUTTON EXP COSIGNER: URGENCY: STATUS: COMPLETED BHIP Living with Angry Feelings Group Therapy Note SESSION MODALITY: [facility] Video Connect (clinic to non-VA location) 's location: Provider confirmed that Rickreall is currently located at Primary Address listed in [facility]. Primary phone number: Confirmed for all participants. Rickreall has provided verbal consent either today or previously when seen via [facility] in mental health. This consent was obtained after a full explanation of the risk and benefits of using telehealth for mental health appointments. Alternatives for obtaining care through an in-person mental health visit and the 's right of refusal at any time during this session have been explained. Rickreall's location/environment was surveyed by this provider to identify all participants and the Virtual Medical Room was locked (via enabling button option in R) once all invited/required attendees were present. IDENTITY VERIFICATION: [X] Patient Name [X] Visual recognition [ ] Birthdate [ ] Social Security # Facilitators: Mayo Whaley MS, and Lakeisha Sutton, PhD PROCEDURE: 60-minute interactive hybrid VVC/F2F group therapy session Problem: Difficulty managing angry feelings without acting in ways Rickreall regrets Objective: Increase understanding of anger process and ways to effectively intervene so does not act in ways that are unworkable or in conflict with personal values. Increase use of mindful and skillful behaviors. Number of Veterans Present in Group: 5 GROUP CONTENT: Group members engaged in a mindful breathing and listening practice. They each checked in, sharing names and speaking about a challenge in communicating with others. MAYRA PERDUE was introduced and interactively practiced with several examples from the group. Group members were encouraged to use the DEAR MAN format in communicating during the next week. PROGRESS: Rickreall arrived on time and was an active and appropriate participant. participated in the mindfulness practices and group discussions. Mental Status was not formally assessed due to the nature of the encounter. Rickreall maintained appropriate eye contact and was alert. spoke clearly and coherently. 's thoughts were linear and related. Rickreall's affect was congruent to content and appropriate in range. No clinical signs of intoxication, withdrawal, psychosis, or cognitive impairment were observed. No evidence of suicidal or homicidal ideation. There was no evidence of AH/VH or delusions. was future oriented. Diagnostic Impressions According to the DSM-V and Per Chart Review: PTSD, chronic PLAN: Rickreall will continue to participate in the Living with Angry Feelings Group on Fridays at 1pm. /tanika/ Lakeisha Sutton, PhD Clinical Psychologist, Mental Health Clinic Signed: 01/01/2024 16:31 LAKEISHA SUTTON [place] [facility]
--- OUTSIDE RECORDS SUMMARY | 2024-03-22 11:35 | XMS_ITS ---
Author Name [facility] [place] Organization [place] Address [address] [place] [address] Care Team Providers Care Title Manager Name Role Phone KEEGAN RDZ Primary Care [...] Goyal's Name Patient's Relationship to Policy Goyal [facility] ORGANIZAT [facility] RETIR EMENT Oct 10, 2023 [id number] NANO CROWE PATIENT CIGNA POINT OF SERVICE [facility] Oct 04, 2016 [id number] [phone] NANO CROWE PATIENT CIGNA BEHAVIORAL HEALTH MENTAL HEALTH [facility] Oct 04, 2016 [id number] NANO CROWE PATIENT CIGNA PHARMACY PRESCRIPT ION [facility] Oct 04, 2016 [id number] [phone] NANO CROWE PATIENT Selected Encounter This section includes the information on record at [place] for the Encounter. Date/Time Encounter Type Encounter Description Reason Pro vider Source Dec 28, 2023 08:22 AM Outpatient Encounter POLYTRAUMA/TBI IND IHE Encounter Template Text not used by [place] Plan of Treatment: Future Appointments (+ 6 months) and Future Tests (+/- 45 days) The Plan of Treatment section includes future care activities for the patient from all [place] [facility]. This section includes future appointments and [...] 01, 2024 01:00 PM AMBULATORY - PSYCHIATRY [place] [facility] [place] [facility] Jan 15, 2024 01:00 PM AMBULATORY - PSYCHIATRY [place] [facility] [place] [facility] Jan 22, 2024 01:00 PM AMBULATORY - PSYCHIATRY [place] [facility] [place] [facility] Jan 29, 2024 01:00 PM AMBULATORY - PSYCHIATRY [place] [facility] [place] [facility] Feb 12, 2024 01:00 PM AMBULATORY - PSYCHIATRY [place] [facility] [place] [facility] Feb 16, 2024 08:30 AM AMBULATORY - PSYCHIATRY [place] [facility] [place] [facility] Feb 19, 2024 01:00 PM AMBULATORY - PSYCHIATRY [place] [facility] [place] [facility] Mar 09, 2024 02:00 PM AMBULATORY - NONE [place] [facility] [place] [facility] Mar 21, 2024 03:00 PM AMBULATORY - PSYCHIATRY [place] [facility] [place] [facility] May 09, 2024 03:00 PM AMBULATORY - PSYCHIATRY [place] [facility] [facility] [...] Federico disla Jul 28, 2023 08:30 AM [place]-TOBACCO NEVER [facility]ED [facility] Tobacco Use History This section includes a history of the smoking, or tobacco-related health factors, that were collected on or before the date of the Encounter. The data comes from the [place] facility where the Encounter took place. Date/Time Smoking Status/Tobacco Use Comment F acility Feb 21, 2020 10:30 AM VA-TOBACCO NEVER USED [place] [facility] [place] [facility] Apr 20, 2018 02:11 PM VA-TOBACCO NEVER USED [place] [facility] [place] [facility] Jan 14, 2017 02:29 PM LIFETIME NON-TOBACCO USER [place] [facility] [place] [facility] August 12, 2010 02:56 PM LIFETIME NON-TOBACCO [facility] Encounter Notes: All associated encounter notes This section contains the clinical notes associated to the Encounter. Date/Time Encounter Note(s) Provider Source Dec 28, 2023 08:22 AM ADMINISTRATIVE NOT E: LOCAL TITLE: ADMINISTRATIVE NOTE STANDARD TITLE: ADMINISTRATIVE NOTE DATE OF NOTE: DEC 28, 2023@08:22 ENTRY DATE: DEC 28, 2023@08:22:31 AUTHOR: IVIS CAMPBELL EXP COSIGNER: URGENCY: STATUS: COMPLETED [place] cx'd appt 12/28/2023 via vetext. Left voicemail for with direct line to reschedule. /tanika/ IVIS CAMPBELL SUPERVISORY LOSS PREVENTION/SAFETY DISTRICT MANAGER Signed: 12/28/2023 08:23 Receipt Acknowledged By: 01/01/2024 13:07 /tanika/ LAURA DILLARD M.S.,CCC-SLABBING MACHINE OPERATOR SPEECH-LANGUAGE PATHOLOGIST IVIS CAMPBELL [facility]
--- OUTSIDE RECORDS SUMMARY | 2024-03-22 11:36 | XMS_ITS | Encounter Summary ---
Author Name [facility] [facility] [place] Address [address] [place] [address] Care Team Providers Care Bisque Tile Burner Name Role Phone KEEGAN RDZ Primary Care [...] Patient's Relationship to Policy Goyal [facility] ORGANIZAT [facility] RET[facility] EMENT Oct 10, 2023 [id number] NANO CROWE PATIENT [employer] POINT OF SERVICE [facility] Oct 04, 2016 [id number] NANO CROWE PATIENT [employer] BEHAVIORAL HEALTH MENTAL HEALTH [facility] Oct 04, 2016 [id number] NANO CROWE PATIENT [employer] PHARMACY PRESCRIPT ION [facility] Oct 04, 2016 [id number] NANO CROWE PATIENT Selected Encounter This section includes the information on record at [place] for the Encounter. Date/Time Encounter Type Encounter Description Reason Pro vider Source Jan 29, 2024 01:00 PM Outpatient Encounter [facility] IHE Encounter Template Text not used by [place] Plan of Treatment: Future Appointments (+ 6 months) and Future Tests (+/- 45 days) The Plan of Treatment section includes future care activities for the patient [facility] This section includes future appointments and future orders which are active, pending or scheduled. Future Appointments This section includes appointments that were scheduled to occur 6 months from the date of the Encounter, up to a maximum of 20 appointments. The data comes from all [place] treatment facilities. Appointment Date/Time Appointment Type Appointme nt Facility Name Feb 12, 2024 01:00 PM [facility] Feb 16, 2024 08:30 AM [facility]ULAT[facility] [place] [facility]IAT[facility] [place] [facility] Feb 19, 2024 01:00 PM AMBULATORY - [place]IATRY [facility] [place] [facility] Mar 09, 2024 02:00 PM AMBULATORY - NONE [facility] [place] [facility] Mar 21, 2024 03:00 PM AMBULATORY - PSYCHIATRY [facility] [place] [facility] May 09, 2024 03:00 PM [facility] Social History: Smoking Status (Most [...] 28, 2023 08:30 AM VA-TOBACCO NEVER USED [facility] Tobacco Use History This section includes a history of the smoking, or tobacco-related health factors, that were collected on or before the date of the Encounter. The data comes from the [place] facility where the Encounter took place. Date/Time Smoking Status/Tobacco Use Comment [facility] Feb 21, 2020 10:30 AM VA-TOBACCO NEVER USED [place] [facility] [place] [facility] Apr 20, 2018 02:11 PM VA-TOBACCO [facility] USED [facility] [place] [facility] Jan 14, 2017 02:29 PM LIFETIME NON-TOBACCO USER [facility] [place] [facility] August 12, 2010 02:56 PM LIFETIME NON-TOBACCO USER [facility] Encounter Notes: All associated encounter notes This section contains the clinical notes associated to the Encounter. Date/Time Encounter Note(s) Provider Source Feb 03, 2024 09:19 AM ADDENDUM: LOCAL TITLE: Addendum STANDARD TITLE: ADDENDUM DATE OF NOTE: FEB 03, 2024@09:19:42 ENTRY DATE: FEB 03, 2024@09:19:43 AUTHOR: LAKEISHA SUTTON EXP COSIGNER: URGENCY: STATUS: COMPLETED Made second outreach attempt and left for to encourage him to attend group on Thursday and to plan for a group graduation meeting. Requested a call to confirm an appointment via [facility] on Thursday, February 16, 2024 at 8:30am or request an alternative time. Provided contact information. /es/ Lakeisha Sutton, PhD Clinical Psychologist, [facility] Signed: 02/03/2024 09:21 Receipt Acknowledged By: 02/03/2024 10:57 /es/ WANDA DOWELL [place] Stringer Up Soldering Machine ====== --- Original Document --- 01/29/24 APPOINTMENT NO SHOW: Patient Name: NANO CROWE Patient SSN: [id number] Date and time of Appointment No show : 01/29/24 13:00 PATIENT PHONE - PHONE NUMBER [CELLULAR] - Patient's medical record was reviewed. Follow-up actions were determined and initiated: Please check/complete as applies: [X]Telephoned Directly [ ]Re-scheduled for next available appt [ ]Sent a N0-show letter ( must call for appointment) [ ]Other (Emergent/Overbook, etc.): Additional Comments: Cupola Patcher called to check in about missed group and to schedule treatment planning session. Call went to . Cupola Patcher left name, number, and offered time to meet for this treatment planning session on February 15 at 8:30AM. Cupola Patcher requested a returned call if the time is not workable for . This case is supervised by Dr. Lakeisha Sutton, Staff Psychologist. Diagnosis, treatment plan, and response to care are reviewed in standard 1-hour, or more, weekly individual and group supervision meetings. Future Clinic Visits 02/05/2024 13:00 CWM/NO/VVC/MHC/PSYLG 3 GR 02/12/2024 13:00 CWM/NO/VVC/MHC/PSYLG 3 GR 02/19/2024 13:00 CWM/NO/VVC/MHC/PSYLG 3 GR 03/09/2024 14:00 CWM/NO/VVC/HOMESLEEP 1 03/21/2024 15:00 CWM/NO/VVC/MHC/CLP2 /es/ WANDA DOWELL [place] [employer] Signed: 01/29/2024 15:04 /es/ Lakeisha Sutton, PhD Clinical Psychologist, [facility] Cosigned: 01/29/2024 16:15 LAKEISHA SUTTON [place] [facility] [place] [facility] Jan 29, 2024 03:00 PM CLERICAL NOTE: LOCAL TITLE: APPOINTMENT NO SHOW STANDARD TITLE: CLERICAL NOTE DATE OF NOTE: JAN 29, 2024@15:00 ENTRY DATE: JAN 29, 2024@15:01:40 AUTHOR: WANDA DOWELL COSIGNER: LAKEISHA SUTTON URGENCY: STATUS: COMPLETED APPOINTMENT NO SHOW Has ADDENDA Patient Name: NANO CROWE Patient SSN: [id number] Date and time of Appointment No show : 01/29/24 13:00 PATIENT PHONE - PHONE NUMBER [CELLULAR] - Patient's medical record was reviewed. Follow-up actions were determined and initiated: Please check/complete as applies: [X]Telephoned Directly [ ]Re-scheduled for next available appt [ ]Sent a N0-show letter ( must call for appointment) [ ]Other (Emergent/Overbook, etc.): Additional Comments: Cupola Patcher called to check in about missed group and to schedule treatment planning session. Call went to . Cupola Patcher left name, number, and offered time to meet for this treatment planning session on February 15 at 8:30AM. Cupola Patcher requested a returned call if the time is not workable for [place]. This case is supervised by Dr. Lakeisha Sutton, Staff Psychologist. Diagnosis, treatment plan, and response to care are reviewed in standard 1-hour, or more, weekly individual and group supervision meetings. Future Clinic Visits 02/05/2024 13:00 CWM/NO/VVC/MHC/PSYLG 3 GR 02/12/2024 13:00 CWM/NO/VVC/MHC/PSYLG 3 GR 02/19/2024 13:00 CWM/NO/VVC/MHC/PSYLG 3 GR 03/09/2024 14:00 CWM/NO/VVC/HOMESLEEP 1 03/21/2024 15:00 CWM/NO/VVC/MHC/CLP2 /es/ WANDA DOWELL [place] [employer] Soldering Machine Signed: 01/29/2024 15:04 /tanika/ Lakeisha Sutton, PhD Clinical Psychologist, [facility] Cosigned: 01/29/2024 16:15 02/03/2024 ADDENDUM STATUS: COMPLETED Made second outreach attempt and left for to encourage him to attend group on Thursday and to plan for a group graduation meeting. Requested a call to confirm an appointment via [facility] on Thursday, February 16, 2024 at 8:30am or request an alternative time. Provided contact information. /tanika/ Lakeisha Sutton, PhD Clinical Psychologist, [facility] Signed: 02/03/2024 09:21 Receipt Acknowledged By: * AWAITING SIGNATURE * WANDA DOWELL [facility]
--- OUTSIDE RECORDS SUMMARY | 2024-03-22 11:36 | XMS_ITS | Encounter Summary ---
Author Name [facility] [place] Address [address] [place] [address] Care Team Providers Care Behavioral Health Professional Name Role Phone KEEGAN RDZ Primary Care [...] Goyal's Name Patient's Relationship to Policy Goyal [facility] ORGANIZAT [facility] RETIR EMENT Oct 10, 2023 [id number] [phone] NANO CROWE PATIENT [employer] POINT OF SERVICE [facility] Oct 04, 2016 [id number] NANO CROWE PATIENT CIGNA BEHAVIORAL HEALTH MENTAL HEALTH [facility] Oct 04, 2016 [id number] NANO CROWE PATIENT [employer] PHARMACY PRESCRIPT ION [facility] Oct 04, 2016 [id number] [phone] NANO CROWE PATIENT Selected Encounter This section includes the information on record at [place] for the Encounter. Date/Time Encounter Type Encounter Description Reason Pro vider Source Feb 05, 2024 01:00 PM Outpatient Encounter [facility] IHE Encounter Template Text not used by [place] Plan of Treatment: Future Appointments (+ 6 months) and Future Tests (+/- 45 days) The Plan of Treatment section includes future care activities for the patient [facility] [place] [facility]. This section includes future appointments and future orders which are active, pending or scheduled. Future Appointments This section includes appointments that were scheduled to occur 6 months from the date of the Encounter, up to a maximum of 20 appointments. The data comes from all [place] treatment facilities. Appointment Date/Time Appointment Type Appointme nt Facility Name Feb 12, 2024 01:00 PM [facility] Feb 16, 2024 08:30 AM [facility] - [facility]IATRY [facility] [place] [facility] Feb 19, 2024 01:00 PM AMBULATORY - PS[place]CHIATRY [facility] [place] [facility] Mar 09, 2024 02:00 PM AMBULATORY - NONE [facility] [place] [facility] Mar 21, 2024 03:00 PM AMBULATORY - PSYCHIATRY [facility] [place] [facility] May 09, 2024 03:00 PM AMBULATORY - PSYCHIATRY [facility] [place] [facility] Social History: Smoking Status (Most current) and Tobacco Use (All prior to encounter date) This section includes the most current, and the historical, smoking and tobacco- related health factors from the [place] facility where the Encounter took place. Current Smoking Status This section includes the most current smoking, or tobacco-related health factor, from the [place] facility where the Encounter took place. Date/Time Current Smoking Status Comment Federico ity Jul 28, 2023 08:30 AM [facility]BACCO [facility] [place] [facility] Tobacco Use History This section includes a history of the smoking, or tobacco-related health factors, that were collected on or before the date of the Encounter. The data comes from the [place] facility where the Encounter took place. Date/Time Smoking Status/Tobacco Use Comment F acility Feb 21, 2020 10:30 AM VA-TOBACCO NEVER USED [place] [facility] [place] [facility] Apr 20, 2018 02:11 PM VA-TOBACCO NEVER USED [facility] [place] [facility] Jan 14, 2017 02:29 PM LIFETIME NON-TOBACCO USER [facility] [facility] August 12, 2010 02:56 PM [facility] Encounter Notes: All associated encounter notes This section contains the clinical notes associated to the Encounter. 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 Expressed understanding and appreciation for the notice. Confirmed he plans to attend next week and reminded him of schedule of two further groups. Confirmed [facility] treatment planning appointment on 02/16/24 at 8:30am and asked that he complete [facility] touch measures. No evidence of imminent risk. /es/ Lakeisha Sutton, PhD Clinical Psychologist, [facility] Signed: 02/05/2024 12:06 Receipt Acknowledged By: 02/05/2024 12:36 /tanika/ WANDA DOWELL [place] Agricultural Chemicals Inspector LAKEISHA SUTTON [facility]
--- OUTSIDE RECORDS SUMMARY | 2024-03-22 11:37 | XMS_ITS | Data Portability ---
Author Organization [facility], [facility] Address [address] [place] [address] Care Team Providers Care Brakes Inspector Name Role Phone TOBY PATRICK Primary Care Provider Assessment No assessment recorded. Plan of Treatment Reminders Order Date Submit Date Provider Last Modified By Organization Details Last Modified Time Details Appointments None recorded. Lab None recorded. Referral physical therapist referral - R shoulder ARCR [email or web address] [facility], [address] [facility], [facility] [address], [place], [address], 4 14:22:21 Procedures None recorded. Surgeries None recorded. Imaging XR, shoulder, 2 or more view - rm [address] 2023 024 [facility], [address], [address], [place], [address], 4 14:12:01 XR, shoulder, 2 or more view - 4v lt shoulder room 211 2023 024 [email or web address] [facility], [address], [address], [place], [address], 4 08:25:15 MRI, shoulder, w/o contrast - left shoulder rct with pain/decr eased rom 2023 024 [facility] ([facility]), [address], [place], [address], 4 09:48:15 Medication Orders None recorded. Patient TargetsNo targets recorded. Patient InstructionsNo instructions recorded. Reason for Referral Physical Therapist Referral for Pain of right shoulder joint R shoulder ARCR Referring Physician: Kirby Croft, Orthopedic Surgery, [id number] Encounter Date: 08/18/2023 Results Created Date Observation Date Name Description Value Unit Range Abnormal Flag Note LastModifiedBy Organization Detail LastModifiedTime 08/04/19 24 08/04/2023 ELECT ROLYT E PANEL sodium 139 mmol/ L 134-14 4 Not Available [facility] ([facility]) [address] [place], [address], 08/05/2023 00:05:23 08/04/19 24 08/04/2023 ELECT ROLYT E PANEL potassium 4.7 mmol/ L 3.5-5. 2 Not Available [facility] ([facility]) [address] [place], [address], 08/05/2023 00:05:23 08/04/19 24 08/04/2023 ELECT ROLYT E PANEL chloride 101 mmol/ L 96-106 Not Available [facility] ([facility]) [address] [place], [address], 08/05/2023 00:05:23 08/04/19 24 08/04/2023 ELECT ROLYT E PANEL carbon dioxide, total 26 mmol/ L 20-29 Not Available [facility] ([facility]) [address] [place], [address], 08/05/2023 00:05:23 10/15/19 24 10/15/2023 XR, maryanul lluvia, 2 or more view [email or web address] ?Encry pted=s hAaTro YD8dLq bEUv6g %2BXZw aYqtaq 0bqfl% 2Fg9IQ a4ajBk vP9nXo QUaueC m3YtLR FvZlgJ JJ8mAn HZtai3 4f8122 AC0Kpb 3iCWKX eUC8mr 84%3D INTERFACE [facility] [address], [place], [address], 10/15/2023 14:11:31 10/15/19 24 10/15/2023 XR, zacarias teixeira, 2 or more view [email or web address] ?Encry pted=s hAaTro YD8dLq bEUv6g %2BXZw aYqtaq 0bqfl% 2Fg9IQ a4ajBk vP9nXo QUaueC m3YtLR FvZlgJ JJ8mAn HZtai3 3y3805 AC0Kpb 3iCWKX eUC8mr 84%3D INTERFACE [facility] [address], [place], [address], 10/15/2023 14:11:35 10/26/19 24 10/23/2023 MRI, zacarias teixeira, w/o contr ast [facility] Access ion Number : [id number] Name: Greg Ann Record Number : [id number] Date of : 1965 Date of Exam: 2023 Referr ing Physic gary: [facility] [address] [facility] , [address] [place] [address] Exam: MR Should er (C-) CPT 74458 - Left Room Descri ption: Upton Siem Verio 3.0T Should er MRI left Clinic al Histor y: Pain. Subacr omial decomp ressio n, distal clavic le excisi on and intra- articu lar debrid ement in 2621 Findin gs: Postsu rgical change at the acromi oclavi cular joint Superi mposed small low-gr marcia partia l intras ubstan ce tear within mathis hed fibers of the supras pinatu s tendon . Minima l fatty atroph y of the supras pinatu s muscle belly Interm ediate grade partia l articu lar surfac e tear within mathis hed and latera l outlet fibers of the infras pinatu s tendon . Additi onal partia l disrup tion at the myoten dinous juncti on of the infras pinatu s consis tent with a grade II strain . Edema within the infras pinatu s muscle belly. Mild fatty atroph y of the infras pinatu s muscle belly. The teres minor tendon is intact . Mild fatty atroph y of the teres minor muscle belly The subsca pulari s tendon is intact . The long head of the biceps tendon is intact with mild intra- articu lar biceps tendin opathy . 0.7 cm focal full-t hickne ss chondr al defect within inferi or glenoi d cartil age. 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 Impres nayla: Interm ediate grade partia l infras pinatu s tear. Additi onal grade II infras pinatu s strain with partia l disrup tion of fibers at the myoten dinous juncti on and edema within the infras pinatu s muscle belly. These findin gs are slight ly more pronou nced than those seen within the right should er on 024. Fatty atroph y of the teres minor muscle belly can be seen with lam latera l space syndro me. Intra- articu lar biceps tendin opathy . Mild glenoh umeral osteoa rthrit is. Electr onical ly Signed By: Nancy Morgan MD [facility] ([facility]) [address] [facility], [place], [address], 11/10/2023 10:54:51 12/05/19 24 08/27/2022 imagi ng/di agnos tic resul t No observ ation record ed. [email or web address] Not Available 11/06 06:58:16 12/05/19 24 05/03/2023 imagi ng/di agnos tic resul t No observ ation record ed. [email or web address] Not Available 11/06 06:58:24 12/05/19 24 11/08/2019 imagi ng/di agnos tic resul t No observ ation record ed. [email or web address] Not Available 11/06 06:58:57 Result Notes None recorded. Problems Name Problem SNOMED Code Status Onset Date Resolution Date Notes Provider Name and Address Organization Details Recorded Time Pain of right shoulder joint 181532777001 17383 Active 2019 Problem Code: M25.511; Problem Code Type: ICD-10; Status: 'A'; Not Available [facility] 4 11:13:00 Displacem ent of cervical intervert ebral disc 575748436 Active 2019 Problem Code: M50.221; Problem Code Type: ICD-10; Status: 'A'; Not Available [facility] 4 11:13:00 Lumbosacr al spondylos is with radiculop athy 349943385 Active 2019 Problem Code: M47.27; Problem Code Type: ICD-10; Status: 'A'; Not Available [facility] 4 11:13:00 Partial thickness rotator cuff tear 567918384 Active 2023 Fritz Muñoz PA-C [address], [place], [address] , [facility] 4 09:49:19 Full thickness rotator cuff tear 068227407 Active 2023 LAURA adams [place] [facility] 4 11:49:03 Internal impingeme nt of right shoulder 423215991208 9107 Active 2023 LAURA adams [place] [facility] 4 11:49:38 Rupture of rotator cuff of right shoulder 025182076126 21512 Active 2023 LAURA adams [place] [facility] 4 11:49:38 Osteoarth ritis of joint of right shoulder region 908143768492 100 Active 2023 LAURA adams [place] [facility] 4 11:49:38 Problem Notes None recorded. Procedures Surgical History Date Name Laterality Status Provider Name and Address Organization Details Recorded Time 4 Sports Shoulder completed Kirby Croft PA-C [address], [place], [address], [facility] 10/15/2023 16:29:09 Sports Shoulder completed Fritz Muñoz PA-C [address] [facility], [place], [address], [facility] 07/24/2023 09:49:05 Imaging Results Imaging Date Name Status LastModified by Organiz ation Details LastModified Time 10/15/2023 XR, shoulder, 2 or more view completed [facility] [address], [place], [address], 10/15/2023 14:11:31 10/15/2023 XR, shoulder, 2 or more view completed INTER[facility] [address], [place], [address], 10/15/2023 14:11:35 10/23/2023 MRI, shoulder, w/o contrast completed [facility] ([facility]) [address] [facility], [place], [address], 11/10/2023 10:54:51 08/27/2022 imaging/diagn ostic result completed Information not available 12/05/2023 06:58:16 05/03/2023 imaging/diagn ostic result completed Information not available 12/05/2023 06:58:24 11/08/2019 imaging/diagn ostic result completed Information not available 12/05/2023 06:58:57 Procedure Notes None recorded. Medical Equipment None Reported. Allergies No known drug allergies Medications Name Sig Start Date Stop Date Status Note LastModified by Organization Details LastModified Time azithromyci n 250 mg tablet TAKE 2 TABLETS BY MOUTH TODAY, THEN TAKE 1 TABLET DAILY FOR 4 DAYS DIRECTED active Not Available Not Available No t Available chlorthalid one 25 mg tablet TAKE 1/2 TABLET BY MOUTH EVERY DAY active Not Available Not Available No t Available tramadol 50 mg tablet TAKE 1 TABLET BY MOUTH EVERY 12 HOURS NEEDED FOR MODERATE PAIN active Not Available Not Available No t Available acetaminoph en 500 mg tablet TAKE 2 TABLETS BY MOUTH EVERY 6 HOURS NEEDED FOR PAIN (SCALE SCORE 4-6) active Not Available Not Available No t Available sildenafil 100 mg tablet TAKE 1 TABLET BY MOUTH ONCE DAILY 30 MINUTES TO 4 HOURS PRIOR TO SEXUAL ACTIVITY NEEDED active Not Available Not Available No t Available pseudoephed rine-guaife nesin ER 80-700 mg tablet,exte nded release Percocet 5-325MG Tablet 1 every 4 - 6 hours as needed 2007 active Statu s: 'Curr ent'; Not Available Not Available Not Available lidocaine 5 % topical patch APPLY 1 PATCH TOPICALLY EVERY DAY 12 HOURS ON 12 HOURS OFF active Not Available Not Available No t Available gabapentin 300 mg capsule TAKE 1 CAPSULE BY MOUTH 3 TIMES A DAY active Not Available Not Available No t Available metoprolol succinate ER 25 mg tablet,exte nded release 24 hr TAKE 1/2 OF A TABLET (12.5 MG TOTAL) BY MOUTH TWICE A DAY active Not Available Not Available No t Available potassium citrate ER 5 mEq (540 mg) tablet,exte nded release TAKE 2 TABLETS (10 MEQ TOTAL) BY MOUTH 2 (TWO) TIMES A DAY WITH MEALS. active Not Available Not Available No t Available oxycodone 5 mg tablet TAKE 1-2 TABLETS EVERY 4 HOURS NEEDED FOR 7 DAYS active Not Available Not Available No t Available metaxalone 800 mg tablet TAKE 1 TABLET BY MOUTH 3 TIMES A DAY active Not Available Not Available No t Available rosuvastati n 20 mg tablet TAKE 1 TABLET BY MOUTH NIGHTLY AT BEDTIME active Not Available Not Available No t Available duloxetine 20 mg capsule,del ayed release TAKE 1 CAPSULE BY MOUTH EVERY DAY FOR 2 WEEKS, IF TOLERATIN G RESUME 30 MG DAILY active Not Available Not Available No t Available duloxetine 30 mg capsule,del ayed release START BY TAKING 1 CAPSULE IN AM AND CAN ADD 1 CAPSULE AT NIGHT AFTER 1-2 WEEKS. active Not Available Not Available No t Available cholecalcif joseph (vitamin D3) 25 mcg (1,000 unit) tablet TAKE 1 TABLET BY MOUTH EVERY DAY active Not Available Not Available No t Available oxycodone HCl-oxycodo ne-ASA as directed 1-2 TABLETS EVERY 4-[address] WHILE TAKING THIS MEDICATIO N 08/26 completed Statu s: 'Disc ontin ued'; Not Available Not Available Not Available Eliquis 5 mg tablet TAKE 1 TABLET BY MOUTH TWICE A DAY active Not Available Not Available No t Available Entresto 24 mg-26 mg tablet PLEASE SEE ATTACHED FOR DETAILED DIRECTION S active Not Available Not Available No t Available Vitals Date Recorded Body height Body mass index (BMI) Body weight Provider Name and Address Organization Details Last Updated DateTime 07/24/2023 182.88 cm 33.2 kg/m2 569208.13 g Fritz Muñoz PA-C [address], [address], [facility] 07/24/2023 09:19:44 Date Recorded Body height Provider Name an d Address Organization Details Last Updated DateTime 08/18/2023 182.88 cm LARA SNEHAL [facility] 08/18/2023 13:24:12 Date Recorded Body height Body mass index (BMI) Body weight Provider Name and Address Organization Details Last Updated DateTime 10/15/2023 182.88 cm 31.9 kg/m2 826755.21 g CAROLINA MAZA [facility] 10/15/2023 13:58:24 Date Recorded Body height Provider Name an d Address Organization Details Last Updated DateTime 11/05/2023 182.88 cm LAUREANO CLAY [facility] 11/05/2023 13:10:04 Social History None recorded. Functional Status None recorded. Mental Status None recorded. Family History Nothing Reported. Medical History Condition Response Heart Disease Y Past Encounters Encounter ID Performer Location Encounter Start Date Encounter Closed Date Diagnosis/Indication Diagnosis SNOMED-CT Code Diagnosis ICD10 Code [id number] [facility] [address] [place] [address] 07/24/2023 08:48:14 08/04/2023 15:22:47 Partial thickness rotator cuff tear 946860206 M75.857 [id number] [facility] [address] [facility] [place] [address] 08/18/2023 13:19:15 09/11/2023 07:48:05 Pain of right shoulder joint 0287246136 5247326 M25.511 History of repair of musculotendinous cuff of shoulder 302076949 Z98.302 [id number] [facility] [address], [place] [address] 10/15/2023 13:32:59 11/11/2023 11:40:37 Pain of left shoulder joint 2001198394 3187979 M25.512 Full thick ness rotator cuff tear 893898427 M75.723 [id number] [facility] [address], [place] [address] 11/05/2023 13:04:12 11/30/2023 15:03:00 Pain of left shoulder joint 0155402833 9627265 M25.512 Health Concerns Section Related Observation LastModified by Organization Detai ls LastModified Time None Recorded Concern Status LastModified by Organization Details LastModified Time None Recorded Advance Directives Directive None Recorded Payers Encounter Date Sequence Insurance Name Policy Number Policy Goyal Covered Member ID Goyal Member ID Guarantor Name 07/24/2023 [facility] [employer] Greg Ann 10/15/2023 [facility] [employer] Greg Ann 11/05/[address] [facility] [id number] Greg Ann [id number] Greg Ann Notes Date Note Type Note Provider Name and Address Organization Details Recorded Time 07/24/2023 text/html I am seeing the patient today under the supervision of Dr. Aguirre who was available but who did not see the patient. INTERVAL HISTORY: Greg is back today for evaluation, prior history notable for 2007 right shoulder SAD/DCE had a partial-thickness rotator cuff tear at that time. He has done well until recently has had some exacerbation of her symptoms with primary complaint of weakness. We have given him previous injections he has been to physical therapy last injection in April only provided 8 weeks of benefit. MRI scan of the right shoulder recently performed was reviewed at the last visit shows some partial-thickness bursal sided tearing of supraspinatus and infraspinatus with mild regrowth of the anterior manage with acromion and heterotopic bone formation superior AC joint and associated biceps tendinopathy. He is back today reporting bilateral shoulder pain again primary complaint of weakness in the right shoulder despite conservative treatment. PAST MEDICAL/SURGICAL HISTORY Current medications per intake sheet. PHYSICAL FINDINGS The patient is well appearing, in no apparent distress, alert and oriented to person, place and time. Gait is symmetric. No significant swelling, warmth or erythema about either shoulder. Right shoulder exam findings notes forward elevation to 175 degrees, external rotate 65 degrees, internal rotation back pocket, positive impingement arc, tenderness to AC joint, tenderness bicipital groove and pain with fine of the biceps, rotator cuff strength 4/5 with external rotation and horizontal elevation, impressive bursal crepitance noted. Left shoulder exam shows full range of motion with mild subacromial bursal irritability. Cervical Exam demonstrates limited ROM without radicular symptoms. Peripheral, vascular, lymphatic examination, skin, neurologic coordination, reflexes, sensation are within normal limits. X-ray findings: Taken previously in the office findings include glenohumeral joint is well-preserved, type II acromion, mild heterotopic bone formation AC joint superiorly. ASSESSMENT: #1. Left shoulder rotator cuff tendinitis #2. Partial-thickness bursal sided rotator cuff tear right shoulder with impingement, AC joint arthropathy, biceps tendinopathy. PLAN: With regards to the left shoulder recommended performed left shoulder subacromial space injection for conservative treatment. His right shoulder symptoms however continue to be a primary source of pain with weakness associated with day-to-day activities and functional ADLs. He has been through an extensive course of physical therapy recently and prior corticosteroid injection in early April with short-term benefit. Considering MRI findings combined with the lack of improvement despite conservative treatment I recommended right shoulder arthroscopic evaluation with likely rotator cuff repair and possible biceps tenodesis, revision acromioplasty and distal clavicle excision. [facility] speech recognition head sulfide operator software was used to create portions of this document. An attempt at proofreading has been made to minimize errors. Please call for corrections Fritz Muñoz PA-C [address] [place], [place] [address] [address] [address], [place], [address], [facility] 07/24/2023 09:50:02 08/18/2023 text/html I am seeing the patient today under the supervision of {{Dr. Valerie Moreno#}} Who was available but who did not see the patient. HPI: The patient returns today now approximately one week out from {{right* left}} shoulder subacromial decompression, distal clavicle excision and arthroscopic rotator cuff repair with bioabsorbable anchors.The patient is doing reasonably well at this time. weaned off narcotic pain medication and only taken Tylenol. Compliant with sling and brace use since surgery. Past family, medical, social history and review of systems has been reviewed, updated and is located in the patient? s chart. Examination:The patient is well appearing and in no apparent distress. Alert and oriented x3. Gait is symmetric. Vital signs per nurse's intake. Evaluation of the {{right* left}} shoulder reveals Portal sites are benign. Steri-Strips in place. Ecchymosis over the anterior chest wall is already resolving. Anterior middle and posterior deltoid are intact. Passive manipulation of the right shoulder reveals no subacromial nor GH crepitus. Gentle active assisted elevation about 90, external rotation at 45. Active motion is not attempted nor stressed at this point in time. X-rays ordered, obtained and reviewed at [facility] X-rays were ordered, obtained and reviewed today at [facility]. Post-operative radiographs reveal a Type 1 acromion morphology. Adequate distal clavicle excision site. Bioabsorbable anchor fixation is not visible on the films. Impression:The patient is doing well at this time s/p a recent arthroscopic {{right* left}} shoulder rotator cuff repair with associated subacromial decompression and distal clavicle excision. Plan:At this point in time, the patient is referred to outpatient physical therapy to begin week 3 to week 4. Appropriate precautions were discussed until that point in time. We will follow a standard post-operative rotator cuff protocol from there onward. Will start with passive ROM followed by active assisted elevation follwed by active elevation and eventually strengthening. At this point in time medications were addressed. Out of work notes were reviewed and extended. Physical therapy referral was given. Recheck as scheduled in eight weeks. Kirby Croft PA-C [address] [facility] [address], [place], [address], [facility] 08/18/2023 14:06:20 10/15/2023 text/html I am seeing the patient today under the supervision of Dr. Aguirre who was available but who did not see the patient. The patient returns today 8 weeks status post {{right* left}} arthroscopic rotator cuff repair with associated subacromial decompression and distal clavicle excision. The patient continues to describe qvrt-qc-egebnyxm discomfort, adequately treated with oral anti-inflammatories. Has weaned from narcotic pain medications. Remains compliant with a postoperative physical therapy protocol. Weaned from sling at week 3, then initiated physical therapy. Is currently working on active elevation. No negative postoperative complications or setbacks have been noted. Patient reports that his biggest complaint is left shoulder pain. Patient does have history of a subacromial decompression distal clavicle excision from a workplace injury to that shoulder about 4 years ago. Patient did well initially. Patient states that 2 weeks ago was lifting a metal roof with mainly his left arm secondary to his recent right shoulder surgery felt a tearing sensation and now has pain discomfort the lateral brachium of the right shoulder with weakness with overhead motions. PFMSH and ROS has been reviewed, updated, and signed by me and is located in the patient's chart. On physical examination, well-appearing individual in no acute distress, alert and oriented x 3 with a pleasant affect. Cervical spine range of motion is mildly limited at this time with some minor trapezial irritability. Passive manipulation of the operative shoulder reveals soft subacromial crepitus. Able to support the arm with antigravity strength once positioned. Active-assisted elevation to about 155, external rotation 50, internal rotation approximately 30. Anterior, middle, and posterior deltoid are intact. No shoulder instability. No warmth, no redness nor erythema. No evidence for active infection. Axillary nerve function is intact. Surgical arthroscopy portals are benign. Minimal AC joint pain. No other neurovascular change or compromise is noted. Examination of the left shoulder has no effusion Athiam or warmth forward flexion 120 degrees of abduction 120 degrees external rotation 30 degrees internal rotation 30 degrees is 4-5 strength of the supraspinatus 4+ out of 5 strength infraspinatus. 5 out of 5 strength subscap and biceps tendon. Negative impingement arc. 4 views left shoulder demonstrate adequate distal clavicle excision type I acromion. No calcifications in the tendon. No acute fracture appreciated. No lytic or blastic lesions noted. IMPRESSION: Doing well status post recent rotator cuff repair. Is following an expected postoperative path and protocol. Will continue active elevation at this time. Delay rotator cuff/periscapular strengthening until approximately week 10 postoperative. Understands they will continue to be careful with the shoulder as the cuff repair still lacks adequate strength to allow unrestricted use or strengthening. Addressed work notes. Addressed medication refills. New P.T. prescription given. Recheck is scheduled in approximately 8 weeks.As for the left shoulder discussed multiple treatment options and biggest concerns given the amount of weakness on that left side is a rotator cuff tear and recommend an MRI to further evaluate such given the weakness. Also recommend a cortisone injection to help him as we would not likely be able to undergo surgical intervention for that left shoulder until his right shoulder is fully recovered in the next 2 to 3 months. Patient agrees to treatment plan. Kirby Croft PA-C [address] [place] [address] [address], [place], [address], [facility] 10/20/2023 10:25:52 11/05/2023 text/html HPI: Patient was contacted in regards to his left shoulder. He was last in the office for such by myself a couple weeks ago which time he was having pain discomfort weakness of the lateral brachium this was during his 8-week right rotator cuff repair follow-up. Patient did have history of subacromial decompression distal clavicle excision of the left shoulder which was initially done under Worker's Comp. but reinjured the shoulder 2 weeks ago and had concerns over possible rotator cuff tear. Underwent a cortisone injection and an MRI which is available for review today. Patient states that only get some temporary relief from the previously done cortisone injection otherwise symptoms have remained the same on that left shoulder. Past family, medical, social history and review of systems has been reviewed, updated and is located in the patient? s chart. Examination: Patient answers questions appropriately. MRI I of that left shoulder shows some underlying arthritic changes of the glenohumeral joint but no significant defect appreciated. Biceps is in the groove. No significant subscapularis tendinopathy. Does have some increased signal at the musculotendinous junction of the supraspinatus extending slightly into the infraspinatus. No significant evidence of any footprint both articular or bursal sided tearing appreciated. Impression: Left shoulder pain Plan: May the diagnosis discussed with patient today. At this time does have some underlying tendinopathy of the left shoulder but does have some intersubstance tearing of the musculotendinous junction however hoping I can attempt to treat conservatively at this juncture. Discussed the roles of continued use of as needed anti-inflammatories as well as doing exercise and physical therapy for the left side that he is learning for his right shoulder. Patient agrees with treatment plan. Has scheduled follow-up with Dr. Us for the formal follow-up as a right rotator cuff repair and if he still having difficulty with that left shoulder pain discussed the role of surgical intervention for such. This visit was a real-time telemedicine interaction between a physician respiratory care assistant in the medical office and the patient in their home. The totality of the communication of information exchanged between the physician Cold Meat Chef (myself) and the patient during the course of the synchronous telemedicine services was sufficient to meet the lobo components and/or requirements of the same service when rendered via [id number]-[id number] interaction. I discussed with the patient risks and benefit of telemedicine services and the patient consented to the receipt of such telemedicine services. Telemedicine: Phone call Supervising MD: Dr. Suero Patient Location: Home Physician Location: [facility] Time spent with patient: 7 minutes Kirby Croft PA-C [address], [place], [address], [facility] 11/11/2023 08:36:04
--- OUTSIDE RECORDS SUMMARY | 2024-03-22 11:37 | XMS_ITS ---
Author Name [facility] [place] [facility] [place] Address [address] [place] [address] Care Team Providers Care Manager Facility Name Role Phone KEEGAN RDZ Primary Care [...] Name Patient's Relationship to Policy Goyal BCBS [facility] ORGANIZAT ION [facility] RETIR EMENT Oct 10, 2023 [id number] NANO CROWE PATIENT [employer] POINT OF SERVICE [facility] Oct 04, 2016 [id number] NANO CROWE PATIENT [employer] BEHAVIORAL HEALTH MENTAL HEALTH [facility] Oct 04, 2016 [id number] NANO CROWE PATIENT [employer] PHARMACY PRESCRIPT ION [facility] Oct 04, 2016 [id number] NANO CROWE PATIENT Selected Encounter This section includes the information on record at [place] for the Encounter. Date/Time Encounter Type Encounter Description Reason Provider Source Mar 09, 2024 02:00 PM SELF-MGMT EDUC & TRAIN 1 PT SLEEP MEDICINE ICD-10-CM G47.33 Obstructive sleep apnea (adult) (pediatric) EDWIN PHIPPS E Encounter Template Text not used by [place] Assessments - Encounter Diagnoses This section includes the primary and secondary diagnoses documented for the Encounter. Date/Time Primary/Secondary Diagnosis Diagnosis Name Provider Source Mar 09, 2024 04:20 PM PRIMARY Obstructive sleep apnea (adult) (pediatric) MOISEALEDWIN [facility] Plan of Treatment: Future Appointments (+ 6 months) and Future Tests (+/- 45 days) The Plan of Treatment section includes future care activities for the patient from all [place] [facility]. This section includes future appointments and future orders which are active, pending or scheduled. Future Appointments This section includes appointments that were scheduled to occur 6 months from the date of the Encounter, up to a maximum of 20 appointments. The data comes from all [place] treatment facilities. Appointment Date/Time Appointment Type Appointme nt Facility Name Mar 21, 2024 03:00 PM AMBULATORY - PSYCHIATRY [facility] May 09, 2024 03:00 PM AMBULATORY - PSYCHIATRY [facility] Social History: Smoking Status (Most [...] Federico ity Jul 28, 2023 08:30 AM [place] NEVER USED [facility] Tobacco Use History This section includes a history of the smoking, or tobacco-related health factors, that were collected on or before the date of the Encounter. The data comes from the [place] facility where the Encounter took place. Date/Time Smoking Status/Tobacco Use Comment F acility Feb 21, 2020 10:30 AM [place] [facility] Apr 20, 2018 02:11 PM [facility]ACCO [facility] Jan 14, 2017 02:29 PM LIF[facility] August 12, 2010 02:56 PM LIFETIME NON-TOBACCO USER [facility] Encounter Notes: All associated encounter notes This section contains the clinical notes associated to the Encounter. Date/Time Encounter Note(s) Provider Source Mar 09, 2024 02:00 PM SLEEP MEDICINE CON SULT: LOCAL TITLE: SLEEP STUDY/CONSULT REPORT STANDARD TITLE: SLEEP MEDICINE CONSULT DATE OF NOTE: MAR 09, 2024@14:00 ENTRY DATE: MAR 09, 2024@16:20:56 AUTHOR: EDWIN PHIPPS EXP COSIGNER: URGENCY: STATUS: COMPLETED SLEEP STUDY/CONSULT REPORT Has ADDENDA Service Location Device Information Education was provided about what sleep apnea is, how home sleep apnea testing is used to diagnose sleep apnea, and what treatment options are most commonly used to treat it. Patient was offered to receive home sleep testing device by mail and accepted. Verbal instruction was provided for use of home sleep testing equipment. All questions were answered and the patient expressed understanding of the provided instructions and care plan. [place] was mailed a package including: Other notes Patient did not show up for Video appointment. photocopier technician called, left call back number in case patient has any questions. Minutes professional time spent providing care.: 30 min Diagnoses: G47.33 - Obstructive Sleep Apnea Procedures 1 Individual (1) Education /DIMAS Goldman REHAB SPEC Signed: 03/09/2024 16:20 03/16/2024 ADDENDUM STATUS: COMPLETED Patient called today regarding the sleep study. He did not do yet but he will be doing study this weekend and sending back. /DIMAS Goldman REHAB SPEC Signed: 03/16/2024 13:32 EDWIN PHIPPS [facility]
--- OUTSIDE RECORDS SUMMARY | 2024-03-22 11:37 | XMS_ITS ---
Author Name [facility] [facility] [place] [facility] [place] Address [address] [place] [id number] Care Team Providers Care Trauma Therapist Name Role Phone EKEGAN RDZ Primary Care Provider Unavailabl e Insurance [...] [facility] RET[facility] E[facility] Oct 10, 2023 [id number] [phone] NANO CROWE PATIENT [employer] POINT OF SERVICE [facility] Oct 04, 2016 [id number] NANO CROWE PATIENT [employer] BEHAVIORAL HEALTH MENTAL HEALTH [facility] Oct 04, 2016 [id number] NANO CROWE PATIENT [employer] PHARMACY PRESCRIPT ION [facility] Oct 04, 2016 [id number] NANO CROWE PATIENT Selected Encounter This section includes the information on record at [place] for the Encounter. Date/Time Encounter Type Encounter Description Reason Provider Source Feb 19, 2024 01:00 PM GROUP PSYCHOTHERAPY [facility] ICD-10-CM F43.10 Post-traumatic stress disorder, unspecified HANDY SUTTON IHE Encounter Template Text not used by [place] Assessments - Encounter Diagnoses This section includes the primary and secondary diagnoses documented for the Encounter. Date/Time Primary/Secondary Diagnosis Diagnosis Name Provider Source Feb 19, 2024 02:21 PM PRIMARY Post-traumatic stress disorder, unspecified CHARLESALENAAbnerALL E [facility] Plan of Treatment: Future Appointments (+ 6 months) and Future Tests (+/- 45 days) The Plan of Treatment section includes future care activities for the patient from all [place] [facility]. This section includes future appointments and future orders which are active, pending or scheduled. Future Appointments This section includes appointments that were scheduled to occur 6 months from the date of the Encounter, up to a maximum of 20 appointments. The data comes from all [place] treatment facilities. Appointment Date/Time Appointment Type Appointme nt Facility Name Mar 09, 2024 02:00 PM [facility] Mar 21, 2024 03:00 PM [facility] May 09, 2024 03:00 PM AMBULATORY - PSYCHIATRY [facility] Social History: Smoking Status (Most current) and Tobacco Use (All prior to encounter date) This section includes the most current, and the historical, smoking and tobacco- related health factors from the [place] facility where the Encounter took place. Current Smoking Status This section includes the most current smoking, or tobacco-related health factor, from the [place] facility where the Encounter took place. Date/Time Current Smoking Status Comment Facil ity Jul 28, 2023 08:30 AM [place] NEVER USED [facility] Tobacco Use History This section includes a history of the smoking, or tobacco-related health factors, that were collected on or before the date of the Encounter. The data comes from the [place] facility where the Encounter took place. Date/Time Smoking Status/Tobacco Use Comment F acility Feb 21, 2020 10:30 AM [facility]ACCO [facility] Apr 20, 2018 02:11 PM VA-TOBACCO [facility]ED [facility] Jan 14, 2017 02:29 PM LIFETIME [facility]CO [facility] August 12, 2010 02:56 PM [facility] Encounter Notes: All associated encounter notes This section contains the clinical notes associated to the Encounter. Date/Time Encounter Note(s) Provider Source Feb 19, 2024 02:19 PM PSYCHIATRY GROUP COUNSELING NOTE: LOCAL TITLE: PSYCHOLOGY GROUP NOTE STANDARD TITLE: PSYCHIATRY GROUP COUNSELING NOTE DATE OF NOTE: FEB 19, 2024@14:19 ENTRY DATE: FEB 19, 2024@14:19:58 AUTHOR: LAKEISHA SUTTON EXP COSIGNER: URGENCY: STATUS: COMPLETED BHIP [facility] with [facility] Group Therapy Note SESSION MODALITY: [facility] (clinic to [facility] location) Chester's location: Provider confirmed that Chester is currently located at Primary Address listed in CPRS. Primary phone number: Confirmed for all participants. [...] control or get rid of angry feelings. Group members interactively engaged with a few activities, including don't think about chocolate chip cookes, don't be anxious and get drunked into a tank of sharks, and earn 10 million dollars for falling in love with the next person you see. They were encouraged to engage in mindful awareness and to consider further how they have been trying to control angry feelings. Veterans expressed appreciation to one another and group leaders as this was the final group. Group members who completed all content were provided with or mailed graduation certificates. PROGRESS: arrived on time and was an active and appropriate participant. Chester participated in the mindfulness practices and group discussions. Mental Status was not formally assessed due to the nature of the encounter. Chester maintained appropriate eye contact and was alert. Chester spoke clearly and coherently. 's thoughts were linear and related. Chester's affect was congruent to content and appropriate in range. No clinical signs of intoxication, withdrawal, psychosis, or cognitive impairment were observed. No evidence of suicidal or homicidal ideation. There was no evidence of AH/VH or delusions. Chester was future oriented. DSM-V DIAGNOSTIC IMPRESSIONS(per chart): PTSD, chronic PLAN: This was the final [facility] Group. Each member has had or will have an individual treatment planning meeting or has solidified a plan for next steps with program aide group work. Group members are aware they can outreach to brief writer for assistance with treatment planning as needed. /tanika/ Lakeisha Sutton, PhD Clinical Psychologist, [facility] Signed: 02/19/2024 14:24 LAKEISHA SUTTON [place] [facility]
--- OUTSIDE RECORDS SUMMARY | 2024-03-22 11:37 | XMS_ITS ---
Author Name [facility] [facility] [place] [facility] [place] Address [address] [place] [address] Care Team Providers Care Radiologic Technician Name Role Phone KEEGAN RDZ Primary Care [...] Policy [facility] RETIR EMENT Oct 10, 2023 [id number] NANO CROWE PATIENT [employer] POINT OF SERVICE [facility] Oct 04, 2016 [id number] NANO CROWE PATIENT [employer]IG[employer] BEHAVIORAL HEALTH MENTAL HEALTH [facility] Oct 04, 2016 [id number] NANO CROWE PATIENT [employer] PHARMACY PRESCRIPT ION [facility] Oct 04, 2016 [id number] NANO CROWE PATIENT Selected Encounter This section includes the information on record at [place] for the Encounter. Date/Time Encounter Type Encounter Description Reason Provider Source Feb 16, 2024 08:30 AM PSYTX W PT 45 MINUTES [facility] - IND ICD-10-CM F43.10 Post-traumatic stress disorder, unspecified ALL SUTTON Encounter Template Text not used by [place] Assessments - Encounter Diagnoses This section includes the primary and secondary diagnoses documented for the Encounter. Date/Time Primary/Secondary Diagnosis Diagnosis Name Provider Source Feb 16, 2024 09:30 AM PRIMARY Post-traumatic stress disorder, unspecified MAYO WHALEY [facility] Plan of Treatment: Future Appointments (+ 6 months) and Future Tests (+/- 45 days) The Plan of Treatment section includes future care activities for the patient from all [place] [facility] This section includes future appointments and future orders which are active, pending or scheduled. Future Appointments This section includes appointments that were scheduled to occur 6 months from the date of the Encounter, up to a maximum of 20 appointments. The data comes from all [place] treatment facilities. Appointment Date/Time Appointment Type Appointme nt Facility Name Feb 19, 2024 01:00 PM [facility] Mar 09, 2024 02:00 PM [facility] Mar 21, 2024 03:00 PM [facility] May 09, 2024 03:00 PM AMBULATORY - PSYCHIATRY [facility] Social History: Smoking Status (Most current) [...] 28, 2023 08:30 AM HI-TOBACCO NEVER USED [facility] Tobacco Use History This section includes a history of the smoking, or tobacco-related health factors, that were collected on or before the date of the Encounter. The data comes from the [place] facility where the Encounter took place. Date/Time Smoking Status/Tobacco Use Comment F acility Feb 21, 2020 10:30 AM [place]-TOBACCO NEVER USED [facility] Apr 20, 2018 02:11 PM VA-TOBACCO NEVER USED [facility] [place] [facility] Jan 14, 2017 02:29 PM LIFETIME NON-TOBACCO USER [facility] August 12, 2010 02:56 PM LIFETIME NON-TOBACCO USER [facility] [place] [facility] Encounter Notes: All associated encounter notes This section contains the clinical notes associated to the Encounter. Date/Time Encounter Note(s) Provider Source Mar 18, 2024 04:14 PM MENTAL HEALTH KIRSTEN TMENT PLAN NOTE: LOCAL TITLE: MH TREATMENT PLAN STANDARD TITLE: MENTAL HEALTH TREATMENT PLAN NOTE DATE OF NOTE: MAR 18, 2024@16:14:19 ENTRY DATE: MAR 18, 2024@16:14:37 AUTHOR: LAKEISHA SUTTON EXP COSIGNER: URGENCY: STATUS: COMPLETED MH TREATMENT PLAN - Mar, @ 04:14PM Visit Date: Feb, @ 08:30 - CWM/NO/VVC/MHC/CIELO MHTC not assigned STRENGTHS: Expressed desire/motivation for change Accepts guidance/feedback NEEDS: I need help responding to angry feelings in ways that do not cause problems for me in my life TREATMENT PLAN: Problem: Difficulty managing angry feelings without acting in ways regrets Status: COMPLETED Comments: successfully completed participation in the 12 week Living with Angry Feelings group. Steuben discussed next steps in his MH treatment path with a director group sales and expressed agreement and understanding regarding the plan developed. 03/18/2024 (by LAKEISHA SUTTON) Goal: Increase understanding of anger process and ways to effectively intervene so does not act in ways that are unworkable or in conflict with personal values. Increase use of mindful and skillful behaviors, including those related to communicating with others and forgiving oneself and/or others. Status: COMPLETED Comments: Completed by completing problem. 03/18/2024 (by LAKEISHA SUTTON) Objective: Steuben will actively participate weekly in group to practice mindfulness, to understand personal experiences in the anger process, and to engage in adaptive behaviors in line with personal values and goals. Status: COMPLETED Comments: Completed by completing problem. 03/18/2024 (by LAKEISHA SUTTON) Projected Target: 01/05/2024 Intervention: 12 week hybrid VVC/F2F Living with Angry Feelings group that incorporates content from Acceptance and Commitment Therapy and Dialectical Behavioral Therapy. Status: COMPLETED Comments: Completed by completing problem. 03/18/2024 (by LAKEISHA SUTTON) Discipline: Mental Health Clinic Time Frame: One time per week for 12 weeks Providers: LAKEISHA SUTTON: PSYCHOLOGIST DISCIPLINE: Mental Health Clinic Entered Treatment: 10/13/2023 @ 02:23PM Review Date: 10/12/2024 Anticipated Discharge: None PATIENT ACTION: PATIENT AGREED TO PLAN DISCUSSED. INTERDISCIPLINARY TEAM: LAKEISHA SUTTON: PSYCHOLOGIST COMMUNICATION: Relevant treatment options, including evidence-based interventions, were considered and discussed with the Steuben. YES A copy of the treatment plan was given to the Steuben. NO Risks, benefits, and potential complications were discussed with the Steuben. YES /es/ Lakeisha Sutton, PhD Clinical Psychologist, Mental Health Clinic Signed: 03/18/2024 16:14 LAKEISHA SUTTON [facility] [place] [facility] Feb 16, 2024 01:07 PM MENTAL HEALTH DIAG NOSTIC STUDY NOTE: LOCAL TITLE: MENTAL HEALTH DIAGNOSTIC STUDY STANDARD TITLE: MENTAL HEALTH DIAGNOSTIC STUDY NOTE DATE OF NOTE: FEB 16, 2024@13:07:37 ENTRY DATE: FEB 16, 2024@13:07:37 AUTHOR: LAKEISHA SUTTON EXP COSIGNER: URGENCY: STATUS: COMPLETED Assessments were sent to the Steuben via text/email. These assessments were completed by NANO CROWE on their own device on 02/16/2024 8:28:22 AM. PATIENT HEALTH QUESTIONNAIRE-9 (PHQ-9) The patient reported [...] the days 6. Feelings of failure, guilt: More than [...] others. PHQ-9 Total Score (past 180 days): 02/16/2024 20 12/22/2023 20 10/01/2023 17 BRIEF ADDICTION MONITOR-REVISED (BAM-R) Patient reported the following over the last 30 days: 1. Physical health: Poor 2. Nights trouble falling asleep or staying asleep: 23 3. Days depressed, anxious, angry or very [...] increased risk for using alcohol/drugs: 0 12. Yarsani or spirituality supports recovery: Extremely 13. Days with much of the time spent at work, school, or volunteerin 14. Enough income (from legal sources) to pay for necessities: Yes 15. Bothered by arguments or problems getting along with family/friends: Extremely 16. Days in contact with family/friends supportive of recovery: 2 17. Satisfied with progress toward achieving recovery goals: Moderately BAM Subscales: USE = 0 Scores range from 0 to 90 RISK = 113 Scores range from 0 to 180 PROTECTION = 96 Scores range from 0 to 180 BAM-R Risk (past 180 days): 02/16/2024 113 12/22/2023 100 10/01/2023 114 BAM-R Protective (past 180 days): 02/16/2024 96 12/22/2023 104 10/01/2023 115 BAM-R Use (past 180 days): 02/16/2024 0 12/22/2023 0 10/01/2023 0 DIFFICULTIES IN EMOTION REGULATION SCALE-16 (DERS-16) The patient reported that the statements below applied to them as follows: 1. Difficulty making sense out of their feelings: Almost always 91-100% 2. Confused about how they feel: Most of the time 66-90% 3. When upset, difficulty getting work done: Almost always 91-100% 4. When upset, become out of control: About half the time 36-65% 5. When upset, believe that they will remain that way for a long time: Most of the time 66-90% 6. When upset, believe that they'll end up feeling very depressed: Almost always 91-100% 7. When upset, difficulty focusing on other things: Almost always 91-100% 8. When upset, feel out of control: About half the time 36-65% 9. When upset, feel ashamed with self for feeling that way: About half the time 36-65% 10. When upset, feel like they are weak: Most of the time 66-90% 11. When upset, difficulty controlling behaviors: Almost always 91-100% 12. When upset, believe that there is nothing they can do to make self feel better: Most of the time 66-90% 13. When upset, become irritated with self for feeling that way: About half the time 36-65% 14. When upset, start to feel very bad about self: Most of the time 66-90% 15. When upset, difficulty thinking about anything else: Most of the time 66-90% 16. When upset, emotions feel overwhelming: Almost always 91-100% DERS-16 Total Score: 66 Clarity Score: 9 Goals Score: 14 Impulse Score: 11 Strategies Score: 22 Nonacceptance Score: 10 Higher scores reflect greater levels of difficulty in emotion regulation. DERS-16 Total Score (past 180 days): 02/16/2024 66 12/22/2023 61 10/01/2023 71 THE ACCEPTANCE AND ACTION QUESTIONNAIRE-II (AAQ-II) The patient rated how true each statement is for them as follows: 1. It's OK if I remember something unpleasant: Seldom true 2. My painful experiences and memories make it difficult for me to live a life that I would value: Frequently true 3. I am afraid of my feelings: Frequently true 4. I worry about not being able to control my worries and feelings: Frequently true 5. My painful memories prevent me from having a fulfilling life: Almost always true 6. I am in control of [...] how I want to live my life: Very seldom true Total Score: 24 Scores range from 10 to 70 with higher scores indicating greater psychological flexibility. AAQ-II Total Score (past 180 days): 02/16/2024 24 12/22/2023 24 10/01/2023 19 /es/ Lakeisha Sutton, PhD Clinical Psychologist, Mental Health Clinic Signed: 02/16/2024 16:51 LAKEISHA SUTTON [facility] Feb 16, 2024 09:13 AM TELEHEALTH NOTE: LOCAL TITLE: [place] [facility] PSYCHOLOGY NOTE STANDARD TITLE: TELEHEALTH NOTE DATE OF NOTE: FEB 16, 2024@09:13 ENTRY DATE: FEB 16, 2024@09:13:57 AUTHOR: MAYO WHALEY COSIGNER: LAKEISHA SUTTON URGENCY: STATUS: COMPLETED Living With Angry Feelings Group Treatment Planning Appointment [place] [facility] (cl[facility] to [facility] location) 's location: Provider confirmed that Steuben is currently located at Primary Address listed in [place] [facility] consult and verified the contact phone number has provided verbal consent either today or previously when seen via VV in mental health. This consent was obtained [...] [ ] Social Security # Procedure: The Steuben was seen for a [facility] session in [facility] Problem: Difficulty managing angry feelings without acting in ways Steuben regrets Objective: Discuss potential next steps following participation the Living with Angry Feelings Group given upcoming graduation on February 19, 2024. Progress: Agreed to meet to discuss 's experience in the group, perception of current needs, and potential next steps following group graduation. Provided feedback regarding self-report measures, sharing graphs and explaining the context. spoke about how the shifts in self-report scores match with his experiences since starting group. Steuben reported increase in depressive symptoms due to ongoing chronic pain. Steuben reported his primary goal is helping support his daughter. spoke about how the group content has been helpful in his life approximately one third of the time. 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 Steuben noted having a difficult time applying knowledge and skills when feeling angry. Steuben was encouraged to continue practicing skills in his daily life to help generalize skills for managing angry feelings. spoke about how it has been helpful to have the perspective of both co-facilitators throughout group and expressed his gratitude to newspaper writer and co-java developer consultant, Dr. Lakeisha Sutton. considered potential next steps, expressing that he intends to continue with individual therapy consultation and is aware he can request referrals from any of his treatment providers. indicated interest in pursuing a next outpatient therapy goal toward his goals of building skills to manage difficult emotions and recover from trauma. Discussed the options of CBT for Chronic Pain, Mindful Self Compassion groups within the [facility] (F2F and VVC options) and the F2 Art of Happiness group. expressed desire not to make any decisions right now about group due to unclear availability until approximately April 2024. plans to continue on the waitlist for trauma-focused treatment. Confirmed that will graduate from the Living with Angry Feelings group on Monday, February 19, 2024. Steuben expressed satisfaction with this plan and gratitude for this newspaper writer and for group co-leader Mayo Whaley MS. Assessment: arrived on time for session and was dressed appropriately with appropriate hygiene. Steuben maintained appropriate eye contact and was alert. Steuben spoke clearly and coherently. Veterans thoughts were linear and related. Veterans affect was congruent to content and appropriate in range. There was no evidence of AH/VH or delusions. There was no evidence of suicidal and homicidal ideation. Steuben was reminded of emergency resources through this [facility] and the Veterans Crisis Line number. Diagnostic Impressions According to the DSM-V and Per Chart Review: PTSD, chronic Plan: Agreed will graduate from the Living with Angry Feelings Group on 02/19/24. agreed to follow up regarding interest in treatment options when his availability becomes more clear. This case is supervised by Dr. Lakeisha Sutton, Staff Psychologist. Diagnosis, treatment plan, and response to care are reviewed in standard 1-hour, or more, weekly individual and group supervision meetings. /tanika/ MAYO WHALEY MS Wet Process Head Miller Signed: 02/16/2024 09:31 /tanika/ Lakeisha Sutton, PhD Clinical Psychologist, Mental Health Clinic Cosigned: 02/16/2024 11:47 MAYO WHALEY [facility]
--- OUTSIDE RECORDS SUMMARY | 2024-03-22 11:37 | XMS_ITS ---
Author Name [facility] [place] Address [address] [place] [address] Care Team Providers Care Strength And Conditioning Coach Name Role Phone KEEGAN RDZ Primary [...] to Policy Goyal [facility] ORGANIZAT [facility] RETIR EMENT Oct 10, 2023 [id number] NANO CROWE PATIENT [employer] POINT OF SERVICE [facility] Oct 04, 2016 [id number] [phone] NANO CROWE PATIENT CIGNA BEHAVIORAL HEALTH MENTAL HEALTH [facility] Oct 04, 2016 [id number] NANO CROWE PATIENT [employer] PHARMACY PRESCRIPT ION [facility] Oct 04, 2016 [id number] [phone] NANO CROWE PATIENT Selected Encounter This section includes the information on record at [place] for the Encounter. Date/Time Encounter Type Encounter Description Reason Pro vider Source Mar 21, 2024 03:00 PM Outpatient Encounter [facility] Encounter Template Text not used by [place] Plan of Treatment: Future Appointments (+ 6 months) and Future Tests (+/- 45 days) The Plan of Treatment section includes future care activities for the patient [facility] [place] [facility]. This section includes future appointments and future orders which are active, pending or scheduled. Future Appointments This section includes appointments that were scheduled to occur 6 months from the date of the Encounter, up to a maximum of 20 appointments. The data comes from all [place] treatment facilities. Appointment Date/Time Appointment Type Appointme nt Facility Name May 09, 2024 03:00 PM [facility] [place] Social History: Smoking Status (Most current) and Tobacco Use (All prior to encounter date) This section includes the most current, and the historical, smoking and tobacco- related health factors from the [place] facility where the Encounter took place. Current Smoking Status This section includes the most current smoking, or tobacco-related health factor, from the [place] facility where the Encounter took place. Date/Time Current Smoking Status Comment Facil ity Jul 28, 2023 08:30 AM VA-TOBACCO NEVER USED [facility] [place] [facility] Tobacco Use History This section includes a history of the smoking, or tobacco-related health factors, that were collected on or before the date of the Encounter. The data comes from the [place] facility where the Encounter took place. Date/Time Smoking Status/Tobacco Use Comment F acility Feb 21, 2020 10:30 AM VA-TOBACCO NEVER USED [facility] [place] [facility] Apr 20, 2018 02:11 PM VA-TOBACCO NEVER USED [facility] [place] [facility] Jan 14, 2017 02:29 PM LIFETIME NON-TOBACCO USER [facility] [place] [facility] August 12, 2010 02:56 PM LIFETIME NON-TOBACCO USER [place] [facility] [place] [facility]
--- OUTSIDE RECORDS SUMMARY | 2024-03-22 11:37 | XMS_ITS | Encounter Summary ---
Author Name [facility] [place] Address [address] [place] [address] Care Team Providers Care Area Safety Manager Name Role Phone KEEGAN RDZ Primary [...] to Policy [facility] RETIR EMENT Oct 10, 2023 [id number] NANO CROWE PATIENT [employer] POINT OF SERVICE [facility] Oct 04, 2016 [id number] NANO CROWE PATIENT [employer]IG[employer] BEHAVIORAL HEALTH MENTAL HEALTH [facility] Oct 04, 2016 [id number] NANO CROWE PATIENT [employer] PHARMACY PRESCRIPT ION [facility] Oct 04, 2016 [id number] [phone] NANO CROWE PATIENT Selected Encounter This section includes the information on record at [place] for the Encounter. Date/Time Encounter Type Encounter Description Reason Provider Source Mar 08, 2024 12:40 PM SLEEP STUDY UNATT&RESP EFFT SLEEP STUDY ICD-10-CM R06.83 Snoring [place] PHIPPSDERIC IHE Encounter Template Text not used by [place] Assessments - Encounter Diagnoses This section includes the primary and secondary diagnoses documented for the Encounter. Date/Time Primary/Secondary Diagnosis Diagnosis Name Provider Source Mar 08, 2024 12:40 PM PRIMARY Snoring EDWIN PHIPPS [facility] ([id number]) Plan of Treatment: Future Appointments (+ 6 months) and Future Tests (+/- 45 days) The Plan of Treatment section includes future care activities for the patient from all [place] treatmentfacilities. This section includes future appointments and future orders which are active, pending or scheduled. Future Appointments This section includes appointments that were scheduled to occur 6 months from the date of the Encounter, up to a maximum of 20 appointments. The data comes from all [place] treatment facilities. Appointment Date/Time Appointment Type Appointme nt Facility Name Mar 09, 2024 02:00 PM [facility] Mar 21, 2024 03:00 PM [facility] May 09, 2024 03:00 PM [facility] Encounter Notes: All associated encounter notes This section contains the clinical notes associated to the Encounter. Date/Time Encounter Note(s) Provider Source Mar 08, 2024 12:40 PM SLEEP MEDICINE CON SULT: LOCAL TITLE: SLEEP STUDY/CONSULT REPORT STANDARD TITLE: SLEEP MEDICINE CONSULT DATE OF NOTE: MAR 08, 2024@12:40:02 ENTRY DATE: MAR 08, 2024@12:40:03 AUTHOR: EDWIN PHIPPS EXP COSIGNER: URGENCY: STATUS: COMPLETED Service Location [facility] [place] [address] Device Information DeviceName: [id number] DeviceSerialNumber: [id number] Oximeter: [id number] Patient was offered to receive home sleep testing device by mail and accepted. Verbal instruction was provided for use of home sleep testing equipment. All questions were answered and the patient expressed understanding of the provided instructions and care plan. was mailed a package including: Written instructions on device use with links to online videos and instructions from the marketing automation manager. Instructions on device return (does not apply to disposable device) and contact information for the sleep center. Educational materials on positive airway pressure therapy. Patient questionnaires. Minutes professional time spent providing care.: 30 min Diagnoses: R06.83 - Snoring Procedures 1 Hospice Nurse Gildardo Unatnd w/ Resp Effort Modifiers technical component /es/ DIMAS ALBRIGHT ASSISTANT AT SURGERY Signed: 03/08/2024 12:40 EDWIN PHIPPS [facility] ([id number])
== END 2024-03-22 11:33 | disposition home or self-care (01) ==
PROVIDERS: PCP Internal Medicine; Visit Provider Internal Medicine
DX: M43.22 Fusion of spine, cervical region (principal)

== ENCOUNTER 2024-04-15 09:04 | Outpatient (AMB) | payer BC, SELFPAY ==
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
[2024-04-15 09:11] VITALS: BP 139/74; PULSE 57; RESP 16; O2SAT 97; BMI 34.0
--- OUTSIDE RECORDS SUMMARY | 2024-04-15 09:11 | XMS_ITS | Encounter Summary ---
Author Name [facility] [place] [facility] [place] [facility] [place] Address [address] [place] [id number] Care Team Providers Care Sealer Sander Name Role Phone KEEGAN RDZ Primary Care [...] Patient's Relationship to Policy Goyal [facility] Oct 10, 2023 [id number] NANO CROWE PATIENT CIGNA POINT OF SERVICE [facility] Oct 04, 2016 [id number] NANO CROWE PATIENT CIGNA BEHAVIORAL HEALTH MENTAL HEALTH [facility] Oct 04, 2016 [id number] NANO CROWE PATIENT CIGNA PHARMACY PRESCRIPT ION [facility] Oct 04, 2016 [id number] [phone] NANO CROWE PATIENT Selected Encounter This section includes the information on record at [place] for the Encounter. Date/Time Encounter Type Encounter Description Reason Provider Source Feb 12, 2024 01:00 PM GROUP PSYCHOTHERAPY [facility] ICD-10-CM F43.10 Post-traumatic stress disorder, unspecified CHARLESJUDEHANDY IHE Encounter Template Text not used by [place] Assessments - Encounter Diagnoses This section includes the primary and secondary diagnoses documented for the Encounter. Date/Time Primary/Secondary Diagnosis Diagnosis Name Provider Source Feb 12, 2024 03:50 PM PRIMARY Post-traumatic stress disorder, unspecified CHARLESJUDEALL E [facility] Plan of Treatment: Future Appointments (+ 6 months) and Future Tests (+/- 45 days) The Plan of Treatment section includes future care activities for the patient from all [place] [facility]. This section includes future appointments and future orders which are active, pending or scheduled. Future Appointments This section includes appointments that were scheduled to occur 6 months from the date of the Encounter, up to a maximum of 20 appointments. The data comes from all [place] treatment facilities. Appointment Date/Time Appointment Type Appointme nt Facility Name Feb 16, 2024 08:30 AM AMBULATORY - PSYCHIATRY [facility] Feb 19, 2024 01:00 PM AMBULATORY - PSYCHIATRY [facility] Mar 09, 2024 02:00 PM AMBULATORY - NONE [facility] Mar 21, 2024 03:00 PM AMBULATORY - PSYCHIATRY [facility] May 09, 2024 03:00 PM AMBULATORY - PSYCHIATRY [facility] Social History: Smoking Status (Most current) [...] 28, 2023 08:30 AM VA-TOBACCO NEVER USED [facility] Tobacco Use History This section includes a history of the smoking, or tobacco-related health factors, that were collected on or before the date of the Encounter. The data comes from the [place] facility where the Encounter took place. Date/Time Smoking Status/Tobacco Use Comment F acility Feb 21, 2020 10:30 AM VA-TOBACCO NEVER USED [facility] [place] [facility] Apr 20, 2018 02:11 PM VA-TOBACCO NEVER USED [facility] [place] [facility] Jan 14, 2017 02:29 PM LIFETIME NON-TOBACCO USER [facility] [place] [facility] August 12, 2010 02:56 PM LIFETIME NON-TOBACCO USER [facility] [place] [facility] Encounter Notes: All associated encounter notes This section contains the clinical notes associated to the Encounter. Date/Time Encounter Note(s) Provider Source Feb 12, 2024 03:28 PM PSYCHIATRY GROUP COUNSELING NOTE: LOCAL TITLE: PSYCHOLOGY GROUP NOTE STANDARD TITLE: PSYCHIATRY GROUP COUNSELING NOTE DATE OF NOTE: FEB 12, 2024@15:28 ENTRY DATE: FEB 12, 2024@15:28:25 AUTHOR: LAKEISHA SUTTON COSIGNER: URGENCY: STATUS: COMPLETED BHIP Living with Angry Feelings Group Therapy Note SESSION MODALITY: [facility] Connect (clinic to non-VA location) Wilmer's location: Provider confirmed that Wilmer is currently located at Primary Address listed in [facility]. Primary phone number: Confirmed for all participants. Wilmer has provided verbal consent either today or previously when seen via [facility] in mental health. This consent was obtained after a full explanation of the risk and benefits of using telehealth for mental health appointments. Alternatives for obtaining care through an in-person mental health visit and the 's right of refusal at any time during this session have been explained. Wilmer's location/environment was surveyed by this provider to identify all participants and the Virtual Medical Room was locked (via enabling button option in R) once all invited/required attendees were present. identified with 2 identifiers: [X] Patient Name [X] Visual recognition Facilitators: Myao Whaley, MS, and Lakeisha Sutton, PhD PROCEDURE: [...] members engaged in a mindful awareness practice that involved writing and relating in several different ways to an anger trigger thought written on a piece of paper. They each checked in, speaking about something they noticed during the mindfulness practice as well as why they want to change their relationship with angry feelings. Group members considered how they feed anger thoughts and ways to expand their perspectives. PROGRESS: Wilmer arrived on time and was an active and appropriate participant. Wilmer participated in the mindfulness practices and group discussions. Mental Status was not formally assessed due to the nature of the encounter. Wilmer maintained appropriate eye contact and was alert. Wilmer spoke clearly and coherently. 's thoughts were linear and related. Wilmer's affect was congruent to content and appropriate in range. No clinical signs of intoxication, withdrawal, psychosis, or cognitive impairment were observed. No evidence of suicidal or homicidal ideation. There was no evidence of AH/VH or delusions. Wilmer was future oriented. DSM-V DIAGNOSTIC IMPRESSIONS(per chart): PTSD, chronic PLAN: will continue to participate in the Living with Angry Feelings Group with a final group on Monday, February 19, 2024 at 1pm. /tanika/ Lakeisha Sutton, PhD Clinical Psychologist, Mental Health Clinic Signed: 02/12/2024 16:27 LAKEISHA SUTTON [place] [facility]
--- OUTSIDE RECORDS SUMMARY | 2024-04-15 09:11 | XMS_ITS ---
Author Name [facility] [place] [facility] [place] Address [address] [place] [address] Care Team Providers Care Automotive Tire Worker Name Role Phone KEEGAN RDZ Primary Care [...] Name Patient's Relationship to Policy Goyal BCBS [facility] Oct 10, 2023 [id number] [phone] NANO CROWE PATIENT CIGNA POINT OF SERVICE [facility] Oct 04, 2016 [id number] NANO CROWE PATIENT CIGNA BEHAVIORAL HEALTH MENTAL HEALTH [facility] Oct 04, 2016 [id number] NANO CROWE PATIENT CIGNA PHARMACY PRESCRIPT ION [facility] Oct 04, 2016 [id number] [phone] NANO CROWE PATIENT Selected Encounter This [...] Primary/Secondary Diagnosis Diagnosis Name Provider Source Mar 25, 2024 01:39 PM PRIMARY Obstructive sleep apnea (adult) (pediatric) [facility] Plan of Treatment: Future Appointments (+ 6 months) and Future Tests (+/- 45 days) The Plan of Treatment section includes future care activities for the patient from all [place] [facility]. This section includes future appointments and [...] 21, 2024 03:00 PM AMBULATORY - PSYCHIATRY [facility] May 09, 2024 03:00 PM AMBULATORY - PSYCHIATRY [facility] Social History: Smoking Status (Most current) [...] Federico ity Jul 28, 2023 08:30 AM [place]-TO[place]AC[place] NEVER USED [facility] Tobacco Use History This section includes a history of the smoking, or tobacco-related health factors, that were collected on or before the date of the Encounter. The data comes from the [place] facility where the Encounter took place. Date/Time Smoking Status/Tobacco Use Comment F acility Feb 21, 2020 10:30 AM VA-TOBACCO NEVER USED [facility] Apr 20, 2018 02:11 PM VA-TOBACCO NEVER USED [facility] Jan 14, 2017 02:29 PM LIFETIME NON-TOBACCO USER [facility] August 12, 2010 02:56 PM LIFETIME NON-TOBACCO USER [facility] Encounter Notes: All associated encounter notes [...] of the provided instructions and care plan. Smoot was mailed a package including: Other notes Patient did not show up for Video appointment. dye lab technician called, left call back number in case patient has any questions. Minutes professional time spent providing care.: 30 min Diagnoses: G47.33 - Obstructive Sleep Apnea Procedures 1 Individual (1) Education /DIMAS Goldman CRIMINAL JUSTICE PROFESSOR Signed: 03/09/2024 16:20 03/16/2024 ADDENDUM STATUS: COMPLETED Patient called today regarding the sleep study. He did not do yet but he will be doing study this weekend and sending back. /DIMAS Goldman CRIMINAL JUSTICE PROFESSOR Signed: 03/16/2024 13:32 EDWIN PHIPPS [facility]
--- OUTSIDE RECORDS SUMMARY | 2024-04-15 09:12 | XMS_ITS ---
Author Name [facility] [place] Address [address] [place] [address] Care Team Providers Care Hydro Station Operator Name Role Phone KEEGAN RDZ Primary [...] Policy Goyal [facility] ION [facility] Oct 10, 2023 [id number] NANO CROWE PATIENT CIGNA POINT OF SERVICE [facility] Oct 04, 2016 [id number] NANO CROWE PATIENT CIGNA BEHAVIORAL HEALTH MENTAL HEALTH [facility] Oct 04, 2016 [id number] NANO CROWE PATIENT CIGNA PHARMACY PRESCRIPT ION [facility] Oct 04, 2016 [id number] NANO CROWE PATIENT Selected Encounter This section includes the information on record at [place] for the Encounter. Date/Time Encounter Type Encounter Description Reason Provider Source Mar 21, 2024 03:00 PM MTMS BY ESTRELLITA FOSTER 15 MIN MENTAL HEALTH CLINIC - IND ICD-10-CM F43.10 Post-traumatic stress disorder, unspecified WOJCIECH DAILY IHE Encounter Template Text not used by [place] Assessments - Encounter Diagnoses This section includes the primary and secondary diagnoses documented for the Encounter. Date/Time Primary/Secondary Diagnosis Diagnosis Name Provider Source Mar 23, 2024 03:47 PM PRIMARY Post-traumatic stress disorder, unspecified WOJCIECH DAILY [facility] Plan of Treatment: Future Appointments (+ 6 months) and Future Tests (+/- 45 days) The Plan of Treatment section includes future care activities for the patient from [facility] [place] [facility]. This section includes future appointments and future orders which are active, pending or scheduled. Future Appointments This section includes appointments that were scheduled to occur 6 months from the date of the Encounter, up to a maximum of 20 appointments. The data comes from all [place] treatment facilities. Appointment Date/Time Appointment Type Appointme nt Facility Name May 09, 2024 03:00 PM AMBULATORY - PSYCHIATRY [facility] Social History: Smoking Status (Most current) and Tobacco Use (All prior to encounter date) This section includes the most current, and the historical, smoking and tobacco- related health factors from the [place] facility where the Encounter took place. Current Smoking Status This section includes the most current smoking, or tobacco-related health factor, from the [place] facility where the Encounter took place. Date/Time Current Smoking Status Comment Federico ity Jul 28, 2023 08:30 AM [place]-TOBACCO NEVER USED [facility] Tobacco Use History This section includes a history of the smoking, or tobacco-related health factors, that were collected on or before the date of the Encounter. The data comes from the [place] facility where the Encounter took place. Date/Time Smoking Status/Tobacco Use Comment [facility] Feb 21, 2020 10:30 AM [place] [facility] Apr 20, 2018 02:11 PM [facility]BACCO [facility] Jan 14, 2017 02:29 PM LIFETIME [facility]BACCO [facility] August 12, 2010 02:56 PM LIFETIME NON-TOBACCO USER [place] [facility] [place] [facility] Encounter Notes: All associated encounter notes This section contains the clinical notes associated to the Encounter. Date/Time Encounter Note(s) Provider Source Mar 21, 2024 03:03 PM PHARMACY MEDICATION MGT NOTE: LOCAL TITLE: CLINICAL PHARMACIST F/U NOTE STANDARD TITLE: PHARMACY MEDICATION MGT NOTE DATE OF NOTE: MAR 21, 2024@15:03 ENTRY DATE: MAR 21, 2024@15:03:24 AUTHOR: COREY DAILY COSIGNER: URGENCY: STATUS: COMPLETED [facility] ([facility]) Standard Documentation [facility] Clinician Resources Only: E911 (Emergency Call Relay Center): [phone] National Veterans Crisis Line - 988 then press #1. [place] Suicide Coordinator [phone], Ext. [phone]; Back-up Ext. [phone] [place] Police, [place] L[place]ERS [phone] Introduction: Visit is being conducted by [place] [employer] Connect. Wilton identified with 2 identifiers: [X] Full Name [X] Date of [ ] VA ID Card Emergency Plan: confirmed and/or provided the following information in case of emergency or technology failure. PATIENT PHONE - PHONE NUMBER [CELLULAR] - Is patient phone number correct, if not, enter below: Wilton's phone number: NANO CROWE [address], [place], [address] Wilton's present location and address for appointment: At work at [employer] Wilton's emergency contact name and phone number: Pam Pillai [phone] Wilton reported that location is private and safe: Yes Informed Consent: informed of the risks and benefits of Telehealth video care. has the right to refuse video services. If refuses video visit, a [id number] visit will be scheduled. verbalized consent for this video visit: Yes Wilton provided consent for any other persons present for visit: No If yes, who and relationship to patient: Secure visit: Visit was locked for security and privacy:Yes -=-=-=-=-=-=-=-=-=-=-=-=-=-=- =-=-=-=-=-==-=-=-=-=-=-=-=-=- =-=-=-=-=-=-=-=-=-=-=- -=-=-=-=-=-=-=-=-=-=-=-=-=-=- =-=-=-=-=-==-=-=-=-=-=-=-=-=- =-=-=-=-=-=-=-=-=-=-=- Program: Clinical Pharmacy Provider/Medication Management Speciality: Mental Health ATTENDED BY: [X] Patient [ ] Spouse/Caregiver LENGTH OF SESSION: 30minutes -=-=-=-=-=-=-=-=-=-=-=-=-=-=- =-=-=-=-=-==-=-=-=-=-=-=-=-=- =-=-=-=-=-=-=-=-=-=-=- Name: NANO CROWE DOB: [birth year] ID: 58yo WHITE MALE -=-=-=-=-=-=-=-=-=-=-=-=-=-=- =-=-=-=-=-==-=-=-=-=-=-=-=-=- =-=-=-=-=-=Subjective- Wilton was last seen on [id number] with the following pharmacotherapeutic plan: [X] No changes [ ] Discontinue: [ ] Initiate: [ ] Change the following: Treating Dx(s): PTSD INTERIM HISTORY pt reports to be doing okay, mentioning that he recently had a parathyroid surgery. however, states I'm not sure if these medications are working. medications reviewed. notes that he has been taking nortriptyline as needed when he feels a migraine coming w/ benefit; but not been taking this scheduled as intended. advised pt to discuss migraines further w/ his prescriber, which he agreed. states I wake up in the morning feeling like I don't want to do anything. discussed trialing an SSRI today. medication education provided, to which pt provided verbal understanding and agreed to the trial. emphasized risk for serotonin syndrome given multiple serotonergic medications, which pt provided verbal understanding. -=-=-=-=-=-=-=-=-=-=-=-=-=-=- =-=-=-=-=-==-=-=-=-=-=-=-=-=- =-=-=-=-=-=-Objective- Mental Status Exam Appearance: [X] Unremarkable [X] Appropriate to season [ ] Neatly groomed [ ] Somewhat disheveled [ ] Other: Behavior Mood/Affect: [X] Appropriate [ ] Irritable [ ] Normal [ ] Euphoric [ ] Pleasant [ ] Provocative [ ] Bright [X] Depressed [ ] Anxious [ ] Frustrated [ ] Anxious [ ] Frustrated [ ] Maintained good eye contact [ ] Restricted [ ] Flat [ ] Other: [ ] Subdued [ ] Unremarkable [ ] Responsive & Congruent w/mood Energy: [ ] Other: [X] Normal [ ] Excessive [ ] Lethargic [ ] Variable Sleep: [ ] Other: [X] Normal [ ] Early awakening [ ] Sleep onset insomnia -N--Y- Orientation to: [ ] Frequent disruption [ ][X] Person [ ][X] [...] of kidney 7. Cervical radiculopathy (SNOMED CT 24323744) 8. History of colonoscopy 9. Erectile dysfunction (SNOMED CT [id number]) 10. Essential hypertension 11. Hearing loss (SNOMED CT 75902290) ALLERGIES: Patient has answered NKA Active Outpatient Medications (including Supplies): Active Outpatient Medications Status 1) NORTRIPTYLINE HCL 10MG CAP TAKE ONE CAPSULE BY MOUTH AT ACTIVE BEDTIME Indication: FOR MIGRAINE HEADACHES 2) TRAZODONE HCL 100MG TAB TAKE ONE-HALF TABLET BY MOUTH AT ACTIVE BEDTIME Indication: FOR INSOMNIA ASSOCIATED WITH DEPRESSION Active Non-VA Medications Status 1) Non-VA APIXABAN 5MG TAB 5MG BY MOUTH EVERY 12 HOURS ACTIVE 2) Non-VA CHOLECALCIF 50MCG (D3-2,000UNIT) TAB 2000UNIT BY ACTIVE MOUTH ONCE DAILY 3) Non-VA GABAPENTIN 300MG CAP 300MG BY MOUTH THREE TIMES DAILY ACTIVE NEEDED 4) Non-VA METOPROLOL SUCCINATE 25MG SA TAB 25MG BY MOUTH ONCE ACTIVE DAILY 5) Non-VA POTASSIUM CITRATE 10MEQ SA TAB 10MEQ BY MOUTH ONCE ACTIVE DAILY 6) Non-VA TRAMADOL HCL 50MG TAB 50MG BY MOUTH TWICE DAILY ACTIVE 7) Non-VA VITAMIN E CAP,ORAL BY MOUTH ACTIVE 9 Total Medications Past psychiatric medications include the [...] following review of all active psychotropic and PARTS DESIGNER-active agents is to ensure pharmacotherapy is evaluated for safety and efficacy as they relate to behaviorial and physiological changes and outcomes PTSD * recently initiated agents from other services include the following: > nortriptyline 10mg hs for migraines - noted utilization as prn vs scheduled per pt > trazodone 50mg hs * reasonable to trial SSRI to address mood symptoms PLAN 1. Pharmacotherapy [ ] No changes [ ] Discontinue: [X] Initiate: sertraline 25mg daily x14d, then increase to 50mg simone [ ] Change the followin. Labs/tests: n/a [...] Reduction [ ] Other: RTC Interval: every 6-8weeks Next Apt: [id number]@1500 was provided screen writer's contact information and instructed to contact screen writer as needed for any changes to scheduling or concerns otherwise. is aware of actions to take if they feel unsafe, including calling the 's Crisis Line (#510); calling 911; or going to the nearest urgent care or emergency room. The is also aware of how to contact the clinic should the require additional services prior to the next appointment. Time spent on chart review, session, and documentation: 30minutes /es/ Corey Daily PharmD Clinical Pharmacist Practitioner Signed: 03/23/2024 16:00 COREY DAILY [place] [facility]
== END 2024-04-15 09:42 | disposition home or self-care (01) ==
PROVIDERS: PCP Internal Medicine; Referring Provider Internal Medicine; Visit Provider Internal Medicine
DX: M96.1 Postlaminectomy syndrome, not elsewhere classified (principal); S14.14 Brown-Sequard syndrome of cervical spinal cord; M79.2 Neuralgia and neuritis, unspecified
CPT/HCPCS: 99204

== ENCOUNTER 2024-08-12 09:04 | Outpatient (AMB) | payer BC, SELFPAY ==
[2024-08-12 09:07] VITALS: BP 104/62; PULSE 65; RESP 20; TEMP 36.4; O2SAT 97; BMI 34.0
--- NOTE | 2024-08-12 09:07 | A.OFFPC_ITS ---
Vital Signs 08/12/24 09:07 Height 6 ft Weight 250 lb 9.6 oz BMI 34.0 BP 104/62 Blood Pressure Location Lt brachial Position Sitting Respiration 20 Pulse 65 Pulse Source Pulse Oximeter Temp 97.6 F Temp Source Oral Pulse Oximetry (%) 97 Oxygen Delivery Method Room Air Intake Visit Reasons: DANYELL/cervical and thoracic pain Die Cutter Required: No Accompanied by: Self / Same As Patient Allergies No Known Allergies Allergy (Mild, Verified 08/12/24 09:21) NONE Medication List - Last Reconciled 08/12/24 by TIAGO Wilks apixaban (Eliquis) 5 mg PO BID cholecalciferol (vitamin D3) 25 mcg PO DAILY gabapentin mg PO QID metoprolol succinate ER 25 mg PO BID oxycodone 5 mg PO Q6H PRN rosuvastatin 20 mg PO BEDTIME sacubitril-valsartan 24-26 mg (Entresto) 2 tabs PO BID sildenafil 100 mg PO DAILY PRN tramadol 50 mg PO BID PRN Tobacco use date assessed: 08/12/24 Dental Screening Dental Screen Date: 08/12/24 Did you have a dental visit in the last 12 months?: No Did you have a dental problem in the last 6 months where you did not have access to dental care?: No Was dental information given to patient?: Patient has dentist HPI DANYELL/cervical and thoracic pain HPI Details The patient is a 58-year-old male presenting with pain in the thoracic spine. He reports experiencing consistent pain for the past month, which radiates across the ribcage and is described as severe. Movement such as deep breathing, turning, or household activity exacerbates the pain, leading to a brief cessation of breath. Over the last month, the pain has reached a severity where it severely impacts his daily functioning. 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 His most recent cervical spine surgery was two years ago, which resulted in a bruised spinal cord. Additionally, the patient has undergone surgeries on both shoulders, including a rotator cuff repair on the right, which included screw insertion and tendon fixation. His shoulders exhibit persistent neuropathic pain, with functional impairment notable particularly on the left side. [facility] Medical History (Updated 08/12/24 @ 17:20 by TIAGO Wilks) History of fractured rib Surgical History History of parathyroid surgery Family History Mother No problems noted. Father No problems noted. Social History Housing: House Patient Tobacco Use Status: Never used Tobacco e-Cigarette/Vaping Use: Never Used Second Hand Smoke Exposure: No service: No Current occupational status: employed Cognitive needs: No Hearing needs: No Vision needs: No Questionnaire PHQ-9 Over the last 2 weeks, how often have you been bothered by any of the following problems? 1. Little interest or pleasure in doing things: nearly every day 2. Feeling down, depressed, or hopeless: nearly every day 3. Trouble falling or staying asleep, or sleeping too much: nearly every day 4. Feeling tired or having little energy: nearly every day 5. Poor appetite or overeating: nearly every day 6. Feeling bad about yourself - or that you are a failure or have let yourself or your family down: more than half the days 7. Trouble concentrating on things, such as reading the newspaper or watching television: nearly every day 8. Moving or speaking so slowly that other people could have noticed. Or the opposite - being so fidgety or restless that you have been moving around a lot more than usual: more than half the days 9. Thoughts that you would be better off or of hurting yourself in some way: not at all Total score: 22 Depression Screening Interpretation: Positive Depression Screening Done: Yes 67266 - PHQ-9 Billing: Yes Source: Developed by Drs. Ean Rowan, Emani Price, Brock Briseno and colleagues, with an educational han from [employer]. Thrive Questionnaire Date Thrive assessed: 08/12/24 I am a: Patient What is your living situation today?: I choose not to answer this question Within the past 12 months, did the food you bought not last and you didn't have the money to get more?: I choose not to answer this question Within the past 12 months, did you worry whether your food would run out before you got money to buy more?: I choose not to answer this question Do you have trouble paying for medicines?: I choose not to answer this question Do you have trouble getting transportation to medical appointments?: I choose not to answer this question Do you have trouble paying your heating and electricity bill?: I choose not to answer this question Do you have trouble taking care of your child, family member or friend?: I choose not to answer this question Do you have trouble with day-to-day activities such as bathing, preparing meals, shopping, managing finances, etc.?: I choose not to answer this question Are you currently unemployed and looking for a job?: I choose not to answer this question Are you interested in more education?: I choose not to answer this question Please select the resources that you would like help with: None Currently or been in a relationship where the following occur: I choose not to answer THRIVE Score: 0 AUDIT C Alcohol Use Questionnaire (AUDIT-C) 1. How often do you have a drink containing alcohol?: Never Total Score: 0 Score Reviewed/Action Taken: No ZORAIDA-7 AMB Questionnaire ZORAIDA-7 Date ZORAIDA - 7 assessed: 08/12/24 Feeling nervous, anxious, or on edge: 3 = Nearly every day Not being able to stop or control worryin = More than half the days Worrying too much about different things: 3 = Nearly every day Trouble relaxin = Nearly every day Being so restless that it is hard to sit still: 3 = Nearly every day Becoming easily annoyed or irritable: 3 = Nearly every day Feeling afraid as if something awful might happen: 3 = Nearly every day Total ZORAIDA-7 score (0-4 normal; 5-9 mild; 10-14 moderate; 15-21 severe): 20 Source: Developed by Drs. Ean Rowan, Emani Price, Brock Briseno and colleagues, with an educational han from [employer]. ZORAIDA-7 Assessment Billing ZORAIDA-7 Assessment Tool: ZORAIDA-7 Assessment 24533 Review of Systems Const Details: - Musculoskeletal: Reports thoracic spine pain affecting daily activities. Reports left shoulder pain. - Neurological: Reports lack of fine motor skills on the left side, and loss of sensation and temperature on the right side. - Respiratory: Reports pain when breathing deeply. Denies headache(s) Eyes Denies loss of vision ENT Denies vertigo, Denies dizziness, Denies headache(s), Reports neck pain and Denies sore throat Card Denies chest pain, Denies leg edema and Denies lightheadedness Resp Denies cough, Denies hemoptysis and Denies wheezing GI Denies abdominal pain, Denies melena, Denies constipation, Denies diarrhea and Denies vomiting Denies dysuria, Denies urinary frequency and Denies urinary urgency Musc Reports back pain (Thoracic), Reports arthralgias (bilateral shoulders), Denies joint swelling, Reports muscle cramps (Trapezius region), Reports muscle weakness (Left arm), Reports neck pain, Reports numbness (In the left arm), Denies tingling and Reports other (Thoracic spine pain) Neuro Details: Reports lack of fine motor skills on the left side, and loss of sensation and temperature on the right side. Denies Abnormal speech present, Denies behavioral changes, Denies vertigo, Denies dizziness, Denies headache(s), Denies loss of vision, Denies memory loss, Reports numbness (In the left arm), Reports Sensory deficit (Neuro) (Severely decreased sensation in left arm) and Denies tingling Psych Denies anxiety, Denies behavioral changes, Denies depression, Denies memory loss and Denies panic attacks Jag/Lymph Denies easy bleeding and Denies easy bruising Aller/Immun Denies wheezing Physical exam (Primary Care) Vital Signs: Last Vital Signs Temp 97.6 F 08/12/24 09:07 Pulse 65 08/12/24 09:07 Resp 20 08/12/24 09:07 BP 104/62 08/12/24 09:07 Pulse Ox 97 08/12/24 09:07 Oxygen Delivery Method Room Air 08/12/24 09:07 BMI result Body Mass Index 34.0 Tobacco/Smoking Status: Tobacco use Status Tobacco use date assessed 08/12/24 08/12/24 09:14 Patient Tobacco Use Status Never used Tobacco 08/12/24 09:14 e-Cigarette/Vaping Use Never Used 08/12/24 09:14 PHQ-9: PHQ-9 Score PHQ-9: Total score 22 08/12/24 14:35 Depression Screening Interpretation: Positive Thrive Assessment: Date of Thrive Assessment Date Thrive assessed 08/12/24 08/12/24 09:14 Currently or been in a relationship where the following occur: I choose not to answer Const General: healthy appearing, no acute distress, alert and awake Nutritional Appearance: well nourished Orientation/consciousness: oriented to person, oriented to place and oriented to time HENMT Ears: TM's normal bilaterally General nose exam: Normal nasal mucous membranes and turbinates present Eyes Conjunctivae: conjunctivae normal Sclerae: sclerae normal Pupils: Equal, round and reactive pupils present Neck Neck: Yes no lymphadenopathy and Yes no JVD Thyroid: Thyroid normal Carotids: no bruits Resp Effort & Inspection: normal respiratory effort and not tachypneic Auscultation: no crackles, no rales, no rhonchi and no wheezes Cardio Rate: regular rate Rhythm: regular rhythm Heart sounds: no murmurs and normal S1 and S2 GI Palpation (GI): Soft to palpation, nontender, no hepatomegaly and no splenomegaly Auscultation: normal bowel sounds Skin General skin exam: no rashes or lesions noted and dry skin Neuro General: oriented to person, oriented to place and oriented to time Cranial nerves: Yes Equal, round and reactive pupils present Speech: No Abnormal speech present Gait exam (Neuro): Normal gait present Motor exam (neuro): no tremor noted Sensory Exam: Sensory deficit (Neuro) (Severely decreased sensation in left arm) Extrem Right upper extremity: full ROM and shoulder/upper arm (There was a fine motor skills) Left upper extremity: full ROM and shoulder/upper arm Details: tenderness and abnormal ROM (Decreased range a portion) Details: pain with active ROM Right lower extremity: full ROM; no edema Left lower extremity: full ROM; no edema Psych Mental Status: mental status grossly normal Speech and movement: Normal speech and movement present Affect: normal affect Attitude: cooperative Thought process: Normal thought process present Coding Level of Care Code Est Pt Level 4 (32558) Diagnoses 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 Cervical postlaminectomy syndrome M96.1 Neuropathic pain syndrome (non-herpetic) M79.2 Cervical vertebral fusion M43.22 Neck pain M54.2 Acute pain of left shoulder M25.512 Chronicity: acute Additional Codes ZORAIDA-7 Assessment Billing - ZORAIDA-7 Assessment Tool: ZORAIDA-7 Assessment 19715 ([id number]) PHQ-9 - 12946 - PHQ-9 Billing: Yes ([id number]) Time Spent (min) 41 Assessment & Plan Assessment & Plan (1) 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: Code(s): S14.143S - 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 Category: Medical (2) Cervical postlaminectomy syndrome: Code(s): M96.1 - Postlaminectomy syndrome, not elsewhere classified Category: Medical (3) Neuropathic pain syndrome (non-herpetic): Code(s): M79.2 - Neuralgia and neuritis, unspecified Category: Medical (4) Cervical vertebral fusion: Code(s): M43.22 - Fusion of spine, cervical region Category: Medical (5) Neck pain: Code(s): M54.2 - Cervicalgia Category: Medical (6) Left shoulder pain: Code(s): M25.512 - Pain in left shoulder Category: Medical Qualifiers: Chronicity: acute Qualified Code(s): M25.512 - Pain in left shoulder Plan I will initiate diagnostic imaging, ordering a thoracic MRI to better understand the persistent pain noted in the thoracic spine, suspecting possible disc involvement. A cervical MRI will be conducted to follow up on the condition of the cervical spine post-surgery. Subsequent appointments with the neurologist at [facility] will be organized following these imaging studies. Blood tests will likewise be conducted for a comprehensive health assessment. Further orthopedic evaluation is advised for the left shoulder, considering the continued pain and functional challenges. Patient was informed and verbally consented to the use of an ambient scribe for clinic note documentation during this visit. Orders: Orders Complete Blood Count Auto Diff Today E78.5 - Hyperlipidemia, unspecified, Z00.00 - Encounter for general adult medical examination without abnormal findings Comprehensive [place]. 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 Lipid Panel Today E78.5 - Hyperlipidemia, unspecified, Z00.00 - Encounter for general adult medical examination without abnormal findings TSH reflex Free T4 Today E78.5 - Hyperlipidemia, unspecified, Z00.00 - Encounter for general adult medical examination without abnormal findings UA CC w/rflx Micro + Cult Today E78.5 - Hyperlipidemia, unspecified, Z00.00 - Encounter for general adult medical examination without abnormal findings Glucose Fasting Today E78.5 - Hyperlipidemia, unspecified, Z00.00 - Encounter for general adult medical examination without abnormal findings Vitamin D 25-OH Total Today E78.5 - Hyperlipidemia, unspecified, Z00.00 - Encounter for general adult medical examination without abnormal findings PSA,Total (Free>4and<10) Today E78.5 - Hyperlipidemia, unspecified, Z00.00 - Encounter for general adult medical examination without abnormal findings MR cervical spine wo/w con Today M54.2 - Cervicalgia, M54.6 - Pain in thoracic spine, M79.2 - Neuralgia and neuritis, unspecified, M96.1 - Postlaminectomy syndrome, not elsewhere classified, R20.2 - Paresthesia of skin, S14.143S - 

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
--- OUTSIDE RECORDS SUMMARY | 2024-08-12 09:18 | XMS_ITS ---
Author Name [place] Address [address] [place] [address] Care Team Providers Care Admissions Representative Name Role Phone KEEGAN RDZ Primary [...] Patient's Relationship to Policy Goyal BCBS [facility] CE ORGANIZAT ION COH RETIR EMENT Oct 10, 2023 [id number] [phone] NANO CROWE PATIENT Selected Encounter This section includes the information on record at [place] for the Encounter. Date/Time Encounter Type Encounter Description Reason Provider Source Sep 28, 2023 03:00 PM MTMS BY PHARM ADDL 15 [facility] - IND ICD-10-CM F43.10 Post-traumatic stress disorder, unspecified WOJCIECH DAILY Abner Encounter Template Text not used by [place] Assessments - Encounter Diagnoses This section includes the primary and secondary diagnoses documented for the Encounter. Date/Time Primary/Secondary Diagnosis Diagnosis Name Provider Source Sep 28, 2023 03:31 PM PRIMARY Post-traumatic stress disorder, unspecified WOJCIECH DAILY [place] [facility] [place] [facility] Plan of Treatment: Future Appointments (+ 6 months) and Future Tests (+/- 45 days) The Plan of Treatment section includes future care activities for the patient from all [place] [facility]. This section includes future appointments and future [...] - PSYCHIATRY [facility] [place] [facility] Oct 06, 2023 08:00 AM AMBULATORY - MEDICINE [place] [facility] [place] [facility] Oct 06, 2023 09:30 AM AMBULATORY - MEDICINE [place] [facility] [place] [facility] Oct 09, 2023 01:00 PM AMBULATORY - PSYCHIATRY [facility] [place] [facility] Oct 21, 2023 12:30 PM AMBULATORY - PSYCHIATRY [facility] [place] [facility] Oct 21, 2023 12:30 PM AMBULATORY - NONE [facility] Oct 23, 2023 08:30 AM AMBULATORY - REHAB MEDICIN E [facility] [place] [facility] Oct 23, 2023 01:00 PM AMBULATORY - PSYCHIATRY [facility] [place] [facility] Oct 30, 2023 01:00 PM AMBULATORY - PSYCHIATRY [facility] [place] [facility] Nov 13, 2023 11:00 AM AMBULATORY - MEDICINE [facility] [place] [facility] Nov 13, 2023 12:00 PM AMBULATORY - MEDICINE [facility] [place] [facility] Nov 13, 2023 12:15 PM AMBULATORY - MEDICINE [place] [facility] Nov 13, 2023 01:00 PM AMBULATORY - PSYCHIATRY [facility] [place] [facility] Nov 13, 2023 03:00 PM AMBULATORY - PSYCHIATRY [facility] [place] [facility] Nov 13, 2023 03:00 PM AMBULATORY - NONE [facility] Nov 20, 2023 01:00 PM AMBULATORY - PSYCHIATRY [facility] [place] [facility] Nov 30, 2023 11:00 AM AMBULATORY - REHAB MEDICIN E [facility] [place] [facility] Dec 04, 2023 01:00 PM AMBULATORY - [place]ATRY [place] [facility] [place] [facility] Dec 11, 2023 01:00 PM AMBULATORY - PSYCHIATRY [facility] [place] [facility] Dec 21, 2023 03:00 PM [facility]ULAT[facility] Social History: Smoking Status (Most [...] 28, 2023 08:30 AM [facility]CO [facility] Tobacco Use History This section includes a history of the smoking, or tobacco-related health factors, that were collected on or before the date of the Encounter. The data comes from the [place] facility where the Encounter took place. Date/Time Smoking Status/Tobacco Use Comment F acility Feb 21, 2020 10:30 AM VA-TOBACCO NEVER USED [place] [facility] [place] [facility] Apr 20, 2018 02:11 PM VA-TOBACCO NEVER USED [place] [facility] [facility] Jan 14, 2017 02:29 PM LIFETIME NON-TOBACCO USER [place] [facility] [facility] August 12, 2010 02:56 PM LIFETIME NON-TOBACCO USER [place] [facility] [facility] Encounter Notes: All associated encounter [...] Resources Only: E911 (Emergency Call Relay Center): [phone] National Veterans Crisis Line - 988 then press #1. LEESA Suicide Coordinator [phone], Ext. [phone]; Back-up Ext. [phone] [place] Police, Eulalia LANDERS [phone] Introduction: Visit is being conducted by [place] [facility] Connect. identified with 2 identifiers: [X] Full Name [X] Date of [ ] [place] ID Card Emergency Plan: [place] confirmed and/or provided the following information in case of emergency or technology failure. PATIENT PHONE - PHONE NUMBER [CELLULAR] - Is patient phone number correct, if not, enter below: 's phone number: NANO CROWE [address], [place], [address] [place]'s present location and address for appointment: At home [place]'s emergency contact name and phone number: Pam Pillai [phone] reported that location is private and safe: Yes Informed Consent: informed of the risks and benefits of Telehealth video care. [place] has the right to refuse video services. If refuses video visit, a mdid-dp-rvan visit will be scheduled. [place] verbalized consent for this video visit: Yes [place] provided consent for any other persons present for visit: No If yes, who and relationship to patient: Secure visit: Visit was locked for security and privacy:Yes -=-=-=-=-=-=-=-=-=-=-=-=-= -=-=-=-=-=-=-==-=-=-=-=-=- =-=-=-=-=-=-=-=-=-=-=-=-=- =- -=-=-=-=-=-=-=-=-=-=-=-=-= -=-=-=-=-=-=-==-=-=-=-=-=- =-=-=-=-=-=-=-=-=-=-=-=-=- =- Program: Clinical Pharmacy Provider/Medication Management Speciality: Mental Health ATTENDED BY: [X] Patient [ ] Spouse/Caregiver LENGTH OF SESSION: 60minutes -=-=-=-=-=-=-=-=-=-=-=-=-= -=-=-=-=-=-=-==-=-=-=-=-=- =-=-=-=-=-=-=-=-=-=-=-=-=- =- Name: NANO CROWE : Sep ID: 58yo WHITE MALE -=-=-=-=-=-=-=-=-=-=-=-=-= -=-=-=-=-=-=-==-=-=-=-=-=- [...] past like this. reports psychosocial stressors at [facility] which may be contributing. endorses feeling [...] depressed Sleep: as stated above Apetite: bennie reports the following regarding medications: -N--Y- [ [...] of kidney 6. Cervical radiculopathy (SNOMED CT 96231541) 7. History of colonoscopy 8. Erectile dysfunction (SNOMED CT 269496666) 9. Essential hypertension 10. Hearing loss (SNOMED CT 49067906) __ ALLERGIES: Patient has answered NKA Active [...] following review of all active psychotropic and TYPECASTING MACHINE OPERATOR-active agents is to ensure pharmacotherapy is [...] RTC Interval: every 8-12weeks Next Apt: TBD [place] was provided parts data writer's contact information and instructed to contact parts data writer as needed for any changes to scheduling or concerns otherwise. [place] is aware of actions to take if they feel unsafe, including calling the 's Crisis Line (#452); calling 911; or going to the nearest urgent care or emergency room. The is also aware of how to contact the clinic should the require additional services prior to the next appointment. Time spent on chart review, session, and documentation: 60minutes /es/ Corey Daily PharmD Clinical Pharmacist Practitioner Signed: 10/06/2023 16:22 COREY DAILY [place] [facility]
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
--- OUTSIDE RECORDS SUMMARY | 2024-08-12 09:18 | XMS_ITS | Encounter Summary ---
Author Name [place] Address [address] [place] [address] Care Team Providers Care Hot Metal Car Operator Name Role Phone KEEGAN RDZ Primary Care Provider Unavailaury freitas Insurance Providers: All historical and current Section Date Range: From patient's date of to the date document was created. This section includes the names of all active insurance providers for the patient. Insurance Provider Type of Coverage Plan Name Start of Policy Coverage End of Policy Coverage Group Number Member ID Insurance Provider's Telephone Number Policy Goyal's Name Patient's Relationship to Policy Goyal [facility] CE ORGANIZAT ION COH RETIR EMENT Oct 10, 2023 [id number] NANO CROWE PATIENT Selected Encounter This section includes the information on record at [place] for the Encounter. Date/Time Encounter Type Encounter Description Reason Provider Source Feb 12, 2024 01:00 PM GROUP PSYCHOTHERAPY [facility]INIC-GROUP ICD-10-CM F43.10 Post-traumatic stress disorder, unspecified HANDY SUTTON Encounter Template Text not used by [place] Assessments - Encounter Diagnoses This section includes the primary and secondary diagnoses documented for the Encounter. Date/Time Primary/Secondary Diagnosis Diagnosis Name Provider Source Feb 12, 2024 03:50 PM PRIMARY Post-traumatic stress disorder, unspecified ALL [facility] Plan of Treatment: Future Appointments (+ 6 months) and Future Tests (+/- 45 days) The Plan of Treatment section includes future care activities for the patient from all [place] [facility]. This section includes future [...] AMBULATORY - PSYCHIATRY [place] [facility] [place] [facility] Feb 19, 2024 01:00 PM AMBULATORY - PSYCHIATRY [place] [facility] [place] [facility] Mar 09, 2024 02:00 PM AMBULATORY - NONE [place] [facility] [place] [facility] Mar 21, 2024 03:00 PM AMBULATORY - PSYCHIATRY [place] [facility] [place] [facility] May 04, 2024 03:00 PM AMBULATORY - NONE [place] [facility] [place] [facility] May 09, 2024 03:00 PM AMBULATORY - PSYCHIATRY [place] [facility] [place] [facility] Jul 20, 2024 10:00 AM AMBULATORY - NONE [place] [facility] [place] [facility] Aug 02, 2024 09:30 AM AMBULATORY - MEDICINE [place] C [place] [facility] August 10, 2024 01:30 PM AMBULATORY - PSYCHIATRY [place] [facility] [place] [facility] Social History: Smoking Status (Most current) [...] Federico ity Jul 28, 2023 08:30 AM [place]-TOBACCO NEVER USED [facility] Tobacco Use History This section includes a history of the smoking, or tobacco-related health factors, that were collected on or before the date of the Encounter. The data comes from the [place] facility where the Encounter took place. Date/Time Smoking Status/Tobacco Use Comment F acility Feb 21, 2020 10:30 AM VA-TOBACCO NEVER USED [place] [facility] [place] [facility] Apr 20, 2018 02:11 PM VA-TOBACCO NEVER USED [place] [facility] [place] [facility] Jan 14, 2017 02:29 PM LIFETIME NON-TOBACCO USER [place] [facility] [place] [facility] August 12, 2010 02:56 PM LIFETIME NON-TOBACCO USER [place] [facility] [place] [facility] Encounter Notes: All associated encounter notes This section contains the clinical notes associated to the Encounter. Date/Time Encounter Note(s) Provider Source Feb 12, 2024 03:28 PM PSYCHIATRY GROUP COUNSELING NOTE: LOCAL TITLE: PSYCHOLOGY GROUP NOTE STANDARD TITLE: PSYCHIATRY GROUP COUNSELING NOTE DATE OF NOTE: FEB 12, 2024@15:28 ENTRY DATE: FEB 12, 2024@:28:25 AUTHOR: MARIJA SUTTON EXP COSIGNER: URGENCY: STATUS: COMPLETED BHIP Living with Angry Feelings Group Therapy Note SESSION MODALITY: [place] [facility] ([place] to [place] location) [place]'s location: Provider confirmed that [place] is currently located at Primary Address listed in [facility]. Primary phone number: Confirmed for all participants. [place] has provided verbal consent either today or [...] Visual recognition Facilitators: Mayo Whaley MS, and Marija Sutton, PhD PROCEDURE: 60-minute interactive hybrid VVC/F2F [...] and ways to expand their perspectives. PROGRESS: [place] arrived on time and was an active and appropriate participant. [place] participated in the mindfulness practices and group discussions. Mental Status was not formally assessed due to the nature of the encounter. [place] maintained appropriate eye contact and was alert. [place] spoke clearly and coherently. 's thoughts were linear and related. [place]'s affect was congruent to content and appropriate [...] on Monday, February 19, 2024 at 1pm. /es/ Marija Sutton, PhD Clinical Psychologist, Mental Health Clinic Signed: 02/12/2024 16:27 MARIJA SUTTON [place] [facility]
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
--- OUTSIDE RECORDS SUMMARY | 2024-08-12 09:18 | XMS_ITS | Encounter Summary ---
Author Name [facility] of Veter[facility] Affairs ([place]) Organization Department of Vetera Affairs ([place]) Address [address] [place] [address] Care Team Providers Care Information Systems Security Manager Name Role Phone KEEGAN RDZ Primary [...] Goyal's Name Patient's Relationship to Policy [facility] COH RETIR EMENT Oct 10, 2023 [id number] [phone] NANO CROWE PATIENT Selected Encounter This section includes the information on record at ID for the Encounter. Date/Time Encounter Type Encounter Description Reason Provider Source August 24, 2023 03:00 PM PSYTX W PT 60 MINUTES [facility] - IND ICD-10-CM F43.10 Post-traumatic stress disorder, unspecified ALL SUTTON IHAbner Encounter Template Text not used by ID Assessments - Encounter Diagnoses This section includes the primary and secondary diagnoses documented for the Encounter. Date/Time Primary/Secondary Diagnosis Diagnosis Name Provider Source Sep 30, 2023 07:57 AM PRIMARY Post-traumatic stress disorder, unspecified [place] E [facility] [place] [facility] Plan of Treatment: Future Appointments (+ 6 months) and Future Tests (+/- 45 days) The Plan of Treatment section includes future care activities for the patient from [facility] This section includes future [...] REHAB MEDICIN E [facility] [place] [facility] Sep 25, 2023 01:00 PM AMBULATORY - PSYCHIATRY [facility] [place] [facility] Sep 28, 2023 03:00 PM AMBULATORY - PSYCHIATRY [facility] [place] [facility] Oct 02, 2023 01:00 PM AMBULATORY - PSYCHIATRY [facility] [place] [facility] Oct 06, 2023 08:00 AM AMBULATORY - MEDICINE [facility] [place] [facility] Oct 06, 2023 09:30 AM AMBULATORY - MEDICINE [facility] [place] [facility] Oct 09, 2023 01:00 PM AMBULATORY - PSYCHIATRY [facility] [place] [facility] Oct 21, 2023 12:30 PM AMBULATORY - PSYCHIATRY [facility] [place] [facility] Oct 21, 2023 12:30 PM [facility]ONE [facility] Oct 23, 2023 08:30 AM AMBULATORY - REHAB MEDICIN E [facility] [place] [facility] Oct 23, 2023 01:00 PM AMBULATORY - PSYCHIATRY [facility] [place] [facility] Oct 30, 2023 01:00 PM AMBULATORY - PSYCHIATRY [facility] [place] [facility] Nov 13, 2023 11:00 AM AMBULATORY - MEDICINE [facility] [place] [facility] Nov 13, 2023 12:00 PM AMBULATORY - MEDICINE [facility] [place] [facility] Nov 13, 2023 12:15 PM AMBULATORY - MEDICINE [facility] [place] [facility] Nov 13, 2023 01:00 PM AMBULATORY - PSYCHIATRY [facility] [place] [facility] Nov 13, 2023 03:00 PM AMBULATORY - PSYCHIATRY [facility] [place] [facility] Nov 13, 2023 03:00 PM [facility]ULATORY - NONE [facility] Nov 20, 2023 01:00 PM AMBULATORY - PSYCHIATRY [facility] [place] [facility] Nov 30, 2023 11:00 AM AMBULATORY - REHAB MEDICIN E [facility] Active, Pending, and Scheduled Orders This section includes a listing of several types of active, pending, and scheduled orders, including clinic medications orders, diagnostic test orders, procedure orders and consult orders; where the start date of the order is 45 days before the date of the Encounter or 45 days after the date of theEncounter. The data comes from all ID treatment facilities. Test Date/Time Test Type Test Details Facility Name Jul 28, 2023 12:00 AM Laboratory - Chemi stry Order OCCULT BLOOD FIT X1 SCREEN(IN-HOUSE) STOOL FECES [facility] Social History: Smoking Status (Most current) [...] 28, 2023 08:30 AM VA-TOBACCO [facility] Tobacco Use History This section includes a history of the smoking, or tobacco-related health factors, that were collected on or before the date of the Encounter. The data comes from the ID facility where the Encounter took place. Date/Time Smoking Status/Tobacco Use Comment F acility Feb 21, 2020 10:30 AM VA-TOBACCO NEVER USED ID [facility] [place] [facility] Apr 20, 2018 02:11 PM VA-TOBACCO NEVER USED ID [facility] [place] [facility] Jan 14, 2017 02:29 PM LIFETIME NON-TOBACCO USER ID [facility] [place] [facility] August 12, 2010 02:56 PM LIFETIME NON-TOBACCO USER ID [facility] [place] [facility] Encounter Notes: All associated encounter [...] Angry Feelings Group Treatment Planning Appointment via [facility] Video Connect (clinic to non-VA location) 's location: Provider confirmed that [place] is currently located at Primary Address listed in ID Video Connect consult and verified the contact phone number [place] has provided verbal consent either today or previously when seen via [facility] in mental health. This consent was obtained after a full explanation of the risk and benefits of using telehealth for mental health appointments. Alternatives for obtaining care through an in-person mental health visit and the [place]'s right of refusal at any time during this session have been explained. 's location/environment was surveyed by this provider to identify all participants and the Virtual Medical Room was locked (via enabling button option in VMR) once all invited/required attendees were present. IDENTITY VERIFICATION [X] Patient Name [ ] Visual recognition [X] Birthdate [ ] Social Security # Procedure: The was seen for a 50-minute [facility] individual psychotherapy session in the Outpatient Mental Health Clinic Problem: Difficulty managing angry feelings without acting in ways [place] regrets Objective: Discuss Veterans potential participation the Living with Angry Feelings Group. 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 spoke about his goal of responding differently to angry feelings as to avoid interpersonal problems and regrets. Discussed [place]'s potential interest in the Living with Angry Feelings group. Provided information about ACT-based approach, structure of the group, and group guidelines. [place] indicated interest in beginning the Living With Angry Feelings hybrid F2F/VVC group. [place] indicated understanding that the group commitment document will be sent via Secure Message (his preference) once a start date can be solidified. expressed willingness to speak with group work program aide should concerns arise and understanding that group participation is for 12 weeks. agreed to complete [facility] touch measures, requesting that they be sent via text today. understands television script writer or group coleader will outreach to solidify a start date. Assessment: arrived on time for session and was dressed appropriately with appropriate hygiene. [place] maintained appropriate eye contact and was alert. spoke clearly and coherently. Veterans thoughts were linear and related. Veterans affect was congruent to content and appropriate in range. There was no evidence of AH/VH or delusions. denied suicidal and homicidal ideation. [place] was reminded of emergency resources through this VA and the [facility] Crisis [facility] number. Diagnostic Impressions According to the DSM-V and Per Chart Review: PTSD, chronic Plan: requested to begin participation in the Living With Angry Feelings Group via VVC. Will outreach with information about a potential start date when available. /es/ Marija Sutton, PhD Clinical Psychologist, Mental Health Clinic Signed: 08/24/2023 16:04 Receipt Acknowledged By: 08/24/2023 16:28 /tanika/ TINA GONZALES M.S.// DRAWER IN// 08/24/2023 ADDENDUM STATUS: COMPLETED Suicide Screen: C-SSRS Screening [place]-Suicide Severity Rating Scale (C-SSRS Screener) 1. Over [...] ADDENDUM STATUS: COMPLETED Called and spoke with . Indicated he is able to join the Living with Angry Feelings group as soon as this Thursday. Given 's upcoming schedule of appointments, [place] agreed to begin on Monday, September 18, 2023 at 1pm via [facility]. Confirmed plan for him to complete BHL touch measures, which he requested be sent to him via email on Thursday, September 14, 2023 at 10am. No evidence of imminent risk. [place] expressed appreciation for the call and the opportunity to join the group. /tanika/ Mraija Sutton, PhD Clinical Psychologist, Mental Health Clinic Signed: 09/02/2023 08:53 MARIJA SUTTON ID [facility]
--- OUTSIDE RECORDS SUMMARY | 2024-08-12 09:18 | XMS_ITS | Encounter Summary ---
Author Name Department of Vetera ns Affairs (MD) Organization Department of Vetera ns Affairs (MD) Address [address] [place] [address] Care Team Providers Care [place] Man Name Role Phone KEEGAN RDZ Primary Care [...] Goyal's Name Patient's Relationship to Policy Goyal [facility]GAN[facility]AT ION COH RETIR EMENT Oct 10, 2023 [id number] NANO CROWE PATIENT Selected Encounter This section includes the information on record at MD for the Encounter. Date/Time Encounter Type Encounter Description Reason Provider Source Jan 22, 2024 01:00 PM GROUP PSYCHOTHERAPY MENTAL HEALTH CLINIC-GROUP ICD-10-CM F43.10 Post-traumatic stress disorder, unspecified HANDY SUTTON Abner Encounter Template Text not used by MD Assessments - Encounter Diagnoses This section includes the primary and secondary diagnoses documented for the Encounter. Date/Time Primary/Secondary Diagnosis Diagnosis Name Provider Source Jan 22, 2024 03:14 PM PRIMARY Post-traumatic stress disorder, unspecified MAYO WHALEY [facility] Plan of Treatment: Future Appointments (+ 6 months) and Future Tests (+/- 45 days) The Plan of Treatment section includes future care activities for the patient from all [facility]. This section includes future appointments and future orders which are active, pending or scheduled. Future Appointments This section includes appointments that were scheduled to occur 6 months from the date of the Encounter, up to a maximum of 20 appointments. The data comes from all MD treatment facilities. Appointment Date/Time Appointment Type Appointme nt Facility Name Jan 29, 2024 01:00 PM AMBULATORY - PSYCHIATRY [place] [facility] [place] [facility] Feb 12, 2024 01:00 PM AMBULATORY - PSYCHIATRY MD [facility] [place] [facility] Feb 16, 2024 08:30 AM AMBULATORY - PSYCHIATRY MD [facility] [place] [facility] Feb 19, 2024 01:00 PM AMBULATORY - PSYCHIATRY MD [facility] [place] [facility] Mar 09, 2024 02:00 PM AMBULATORY - NONE MD [facility] [place] [facility] Mar 21, 2024 03:00 PM AMBULATORY - PSYCHIATRY MD [facility] [place] [facility] May 04, 2024 03:00 PM AMBULATORY - NONE MD [facility] [place] [facility] May 09, 2024 03:00 PM AMBULATORY - PSYCHIATRY MD [facility] [place] [facility] Jul 20, 2024 10:00 AM [facility] N[facility] [place] [facility] Social History: Smoking Status (Most current) and Tobacco Use (All prior to encounter date) This section includes the most current, and the historical, smoking and tobacco- related health factors from the MD facility where the Encounter took place. Current Smoking Status This section includes the most current smoking, or tobacco-related health factor, from the MD facility where the Encounter took place. Date/Time Current Smoking Status Comment Facil ity Jul 28, 2023 08:30 AM [facility]CO [facility] Tobacco Use History This section includes a history of the smoking, or tobacco-related health factors, that were collected on or before the date of the Encounter. The data comes from the MD facility where the Encounter took place. Date/Time Smoking Status/Tobacco Use Comment F acility Feb 21, 2020 10:30 AM MD-TOBACCO NEVER USED VA [facility] [place] [facility] Apr 20, 2018 02:11 PM VA-TOBACCO NEVER USED VA [facility] [place] [facility] Jan 14, 2017 02:29 PM LIFETIME NON-TOBACCO USER [facility] [place] [facility] August 12, 2010 02:56 PM LIFETIME NON-TOBACCO USER [facility] [place] [facility] Encounter Notes: All associated encounter notes This section contains the clinical notes associated to the Encounter. Date/Time Encounter Note(s) Provider Source Jan 22, 2024 02:55 PM TELEHEALTH NOTE: LOCAL TITLE: MD VIDEO CONNECT PSYCHOLOGY NOTE STANDARD TITLE: TELEHEALTH NOTE DATE OF NOTE: JAN 22, 2024@14:55 ENTRY DATE: JAN 22, 2024@14:56:08 AUTHOR: MAYO WHALEY COSIGNER: MARIJA SUTTON URGENCY: STATUS: COMPLETED BHIP Living with Angry Feelings Group Therapy Note (VVC) IDENTITY VERIFICATION: [X] Patient Name [X] Visual recognition [ ] Birthdate [ ] Social Security # MD Video Connect (clinic to non-VA location) [place]'s location: Provider confirmed that is currently located at Primary Address listed in MD Video Connect consult and verified the contact phone number. has provided verbal consent either today or previously when seen via VVC in mental health. This consent was obtained after a full explanation of the risk and benefits of using telehealth for mental health appointments. Alternatives for obtaining care through an in-person mental health visit and the [place]'s right of refusal at any time during this session have been explained. [place]'s location/environment was surveyed by this provider to identify all participants and the Virtual Medical Room was locked (via enabling button option in R) once all invited/required attendees were present. Government Instructor: Mayo Whaley, MS, and Marija Sutton, PhD PROCEDURE: 60-minute [...] and was an active and appropriate participant. [place] participated in the mindfulness practices and group [...] was no evidence of AH/VH or delusions. [place] was future oriented. Diagnostic Impressions According to the DSM-V and Per Chart Review: Posttraumatic stress disorder, unspecified PLAN: will continue to participate in the Living with Angry Feelings Group on Fridays at 1pm. This case is supervised by Dr. Marija Sutton, Staff Psychologist. Diagnosis, treatment plan, and response to care are reviewed in standard 1-hour, or more, weekly individual and group supervision meetings. /tanika/ MAYO WHALEY MS [employer] Signed: 01/22/2024 15:14 /tanika/ Marija Sutton, PhD Clinical Psychologist, Mental Health Clinic Cosigned: 01/22/2024 16:23 MAYO WHALEY MD [facility]
--- OUTSIDE RECORDS SUMMARY | 2024-08-12 09:18 | XMS_ITS ---
Author Name Department of [place] Organization Department [place] Address [address] [place] [address] Care Team Providers Care [facility] Attendant Name Role Phone KEEGAN RDZ Primary Care [...] Policy Goyal's Name Patient's Relationship to Policy Goayl [facility] ORGANIZAT ION [facility] RETIR EMENT Oct 10, 2023 [id number] [phone] NANO CROWE PATIENT Selected Encounter This section includes the information on record at [place] for the Encounter. Date/Time Encounter Type Encounter Description Reason Pro vider Source May 09, 2024 03:00 PM Outpatient Encounter [facility]AL [facility]ALTH [facility] IHE Encounter Template Text not used by [place] Plan of Treatment: Future Appointments (+ 6 [...] 20 appointments. The data comes from all [place] treatment facilities. Appointment Date/Time Appointment Type Appointme nt Facility Name Jul 20, 2024 10:00 AM AMBULATORY - NONE [place] [facility] [place] [facility] Aug 02, 2024 09:30 AM AMBULATORY - MEDICINE [facility] [place] [facility] August 10, 2024 01:30 PM AMBULATORY - PSYCHIATRY [place] [facility] [place] [facility] Sep 26, 2024 01:00 PM AMBULATORY - PS[facility]IATRY [facility] Social History: Smoking Status (Most current) and Tobacco Use (All prior to encounter date) This section includes the most current, and the historical, smoking and tobacco- related health factors from the [place] facility where the Encounter took place. Current Smoking Status This section includes the most current smoking, or tobacco-related health factor, from the [place] facility where the Encounter took place. Date/Time Current Smoking Status Comment Federico ity Jul 28, 2023 08:30 AM VA-TOBACCO [facility] USED [facility] Tobacco Use History This section includes a history of the smoking, or tobacco-related health factors, that were collected on or before the date of the Encounter. The data comes from the [place] facility where the Encounter took place. Date/Time Smoking Status/Tobacco Use Comment F acility Feb 21, 2020 10:30 AM VA-TOBACCO NEVER USED [place] [facility] [place] [facility] Apr 20, 2018 02:11 PM VA-TOBACCO NEVER USED VA [facility] [place] [facility] Jan 14, 2017 02:29 PM LIFETIME NON-TOBACCO USER [facility] [place] [facility] August 12, 2010 02:56 PM LIFETIME NON-TOBACCO USER [place] [facility] [place] [facility] Encounter Notes: All associated encounter notes This section contains the clinical notes associated to the Encounter. Date/Time Encounter Note(s) Provider Source May 09, 2024 03:15 PM CLERICAL NOTE: LOCAL TITLE: APPOINTMENT NO SHOW STANDARD TITLE: CLERICAL NOTE DATE OF NOTE: MAY 09, 2024@15:15 ENTRY DATE: MAY 09, 2024@15:15:48 AUTHOR: COREY DAILY COSIGNER: URGENCY: STATUS: COMPLETED APPOINTMENT NO SHOW Has ADDENDA Patient Name: NANO CROWE Patient SSN: [id number] Date and time of Appointment No show : 05/09/24 15:00 PATIENT PHONE - PHONE NUMBER [CELLULAR] - Patient's medical record was reviewed. Follow-up actions were determined and initiated: Please check/complete as applies: [X]Telephoned Directly [ ]Re-scheduled for next available appt [X]Sent a N0-show letter ( must call for appointment) [ ]Other (Emergent/Overbook, etc.): Additional Comments: Vet did not connect to [facility] appt. called, but no response. Vague VM left to return call at [phone]. no-show letter to be sent for rescheduling purposes. Future Clinic Visits No data available /tanika/ Corey Daily PharmD Clinical Pharmacist Practitioner Signed: 05/09/2024 15:16 Receipt Acknowledged By: 05/09/2024 15:48 /loreto ESQUIVEL LEAD CARGO AND CONTAINER INSPECTOR 05/09/2024 ADDENDUM STATUS: COMPLETED missed appt.letter mailed /loreto ESQUIVEL LEAD CARGO AND CONTAINER INSPECTOR Signed: 05/09/2024 15:48 COREY DAILY [facility]
--- OUTSIDE RECORDS SUMMARY | 2024-08-12 09:18 | XMS_ITS | Encounter Summary ---
Author Name [place] Organization [place] Address [address] [place] [address] Care Team Providers Care Independent Beauty Consultant Name Role Phone KEEGAN RDZ Primary Care [...] Goyal's Name Patient's Relationship to Policy Goyal [facility] CE ORGANIZAT ION COH RETIR EMENT Oct 10, 2023 [id number] NANO CROWE PATIENT Selected Encounter This section includes the information on record at [place] for the Encounter. Date/Time Encounter Type Encounter Description Reason Provider Source Oct 21, 2023 12:30 PM NRPSY TST EVAL PHYS/QHP EA PSYCHOLOGICAL TESTING ICD-10-CM F43.10 Post-traumatic stress disorder, unspecified CALOS,DEANNA LY PAUL Abner Encounter Template Text not used by [place] Assessments - Encounter Diagnoses This section includes the primary and secondary diagnoses documented for the Encounter. Date/Time Primary/Secondary Diagnosis Diagnosis Name Provider Source Oct 21, 2023 04:05 PM PRIMARY Post-traumatic stress disorder, unspecified CALOS,ZAHRAA Y PAUL [facility] Oct 21, 2023 04:05 PM SECONDARY Depression, unspecified ZAHRAA LIVE Y [facility]UL [facility] Oct 21, 2023 04:05 PM SECONDARY Unsp focal TBI w LOC of 30 minutes or less, subs ZAHRAA LIVE Y PAUL [facility] Plan of Treatment: Future Appointments (+ 6 months) and Future Tests (+/- 45 days) The Plan of Treatment section includes future care activities for the patient from all [place] [facility]. This section includes future appointments and [...] REHAB MEDICIN E [facility] [place] [facility] Oct 23, 2023 01:00 PM AMBULATORY - PSYCHIATRY [facility] [place] [facility] Oct 30, 2023 01:00 PM AMBULATORY - PSYCHIATRY [facility] [place] [facility] Nov 13, 2023 11:00 AM AMBULATORY - MEDICINE [place] [facility] [facility] Nov 13, 2023 12:00 PM AMBULATORY - MEDICINE [facility] [place] [facility] Nov 13, 2023 12:15 PM AMBULATORY - MEDICINE [facility] [place] [facility] Nov 13, 2023 01:00 PM AMBULATORY - PSYCHIATRY [facility] [place] [facility] Nov 13, 2023 03:00 PM AMBULATORY - PSYCHIATRY [facility] [place] [facility] Nov 13, 2023 03:00 PM AMBULATORY - NONE [facility] Nov 20, 2023 01:00 PM AMBULATORY - PSYCHIATRY [facility] [place] [facility] Nov 30, 2023 11:00 AM AMBULATORY - REHAB MEDICIN E [facility] [place] [facility] Dec 04, 2023 01:00 PM AMBULATORY - PSYCHIATRY [facility] [place] [facility] Dec 11, 2023 01:00 PM AMBULATORY - PSYCHIATRY [facility] [place] [facility] Dec 21, 2023 03:00 PM [...] 21, 2023 08:12 AM NEUROPSYCHOLOGY CO NSULT: LOCAL TITLE: [facility] 1 [facility] NEUROPSYCHOLOGY EVALUATION STANDARD TITLE: NEUROPSYCHOLOGY CONSULT DATE OF NOTE: OCT 21, 2023@08:12 ENTRY DATE: OCT 21, 2023@08:12:39 AUTHOR: LAUREANO LIVE COSIGNER: URGENCY: STATUS: COMPLETED Clinical Service Provided: Neuropsychological Evaluation Service Delivery Method: VVC/Sxpc-Xns-Ryzc Provisional Diagnosis: PTSD, MDD, history of mTBI; r/o mild neurocognitive disorder For a complete progress note including a mental status examination and risk assessment, please see the [facility] medical record (accessible through JL). Length of Service: Chart review & assessment plannin minutes Clinical interview: 60 minutes Testin minutes Scoring & entry of scores to report: 60 minutes Interpretation and report writin minutes /tanika/ LAUREANO LIVE Neuropsychologist Signed: 10/21/2023 16:05 LAUREANO ILVE [facility]
--- OUTSIDE RECORDS SUMMARY | 2024-08-12 09:19 | XMS_ITS | Encounter Summary ---
Author Name [facility] [place] [facility] [place] Address [address] [place] [address] Care Team Providers Care Meat Slicer Name Role Phone KEEGAN RDZ Primary Care [...] Goyal's Name Patient's Relationship to Policy Goyal [facility] CE ORGANIZAT ION COH RETIR EMENT Oct 10, 2023 [id number] NANO CROWE PATIENT Selected Encounter This section includes the information on record at [place] for the Encounter. Date/Time Encounter Type Encounter Description Reason Provider Source Nov 13, 2023 11:00 AM COMPRE OPH EXAM EST PT 1/> OPTOMETRY ICD-10-CM Z87.820 Personal history of traumatic brain injury NBA SIMON Abner Encounter Template Text not used by [place] Assessments - Encounter Diagnoses This section includes the primary and secondary diagnoses documented for the Encounter. Date/Time Primary/Secondary Diagnosis Diagnosis Name Provider Source Nov 17, 2023 02:48 PM PRIMARY Personal history of traumatic brain injury NBA SIMON [facility] Nov 17, 2023 02:48 PM SECONDARY Hypermetropia, bilateral [place],NBA Narayan [facility] Nov 17, 2023 02:48 PM SECONDARY Open angle with borderline findings, low risk, bilateral [place],NBA Narayan [facility] Nov 17, 2023 02:48 PM SECONDARY Presbyopia [place],NBA Narayan [place] [facility] Plan of Treatment: Future Appointments (+ 6 months) and Future Tests (+/- 45 days) The Plan of Treatment section includes future care activities for the patient from all [place] [facility]. This section includes future appointments and future [...] AMBULATORY - PSYCHIATRY [facility] Nov 30, 2023 11:00 AM AMBULATORY - REHAB MEDICIN E [facility] Dec 04, 2023 01:00 PM AMBULATORY - PS[facility]CHIATRY [facility] Dec 11, 2023 01:00 PM AMBULATORY - PS[facility]IATRY [facility] Dec 21, 2023 03:00 PM AMBULATORY - PS[facility]CHIATRY [facility] Dec 22, 2023 10:00 AM AMBULATORY - PSYCHIATRY [facility] Jan 01, 2024 01:00 PM AMBULATORY - PS[facility]CHIATRY [facility] Jan 15, 2024 01:00 PM AMBULATORY - PS[facility]CHIATRY [facility] Jan 22, 2024 01:00 PM AMBULATORY - PS[facility]CHIATRY [facility] Jan 29, 2024 01:00 PM AMBULATORY - PS[facility]IATRY [facility] Feb 12, 2024 01:00 PM AMBULATORY - PS[facility]CHIATRY [facility] Feb 16, 2024 08:30 AM AMBULATORY - PSYCHIATRY [facility] Feb 19, 2024 01:00 PM AMBULATORY - PSYCHIATRY [facility] Mar 09, 2024 02:00 PM AMBULATORY - NONE [facility] Mar 21, 2024 03:00 PM AMBULATORY - PSYCHIATRY [place] [facility] May 04, 2024 03:00 PM AMBULATORY - NONE [facility] May 09, 2024 03:00 PM AMBULATORY - [facility]IATRY [place] [facility] Social History: Smoking Status (Most current) [...] 2023 08:30 AM VA-TOBACCO [facility] Tobacco Use History This section includes a history of the smoking, or tobacco-related health factors, that were collected on or before the date of the Encounter. The data comes from the [place] facility where the Encounter took place. Date/Time Smoking Status/Tobacco Use Comment Flako berger Feb 21, 2020 10:30 AM VA-TOBACCO NEVER USED [place] [facility] Apr 20, 2018 02:11 PM VA-TOBACCO NEVER USED [place] [facility] Jan 14, 2017 02:29 PM LIFETIME NON-TOBACCO USER [facility] August 12, 2010 02:56 PM LIFETIME [facility]-TOBACCO [facility] Encounter Notes: All associated encounter notes This section contains the clinical notes associated to the Encounter. Date/Time Encounter Note(s) Provider Source Nov 13, 2023 10:43 AM OPTOMETRY NOTE: LOCAL TITLE: OPTOMETRY NOTE STANDARD TITLE: OPTOMETRY NOTE DATE OF NOTE: NOV 13, 2023@10:43 ENTRY DATE: NOV 13, 2023@10:43:17 AUTHOR: EMILY DE LA VEGA: JEANCARLOS SIMON URGENCY: STATUS: COMPLETED OPTOMETRY NOTE Has ADDENDA Active problems - Computerized Problem List is the source for the followin. Exposure to potentially hazardous substance 2. Posttraumatic stress disorder 3. Atrial fibrillation 4. Brown-Sequard syndrome 5. Hypercalcemia 6. History of calculus of kidney 7. Cervical radiculopathy (SNOMED CT 68286104) 8. History of colonoscopy 9. Erectile dysfunction (SNOMED CT 531882389) 10. Essential hypertension 11. Hearing loss (SNOMED CT 34375534) Active Outpatient Medications (including Supplies): Active Outpatient [...] old MALE is seen today for RYAN OLMOS with DFE 10/2022 Chief Complaint: -No changes [...] this VA (local) and dispensed from another [place] or DoD facility (remote) as well as [...] Remote Allergy/ADR Data available for this patient [place] [facility] No Known Allergies Med. Reconciliation (Tool #1) INCLUDED IN THIS LIST: Alphabetical list of active outpatient prescriptions dispensed from this [place] (local) and dispensed from another [place] or DoD facility (remote) as well as [...] the patient into personal health records (i.e. [facility]) are NOT included in this list. Non-VA medications documented outside this [place], remote inpatient orders (regardless of status) and [...] MOUTH AT BEDTIME FOR MIGRAINE HEADACHES Rx# [id number] Last Released: 09/30/23 Qty/Days Supply: Rx Expiration Date: 09/28/24 Refills Remainin Indication: FOR MIGRAINE HEADACHES Non-VA POTASSIUM CITRATE 10MEQ SA TAB TAKE ONE TABLET BY MOUTH ONCE DAILY Non-VA TRAMADOL HCL 50MG TAB TAKE ONE TABLET BY MOUTH TWICE DAILY OUTPT TRAZODONE HCL 100MG TAB (Status = Active) TAKE ONE-HALF TABLET BY MOUTH AT BEDTIME FOR INSOMNIA ASSOCIATED WITH DEPRESSION Rx# [id number] Last Released: 09/30/23 Qty/Days Supply: Rx Expiration Date: 09/28/24 Refills Remainin Indication: FOR INSOMNIA ASSOCIATED WITH DEPRESSION Non-VA TURMERIC CAP/TAB TAKE BY MOUTH Non-VA VITAMIN E CAP,ORAL TAKE BY MOUTH SUPPLIES PHARMACY TERMS AND POSSIBLE PATIENT ACTIONS INPT = [place] inpatient order IV = [place] intravenous medication OUTPT = [place] outpatient prescription PHARMACY POSSIBLE PATIENT TERMS EXPLANATION ACTIONS -------- ------ ACTIVE A prescription that can be If you have refills, filled at the local VA pharmacy. you may request a refill of this prescription from your VA pharmacy. CLINIC A medication you received during If you have questions a visit to a VA clinic or about this medication emergency department. contact your VA healthcare team. DISCONTINUED A prescription your provider has Contact your VA stopped. It is no longer healthcare team if you available to be sent to you or need more of this picked up at the [place] pharmacy medication. window. A prescription which is [...] the VA. Or, it may be an wvad-jwq-dxeaqkt (OTC), herbal, dietary supplements or sample medication. [...] An active prescription that is Contact your [place] not scheduled to be filled yet. pharmacy if you need You should receive it before this medication now. you run out. /tanika/ Jeancarlos Simon OD Fee Basis Wafer Line Worker Signed: 11/13/2023 12:42 for EMILY DE LA VEGA OPTOMETRY STUDENT /es/ Jeancarlos Simon OD Fee Basis Wafer Line Worker Cosigned: 11/13/2023 12:42 11/13/2023 ADDENDUM STATUS: COMPLETED I reviewed all findings with the tree marker. I performed the slit lamp exam and dilated fundus exam. Cupping appeared moderate and OS had less color inferiorally but VF and OCT are normal. Progress note reviewed and edited as needed. I established the plan of care and educated the patient about his conditions. Pt deferred receiving a list of current medications /tanika/ Jeancarlos Simon OD Fee Basis Wafer Line Worker Signed: 11/13/2023 12:43 JEANCARLOS SIMON [place] [facility]
--- OUTSIDE RECORDS SUMMARY | 2024-08-12 09:19 | XMS_ITS ---
Author Name [facility] [place] Address [address] [place] [address] Care Team Providers Care Floatlight Powder Mixer Name Role Phone KEEGAN RDZ Primary Care [...] Goyal's Name Patient's Relationship to Policy [facility] OR[facility] RETIR EMENT Oct 10, 2023 [id number] [phone] NANO CROWE PATIENT Selected Encounter This section includes the information on record at [place] for the Encounter. Date/Time Encounter Type Encounter Description Reason Pro vider Source Jan 29, 2024 01:00 PM Outpatient Encounter [facility] IHE Encounter Template Text not used by [place] Plan of Treatment: Future Appointments (+ 6 [...] 20 appointments. The data comes from all [place] treatment facilities. Appointment Date/Time Appointment Type Appointme nt Facility Name Feb 12, 2024 01:00 PM AMBULATORY - PSYCHIATRY [facility] [place] [facility] Feb 16, 2024 08:30 AM AMBULATORY - PSYCHIATRY [place] [facility] [place] [facility] Feb 19, 2024 01:00 PM AMBULATORY - PSYCHIATRY [place] [facility] [place] Mar 09, 2024 02:00 PM AMBULATORY - NONE [place] [facility] [place] [facility] Mar 21, 2024 03:00 PM AMBULATORY - PSYCHIATRY [place] [facility] [place] [facility] May 04, 2024 03:00 PM AMBULATORY - NONE [place] [facility] [place] [facility] May 09, 2024 03:00 PM AMBULATORY - PSYCHIATRY [place] [facility] [place] [facility] Jul 20, 2024 10:00 AM AMBULATORY - NONE [place] [facility] [place] [facility] Social History: Smoking Status (Most current) and Tobacco Use (All prior to encounter date) This section includes the most current, and the historical, smoking and tobacco- related health factors from the [place] facility where the Encounter took place. Current Smoking Status This section includes the most current smoking, or tobacco-related health factor, from the [place] facility where the Encounter took place. Date/Time Current Smoking Status Comment Federico tapiay Jul 28, 2023 08:30 AM VA-TOBACCO NEVER USED [place] [facility] [place] [facility] Tobacco Use History This section includes a history of the smoking, or tobacco-related health factors, that were collected on or before the date of the Encounter. The data comes from the [place] facility where the Encounter took place. Date/Time Smoking Status/Tobacco Use Comment F acility Feb 21, 2020 10:30 AM VA-TOBACCO NEVER USED [place] [facility] [place] [facility] Apr 20, 2018 02:11 PM VA-TOBACCO NEVER USED [place] [facility] [place] [facility] Jan 14, 2017 02:29 PM LIFETIME NON-TOBACCO USER [place] [facility] [place] [facility] August 12, 2010 02:56 PM LIFETIME NON-TOBACCO USER [place] [facility] [place] [facility] Encounter Notes: All associated encounter notes This section contains the clinical notes associated to the Encounter. Date/Time Encounter Note(s) Provider Source Feb 03, 2024 09:19 AM ADDENDUM: LOCAL TITLE: Addendum STANDARD TITLE: ADDENDUM DATE OF NOTE: FEB 03, 2024@09:19:42 ENTRY DATE: FEB 03, 2024@09:19:43 AUTHOR: LAKEISHA SUTTON COSIGNER: URGENCY: STATUS: COMPLETED Made second outreach attempt and left for Aguanga to encourage him to attend group on Thursday and to plan for a group graduation meeting. Requested a call to confirm an appointment via [facility] on Thursday, February 16, 2024 at 8:30am or request an alternative time. Provided contact information. /es/ Lakeisha Sutton, PhD Clinical Psychologist, Mental Health Clinic Signed: 02/03/2024 09:21 Receipt Acknowledged By: 02/03/2024 10:57 /es/ WANDA DOWELL MS Spray Gun Sizer ====== --- Original Document --- 01/29/24 APPOINTMENT NO SHOW: Patient Name: NANO CROWE Patient SSN: [id number] Date and time of Appointment No show : 01/29/24 13:00 PATIENT PHONE - PHONE NUMBER [CELLULAR] - Patient's medical record was reviewed. Follow-up actions were determined and initiated: Please check/complete as applies: [X]Telephoned Directly [ ]Re-scheduled for next available appt [ ]Sent a N0-show letter ( must call for appointment) [ ]Other (Emergent/Overbook, etc.): Additional Comments: Process Manufacturing Engineer called Aguanga to check in about missed group and to schedule treatment planning session. Call went to . Process Manufacturing Engineer left name, number, and offered time to meet for this treatment planning session on February 15 at 8:30AM. Process Manufacturing Engineer requested a returned call if the time is not workable for Aguanga. This case is supervised by Dr. Lakeisha Sutton, Staff Psychologist. Diagnosis, treatment plan, and response to care are reviewed in standard 1-hour, or more, weekly individual and group supervision meetings. Future Clinic Visits 02/05/2024 13:00 CWM/NO/VVC/MHC/PSYLG 3 GR 02/12/2024 13:00 CWM/NO/VVC/MHC/PSYLG 3 GR 02/19/2024 13:00 CWM/NO/VVC/MHC/PSYLG 3 GR 03/09/2024 14:00 CWM/NO/VVC/HOMESLEEP 1 03/21/2024 15:00 CWM/NO/VVC/MHC/CLP2 /es/ WANDA DOWELL MS Spray Gun Sizer Signed: 01/29/2024 15:04 /es/ Lakeisha Sutton, PhD Clinical Psychologist, Mental Health Clinic Cosigned: 01/29/2024 16:15 LAKEISHA SUTTON [place] [facility] [place] [facility] Jan 29, 2024 03:00 PM CLERICAL NOTE: LOCAL TITLE: APPOINTMENT NO SHOW STANDARD TITLE: CLERICAL NOTE DATE OF NOTE: JAN 29, 2024@15:00 ENTRY DATE: JAN 29, 2024@15:01:40 AUTHOR: WANDA DOWELL EXP COSIGNER: LAKEISHA SUTTON URGENCY: STATUS: COMPLETED APPOINTMENT NO SHOW Has ADDENDA Patient Name: NANO CROWE Patient SSN: [id number] Date and time of Appointment No show : 01/29/24 13:00 PATIENT PHONE - PHONE NUMBER [CELLULAR] - Patient's medical record was reviewed. Follow-up actions were determined and initiated: Please check/complete as applies: [X]Telephoned Directly [ ]Re-scheduled for next available appt [ ]Sent a N0-show letter ( must call for appointment) [ ]Other (Emergent/Overbook, etc.): Additional Comments: Process Manufacturing Engineer called [facility] to check in about missed group and to schedule treatment planning session. Call went to . Process Manufacturing Engineer left name, number, and offered time to meet for this treatment planning session on February 15 at 8:30AM. Process Manufacturing Engineer requested a returned call if the time is not workable for Aguanga. This case is supervised by Dr. Lakeisha Sutton, Staff Psychologist. Diagnosis, treatment plan, and response to care are reviewed in standard 1-hour, or more, weekly individual and group supervision meetings. Future Clinic Visits 02/05/2024 13:00 CWM/NO/VVC/MHC/PSYLG 3 GR 02/12/2024 13:00 CWM/NO/VVC/MHC/PSYLG 3 GR 02/19/2024 13:00 CWM/NO/VVC/MHC/PSYLG 3 GR 03/09/2024 14:00 CWM/NO/VVC/HOMESLEEP 1 03/21/2024 15:00 CWM/NO/VVC/MHC/CLP2 /es/ WANDA DOWELL MS Spray Gun Sizer Signed: 01/29/2024 15:04 /tanika/ Lakeisha Sutton, PhD Clinical Psychologist, Mental Health Clinic Cosigned: 01/29/2024 16:15 02/03/2024 ADDENDUM STATUS: COMPLETED Made second outreach attempt and left VM for to encourage him to attend group [...] AWAITING SIGNATURE * WANDA DOWELL [facility]
--- OUTSIDE RECORDS SUMMARY | 2024-08-12 09:19 | XMS_ITS ---
Author Name [place] Address [address] [place] [address] Care Team Providers Care Core Analyst Name Role Phone KEEGAN RDZ Primary Care [...] Patient's Relationship to Policy Goyal [employer] [facility] CE ORGANIZAT ION COH RETIR EMENT Oct 10, 2023 [id number] [phone] NANO CROWE PATIENT Selected Encounter This section includes the information on record at [place] for the Encounter. Date/Time Encounter Type Encounter Description Reason Provider Source Dec 21, 2023 03:00 PM MTMS BY PHARM ADDL 15 MIN [facility] - IND ICD-10-CM F43.10 Post-traumatic stress disorder, unspecified WOJCIECH DAILY Abner Encounter Template Text not used by [place] Assessments - Encounter Diagnoses This section includes the primary and secondary diagnoses documented for the Encounter. Date/Time Primary/Secondary Diagnosis Diagnosis Name Provider Source Dec 21, 2023 03:23 PM PRIMARY Post-traumatic stress disorder, unspecified WOJCIECH DAILY [place] [facility] [place] [facility] Plan of Treatment: Future Appointments (+ 6 months) and Future Tests (+/- 45 days) The Plan of Treatment section includes future care activities for the patient from all [place] [facility] This section includes future appointments and [...] 22, 2023 10:00 AM AMBULATORY - PS[place]CHIATRY [place] [facility] [place] [facility] Jan 01, 2024 01:00 PM AMBULATORY - PSYCHIATRY [place] [facility] [place] [facility] Jan 15, 2024 01:00 PM AMBULATORY - PSYCHIATRY [place] [facility] [place] [facility] Jan 22, 2024 01:00 PM AMBULATORY - PSYCHIATRY [place] [facility] [place] [facility] Jan 29, 2024 01:00 PM AMBULATORY - PSYCHIATRY [place] [facility] [place] [facility] Feb 12, 2024 01:00 PM AMBULATORY - PSYCHIATRY [place] [facility] [place] [facility] Feb 16, 2024 08:30 AM AMBULATORY - PSYCHIATRY [place] [facility] [place] [facility] Feb 19, 2024 01:00 PM AMBULATORY - PSYCHIATRY [place] [facility] [place] [facility] Mar 09, 2024 02:00 PM AMBULATORY - NONE [place] [facility] [place] [facility] Mar 21, 2024 03:00 PM AMBULATORY - PSYCHIATRY [place] [facility] [place] [facility] May 04, 2024 03:00 PM AMBULATORY - NONE [place] [facility] [place] [facility] May 09, 2024 03:00 PM AMBULATORY - PSYCHIATRY [place] [facility] [place] [facility] Social History: Smoking Status (Most current) and [...] 28, 2023 08:30 AM [facility] Tobacco Use History This section includes a history of the smoking, or tobacco-related health factors, that were collected on or before the date of the Encounter. The data comes from the [place] facility where the Encounter took place. Date/Time Smoking Status/Tobacco Use Comment F acility Feb 21, 2020 10:30 AM VA-TOBACCO NEVER USED [place] [facility] [place] [facility] Apr 20, 2018 02:11 PM VA-TOBACCO NEVER USED [place] [facility] [place] [facility] Jan 14, 2017 02:29 PM LIFETIME NON-TOBACCO USER [place] [facility] [place] [facility] August 12, 2010 02:56 PM LIFETIME NON-TOBACCO USER [place] [facility] [place] [facility] Encounter Notes: All associated encounter notes This [...] Resources Only: E911 (Emergency Call Relay Center): [phone] National Veterans Crisis Line - 988 then press #1. [facility] Suicide Coordinator [phone], Ext. [phone]; Back-up Ext. [phone] [place] PoliceLEESA [place] [phone] Introduction: Visit is being conducted by [place] [employer]. [place] identified with 2 identifiers: [X] Full Name [X] Date of [ ] VA ID Card Emergency Plan: confirmed and/or provided the following information in case of emergency or technology failure. PATIENT PHONE - PHONE NUMBER [CELLULAR] - Is patient phone number correct, if not, enter below: 's phone number: NANO CROWE [address] [place] [address], [phone] 's present location and address for appointment: At home 's emergency contact name and phone number: , Pam [phone] reported that location is private and safe: Yes Informed Consent: informed of the risks and benefits of Telehealth video care. [place] has the right to refuse video services. If refuses video visit, a mcmc-yd-waey visit will be scheduled. verbalized consent for [...] ID: [id number] WHITE MALE -=-=-=-=-=-=-=-=-=-=-=-=-=-=- =-=-=-=-=-==-=-=-=-=-=-=-=-=- =-=-=-=-=-=Subjective- [place] was last seen on [id number] with the [...] he states we are steady for now. [place] reports the following regarding medications: -N--Y- [ [...] of kidney 7. Cervical radiculopathy (SNOMED CT 96774948) 8. History of colonoscopy 9. Erectile dysfunction (SNOMED CT 692130833) 10. Essential hypertension 11. Hearing loss (SNOMED CT 15511848) ALLERGIES: Patient has answered NKA Active Outpatient [...] following review of all active psychotropic and DIE ENGRAVER-active agents is to ensure pharmacotherapy is evaluated [...] RTC Interval: every 12weeks Next Apt: tbd [place] was provided auto service writer's contact information and instructed to contact auto service writer as needed for any changes to scheduling or concerns otherwise. is aware of actions to take if they feel unsafe, including calling the [place]'s Crisis Line (#[phone]); calling 911; or going to the nearest urgent care or emergency room. The is also aware of how to contact the clinic should the require additional services prior to the next appointment. Time spent on chart review, session, and documentation: 30minutes /tanika/ Corey Daily PharmD Clinical Pharmacist Practitioner Signed: 01/19/2024 15:21 COREY DAILY [place] [facility]
--- OUTSIDE RECORDS SUMMARY | 2024-08-12 09:19 | XMS_ITS ---
Author Name [place] Address [address] [place] [address] Care Team Providers Care Data Reporting Analyst Name Role Phone KEEGAN RDZ Primary [...] to Policy Goyal BCBS [facility] ORGANIZAT ION COH RETIR EMENT Oct 10, 2023 [id number] NANO CROWE PATIENT Selected Encounter This section includes the information on record at [place] for the Encounter. Date/Time Encounter Type Encounter Description Reason Pro vider Source Nov 13, 2023 03:00 PM Outpatient Encounter ADMIN PAT ACTIVTIES (MASNONCT) IHE Encounter Template Text not used by [place] Plan of Treatment: Future Appointments (+ 6 [...] 20 appointments. The data comes from all [place] treatment facilities. Appointment Date/Time Appointment Type Appointme nt Facility Name Nov 20, 2023 01:00 PM AMBULATORY [facility]ATRY [facility] [place] [facility] Nov 30, 2023 11:00 AM AMBULATORY - REHAB MEDICIN E [facility] [place] [facility] Dec 04, 2023 01:00 PM AMBULATORY - PS[facility]IATRY [facility] [place] [facility] Dec 11, 2023 01:00 PM AMBULATORY - PS[facility]IATRY [facility] [place] [facility] Dec 21, 2023 03:00 PM AMBULATORY - PS[facility]IATRY [facility] [place] [facility] Dec 22, 2023 10:00 AM AMBULATORY - PS[facility]IATRY [facility] [place] [facility] Jan 01, 2024 01:00 PM AMBULATORY - PS[facility]CHIATRY [facility] [place] [facility] Jan 15, 2024 01:00 PM AMBULATORY - PS[facility]CHIATRY [facility] [place] [facility] Jan 22, 2024 01:00 PM AMBULATORY - PS[facility]CHIATRY [facility] [place] [facility] Jan 29, 2024 01:00 PM AMBULATORY - PSYCHIATRY [facility] [place] [facility] Feb 12, 2024 01:00 PM AMBULATORY - PS[facility]CHIATRY [facility] [place] [facility] Feb 16, 2024 08:30 AM AMBULATORY - PS[facility]CHIATRY [facility] [place] [facility] Feb 19, 2024 01:00 PM AMBULATORY - PSYCHIATRY [facility] [place] [facility] Mar 09, 2024 02:00 PM AMBULATORY - NONE [facility] [place] [facility] Mar 21, 2024 03:00 PM AMBULATORY - PSYCHIATRY [facility] [place] [facility] May 04, 2024 03:00 PM AMBULATORY - NONE [facility] [place] [facility] May 09, 2024 03:00 PM AMBULATORY - PSYCHIATRY [facility] [place] [facility] Social History: Smoking Status (Most current) and Tobacco Use (All prior to encounter date) This section includes the most current, and the historical, smoking and tobacco- related health factors from the [facility] facility where the Encounter took place. Current Smoking Status This section includes the most current smoking, or tobacco-related health factor, from the [place] facility where the Encounter took place. Date/Time Current Smoking Status Comment Federico ity Jul 28, 2023 08:30 AM VA-TOBACCO NEVER USED [place] [facility] [place] [facility] Tobacco Use History This section includes a history of the smoking, or tobacco-related health factors, that were collected on or before the date of the Encounter. The data comes from the [place] facility where the Encounter took place. Date/Time Smoking Status/Tobacco Use Comment F acility Feb 21, 2020 10:30 AM VA-TOBACCO NEVER USED [facility] [place] [facility] Apr 20, 2018 02:11 PM VA-TOBACCO NEVER USED [facility] [place] [facility] Jan 14, 2017 02:29 PM LIFETIME NON-TOBACCO USER [facility] [place] [facility] August 12, 2010 02:56 PM LIFETIME NON-TOBACCO USER [place] [facility] [place] [facility] Encounter Notes: All associated encounter notes This section contains the clinical notes associated to the Encounter. Date/Time Encounter Note(s) Provider Source Nov 13, 2023 04:12 PM NEUROPSYCHOLOGY NOTE: LOCAL TITLE: [facility] NEUROPSYCHOLOGICAL FOLLOW-UP STANDARD TITLE: NEUROPSYCHOLOGY NOTE DATE OF NOTE: NOV 13, 2023@16:12 ENTRY DATE: NOV 13, 2023@16:12:20 AUTHOR: LAUREANO LIVE COSIGNER: URGENCY: STATUS: COMPLETED Session was conducted via VVC (35 minutes) Patient verbally consents to care via telehealth: Yes Patient confirms location in a safe and private place: Yes Present phone number: Present location/address:Seated in vehicle at home; [address] [place] [address] Emergency contact name and phone number: Pam, The town of the local police is [place], [place] to be contacted in case of an emergency. Emergency Use Only- e911 Instructions Call [phone] to speak with an agentwho can put you in touch with a power plant operators supervisor at the Patient's location. === [place] has verbally consented to telehealth; alternatives for obtaining care through in-person visit and right of refusal at any time have been explained. agreed to services today. === Neuropsychological feedback [...] LIVE Neuropsychologist Signed: 11/13/2023 16:21 LAUREANO LIVE [place] [facility]
--- OUTSIDE RECORDS SUMMARY | 2024-08-12 09:19 | XMS_ITS ---
Author Name [place] Address [address] [place] [address] Care Team Providers Care Applied Biology Professor Name Role Phone KEEGAN RDZ Primary Care [...] BCBS [facility] CE ORGANIZAT ION COH RETIR EMENT Oct 10, 2023 [id number] NANO CROWE PATIENT Selected Encounter This section includes the information on record at [place] for the Encounter. Date/Time Encounter Type Encounter Description Reason Provider Source August 10, 2024 01:30 PM MTMS BY PHARM ADDL 15 MIN [facility] - [place] ICD-10-CM F43.10 Post-traumatic stress disorder, unspecified WOJCIECH KELLY Abner Encounter Template Text not used by [place] Assessments - Encounter Diagnoses This section includes the primary and secondary diagnoses documented for the Encounter. Date/Time Primary/Secondary Diagnosis Diagnosis Name Provider Source August 10, 2024 01:48 PM PRIMARY Post-traumatic stress disorder, unspecified WOJCIECH KELLY [facility] Plan of Treatment: Future Appointments (+ 6 months) and Future Tests (+/- 45 days) The Plan of Treatment section includes future care activities for the patient from all [place] treatmentfacilities. This section includes future appointments and future orders which are active, pending or scheduled. Future Appointments This section includes appointments that were scheduled to occur 6 months from the date of the Encounter, up to a maximum of 20 appointments. The data comes from all [place] treatment facilities. Appointment Date/Time Appointment Type Appointme nt Facility Name Sep 26, 2024 01:00 PM [facility] Jan 30, 2025 09:00 AM [facility] Lab Results: +/- 30 days of the encounter This section includes the Chemistry and Hematology Lab Results on record with [place] for the patient. Radiology Reports and Pathology Reports are provided separately, in subsequent sections. Lab Results This section contains the Chemistry/Hematology Results that were resulted 30 days before or 30 daysafter the date of the Encounter. Date/Time Source Result Type Result - Unit Interpretation Reference Range Specimen Type Comment Aug 02, 2024 10:32 AM [facility] CREATININE (eGFR 2020) SERUM Specimen Type: SERUM No comment entered. Ordering Provider: KEEGAN RDZ Report Released Date/Time: Aug 02, 2024 10:12 AM Reporting Lab: [facility] [address] [facility] [id number] Performing Lab: [facility] [address] [facility] [id number] CREATININE, Serum 1.06 mg/dL 0.72-1.25 eGFR(CKD-EPI 2020) 80 mL/min >60 Aug 02, 2024 10:32 AM [facility] LIVER FUNCTION SERUM Specimen Type: SERUM No comment entered. Ordering Provider: KEEGAN RDZ Report Released Date/Time: Aug 02, 2024 10:12 AM Reporting Lab: [facility] [address] [facility] [address] Performing Lab: [address] [address] PROTEIN,TOTAL 6.8 g/dL 6.4-8.3 ALBUMIN 4.5 g/dL 3.2-4.6 ALKALINE PHOSPHATASE 119 U/L 40-150 AST 29 U/L 5-34 ALT 51 U/L 0-55 BILIRUBIN, TOTAL 0.6 mg/dL 0.2-1.2 Aug 02, 2024 10:32 AM [facility] CBC BLOOD Specimen Type: BLOOD No comment entered. Ordering Provider: KEEGAN RDZ Report Released Date/Time: Aug 02, 2024 10:12 AM Reporting Lab: [facility] [address] [facility] [id number] Performing Lab: [facility] [address] [facility] [address] WBC 4.63 10*3/uL 4.50-11.00 RBC 5.08 10*6/uL 4.23-5.66 HGB 14.9 g/dL 12.8-17 HCT 43.4 39.2-50.4 MCV 85.4 fL 82-99 MCHC 34.3 g/dL 30.8-35.1 PLT 206 10*3/uL 140-360 MPV 10.2 fL 9.2-12.4 RDW-CV 13.2 12.0-16.0 MCH 29.3 pg 26.2-32.6 Social History: Smoking Status (Most current) and [...] Federico ity Jul 28, 2023 08:30 AM [place]-TOBACCO NEVER USED [facility] Tobacco Use History This section includes a history of the smoking, or tobacco-related health factors, that were collected on or before the date of the Encounter. The data comes from the [place] facility where the Encounter took place. Date/Time Smoking Status/Tobacco Use Comment [facility] Feb 21, 2020 10:30 AM VA-TOBACCO NEVER USED [facility] Apr 20, 2018 02:11 PM VA-TOBACCO NEVER USED [facility] [place] [facility] Jan 14, 2017 02:29 PM LIFETIME NON-TOBACCO USER [facility] [place] [facility] August 12, 2010 02:56 PM LIFETIME NON-TOBACCO USER [place] [facility] [place] [facility]
--- OUTSIDE RECORDS SUMMARY | 2024-08-12 09:19 | XMS_ITS | Encounter Summary ---
Author Name [place] Address [address] [place] [address] Care Team Providers Care Web Producer Name Role Phone KEEGAN RDZ Primary Care [...] Goyal's Name Patient's Relationship to Policy Goyal [facility] CE ORGANIZAT ION COH RETIR EMENT Oct 10, 2023 [id number] [phone] NANO CROWE PATIENT Selected Encounter This section includes the information on record at [place] for the Encounter. Date/Time Encounter Type Encounter Description Reason Provider Source Oct 09, 2023 01:00 PM GROUP PSYCHOTHERAPY [facility] ICD-10-CM F43.10 Post-traumatic stress disorder, unspecified LARA CREWS Encounter Template Text not used by [place] Assessments - Encounter Diagnoses This section includes the primary and secondary diagnoses documented for the Encounter. Date/Time Primary/Secondary Diagnosis Diagnosis Name Provider Source Feb 03, 2024 07:58 AM PRIMARY Post-traumatic stress disorder, unspecified ISAIAS GONZALES [facility] Plan of Treatment: Future Appointments (+ 6 months) and Future Tests (+/- 45 days) The Plan of Treatment section includes future care activities for the patient [facility] [place] [facility] This section includes future appointments and future orders which are active, pending or scheduled. Future Appointments This section includes appointments that were scheduled to occur 6 months from the date of the Encounter, up to a maximum of 20 appointments. The data comes from all [facility]. Appointment Date/Time Appointment Type Appointme nt Facility Name Oct 21, 2023 12:30 PM AMBULATORY - PS[facility]IATRY [facility] [place] [facility] Oct 21, 2023 12:30 PM AMBULATORY - NONE [facility] Oct 23, 2023 08:30 AM AMBULATORY - REHAB MEDICIN E [facility] [place] [facility] Oct 23, 2023 01:00 PM AMBULATORY - PSYCHIATRY [facility] [place] [facility] Oct 30, 2023 01:00 PM AMBULATORY - PSYCHIATRY [facility] [place] [facility] Nov 13, 2023 11:00 AM AMBULATORY - MEDICINE [facility] [place] [facility] Nov 13, 2023 12:00 PM AMBULATORY - MEDICINE [facility] [place] [facility] Nov 13, 2023 12:15 PM AMBULATORY - MEDICINE [facility] [place] [facility] Nov 13, 2023 01:00 PM AMBULATORY - PSYCHIATRY [facility] [place] [facility] Nov 13, 2023 03:00 PM AMBULATORY - PSYCHIATRY [facility] [place] [facility] Nov 13, 2023 03:00 PM AMBULATORY - NONE [facility] Nov 20, 2023 01:00 PM AMBULATORY - PSYCHIATRY [facility] [place] [facility] Nov 30, 2023 11:00 AM AMBULATORY - REHAB MEDICIN E [facility] [place] [facility] Dec 04, 2023 01:00 PM AMBULATORY - PSYCHIATRY [facility] [place] [facility] Dec 11, 2023 01:00 PM AMBULATORY - PSYCHIATRY [facility] [place] [facility] Dec 21, 2023 03:00 PM AMBULATORY - PSYCHIATRY [facility] [place] [facility] Dec 22, 2023 10:00 AM AMBULAT[facility] Jan 01, 2024 01:00 PM AMBULATORY - [facility]YCHIATRY [facility] Jan 15, 2024 01:00 PM [facility] Jan 22, 2024 01:00 PM AMBULATORY - PSYCHIATRY [facility] Social History: Smoking Status (Most [...] 28, 2023 08:30 AM VA-TOBACCO NEVER USED [facility] Tobacco Use History This section includes a history of the smoking, or tobacco-related health factors, that were collected on or before the date of the Encounter. The data comes from the [place] facility where the Encounter took place. Date/Time Smoking Status/Tobacco Use Comment F acility Feb 21, 2020 10:30 AM [facility]ACCO [facility] Apr 20, 2018 02:11 PM VA-TOBACCO NEVER USED [facility] Jan 14, 2017 02:29 PM LIFETIME NON-TOBACCO USER [facility] August 12, 2010 02:56 PM LIFETIME NON-TOBACCO USER [facility] Encounter Notes: All associated encounter notes [...] non-[place] location) 's location: Provider confirmed that Smock is currently located at Primary Address [facility] Primary phone number: Confirmed for all participants. Smock has provided verbal consent either today or [...] VMR) once all invited/required attendees were present. Smock identified with 2 identifiers: [X] Patient Name [X] Visual recognition Facilitators: Isaias Gonzales MS PROCEDURE: 60-minute interactive hybrid VVC/F2F group therapy session Problem: Difficulty managing angry feelings without acting in ways Smock regrets Objective: Increase understanding of anger process and ways to effectively intervene so Smock does not act in ways that are [...] be continued in the next group. PROGRESS: arrived on time and was an active and appropriate participant. Smock participated in the mindfulness practices and group discussions. Mental Status was not formally assessed due to the nature of the encounter. maintained appropriate eye contact and was alert. spoke clearly and coherently. 's thoughts were linear and related. Smock's affect was congruent to content and appropriate in range. No clinical signs of intoxication, withdrawal, psychosis, or cognitive impairment were observed. No evidence of suicidal or homicidal ideation. There was no evidence of AH/VH or delusions. Smock was future oriented. DSM-V DIAGNOSTIC IMPRESSIONS(per chart): [...] group supervision meetings. /tanika/ ISAIAS GONZALES M.S.// [employer]// Signed: 10/09/2023 16:13 /tanika/ LARA YANG PSYCHOLOGIST Cosigned: 10/12/2023 12:54 02/02/2024 ADDENDUM STATUS: COMPLETED I have reviewed this case and concur with the clinical impressions and recommendations made by this trainee who is under my clinical supervision. /tanika/ LARA YANG PSYCHOLOGIST Signed: 02/02/2024 16:34 ISAIAS GONZALES [place] [facility]
--- OUTSIDE RECORDS SUMMARY | 2024-08-12 09:19 | XMS_ITS | Encounter Summary ---
Author Name [facility] [place] Address [address] [place] [address] Care Team Providers Care Dump Grader Name Role Phone KEEGAN RDZ Primary Care [...] Goyal's Name Patient's Relationship to Policy Goyal [facility] CE ORGANIZAT ION COH RETIR EMENT Oct 10, 2023 [id number] NANO CROWE PATIENT Selected Encounter This section includes the information on record at [place] for the Encounter. Date/Time Encounter Type Encounter Description Reason Provider Source Nov 13, 2023 03:00 PM NRPSY TST EVAL PHYS/QHP 1ST PSYCHOLOGICAL TESTING ICD-10-CM F32.A Depression, unspecified CALOS,DEANNA LY PAUL Abner Encounter Template Text not used by [place] Assessments - Encounter Diagnoses This section includes the primary and secondary diagnoses documented for the Encounter. Date/Time Primary/Secondary Diagnosis Diagnosis Name Provider Source Nov 13, 2023 04:24 PM PRIMARY Depression, unspecified CALOS,ZAHRAA Y PAUL [facility] Nov 13, 2023 04:24 PM SECONDARY Anxiety disorder, unspecified CALOS,[facility]HRAA Y [facility]UL [facility] Nov 13, 2023 04:24 PM SECONDARY Post-traumatic stress disorder, chronic CALOS,ZAHRAA Y PAUL [facility] Plan of Treatment: Future Appointments (+ 6 months) and Future Tests (+/- 45 days) The Plan of Treatment section includes future care activities for the patient from all [place] [facility]. This section includes future appointments and [...] [facility] [place] [facility] Nov 30, 2023 11:00 AM AMBULATORY - REHAB MEDICIN E [facility] [place] [facility] Dec 04, 2023 01:00 PM AMBULATORY - PSYCHIATRY [facility] [place] [facility] Dec 11, 2023 01:00 PM AMBULATORY - PSYCHIATRY [facility] [place] [facility] Dec 21, 2023 03:00 PM AMBULATORY - PSYCHIATRY [facility] [place] [facility] Dec [...] 21, 2024 03:00 PM AMBULATORY - PSYCHIATRY [facility] [place] [facility] May 04, 2024 03:00 PM AMBULATORY - NONE [facility] [place] [facility] May 09, 2024 03:00 PM AMBULATORY - PSYCHIATRY [facility] [place] [facility] Encounter Notes: All associated encounter notes This section contains the clinical notes associated to the Encounter. Date/Time Encounter Note(s) Provider Source Nov 13, 2023 03:53 PM NEUROPSYCHOLOGY NO TE: LOCAL TITLE: [facility] [address] [facility] NEUROPSYCHOLOGY FOLLOW-UP STANDARD TITLE: NEUROPSYCHOLOGY NOTE DATE OF NOTE: NOV 13, 2023@15:53 ENTRY DATE: NOV 13, 2023@15:53:51 AUTHOR: LAUREANO LIVEIGNER: URGENCY: STATUS: COMPLETED Clinical Service Provided:Neuropsychological Feedback Service Delivery Method: VVC/Ezvq-Aqr-Kzle Primary Diagnosis: MDD, ZORAIDA, PTSD For a complete progress note including summary of feedback encounter, please see the [facility] medical record (accessible through [facility]). Time Expenditure: Neuropsychological Feedback - 35 minutes /tanika/ LAUREANO LIVE Neuropsychologist Signed: 11/13/2023 16:24 LAUREANO LIVE [facility]
--- OUTSIDE RECORDS SUMMARY | 2024-08-12 09:19 | XMS_ITS ---
Author Name [place] Address [address] [place] [address] Care Team Providers Care Merchant Seaman Name Role Phone KEEGAN RDZ Primary Care [...] Goyal's Name Patient's Relationship to Policy [facility]GAN[facility] ION COH RETIR EMENT Oct 10, 2023 [id number] [phone] NANO CROWE PATIENT Selected Encounter This section includes the information on record at [place] for the Encounter. Date/Time Encounter Type Encounter Description Reason Provider Source Mar 21, 2024 03:00 PM MTMS BY PHARM ADDL 15 MIN MENTAL HEALTH CLINIC - IND ICD-10-CM F43.10 Post-traumatic stress disorder, unspecified WOJCIECH DAILY Abner Encounter Template Text not used by [place] Assessments - Encounter Diagnoses This section includes the primary and secondary diagnoses documented for the Encounter. Date/Time Primary/Secondary Diagnosis Diagnosis Name Provider Source Mar 23, 2024 03:47 PM PRIMARY Post-traumatic stress disorder, unspecified WOJCIECH DAILY [place] [facility] [place] [facility] Plan of Treatment: Future Appointments (+ 6 months) and Future Tests (+/- 45 days) The Plan of Treatment section includes future care activities for the patient from all [place] [facility]. This section includes future appointments and future orders which are active, pending or scheduled. Future Appointments This section includes appointments that were scheduled to occur 6 months from the date of the Encounter, up to a maximum of 20 appointments. The data comes from all [place] treatment facilities. Appointment Date/Time Appointment Type Appointme nt Facility Name May 04, 2024 03:00 PM AMBULATORY - NONE [place] [facility] [place] [facility] May 09, 2024 03:00 PM AMBULATORY - PSYCHIATRY [place] [facility] [place] [facility] Jul 20, 2024 10:00 AM AMBULATORY - NONE [place] [facility] [place] [facility] Aug 02, 2024 09:30 AM AMBULATORY - MEDICINE [place] [facility] [place] [facility] August 10, 2024 01:30 PM AMBULATORY - [facility] Social History: Smoking Status (Most [...] 08:30 AM VA[facility]TO[facility]AC[facility] Tobacco Use History This section includes a history of the smoking, or tobacco-related health factors, that were collected on or before the date of the Encounter. The data comes from the [place] facility where the Encounter took place. Date/Time Smoking Status/Tobacco Use Comment F acility Feb 21, 2020 10:30 AM VA-TOBACCO NEVER USED [place] [facility] [place] [facility] Apr 20, 2018 02:11 PM VA-TOBACCO NEVER USED [place] [facility] [place] [facility] Jan 14, 2017 02:29 PM LIFETIME NON-TOBACCO USER [place] [facility] [place] [facility] August 12, 2010 02:56 PM LIFETIME NON-TOBACCO USER [place] [facility] [place] [facility] Encounter Notes: All associated encounter [...] Resources Only: E911 (Emergency Call Relay Center): [phone] National Veterans Crisis Line - 988 then press #1. CW Suicide Coordinator [phone], Ext. [phone]; Back-up Ext. [phone] [place] Police, Eulalia LANDERS [phone] Introduction: Visit is being conducted by [place] [employer]. identified with 2 identifiers: [X] Full Name [X] Date of [ ] [place] ID Card Emergency Plan: confirmed and/or provided the following information in case of emergency or technology failure. PATIENT PHONE - PHONE NUMBER [CELLULAR] - Is patient phone number correct, if not, enter below: [place]'s phone number: NANO CROWE [address], [place], [address] 's present location and address for appointment: At work at [employer] 's emergency contact name and phone number: Pam [phone] [place] reported that location is private and safe: Yes Informed Consent: informed of the risks and benefits of Telehealth video care. [place] has the right to refuse video services. If refuses video visit, a [id number] visit will be scheduled. verbalized consent for [...] ID: 58yo WHITE MALE -=-=-=-=-=-=-=-=-=-=-=-=-=-=- =-=-=-=-=-==-=-=-=-=-=-=-=-=- =-=-=-=-=-=Subjective- [place] was last seen on [id number] with the [...] of kidney 7. Cervical radiculopathy (SNOMED CT 74850874) 8. History of colonoscopy 9. Erectile dysfunction (SNOMED CT 600872272) 10. Essential hypertension 11. Hearing loss (SNOMED CT 21330519) ALLERGIES: Patient has answered NKA Active Outpatient [...] following review of all active psychotropic and ACCOUNT GROUP SUPERVISOR-active agents is to ensure pharmacotherapy is evaluated [...] Other: RTC Interval: every 6-8weeks Next Apt: [id number]@1500 [place] was provided global technical writer's contact information and instructed to contact global technical writer as needed for any changes to scheduling or concerns otherwise. is aware of actions to take if they feel unsafe, including calling the 's Crisis Line (#793); calling 911; or going to the nearest urgent care or emergency room. The is also aware of how to contact the clinic should the require additional services prior to the next appointment. Time spent on chart review, session, and documentation: 30minutes /es/ Corey Daily PharmD Clinical Pharmacist Practitioner Signed: 03/23/2024 16:00 COREY DAILY [facility]
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
--- OUTSIDE RECORDS SUMMARY | 2024-08-12 09:19 | XMS_ITS | Encounter Summary ---
Author Name [place] Address [address] [place] [address] Care Team Providers Care Steel Unloader Name Role Phone KEEGAN RDZ Primary Care [...] Goyal's Name Patient's Relationship to Policy [facility] ION COH RETIR EMENT Oct 10, 2023 [id number] NANO CROWE PATIENT Selected Encounter This section includes the information on record at [place] for the Encounter. Date/Time Encounter Type Encounter Description Reason Provider Source Feb 16, 2024 08:30 AM PSYTX W PT 45 MINUTES MENTAL HEALTH CLINIC - IND ICD-10-CM F43.10 Post-traumatic stress disorder, unspecified ALL [place] Encounter Template Text not used by [place] Assessments - Encounter Diagnoses This section includes the primary and secondary diagnoses documented for the Encounter. Date/Time Primary/Secondary Diagnosis Diagnosis Name Provider Source Feb 16, 2024 09:30 AM PRIMARY Post-traumatic stress disorder, unspecified MAYO WHALEY [facility] Plan of Treatment: Future Appointments (+ 6 months) and Future Tests (+/- 45 days) The Plan of Treatment section includes future care activities for the patient from all [place] [facility]. This section includes future appointments and [...] 19, 2024 01:00 PM AMBULATORY - PSYCHIATRY [place] [facility] [place] [place] [facility] Mar 09, 2024 02:00 PM AMBULATORY - NONE [place] [facility] [facility] Mar 21, 2024 03:00 PM AMBULATORY - PSYCHIATRY [place] [facility] [place] [facility] May 04, 2024 03:00 PM AMBULATORY - NONE [place] [facility] [facility] May 09, 2024 03:00 PM AMBULATORY - PSYCHIATRY [place] [facility] [place] [facility] Jul 20, 2024 10:00 AM AMBULATORY - NONE [place] [facility] [place] [facility] Aug 02, 2024 09:30 AM AMBULATORY - MEDICINE [place] [facility] [place] [facility] August 10, 2024 01:30 PM AMBULATORY - [facility] Social History: Smoking Status (Most [...] Federico ity Jul 28, 2023 08:30 AM [place]-TOBACCO [facility] Tobacco Use History This section includes a history of the smoking, or tobacco-related health factors, that were collected on or before the date of the Encounter. The data comes from the [place] facility where the Encounter took place. Date/Time Smoking Status/Tobacco Use Comment F acility Feb 21, 2020 10:30 AM [place]-TOBACCO NEVER USED [facility] Apr 20, 2018 02:11 PM VA-TOBACCO NEVER USED [place] [facility] [facility] Jan 14, 2017 02:29 PM LIFETIME NON-TOBACCO USER [place] [facility] [facility] August 12, 2010 02:56 PM LIFETIME NON-TOBACCO USER [place] [facility] [facility] Encounter Notes: All associated encounter [...] acting in ways regrets Status: COMPLETED Comments: [place] successfully completed participation in the 12 week Living with Angry Feelings group. [place] discussed next steps in his MH treatment path with a consulting group analyst and expressed agreement and understanding regarding the [...] completing problem. 03/18/2024 (by LAKEISHA SUTTON) Objective: [place] will actively participate weekly in group to [...] interventions, were considered and discussed with the [place]. YES A copy of the treatment plan was given to the [place]. NO Risks, benefits, and potential complications were discussed with the [place]. YES /es/ Lakeisha Sutton, PhD Clinical Psychologist, Mental Health Clinic Signed: 03/18/2024 16:14 LAKEISHA SUTTON [place] [facility] [facility] Feb 16, 2024 01:07 PM MENTAL HEALTH DIAG NOSTIC STUDY NOTE: LOCAL TITLE: MENTAL HEALTH DIAGNOSTIC STUDY STANDARD TITLE: MENTAL HEALTH DIAGNOSTIC STUDY NOTE DATE OF NOTE: FEB 16, 2024@13:07:37 ENTRY DATE: FEB 16, 2024@13:07:37 AUTHOR: LAKEISHA SUTTON EXP COSIGNER: URGENCY: STATUS: COMPLETED Assessments were sent to the [place] via text/email. These assessments were completed by [...] increased risk for using alcohol/drugs: 0 12. Rastafari or spirituality supports recovery: Extremely 13. Days [...] Health Clinic Signed: 02/16/2024 16:51 LAKEISHA SUTTON [place] [facility] [place] [facility] Feb 16, 2024 09:13 AM TELEHEALTH NOTE: LOCAL TITLE: [place] VIDEO CONNECT PSYCHOLOGY NOTE STANDARD TITLE: TELEHEALTH NOTE DATE OF NOTE: FEB 16, 2024@09:13 ENTRY DATE: FEB 16, 2024@09:13:57 AUTHOR: MAYO WHALEY COSIGNER: LAKEISHA SUTTON URGENCY: STATUS: COMPLETED Living With Angry Feelings Group Treatment Planning Appointment [place] Video Connect (clinic to non-[place] location) [place]'s location: Provider confirmed that is currently located at Primary Address listed in [place] Video Connect consult and verified the contact phone number [place] has provided verbal consent either today or previously when seen via VV in mental health. This consent was obtained after a full explanation of the risk and benefits of using telehealth for mental health appointments. Alternatives for obtaining care through an in-person mental health visit and the [place]'s right of refusal at any time during [...] Procedure: The was seen for a 50-minute VVC individual psychotherapy session in [facility] Problem: Difficulty managing angry feelings without acting in ways [place] regrets Objective: Discuss potential next steps following participation the Living with Angry Feelings Group given upcoming graduation on February 19, 2024. Progress: Agreed to meet to discuss [place]'s experience in the group, perception of current needs, and potential next steps following group graduation. Provided feedback regarding self-report measures, sharing graphs and explaining the context. spoke about how the shifts in self-report scores match with his experiences since starting group. [place] reported increase in depressive symptoms due to ongoing chronic pain. [place] reported his primary goal is helping support his daughter. [place] spoke about how the group content has been helpful in his life approximately one third of the time. 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 noted having a difficult time applying knowledge and skills when feeling angry. [place] was encouraged to continue practicing skills in his daily life to help generalize skills for managing angry feelings. [place] spoke about how it has been helpful to have the perspective of both co-facilitators throughout group and expressed his gratitude to telegraphic typewriter mechanic and co-zone manager, Dr. Lakeisha Sutton. [place] considered potential next steps, expressing that he [...] Self Compassion groups within the [facility] (F2F and VVC options) and the F2 [facility] group. expressed desire not to make any decisions right now about group due to unclear availability until approximately April 2024. plans to continue on the waitlist for trauma-focused treatment. Confirmed that [place] will graduate from the Living with Angry Feelings group on Monday, February 19, 2024. [place] expressed satisfaction with this plan and gratitude for this telegraphic typewriter mechanic and for group co-leader Mayo Whaley MS. Assessment: [place] arrived on time for session and was dressed appropriately with appropriate hygiene. maintained appropriate eye contact and was alert. [place] spoke clearly and coherently. Veterans thoughts were linear and related. Veterans affect was congruent to content and appropriate in range. There was no evidence of AH/VH or delusions. There was no evidence of suicidal and homicidal ideation. [place] was reminded of emergency resources through this [...] group supervision meetings. /tanika/ MAYO WHALEY MS Specialist Wound Care Signed: 02/16/2024 09:31 /tanika/ Lakeisha Sutton, PhD Clinical Psychologist, Mental Health Clinic Cosigned: 02/16/2024 11:47 MAYO WHALEY [facility]
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
== END 2024-08-12 09:34 | disposition home or self-care (01) ==
LOC: HO.HMCH 09:04
PROVIDERS: PCP Internal Medicine
DX: S14.14 Brown-Sequard syndrome of cervical spinal cord (principal); M96.1 Postlaminectomy syndrome, not elsewhere classified; M79.2 Neuralgia and neuritis, unspecified; M43.22 Fusion of spine, cervical region; M54.2 Cervicalgia; M25.512 Pain in left shoulder

== ENCOUNTER → 2024-08-12 09:04 | Outpatient (BNVA) | payer BC, SELFPAY | PROVIDERS: PCP Internal Medicine | DX: M96.1 Postlaminectomy syndrome, not elsewhere classified (principal); S14.14 Brown-Sequard syndrome of cervical spinal cord; M79.2 Neuralgia and neuritis, unspecified; M43.22 Fusion of spine, cervical region; M54.2 Cervicalgia; M25.512 Pain in left shoulder | CPT/HCPCS: 96127 ==

== ENCOUNTER 2024-09-03 12:36 | Outpatient (REF) | payer BC, SELFPAY ==
[2024-09-03] MEDS: gadobutroL 10 ML VIAL IVPUSH (14:47)
== END 2024-09-03 12:37 | disposition home or self-care (01) ==
LOC: HO.MRI 12:36
DX: M54.2 Cervicalgia (principal); S14.14 Brown-Sequard syndrome of cervical spinal cord; M54.6 Pain in thoracic spine; M96.1 Postlaminectomy syndrome, not elsewhere classified; M79.2 Neuralgia and neuritis, unspecified; R20.2 Paresthesia of skin; R27.8 Other lack of coordination
CPT/HCPCS: 72156; 72157; A9585

== ENCOUNTER → 2024-09-03 12:45 | Outpatient (BNV) | payer BC, SELFPAY | PROVIDERS: Visit Provider Radiology Diagnostic Radiology | DX: R20.2 Paresthesia of skin (principal) | CPT/HCPCS: 72156 ==

== ENCOUNTER 2024-12-21 08:36 | Outpatient (AMB) | payer BC, SELFPAY ==
[2024-12-21 08:40] VITALS: BP 122/60; PULSE 58; RESP 18; O2SAT 96; BMI 34.4
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
== END 2024-12-21 11:09 | disposition home or self-care (01) ==
LOC: HO.HMCH 08:37
DX: Z00.00 Encounter for general adult medical examination without abnormal findings (principal); I48.0 Paroxysmal atrial fibrillation; I42.8 Other cardiomyopathies; E78.5 Hyperlipidemia, unspecified; M43.22 Fusion of spine, cervical region